=== PATIENT | female | born 1970 | race Caucasian/White ===

== ENCOUNTER 2018-11-22 13:00 | Emergency (ER) | payer OTHER, SELFPAY ==
[2018-11-22 14:29] LABS: Absolute Lymphocytes (CBC) 2.1 K/uL (0.7-4.9); Absolute Monocytes 0.5 K/uL (0.1-1.3); Basophils % 0.5 % (0-1.3); Eosinophils % 0.3 % (0-4.4); Hematocrit 42.6 % (36.0-45.0); Lymphocytes % 26.8 % (15.3-44.8); MPV 8.1 fL (7.6-11.3); Monocytes % 6.9 % (3.3-12.3)
[2018-11-22 14:36] LABS: Protime INR 1.02
[2018-11-22 15:01] LABS: ALT/SGPT 28 U/L (12-78); AST/SGOT 15 U/L (15-37); Albumin 3.9 g/dL (3.4-5.0); Alkaline Phosphatase 89 U/L (45-117); BUN Blood Urea Nitrogen 8 mg/dL (7-18); Bicarbonate 23 mmol/L (21-32); Bilirubin Direct 0.1 mg/dL (0-0.2); Bilirubin Total 0.4 mg/dL (0.2-1.0); Glucose Level 98 mg/dL (74-106); Potassium 3.4 mmol/L (3.5-5.1); Protein, Total 7.3 g/dL (6.4-8.2); Sodium Level 140 mmol/L (136-145)
[2018-11-22 15:08] LABS: Barbiturates NEGATIVE (NEGATIVE); Benzodiazepines NEGATIVE (NEGATIVE); Cocaine NEGATIVE (NEGATIVE); METHAMPHETAM NEGATIVE (NEGATIVE); Methadone NEGATIVE (NEGATIVE); Opiates NEGATIVE (NEGATIVE); Phencyclidine NEGATIVE (NEGATIVE); THC Cannibis NEGATIVE (NEGATIVE)
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
[2018-11-22 18:43] LABS: Urine Blood 2+ (NEG); Urine Glucose 2+ (NEG); Urine Protein NEGATIVE (NEG); Urine pH 5.5 (5.0-7.0)
--- NOTE | 2018-11-23 06:19 | EKG ---
Test Date: 2018-11-22 Test Time: 15:39:[address] Stenographer: MEASUREMENT RESULTS: Intervals: Rate: 65 TN: 134 QRSD: 86 QT: 446 QTc: 463 [place]: P: 13 TN: 134 QRS: 3 T: 64 INTERPRETIVE STATEMENTS: Normal sinus rhythm Normal ECG Compared to ECG 06/11/1998 08:48:00 Sinus tachycardia no longer present T-wave abnormality no longer present Electronically Signed On 11-23-18 06:15:06 CASH MANAGEMENT CLERK by Willie Blakely
== END 2018-11-22 17:15 ==
LOC: ER 13:00
DX: F33.9 Major depressive disorder, recurrent, unspecified (principal)
CPT/HCPCS: 36415; 80048; 80076; 80307; 80320; 80329; 81003; 81025; 85025; 85610; 85730; 93005; 96374; 99285

== ENCOUNTER 2019-02-16 18:41 | Emergency (ER) | payer OTHER ==
--- OUTSIDE RECORDS SUMMARY | 2019-02-16 18:50 | XMS REPORT | Summary of Care ---
:1970 Author Organization [facility] Address [address] [place] [address] Encounter HQ Wei_jacob(FIN) [id number] Date(s): 01/12/19 - 01/12/19 [facility] [address] [place] [address] [phone] Discharge Disposition: Home or Self Care Vital Signs Most recent to oldest [Reference Range]: 1 Height 175.26 cm (01/12/19 3:04 PM) Temperature Oral [96.4-99.1 DegF] 98.3 DegF (01/12/19 3:04 PM) Blood Pressure [90-140/60-90 mmHg] 146/80 mmHg *HI* (01/12/19 3:04 PM) Peripheral Pulse Rate [60-100 bpm] 77 bpm (01/12/19 3:04 PM) Weight 90.455 kg (01/12/19 3:04 PM) Body Mass Index 29.45 m2 (01/12/19 3:04 PM) Problem List Condition Effective Dates Status Health Status Informant Allergy to mold(Confirmed) Resolved Anxiety(Confirmed) Resolved Bipolar 1 disorder(Confirmed) Resolved Hematuria(Confirmed) Resolved Blood in urine(Confirmed) Resolved Meniscus, medial, Resolved derangement(Confirmed) Facial tic(Confirmed) Resolved Gastro-esophageal reflux(Confirmed) Resolved Blood in stool(Confirmed) Resolved Stress incontinence(Confirmed) Resolved Hypothyroid(Confirmed) Resolved Insomnia(Confirmed) Resolved Intentional overdose of drug in Resolved tablet form(Confirmed) Irregular menses(Confirmed) Resolved Low back pain(Confirmed) Resolved Melena(Confirmed) Resolved Insulin resistance(Confirmed) Resolved Mild intermittent acute asthmatic Resolved bronchitis(Confirmed) Over weight(Confirmed) Resolved Colon polyps(Confirmed) Resolved PTSD (post-traumatic stress Resolved disorder)(Confirmed) ACL injury tear(Confirmed) Resolved Allergies, Adverse Reactions, Alerts Substance Reaction Severity Status morphine PROzac Active Fungizone Lotion Active PROzac Active Medications clonazePAM 0.5 mg oral tablet 0.5 mg=1 tab, PO, TID, # 90 tab, 0 Refill(s) Start Date: 01/12/19 Stop Date: 01/13/19 Status: DiscontinuedclonazePAM 0.5 mg oral tablet 0.5 mg=1 tab, PO, Daily, # 30 tab, 0 Refill(s) Start Date: 01/13/19 Stop Date: 02/12/19 Status: OrderedcloNIDine 0.1 mg oral tablet 0.1 mg=1 tab, PO, BID, # 60 tab, 0 Refill(s), Pharmacy: [facility] Start Date: 01/13/19 Stop Date: 02/12/19 Status: OrderedcloNIDine 0.1 mg oral tablet 0.1 mg=1 tab, PO, BID, # 90 tab, 3 Refill(s) Start Date: 01/12/19 Stop Date: 01/13/19 Status: Discontinuedcyclobenzaprine 10 mg oral tablet 10 mg=1 tab, PO, TID, PRN for spasms, X 30 day, # 30 tab, 0 Refill(s), Pharmacy : [facility] Start Date: 01/13/19 Stop Date: 02/12/19 Status: Orderedcyclobenzaprine 10 mg oral tablet 10 mg=1 tab, PO, TID, PRN for spasms, # 30 tab, 0 Refill(s) Start Date: 01/12/19 Stop Date: 01/13/19 Status: Discontinuedoxybutynin 15 mg oral tablet, extended release 15 mg=1 tab, PO, Daily, # 30 tab, 0 Refill(s), Pharmacy: [facility] Start Date: 01/13/19 Stop Date: 02/12/19 Status: Orderedoxybutynin 15 mg oral tablet, extended release 15 mg=1 tab, PO, Daily, # 30 tab, 0 Refill(s) Start Date: 01/12/19 Stop Date: 01/13/19 Status: DiscontinuedPrilosec 20 mg oral delayed release capsule 20 mg=1 cap, PO, Daily, # 30 cap, 0 Refill(s), Pharmacy: [place] [id number] Start Date: 01/13/19 Stop Date: 02/12/19 Status: OrderedPrilosec 20 mg oral delayed release capsule 20 mg=1 cap, PO, Daily, # 30 cap, 0 Refill(s) Start Date: 01/12/19 Stop Date: 01/13/19 Status: Discontinuedtopiramate 100 mg oral tablet 100 mg=1 tab, PO, Daily, # 30 tab, 0 Refill(s), Pharmacy: [place] [id number] Start Date: 01/13/19 Stop Date: 02/12/19 Status: Orderedtopiramate 100 mg oral tablet 100 mg=1 tab, PO, Daily, # 30 tab, 3 Refill(s) Start Date: 01/12/19 Stop Date: 01/13/19 Status: Discontinuedtrazodone 50 mg oral tablet 50 mg=1 tab, PO, Bedtime, # 30 tab, 0 Refill(s), Pharmacy: [place] [id number] Start Date: 01/13/19 Stop Date: 02/12/19 Status: Orderedtrazodone 50 mg oral tablet 50 mg=1 tab, PO, Bedtime, # 30 tab, 1 Refill(s) Start Date: 01/12/19 Stop Date: 01/13/19 Status: DiscontinuedVentolin HFA INHALATION, QID, 0 Refill(s) Start Date: 01/12/19 Stop Date: 01/13/19 Status: DiscontinuedVentolin HFA 90 mcg/inh inhalation aerosol with adapter 2 puff, INHALATION, QID, # 1 ea, 1 Refill(s), Pharmacy: [place] [id number] Start Date: 01/13/19 Stop Date: 03/14/19 Status: Orderedvilazodone 40 mg oral tablet 40 mg=1 tab, PO, Daily, 0 Refill(s) Start Date: 01/12/19 Stop Date: 01/13/19 Status: Discontinuedvilazodone 40 mg oral tablet 40 mg=1 tab, PO, Daily, # 30 tab, 0 Refill(s), Pharmacy: [place] [id number] Start Date: 01/13/19 Stop Date: 02/12/19 Status: Ordered Results No data available for this section Immunizations No data available for this section Procedures Procedure Date Related Diagnosis Body Site Status Colonoscopy Completed Endoscopic biopsy Completed Removal of cystostomy tube Completed Tubal ligation Completed Social History Social History Type Response Smoking Status Current every day smoker; Type: Cigarettes; Exposure to Tobacco Smoke None; Cigarette Smoking Last 365 Days Yes; Reg Smoking Cessation Counseling Yes; Started at age: 14.0; entered on: 01/12/19 Assessment and Plan No data available for this section
--- OUTSIDE RECORDS SUMMARY | 2019-02-16 18:50 | XMS REPORT | Continuity of Care Document ---
:1970 Author Organization Interface Problems Problem Status Onset Classification Date Comments Source Date Reported Allergy to mold Resolved Problem 01/28/2019 Medical Group Anxiety Resolved Problem 01/28/2019 Medical Group Bipolar 1 Resolved Problem 01/28/2019 Medical disorder Group Hematuria Resolved Problem 01/28/2019 Medical Group Blood in urine Resolved Problem 01/28/2019 Medical Group Meniscus, Resolved Problem 01/28/2019 Medical medial, Group derangement Facial tic Resolved Problem 01/28/2019 Medical Group Gastro-esophagea Resolved Problem 01/28/2019 Medical l reflux Group Blood in stool Resolved Problem 01/28/2019 Medical Group Stress Resolved Problem 01/28/2019 Medical incontinence Group Hypothyroid Resolved Problem 01/28/2019 Medical Group Insomnia Resolved Problem 01/28/2019 Medical Group Intentional Resolved Problem 01/28/2019 Medical overdose of drug Group in tablet form Irregular menses Resolved Problem 01/28/2019 Medical Group Low back pain Resolved Problem 01/28/2019 Medical Group Melena Resolved Problem 01/28/2019 Medical Group Insulin Resolved Problem 01/28/2019 Medical resistance Group Mild Resolved Problem 01/28/2019 Medical intermittent Group acute asthmatic bronchitis Over weight Resolved Problem 01/28/2019 Medical Group Colon polyps Resolved Problem 01/28/2019 Medical Group PTSD (<span Resolved Problem 01/28/2019 Medical ID="[id number] Group ">Confirmed</spa n>) ACL injury tear Resolved Problem 01/28/2019 Medical Group Medications Medication Details Route Status Patient Ordering Order Source Instructions Provider Date vilazodone 40 mg 40 mg=1 Active oral tablet tab, PO, 019 Medical Daily, # 30 Group tab, 0 Refill(s), Pharmacy: [id number] Trazodone 50 mg=1 Active Hydrochloride 50 tab, PO, 019 Medical MG Oral Tablet Bedtime, # Group 30 tab, 0 Refill(s), Pharmacy: [facility] topiramate 100 mg 100 mg=1 Active MH oral tablet tab, PO, 019 Medical Daily, # 30 Group tab, 0 Refill(s), Pharmacy: [facility] oxybutynin 15 mg 15 mg=1 Active MH oral tablet, tab, PO, 019 Medical extended release Daily, # 30 Group tab, 0 Refill(s), Pharmacy: [facility] Omeprazole 20 MG 20 mg=1 Active MH Enteric Coated cap, PO, 019 Medical Capsule [Prilosec] Daily, # 30 Group cap, 0 Refill(s), Pharmacy: [facility] cyclobenzaprine 10 10 mg=1 Active MH mg oral tablet tab, PO, 019 Medical TID, PRN Group for spasms, X 30 day, # 30 tab, 0 Refill(s), Pharmacy: [facility] Clonidine 0.1 mg=1 Active Hydrochloride 0.1 tab, PO, 019 Medical MG Oral Tablet BID, # 60 Group tab, 0 Refill(s), Pharmacy: [facility] clonazePAM 0.5 mg 0.5 mg=1 Active MH oral tablet tab, PO, 019 Medical Daily, # 30 Group tab, 0 Refill(s) Ventolin HFA 90 2 puff, Active MH mcg/inh inhalation INHALATION, 019 Medical aerosol with QID, # 1 Group adapter ea, 1 Refill(s), Pharmacy: [facility] clonazePAM 0.5 mg 0.5 mg=1 No MH oral tablet tab, PO, Longer 019 Medical TID, # 90 Active Group tab, 0 Refill(s) vilazodone 40 mg 40 mg=1 No MH oral tablet tab, PO, Longer 019 Medical Daily, 0 Active Group Refill(s) Clonidine 0.1 mg=1 No MH Hydrochloride 0.1 tab, PO, Longer 019 Medical MG Oral Tablet BID, # 90 Active Group tab, 3 Refill(s) topiramate 100 mg 100 mg=1 No MH oral tablet tab, PO, Longer 019 Medical Daily, # 30 Active Group tab, 3 Refill(s) Ventolin HFA INHALATION, No 03/25/2 QID, 0 Longer 019 Medical Refill(s) Active Group oxybutynin 15 mg 15 mg=1 No oral tablet, tab, PO, Longer 019 Medical extended release Daily, # 30 Active Group tab, 0 Refill(s) Omeprazole 20 MG 20 mg=1 No Enteric Coated cap, PO, Longer 019 Medical Capsule [Prilosec] Daily, # 30 Active Group cap, 0 Refill(s) Trazodone 50 mg=1 No Hydrochloride 50 tab, PO, Longer 019 Medical MG Oral Tablet Bedtime, # Active Group 30 tab, 1 Refill(s) cyclobenzaprine 10 10 mg=1 No mg oral tablet tab, PO, Longer 019 Medical TID, PRN Active Group for spasms, # 30 tab, 0 Refill(s) Allergies, Adverse Reactions, Alerts Substance Category Reaction Severity Reaction Status Date Comments Source type Reported morphine Assertion PROzac Drug Active allergy Medical Group Fungizone Assertion Drug Active Lotion allergy Medical Group PROzac Assertion Drug Active allergy Medical Group Immunizations Immunization Date Given Site Status Last Updated Comments Source Results Order Results Value Reference Date Interpretation Comments Source Name Range Vital Signs Vital Sign Value Date Comments Source Temperature Oral (F) 98.3 F 01/12/2019 Medical [facility] Height 175.26 cm 01/12/2019 Medical [facility] BMI Calculated 29.45 01/12/2019 Medical [facility] Weight 90.455 01/12/2019 [facility] Heart Rate 77 01/12/2019 Medical [facility] Systolic (mm Hg) 146 01/12/2019 Medical [facility] Diastolic (mm Hg) 80 01/12/2019 Medical [facility] Encounters Location Location Encounter Encounter Reason Attending ADM DC Status Source Details Type Number For Provider Date Date Visit Outpatient [id number] 01/12 [facility] Outpatient [id number] 01/12 01/13 [facility] /2018 Medical [facility] Outpatient [id number] 01/26 [facility] Ambulatory [id number] 01/26 01/26 [facility]-Reg /2018 Medical Medicine [facility] Procedures Procedure Code Date Perfomer Comments Source Colonoscopy [id number] Medical Group Endoscopic biopsy [id number] Medical Group Removal of [id number] [facility] cystostomy tube Group Tubal ligation [id number] [facility]
--- OUTSIDE RECORDS SUMMARY | 2019-02-16 18:50 | XMS REPORT | Summary of Care ---
:1970 Author Organization [facility] Address [address] [place] [address]- Encounter HQ Stonentr_jacob(FIN) [id number] Date(s): 01/26/19 - 01/26/19 [facility] [address] [place] [id number]- [phone] Vital Signs No data available for this section Problem List Condition Effective Dates Status Health [...] Active Fungizone Lotion Active PROzac Active Medications No data available for this section Results No data available for this section [...]
--- OUTSIDE RECORDS SUMMARY | 2019-02-16 18:50 | XMS REPORT ---
:1970 Author Organization [facility] Address [address] [place] [address] Dr. Dela Cruz [address] [place] [id number] Care Team Providers Name Role Phone DR OLGA DANIEL Unavailable Unavailable Problems This patient has no known problems. Allergies, Adverse Reactions, Alerts This patient has no known allergies or adverse reactions. Medications This patient has no known medications. Encounters Start End Encounter Admission Attending Care Care Encounter Date/Time Date/Time Type Type Clinicians Facility Department ID 2019-01-27 2019-01-27 Outpatient E DEVONTE DANIEL [facility] [id number] 20:10:00 22:20:00 [facility] Results Test Description Test Time Test Comments Text Results Atomic Results Result Comments XR SPINE LUMBAR 2019-01-27 21:23:46 LOCATION: [id number]: 49-year-old female COMPLETE *OW* with acute low back pain.COMMENT:Frontal, lateral, and L5-S1 spot lateral radiographs of the lumbar spine wereexamined.The skeleton is intact and the alignment is anatomic.There is moderate disc space narrowing centered at the L5-S1 level. Posteriorfacet arthropathy is also seen at this level. The paraspinous soft tissues areunremarkable.IMPRESSION:Moderate disc space narrowing is seen in this patient's lumbar spine,compatible with degenerative disc disease.Otherwise, the appearance of this patient's lumbar spine is unremarkable.
[2019-02-16] MEDS ORDERED: LIDOCAINE VISCOUS 2% SOLN 15 ML UDC ONE (19:15)
[2019-02-16] MEDS ORDERED: LORazepam 2 MG/ML VIAL ONE (19:23)
[2019-02-16] MEDS ORDERED: FLEET ENEMA ADULT PR ONE (19:40)
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
--- NOTE | 2019-02-16 19:52 | EDPHYS ---
Physician Documentation [facility] Name: Kenzie Cartwright Age: 49 yrs Sex: Female : 1970 Arrival Date: 02/16/2019 Time: 18:44 Bed 6 Private MD: ED Physician Carlos Alberto Garay HPI: 02/16 20:14 This 49 yrs old Female presents to ER via EMS with complaints of Rectal Pain. gs 20:14 The patient presents to the emergency department with pain in the rectal area, that is gs severe. Onset: The symptoms/episode began/occurred today. Context: the patient impaction constipation. Modifying factors: The symptoms are aggravated by bowel movement. Associate signs and symptoms: Pertinent negatives: dysuria, fever, lower GI bleeding. The patient has experienced similar episodes in the past, several times. Historical: - Allergies: 18:48 Chantix; hb 18:48 Contrave; hb 18:48 mushrooms; hb 18:48 SHELLFISH; hb 18:48 Wellbutrin; hb 18:48 Demerol; hb - PMHx: 18:48 Bipolar disorder; Depression; overactive bladder; hb - Immunization history:: Adult Immunizations up to date. - Social history:: Smoking status: Patient/guardian denies using tobacco. - Ebola Screening: : No symptoms or risks identified at this time. ROS: 20:14 All other systems are negative. gs Exam: 20:14 Head/Face: Normocephalic, atraumatic. Eyes: Pupils equal round and reactive to light, gs extra-ocular motions intact. Lids and lashes normal. Conjunctiva and sclera are non-icteric and not injected. Cornea within normal limits. Periorbital areas with no swelling, redness, or edema. ENT: Nares patent. No nasal discharge, no septal abnormalities noted. Tympanic membranes are normal and external auditory canals are clear. Oropharynx with no redness, swelling, or masses, exudates, or evidence of obstruction, uvula midline. Mucous membranes moist. Neck: Trachea midline, no thyromegaly or masses palpated, and no cervical lymphadenopathy. Supple, full range of motion without nuchal rigidity, or vertebral point tenderness. No Meningismus. Chest/axilla: Normal chest wall appearance and motion. Nontender with no deformity. No lesions are appreciated. Respiratory: Lungs have equal breath sounds bilaterally, clear to auscultation and percussion. No rales, rhonchi or wheezes noted. No increased work of breathing, no retractions or nasal flaring. Abdomen/GI: Soft, non-tender, with normal bowel sounds. No distension or tympany. No guarding or rebound. No evidence of tenderness throughout. Back: No spinal tenderness. No costovertebral tenderness. Full range of motion. Skin: Warm, dry with normal turgor. Normal color with no rashes, no lesions, and no evidence of cellulitis. MS/ Extremity: Pulses equal, no cyanosis. Neurovascular intact. Full, normal range of motion. Neuro: Awake and alert, GCS 15, oriented to person, place, time, and situation. Cranial nerves II-XII grossly intact. Motor strength 5/5 in all extremities. Sensory grossly intact. Cerebellar exam normal. Normal gait. 20:14 Constitutional: The patient appears alert, awake, uncomfortable. 20:14 Cardiovascular: Rate: tachycardic, Rhythm: regular, Pulses: no pulse deficits are appreciated. 20:14 Abdomen/GI: Rectal exam: hemorrhoid(s), external, without bleeding, fecal impaction, that is moderate, the exam is chaperoned by an icu tech. Vital Signs: 18:45 BP 134 / 84; Pulse 107; Resp 18; Temp 98.2; Pulse Ox 100% on R/A; Pain 10/10; hb 20:03 BP 142 / 97; Pulse 105; Resp 20; Pulse Ox 97% on R/A; tl2 Procedures: 21:00 Fecal disimpaction: digital disimpaction was performed, with a moderate amount of stool gs expressed. The patient tolerated the intervention well. MDM: 19:26 Patient medically screened. gs 20:14 Data reviewed: vital signs, nurses notes. 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 Response to treatment: the patient's symptoms have markedly improved after treatment, the patient's condition has returned to base line, and as a result, I will discharge patient. Administered Medications: 19:15 Drug: Ativan 1 mg Route: IVP; Site: right antecubital; tl2 20:07 Follow up: Response: No adverse reaction; Anxiety decreased tl2 19:40 Drug: Fleet Enema 133 ml Route: ND; tl2 20:07 Follow up: Response: No adverse reaction; Marked relief of symptoms tl2 Disposition: 02/16/19 19:52 Discharged to Home. Impression: Fecal impaction, Constipation. - Condition is Stable. - Discharge Instructions: Constipation, Adult, [id number], Fecal Impaction. - Medication Reconciliation Form, Thank You Letter, Antibiotic Education, Prescription Opioid Use form. - Follow up: Private Physician; When: 1 - 2 days; Reason: Re-evaluation by your physician. Signatures: Che Varela RN RN Eleanor Dias RN RN 2 Carlos Alberto Garay MD MD Corrections: (The following items were deleted from the chart) 20:07 19:52 02/16/2019 19:52 Discharged to Home. Impression: Fecal impaction; Constipation. tl2 Condition is Stable. Forms are Medication Reconciliation Form, Thank You Letter, Antibiotic Education, Prescription Opioid Use. Follow up: Private Physician; When: 1 - 2 days; Reason: Re-evaluation by your physician. gs
== END 2019-02-16 20:07 | disposition home or self-care (01) ==
LOC: ER 18:41
DX: K56.41 Fecal impaction (principal); Z88.5 Allergy status to narcotic agent; Z88.8 Allergy status to other drugs, medicaments and biological substances; Z91.013 Allergy to seafood
CPT/HCPCS: 96374; 99283

== ENCOUNTER 2020-02-16 10:02 | Emergency (ER) | payer OTHER ==
--- OUTSIDE RECORDS SUMMARY | 2020-02-16 10:05 | XMS REPORT ---
:1970 Author Organization [facility] t Address [address] [place] [address] Care Team Providers Name Role Phone DR Jannie DANIEL Unavailable Unavailable Problems This patient has no known problems. Allergies, Adverse Reactions, Alerts This patient has no known allergies or adverse reactions. Medications This patient has no known medications. Encounters Start End Encounter Admission Attending Care Care Encounter Date/Time Date/Time Type Type Clinicians Facility Department ID 2019-01-27 2019-01-27 Outpatient E DEVONTE DANIEL [facility] [id number] 20:10:00 22:20:00 [facility] Results Test Description Test Time Test Comments Text Results Atomic Results Result Comments XR SPINE LUMBAR 2019-01-27 21:23:46 LOCATION: [id number] RY: 49-year-old female COMPLETE *OW* with acute low back pain.CO MMENT:Frontal, lateral, and L5-S1 spot late ral radiographs of the lumbar spine wereexam ined.The skeleton is intact and the a lignment is anatomic.There is moderate d isc space narrowing centered at the L5 -S1 level. Posteriorfacet arthropathy i s also seen at this level. The paraspinous soft tissues areunremarkable.IMPRESSION:M oderate disc space narrowing is seen in t his patient's lumbar spine,compatible with degenerative disc disease.Otherwise, the appearance of this patient's lumbar spine is unremarkable.
[2020-02-16 10:41] LABS: Absolute Lymphocytes (CBC) 2.4 K/uL (0.7-4.9); Hematocrit 46.6 % (36.0-45.0); Lymphocytes % 37.9 % (15.3-44.8); MPV 8.3 fL (7.6-11.3); RBC Red Blood Cell Count 5.13 M/uL (3.86-4.86)
[2020-02-16 10:49] LABS: Urine Blood 2+ (NEG); Urine Glucose 3+ (NEG); Urine Protein NEGATIVE (NEG); Urine Specific Gravity 1.025 (1.005-1.030); Urine pH 5.5 (5.0-7.0)
[2020-02-16 10:55] LABS: Potassium 3.3 mmol/L (3.5-5.1)
--- NOTE | 2020-02-16 10:56 | RAD REPORT ---
EXAM DESCRIPTION: CT - Stone Protocol - 02/16/2020 10:38 am CLINICAL HISTORY: flank pain, hematuria, hx of kidney stones COMPARISON: No comparisons TECHNIQUE: Axial 5 mm thick images were obtained without oral or IV contrast. The [id number] span s the entirety of the system including uppermost abdomen and lung bases. All CT scans are performed using dose optimization technique as appropriate and may include automated exposure control or mA/KV adjustment according to patient size. FINDINGS: No hydronephrosis is present and no obstructing ureteral calculi. No nonobstructing calcul i present. No suspicious renal masses. Isodense masses and pyelonephritis are not excluded on a stone protocol CT scan. No significant adrenal finding. Urinary bladder is fully contracted. No bladder ca lculi seen. Multiple phleboliths are seen along the pelvic floor. No uterine or right ovarian abnormality. Left ovary contains a 2.9 centimeter cyst. No cyst rupture o r hemorrhage findings. Imaged portions of the liver, spleen and pancreas show no suspicious findings on non-contrast imaging . No gallbladder or biliary tree abnormality identified. No suspicious bowel findings. Appendix is normal. No hernia, mass or bulky lymphadenopathy noted. No free air, free fluid or inflammatory stranding. No significant bony abnormality. L5-S1 disc space narrowing and degenerative gas present. IMPRESSION: No hydronephrosis, obstructing calculus or acute finding. Isodense masses and pyelonephritis are not excluded on stone protocol technique. A 2.9 centimeter left ovarian cyst is present without rupture or hemorrhage findings. No active process identifiable.
--- NOTE | 2020-02-16 11:16 | ER ---
Nurse's Notes [facility] Name: Kenzie Cartwright Age: 50 yrs Sex: Female : 1970 Arrival Date: 02/16/2020 Time: 10:05 Bed 5 Private MD: Diagnosis: Hematuria, unspecified;Dehydration Presentation: 02/15 10:18 Chief complaint: Patient states: bilateral flank pain x 1 week with blood in the urine, jl7 denies burning/pain with urination. Coronavirus screen: Proceed with normal triage. Patient denies a cough. Patient denies shortness of breath or difficulty breathing. Patient denies measured and/or subjective temperature greater than 100.4F prior to today's visit. Patient denies travel on a cruise ship or to a country the [facility] currently lists as an affected area. Patient denies contact with known and/or suspected case of COVID-19. Ebola Screen: No symptoms or risks identified at this time. Initial Sepsis Screen: Does the patient meet any 2 criteria? No. Patient's initial sepsis screen is negative. Does the patient have a suspected source of infection? No. Patient's initial sepsis screen is negative. Risk Assessment: Do you want to hurt yourself or someone else? Patient reports no desire to harm self or others. Onset of symptoms was February 09, 2020. Care prior to arrival: None. 10:18 Method Of Arrival: Ambulatory jl7 10:18 Acuity: ERICA 3 jl7 Triage Assessment: 10:21 General: Appears in no apparent distress. uncomfortable, Behavior is calm, cooperative, jl7 appropriate for age. Pain: Complains of pain in bilateral flank Pain currently is 5 out of 10 on a pain scale. Neuro: Level of Consciousness is awake, alert, obeys commands, Oriented to person, place, time, situation. Cardiovascular: Patient's skin is warm and dry. Respiratory: Airway is patent Respiratory effort is even, unlabored, Respiratory pattern is regular, symmetrical. GI: Abdomen is round non-distended, Reports nausea, Patient currently denies constipation, diarrhea, vomiting. : Reports pain in bilateral flank(s), blood in urine. Derm: Skin is pink, warm \T\ dry. 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 - Social history:: Smoking status: Patient reports the use of cigarette tobacco products, smokes one pack cigarettes per day. - Family history:: not pertinent. - Hospitalizations: : No recent hospitalization is reported. Screenin:22 Abuse screen: Denies threats or abuse. Denies injuries from another. Nutritional jl7 screening: No deficits noted. Tuberculosis screening: No symptoms or risk factors identified. Fall Risk IV access (20 points). Total Cedeno Fall Scale indicates No Risk (0-24 pts). Vital Signs: 10:18 BP 154 / 96; Pulse 83; Resp 17 S; Temp 97.6(O); Pulse Ox 98% on R/A; Pain 5/10; jl7 11:13 BP 141 / 86; Pulse 73; Resp 16; Pulse Ox 98% ; sv ED Course: 10:05 Patient arrived in ED. as 10:07 Olga Leonard, RN is Primary Nurse. jl7 10:08 Deejay Miranda MD is Attending Physician. rn 10:20 Triage completed. jl7 10:21 Arm band placed on right wrist. jl7 10:22 Patient has correct armband on for positive identification. Bed in low position. Call jl7 light in reach. Side rails up X 1. Pulse ox on. NIBP on. 10:28 Initial lab(s) drawn, by nc, sent to lab. Inserted saline lock: 20 gauge in right kj1 antecubital area, using aseptic technique. Blood collected. 10:28 Urine collected: clean catch specimen, cloudy, Amount Voided: 80mL. kj1 10:38 CT Stone Protocol In Process Unspecified. EDMS 11:19 Willis Noble MD is Referral Physician. rn 11:22 No provider procedures requiring assistance completed. IV discontinued, intact, sv bleeding controlled, No redness/swelling at site. Pressure dressing applied. Administered Medications: No medications were administered Outcome: :15 Discharge ordered by . rn 11:25 Discharged to home ambulatory. jlElsie 11: Condition: stable 11:25 Discharge instructions given to patient, Instructed on discharge instructions, follow up and referral plans. Demonstrated understanding of instructions, follow-up care. 11:25 Patient left the ED. jefferson Signatures: Dispatcher [employer] EDAna Griffin RN RN sv Martinez, Amelia as Nieto, Roman, MD MD rn Leal, Jahala, RN RN jl7 Jackson, Kandis kj1
--- NOTE | 2020-02-16 11:16 | EDPHYS ---
Physician Documentation [facility] Name: Kenzie Cartwright Age: 50 yrs Sex: Female : 1970 Arrival Date: 02/16/2020 Time: 10:05 Bed 5 Private MD: ED Physician Deejay Miranda HPI: 02/15 10:23 This 50 yrs old Female presents to ER via Ambulatory with complaints of rn Possible Kidney Stone. 10:23 The patient complains of pain in the left low back and right low back. The pain does rn not radiate. 10:23 Onset: The symptoms/episode began/occurred 1 week(s) ago. Modifying factors: The rn symptoms are alleviated by nothing. the symptoms are aggravated by nothing. Severity of pain: At its worst the pain was mild in the emergency department the pain is unchanged. The patient has experienced a previous episode. Reports hx of kidney stone in past, similar pain in bilateral flanks for 1 week assoc with darker urine, thinks may have blood in it. No trauma. No recent medication change. . 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 - Social history:: Smoking status: Patient reports the use of cigarette tobacco products, smokes one pack cigarettes per day. - Family history:: not pertinent. - Hospitalizations: : No recent hospitalization is reported. ROS: 10:23 Constitutional: Negative for fever, chills, and weight loss, Cardiovascular: Negative rn for chest pain, palpitations, and edema, Respiratory: Negative for shortness of breath, cough, wheezing, and pleuritic chest pain, Abdomen/GI: Negative for abdominal pain, nausea, vomiting, diarrhea, and constipation, Back: + bilateral flank pain : + dark urine, + possible hematuria MS/Extremity: Negative for injury and deformity, Skin: Negative for injury, rash, and discoloration, Neuro: Negative for headache, weakness, numbness, tingling, and seizure. Exam: 10:23 Constitutional: This is a well developed, well nourished patient who is awake, alert, rn and in no acute distress. Ambulatory to room without difficulty or assistance. ENT: MMM Cardiovascular: Regular rate and rhythm. No pulse deficits. Respiratory: Speaking full sentences. No increased work of breathing, no retractions or nasal flaring. Abdomen/GI: soft, non-tender Back: No spinal tenderness. No costovertebral tenderness. Full range of motion. Skin: Warm, dry MS/ Extremity: Pulses equal, no cyanosis. Vital Signs: 10:18 BP 154 / 96; Pulse 83; Resp 17 S; Temp 97.6(O); Pulse Ox 98% on R/A; Pain 5/10; jl7 11:13 BP 141 / 86; Pulse 73; Resp 16; Pulse Ox 98% ; sv MDM: 10:08 Patient medically screened. rn 11:13 Differential diagnosis: nephrolithiasis, pyelonephritis, UTI. Data reviewed: vital rn signs, nurses notes, lab test result(s), radiologic studies, and as a result, I will discharge patient. Counseling: I had a detailed discussion with the patient and/or guardian regarding: the historical points, exam findings, and any diagnostic results supporting the discharge/admit diagnosis, lab results, radiology results, the need for outpatient follow up, to return to the emergency department if symptoms worsen or persist or if there are any questions or concerns that arise at home. Response to treatment: There is no appreciated change of the patient's symptoms at this time, and as a result, I will discharge patient. Special discussion: I discussed with the patient/guardian in detail that at this point there is no indication for admission to the hospital. It is understood, however, that if the symptoms persist or worsen the patient needs to return immediately for re-evaluation. Based on the history and exam findings, there is no indication for further emergent testing or inpatient evaluation. I discussed with the patient/guardian the need to see the primary care provider for further evaluation of the symptoms. I discussed with the patient/guardian the need to see the urologist for further evaluation of the symptoms. nephrology. ED course: Pt without acute findings on blood or ct. Had small left ovarian cyst, patient states multiple w/u in past for ovarian cysts and problems, often rupture, today not ruptured. also has had urological w/u including scope to evaluate chronic hematuria without clear etiology. Will dc home with pcp and nephrology f/u. . 02/15 10:21 Order name: CBC with Diff; Complete Time: 11:04 rn 02/15 10:21 Order name: Basic Metabolic Panel; Complete Time: 11:04 rn 02/15 10:21 Order name: Urine Microscopic Only rn 02/15 10:21 Order name: CT Stone Protocol; Complete Time: 11:04 rn 02/15 10:45 Order name: Urine Dipstick--Ancillary (enter results); Complete Time: 11:04 em1 02/15 10:45 Order name: Urine --Ancillary (enter results); Complete Time: 11: [facility] 02/15 10:21 Order name: IV Start; Complete Time: 10:31 rn 02/15 10:21 Order name: Urine Dipstick-Ancillary (obtain specimen); Complete Time: 10:43 rn Administered Medications: No medications were administered Disposition: 02/16/20 11:15 Discharged to Home. Impression: Hematuria, unspecified, Dehydration. - Condition is Stable. - Discharge Instructions: Dehydration, Adult, Hematuria, Adult, Ovarian Cyst. - Medication Reconciliation Form, Thank You Letter, Antibiotic Education, Prescription Opioid Use form. - Follow up: Private Physician; When: As needed; Reason: Recheck today's complaints, Re-evaluation by your physician. Follow up: Willis Noble MD; When: As needed; Reason: Recheck today's complaints, Re-evaluation by your physician. - Problem is an ongoing problem. - Symptoms are unchanged. Signatures: Dispatcher [employer] EDDeejay Sinclair MD MD rn Leal, Jahala, RN RN jl7 Corrections: (The following items were deleted from the chart) 11:19 11:15 02/16/2020 11:15 Discharged to Home. Impression: Hematuria, unspecified; rn Dehydration. Condition is Stable. Forms are Medication Reconciliation Form, Thank You Letter, Antibiotic Education, Prescription Opioid Use. Follow up: Private Physician; When: As needed; Reason: Recheck today's complaints, Re-evaluation by your physician. Problem is an ongoing problem. Symptoms are unchanged. rn 11:25 11:19 02/16/2020 11:15 Discharged to Home. Impression: Hematuria, unspecified; jl7 Dehydration. Condition is Stable. Discharge Instructions: Dehydration, Adult, Hematuria, Adult, Ovarian Cyst. Forms are Medication Reconciliation Form, Thank You Letter, Antibiotic Education, Prescription Opioid Use. Follow up: Private Physician; When: As needed; Reason: Recheck today's complaints, Re-evaluation by your physician. Follow up: Willis Noble; When: As needed; Reason: Recheck today's complaints, Re-evaluation by your physician. Problem is an ongoing problem. Symptoms are unchanged. rn
[2020-02-16 11:41] VITALS: TEMP 97.6; O2SAT 98
[2020-02-16 11:42] VITALS: BP 141/86
[2020-02-16 12:40] LABS: Urine Bacteria <20 /HPF (<20); Urine Culture Reflex Order NOT NEEDED; Urine Mucus SLIGHT /HPF (NONE SEEN); Urine RBC <5 /HPF (NONE SEEN)
== END 2020-02-16 11:25 | disposition home or self-care (01) ==
LOC: ER 10:02
DX: R31.9 Hematuria, unspecified (principal); E86.0 Dehydration; F17.210 Nicotine dependence, cigarettes, uncomplicated; F31.9 Bipolar disorder, unspecified; Z88.5 Allergy status to narcotic agent; Z88.8 Allergy status to other drugs, medicaments and biological substances; Z91.013 Allergy to seafood; Z91.018 Allergy to other foods
CPT/HCPCS: 36415; 74176; 76377; 80048; 81003; 81015; 81025; 85025; 99284

== ENCOUNTER 2020-09-05 09:52 | Emergency (ER) | payer OTHER ==
[2020-09-05] MEDS ORDERED: dexAMETHasone 4 MG/ML VIAL ONE (10:45)
[2020-09-05] MEDS ORDERED: LEVALBUTEROL 1.25 MG/3 ML NEB ONE (10:46)
[2020-09-05 11:23] LABS: Absolute Lymphocytes (CBC) 2.2 K/uL (0.7-4.9); Basophils % 0.6 % (0-1.3); Lymphocytes % 34.8 % (15.3-44.8); MPV 8.9 fL (7.6-11.3); RBC Red Blood Cell Count 5.03 M/uL (3.86-4.86)
--- OUTSIDE RECORDS SUMMARY | 2020-09-05 11:27 | XMS REPORT | Continuity of Care Document ---
:1970 Author Organization [facility] Care Team Providers Name Role Phone [facility] Unavailable Un available Problems Problem Status Onset Classification Date Comments Sourc e Date Reported Allergy to mold Resolved Problem 01/28/2019 [facility]order[facility] Anxiety (finding) Resolved Problem 01/28/2019 [facility] Bipolar I disorder Resolved Problem 01/28/2019 [facility]disorder[facility] Blood in urine Resolved Problem 01/28/2019 (finding) [facility] Group Derangement of Resolved Problem 01/28/2019 medial meniscus [facility] (disorder) [facility] Facial tic disorder Resolved Problem 01/28/2019 [facility] (disorder[facility] Gastroesophageal Resolved Problem 01/28/2019 reflux disease Medic al (disorder) Group Gastrointestinal Resolved Problem 01/28/2019 hemorrhage Medical (disorder) Group Genuine stress Resolved Problem 01/28/2019 incontinence Medical (finding) Group Hypothyroidism Resolved Problem 01/28/2019 [facility] (disorder) [facility] Insomnia (disorder) Resolved Problem 01/28/2019 Medical Group Intentional drug Resolved Problem 01/28/2019 overdose by tablet M edical (disorder) Group Irregular periods Resolved Problem 01/28/2019 [facility] (finding) [facility] Low back pain Resolved Problem 01/28/2019 [facility] (disorder[facility] Melena (disorder) Resolved Problem 01/28/2019 [facility] Metabolic disease Resolved Problem 01/28/2019 [facility] (disorder) [facility] Mild intermittent Resolved Problem 01/28/2019 M H asthma (disorder) Me dical Group Overweight Resolved Problem 01/28/2019 (finding) Medical Group Polyp of colon Resolved Problem 01/28/2019 [facility] (disorder) [facility] Posttraumatic Resolved Problem 01/28/2019 stress disorder [facility] (disorder) Group Rupture of anterior Resolved Problem 01/28/2019 cruciate ligament Me dical (disorder) Group Medications Medication Details Route Status Patient Ordering Order Source Instructions Provider Date vilazodone 40 mg 40 mg = 1 Active oral tablet tab, PO, 019 Medical Daily, # 30 Group tab, 0 Refill(s), Pharmacy: [id number] Trazodone 50 mg = 1 Active Hydrochloride 50 tab, PO, 019 Medica l MG Oral Tablet Bedtime, # Group 30 tab, 0 Refill(s), Pharmacy: [facility] topiramate 100 mg 100 mg = 1 Active oral tablet tab, PO, 019 Medical Daily, # 30 Group tab, 0 Refill(s), Pharmacy: [facility] oxybutynin 15 mg 15 mg = 1 Active oral tablet, tab, PO, 019 Medical extended release Daily, # 30 Abhi up tab, 0 Refill(s), Pharmacy: [facility] Omeprazole 20 MG 20 mg = 1 Active Enteric Coated cap, PO, 019 Medical Capsule [Prilosec] Daily, # 30 G roup cap, 0 Refill(s), Pharmacy: [facility] cyclobenzaprine 10 10 mg = 1 Active MH mg oral tablet tab, PO, 019 Medical TID, PRN Group for spasms, X 30 day, # 30 tab, 0 Refill(s), Pharmacy: [facility] Clonidine 0.1 mg = 1 Active Hydrochloride 0.1 tab, PO, 019 Medic al MG Oral Tablet BID, # 60 Group tab, 0 Refill(s), Pharmacy: [facility] clonazePAM 0.5 mg 0.5 mg = 1 Active oral tablet tab, PO, 019 Medical Daily, # 30 Group tab, 0 Refill(s) Ventolin HFA 90 2 puff, Active MH mcg/inh inhalation INHALATION, 019 M edical aerosol with QID, # 1 Group adapter ea, 1 Refill(s), Pharmacy: [facility] clonazePAM 0.5 mg 0.5 mg = 1 No MH oral tablet tab, PO, Longer 019 Medical TID, # 90 Active Group tab, 0 Refill(s) vilazodone 40 mg 40 mg = 1 No oral tablet tab, PO, Longer 019 Medical Daily, 0 Active Group Refill(s) Clonidine 0.1 mg = 1 No Hydrochloride 0.1 tab, PO, Longer 019 Medic al MG Oral Tablet BID, # 90 Active Group tab, 3 Refill(s) topiramate 100 mg 100 mg = 1 No oral tablet tab, PO, Longer 019 Medical Daily, # 30 Active Group tab, 3 Refill(s) Ventolin HFA INHALATION, No MH QID, 0 Longer 019 Medical Refill(s) Active Group oxybutynin 15 mg 15 mg = 1 No oral tablet, tab, PO, Longer 019 Medical extended release Daily, # 30 Active Abhi up tab, 0 Refill(s) Omeprazole 20 MG 20 mg = 1 No Enteric Coated cap, PO, Longer 019 Medical Capsule [Prilosec] Daily, # 30 Active G roup cap, 0 Refill(s) Trazodone 50 mg = 1 No Hydrochloride 50 tab, PO, Longer 019 Medica l MG Oral Tablet Bedtime, # Active Group 30 tab, 1 Refill(s) cyclobenzaprine 10 10 mg = 1 No mg oral tablet tab, PO, Longer 019 Medical TID, PRN Active Group for spasms, # 30 tab, 0 Refill(s) Allergies, Adverse Reactions, Alerts Substance Category Reaction Severity Reaction Status Date Comments S ource type Reported morphine Assertion PROzac Drug Active allergy Medical Group Fungizone Assertion Drug Active Lotion allergy Medical Group PROzac Assertion Drug Active allergy Medical Group Immunizations No Data Provided for This Section Results No Data Provided for This Section Pathology Reports No Data Provided for This Section Diagnostic Reports No Data Provided for This Section Consultation Notes No Data Provided for This Section Discharge Summaries No Data Provided for This Section History and Physicals No Data Provided for This Section Vital Signs Vital Sign Value Date Comments Source Temperature Oral (F) 98.3 F 01/12/2019 [facility] Height 175.26 cm 01/12/2019 [facility] BMI Calculated 29.45 01/12/2019 [facility] Gr oup Weight 90.455 01/12/2019 [facility] p Heart Rate 77 01/12/2019 [facility] p Systolic (mm Hg) 146 01/12/2019 Medical Group Diastolic (mm Hg) 80 01/12/2019 Medical Group Encounters Location Location Encounter Encounter Reason Attending ADM DC Stat us Source Details Type Number For Provider Date Date Visit Outpatient [id number] 01/12 [facility] Outpatient [id number] 01/12 01/13 [facility] [place] Outpatient [id number] 01/26 [facility] Ambulatory [id number] 01/26 01/26 [facility] Pre-Reg /2018 [facility] [place] Procedures Procedure Code Date Perfomer Comments Source Colonoscopy [id number] Medical Group Endoscopic biopsy [id number] [facility] Removal of [id number] [facility] cystostomy tube Group Tubal ligation [id number] Medical Group Assessment and Plan No Data Provided for This Section Plan of Care No Data Provided for This Section Social History Social History Date Source Social History TypeResponse 01/12/2019 [facility] Smoking Status Current every day smoker; Type: Cigarett es; Exposure to Tobacco Smoke None; Cigarette Smoking Last 365 Days Yes; Reg Smoking Cessation Counseling Yes; Started at age: 14.0; entered on: 01/12/19 Family History No Data Provided for This Section Advance Directives No Data Provided for This Section Functional Status No Data Provided for This Section
--- OUTSIDE RECORDS SUMMARY | 2020-09-05 11:27 | XMS REPORT | Continuity of Care Document ---
:1970 Author Organization [facility] t Address [address] [place] [address] Care Team Providers Name Role Phone DR Jannie DANIEL Attending Clinician Unavailable DR Jannie DANIEL Admitting Clinician Unavailable Problems Condition Condition Condition Status Onset Resolution Last Treating Co mments Source Name Details Category Date Date Treatment Clinician Date Allergy to Problem Resolve 2019-01-28 Memoria mold d 22:19:46 l (disorder) Allergy Her steen to mold (disorder) Resolved Problem 01/28/2019 [facility] Anxiety Problem Resolve 2019-01-28 Mem oria (finding) d 22:19:46 l Anxiety [place] (finding) Resolved Problem 01/28/2019 [facility] Bipolar I Problem Resolve 2019-01-28 M emoria disorder d 22:19:46 l (disorder) Bipolar Her steen I disorder (disorder) Resolved Problem 01/28/2019 [facility] Blood in Problem Resolve 2019-01-28 Me moria urine d 22:19:46 l (finding) Blood in Her steen urine (finding) Resolved Problem 01/28/2019 [facility] Derangemen Problem Resolve 2019-01-28 Memoria t of d 22:19:46 l medial Jesse meniscus Derangemen (disorder) t of medial meniscus (disorder) Resolved Problem 01/28/2019 [facility] Facial tic Problem Resolve 2019-01-28 Memoria disorder d 22:19:46 l (disorder) Facial Herm gabriel tic disorder (disorder) Resolved Problem 01/28/2019 [facility] Gastroesop Problem Resolve 2019-01-28 Memoria hageal d 22:19:46 l reflux Jesse disease Gastroesop (disorder) hageal reflux disease (disorder) Resolved Problem 01/28/2019 [facility] Gastrointe Problem Resolve 2019-01-28 Memoria stinal d 22:19:46 l hemorrhage Christopher n (disorder) Gastrointe stinal hemorrhage (disorder) Resolved Problem 01/28/2019 [facility] Genuine Problem Resolve 2019-01-28 Mem oria stress d 22:19:46 l incontinen Genuine Her steen ce stress (finding) incontinen ce (finding) Resolved Problem 01/28/2019 [facility] Hypothyroi Problem Resolve 2019-01-28 Memoria dism d 22:19:46 l (disorder) Christopher n Hypothyroi dism (disorder) Resolved Problem 01/28/2019 [facility] Insomnia Problem Resolve 2019-01-28 Me moria (disorder) d 22:19:46 l Insomnia Christopher n (disorder) Resolved Problem 01/28/2019 [facility] Intentiona Problem Resolve 2019-01-28 Memoria l drug d 22:19:46 l overdose Jesse by tablet Intentiona (disorder) l drug overdose by tablet (disorder) Resolved Problem 01/28/2019 [facility] Irregular Problem Resolve 2019-01-28 M emoria periods d 22:19:46 l (finding) [place] Irregular periods (finding) Resolved Problem 01/28/2019 [facility] Low back Problem Resolve 2019-01-28 Me moria pain d 22:19:46 l (disorder) Low back He rmann pain (disorder) Resolved Problem 01/28/2019 [facility] Melena Problem Resolve 2019-01-28 Bryce jimena (disorder) d 22:19:46 l Melena [place] (disorder) Resolved Problem 01/28/2019 [facility] Metabolic Problem Resolve 2019-01-28 M emoria disease d 22:19:46 l (disorder) Christopher n Metabolic disease (disorder) Resolved Problem 01/28/2019 [facility] Mild Problem Resolve 2019-01-28 Bryce jimena intermitte d 22:19:46 l nt asthma Mild [place] (disorder) intermitte nt asthma (disorder) Resolved Problem 01/28/2019 [facility] Overweight Problem Resolve 2019-01-28 Memoria (finding) d 22:19:46 l [place] Overweight (finding) Resolved Problem 01/28/2019 [facility] Polyp of Problem Resolve 2019-01-28 Me moria colon d 22:19:46 l (disorder) Polyp of He rmann colon (disorder) Resolved Problem 01/28/2019 [facility] Posttrauma Problem Resolve 2019-01-28 Memoria tic stress d 22:19:46 l disorder Jesse (disorder) Posttrauma tic stress disorder (disorder) Resolved Problem 01/28/2019 [facility] Rupture of Problem Resolve 2019-01-28 Memoria anterior d 22:19:46 l cruciate Rupture Felicia nn ligament of (disorder) anterior cruciate ligament (disorder) Resolved Problem 01/28/2019 [facility] Allergies, Adverse Reactions, Alerts Allergy Allergy Status Severity Reaction(s) Onset Inactive Treating Comm ents Source Name Type Date Date Clinician morphine morphine Active Memori a l Jesse Fungizon Fungizon Active Memori a e Lotion e Lotion l Jeses PROzac PROzac Active Memoria l Jesse Social History Smoking Status Start Date Stop Date Source Social History 2019-01-12 20:19:25 [facility] Medications Ordered Filled Start Stop Current Ordering Indication Dosage Frequency Signature Comments Components Source Medication Medication Date Date Medication? Clinician (SIG) Name Name vilazodone Yes 40 mg = 1 Me moria 40 mg oral 3-26 tab, PO, l tablet 13:57: Daily, # [place] 00 30 tab, 0 Refill(s), Pharmacy: [facility] Trazodone Yes 50 mg = 1 Mem oria Hydrochlori 3-26 tab, PO, l de 50 MG 13:57: Bedtime, # Her steen Oral Tablet 00 30 tab, 0 Refill(s), Pharmacy: [facility] topiramate Yes 100 mg = 1 M emoria 100 mg oral 3-26 tab, PO, l tablet 13:57: Daily, # [place] 00 30 tab, 0 Refill(s), Pharmacy: [facility] oxybutynin Yes 15 mg = 1 Me moria 15 mg oral 3-26 tab, PO, l tablet, 13:57: Daily, # Christopher n extended 00 30 tab, 0 release Refill(s), Pharmacy: [facility] Omeprazole 2018- Yes 20 mg = 1 Me moria 20 MG 3-26 cap, PO, l Enteric 13:57: Daily, # Christopher n Coated 00 30 cap, 0 Capsule Refill(s), [Prilosec] Pharmacy: [facility] cyclobenzap 2018- Yes 10 mg = 1 M emoria rine 10 mg 3-26 tab, PO, l oral tablet 13:57: TID, PRN He rmann 00 for spasms, X 30 day, # 30 tab, 0 Refill(s), Pharmacy: [facility] 52 Clonidine Yes 0.1 mg = 1 Me moria Hydrochlori 3-26 tab, PO, l de 0.1 MG 13:57: BID, # 60 Her steen Oral Tablet 00 tab, 0 Refill(s), Pharmacy: [facility] clonazePAM Yes 0.5 mg = 1 M emoria 0.5 mg oral 3-26 tab, PO, l tablet 13:57: Daily, # Jesse 00 30 tab, 0 Refill(s) Ventolin Yes 2 puff, Memori a HFA 90 3-26 INHALATION l mcg/inh 13:57: , QID, # 1 Herm gabriel inhalation 00 ea, 1 aerosol Refill(s), with Pharmacy: adapter [facility] clonazePAM No 0.5 mg = 1 M emoria 0.5 mg oral 3-25 tab, PO, l tablet 20:19: TID, # 90 Christopher n 00 tab, 0 Refill(s) vilazodone No 40 mg = 1 Me moria 40 mg oral 3-25 tab, PO, l tablet 20:19: Daily, 0 [place] 00 Refill(s) Clonidine No 0.1 mg = 1 Me moria Hydrochlori 3-25 tab, PO, l de 0.1 MG 20:19: BID, # 90 Her steen Oral Tablet 00 tab, 3 Refill(s) topiramate No 100 mg = 1 M emoria 100 mg oral 3-25 tab, PO, l tablet 20:19: Daily, # Jesse 00 30 tab, 3 Refill(s) Ventolin 0 No INHALATION Mem oria HFA 3-25 , QID, 0 l 20:19: Refill(s) Jesse 00 oxybutynin No 15 mg = 1 Me moria 15 mg oral 3-25 tab, PO, l tablet, 20:19: Daily, # Christopher n extended 00 30 tab, 0 release Refill(s) Omeprazole No 20 mg = 1 Me moria 20 MG 3-25 cap, PO, l Enteric 20:19: Daily, # Christopher n Coated 00 30 cap, 0 Capsule Refill(s) [Prilosec] Trazodone No 50 mg = 1 Mem oria Hydrochlori 3-25 tab, PO, l de 50 MG 20:19: Bedtime, # steen Oral Tablet 00 30 tab, 1 Refill(s) cyclobenzap No 10 mg = 1 M emoria rine 10 mg 3-25 tab, PO, l oral tablet 20:19: TID, PRN He rmann 00 for spasms, # 30 tab, 0 Refill(s) Vital Signs Vital Name Observation Time Observation Value Comments Source Temperature Oral (F) 2019-01-12 20:04:00 98.3 F [facility] Height 2019-01-12 20:04:00 175.26 cm [facility] BMI Calculated 2019-01-12 [facility]:04:[facility] [place] Weight 2019-01-12 20:04:00 [facility] Heart Rate 2019-01-12 20:04:00 [facility] Systolic (mm Hg) 2019-01-12 20:04:00 Bryce rial [place] Diastolic (mm Hg) 2019-01-12 20:04:00 [facility] orial [place] Procedures Procedure Date / Time Performed Performing Clinician Eveline e Colonoscopy [facility] Endoscopic biopsy [facility] nn Removal of cystostomy [facility] Tubal ligation [facility] Encounters Start End Encounter Admission Attending Care Care Encounter Source Date/Time Date/Time Type Type Clinicians Facility Department ID 2019-01-27 2019-01-27 Outpatient E MARÍA [facility] [id number] [facility] 20:10:00 22:20:00 [facility] 2019-01-26 2019-01-26 Outpatient [facility] [id number] 13:30:00 13:30:00 2019-01-12 2019-01-12 Outpatient [facility] [id number] 15:00:00 23:59:59 00 Results Test Description Test Time Test Comments Results Result Eveline ruth Comments XR SPINE LUMBAR 2019-01-27 LOCATION: [id number]: COMPLETE *OW* 21:23:46 49-year-old female with acute low back pain.COMMENT:Frontal, lateral, and L5-S1 spot lateral radiographs of the lumbar spine wereexamined.The skeleton is intact and the alignment is anatomic.There is moderate disc space narrowing centered at the L5-S1 level. Posteriorfacet arthropathy is also seen at this level. The paraspinous soft tissues areunremarkable.IMPRE SSION:Moderate disc space narrowing is seen in this patient's lumbar spine,compatible with degenerative disc disease.Otherwise, the appearance of this patient's lumbar spine is unremarkable.
[2020-09-05 11:29] LABS: Protime INR 0.98
--- NOTE | 2020-09-05 11:40 | RAD REPORT ---
EXAM DESCRIPTION: Anabel Single View09/05/2020 11:26 am CLINICAL HISTORY: Cough COMPARISON: none FINDINGS: The lungs appear clear of acute infiltrate. The heart is normal size IMPRESSION: No acute abnormalities displayed
[2020-09-05 11:43] LABS: ALT/SGPT 22 U/L (12-78); AST/SGOT 16 U/L (15-37); Albumin 3.9 g/dL (3.4-5.0); Alkaline Phosphatase 81 U/L (45-117); BUN Blood Urea Nitrogen 6 mg/dL (7-18); Bicarbonate 27 mmol/L (21-32); Bilirubin Direct 0.1 mg/dL (0-0.2); Bilirubin Total 0.6 mg/dL (0.2-1.0); Glucose Level 93 mg/dL (74-106); Magnesium 2.1 mg/dL (1.8-2.4); NT PRO-BNP 86 pg/mL (<125); Potassium 3.6 mmol/L (3.5-5.1); Protein, Total 7.4 g/dL (6.4-8.2); Sodium Level 142 mmol/L (136-145); Troponin (Emerg Dept Use Only) < 0.02 ng/mL (0.0-0.045)
[2020-09-05] MEDS ORDERED: NA CHLORIDE 0.9% 1,000 ML ONE (12:02)
[2020-09-05] MEDS ORDERED: ACETAMINOPHEN 500 MG TAB ONE (12:25)
--- NOTE | 2020-09-05 14:16 | EDPHYS ---
Physician Documentation [facility] Name: Kenzie Cartwright Age: 50 yrs Sex: Female : 1970 Arrival Date: 09/05/2020 Time: 09:56 Bed 8 Private MD: ED Physician Deejay Miranda HPI: 09/05 10:09 This 50 yrs old Female presents to ER via Ambulatory with complaints of jmm Cough, Breathing Difficulty. 10:09 The patient or guardian reports cough. Onset: The symptoms/episode began/occurred jmm gradually, 5 day(s) ago. Modifying factors: The symptoms are alleviated by nothing, the symptoms are aggravated by nothing. Associated signs and symptoms: Pertinent negatives: fever. This is a 50 year old female with a history of asthma, bipolar that presents to the ED with complaints of cough, weakness beginning approx 5 days ago. Patient states having contact with someone recently testing positive for COVID. . 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 - Social history:: Smoking status: Patient reports the use of cigarette tobacco products, smokes one pack cigarettes per day. ROS: 10:09 Constitutional: Negative for fever, chills, and weight loss, Cardiovascular: Negative jmm for chest pain, palpitations, and edema. 10:09 Respiratory: Positive for cough. 10:09 Neuro: Positive for weakness. 10:09 All other systems are negative. Exam: 10:09 Constitutional: This is a well developed, well nourished patient who is awake, alert, jmm and in no acute distress. Head/Face: atraumatic. Eyes: EOMI, no conjunctival erythema appreciated ENT: Moist Mucus Membranes Neck: Trachea midline, Supple Chest/axilla: Normal chest wall appearance and motion. Cardiovascular: Regular rate and rhythm. No edema appreciated Respiratory: Normal respirations, no respiratory distress appreciated Abdomen/GI: Non distended, soft Back: Normal ROM Skin: General appearance color normal MS/ Extremity: Moves all extremities, no obvious deformities appreciated, no edema noted to the lower extremities Neuro: Awake and alert, normal gait Psych: Behavior is normal, Mood is normal, Patient is cooperative and pleasant Vital Signs: 10:07 BP 130 / 100; Pulse 83; Resp 17; Temp 98.1; Pulse Ox 97% on R/A; Weight 83.01 kg; Pain ll1 2/10; 10:38 BP 121 / 93; Pulse 87; Resp 18; Pulse Ox 98% on R/A; vg1 11:00 BP 130 / 85; Pulse 71; Resp 16; Pulse Ox 100% on NC; vg1 11:30 BP 141 / 74; Pulse 76; Resp 18; Pulse Ox 100% on R/A; vg1 12:00 BP 139 / 83; Pulse 71; Resp 16; Pulse Ox 96% on R/A; vg1 13:06 BP 153 / 86; Pulse 84; Resp 14; Pulse Ox 98% on R/A; mh5 13:30 BP 141 / 80; Pulse 79; Resp 18; Pulse Ox 97% on R/A; vg1 14:00 BP 132 / 80; Pulse 77; Resp 14; Pulse Ox 98% on R/A; vg1 11:00 Breathing treatment vg1 MDM: 10:09 Patient medically screened. [facility] 12:28 Data reviewed: vital signs, nurses notes. [facility] 14:14 Data reviewed: lab test result(s), radiologic studies, plain films. Counseling: I had a [facility] detailed discussion with the patient and/or guardian regarding: the historical points, exam findings, and any diagnostic results supporting the discharge/admit diagnosis, radiology results, the need for outpatient follow up, to return to the emergency department if symptoms worsen or persist or if there are any questions or concerns that arise at home. ED course: Patient is alert and non toxic in appearance in the ED. No signs of resp distress. Patient advised to follow up with pcp. Advised to quarantine until receiving results. Patient understood and agrees with the plan of care. . 09/05 10:14 Order name: Basic Metabolic Panel; Complete Time: 11:47 [facility] 09/05 10:14 Order name: CBC with Diff; Complete Time: 11:33 [facility] 09/05 10:14 Order name: LFT's; Complete Time: 11:47 [facility] 09/05 10:14 Order name: Magnesium; Complete Time: 11:47 [facility] 09/05 10:14 Order name: NT PRO-BNP; Complete Time: 11:47 [facility] 09/05 10:14 Order name: PT-INR; Complete Time: 11:47 [facility] 09/05 10:14 Order name: Troponin (emerg Dept Use Only); Complete Time: 11:47 [facility] 09/05 10:14 Order name: XRAY Chest (1 view); Complete Time: 11:47 [facility] 09/05 10:14 Order name: Procalcitonin; Complete Time: 13:04 [facility] 09/05 10:14 Order name: Lactate; Complete Time: 11:47 [facility] 09/05 10:14 Order name: Blood Culture Adult (2) [facility] 09/05 10:59 Order name: COVID-19 [facility] 09/05 14:13 Order name: Lactate Sepsis 2 HR Follow-up; Complete Time: 14:14 [facility] 09/05 10:14 Order name: EKG; Complete Time: 10:15 [facility] 09/05 10:14 Order name: Cardiac monitoring; Complete Time: 11:14 [facility] 09/05 10:14 Order name: EKG - Nurse/Tech; Complete Time: 11:14 [facility] 09/05 10:14 Order name: IV Saline Lock; Complete Time: 11:14 [facility] 09/05 10:14 Order name: Labs collected and sent; Complete Time: 11:14 [facility] 09/05 10:14 Order name: O2 Per Protocol; Complete Time: 11:14 [facility] 09/05 10:14 Order name: O2 Sat Monitoring; Complete Time: 11:14 [facility] Administered Medications: 10:55 Drug: Xopenex (3) 1.25 mg Route: Inhalation; vg1 11:44 Follow up: Response: Other; Patient states "I feel like I can breath beter". vg1 10:55 Drug: Decadron - Dexamethasone 10 mg Route: IVP; Site: right antecubital; vg1 11:43 Follow up: Response: No adverse reaction; Other; Patient states "I feel like I can vg1 breath better". 11:55 Drug: NS 0.9% 1000 ml Route: IV; Rate: 1 bolus; Site: right antecubital; vg1 13:13 Follow up: IV Status: Completed infusion; IV Intake: 1000ml vg1 12:20 Drug: Tylenol 1000 mg Route: PO; vg1 13:13 Follow up: Response: Pain is decreased vg1 Disposition: 15:52 Co-signature as Attending Physician, Deejay Miranda MD. rn Disposition: 09/05/20 14:16 Discharged to Home. Impression: Other viral infections of unspecified site. - Condition is Stable. - Discharge Instructions: COVID-19. - Prescriptions for Medrol (Casey) 4 mg Oral Tablets, Dose Pack - take 1 tablet by ORAL route as directed - follow package instructions; 1 packet. Albuterol Sulfate 90 mcg/actuation - inhale 1-2 puff by INHALATION route every 4-6 hours; 1 Inhaler. - Medication Reconciliation Form, Thank You Letter, Antibiotic Education, Prescription Opioid Use form. - Follow up: Private Physician; When: 2 - 3 days; Reason: Recheck today's complaints, Continuance of care, Re-evaluation by your physician. Signatures: Dispatcher [employer] EDJose David Yao PA PA jmm Nieto, Roman, MD MD rn Garcia, Victoria RN RN vg1 Wai Foster RN RN 1 Corrections: (The following items were deleted from the chart) 14:33 14:16 09/05/2020 14:16 Discharged to Home. Impression: Other viral infections of vg1 unspecified site. Condition is Stable. Forms are Medication Reconciliation Form, Thank You Letter, Antibiotic Education, Prescription Opioid Use. Follow up: Private Physician; When: 2 - 3 days; Reason: Recheck today's complaints, Continuance of care, Re-evaluation by your physician. [facility]
--- NOTE | 2020-09-05 14:16 | ER ---
Nurse's Notes [facility] Name: Kenzie Cartwright Age: 50 yrs Sex: Female : 1970 Arrival Date: 09/05/2020 Time: 09:56 Bed 8 Private MD: Diagnosis: Other viral infections of unspecified site Presentation: 09/05 10:07 Chief complaint: Patient states: Cough, fatigue, no appetite for 5 days. Coronavirus ll1 screen: Client denies travel out of the [place] in the last 14 days. cough unrelated to allergies, diarrhea, difficulty breathing, fatigue, muscle pain, shortness of breath, Client presents with at least one sign or symptom that may indicate coronavirus-19. Standard/surgical mask placed on the client. Ebola Screen: Patient denies travel to an Ebola-affected area in the 21 days before illness onset. Initial Sepsis Screen: Does the patient meet any 2 criteria? No. Patient's initial sepsis screen is negative. Does the patient have a suspected source of infection? Yes: Productive cough/pneumonia. Risk Assessment: Do you want to hurt yourself or someone else? Patient reports no desire to harm self or others. Onset of symptoms was September 01, 2020. 10:07 Method Of Arrival: Ambulatory ll1 10:07 Acuity: ERICA 3 ll1 Triage Assessment: 10:40 Respiratory: the patient has moderate shortness of breath. vg1 10:40 Respiratory: Onset: The symptoms/episode began/occurred patient stated started about vg1 five days ago. 08/31/5050. 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 - Social history:: Smoking status: Patient reports the use of cigarette tobacco products, smokes one pack cigarettes per day. Screenin:40 Abuse screen: Denies threats or abuse. Nutritional screening: No deficits noted. vg1 Tuberculosis screening: No symptoms or risk factors identified. Fall Risk No fall in past 12 months (0 pts). No secondary diagnosis (0 pts). IV access (20 points). Ambulatory Aid- None/Bed Rest/Nurse Assist (0 pts). Gait- Normal/Bed Rest/Wheelchair (0 pts) Mental Status- Oriented to own ability (0 pts). Total Cedeno Fall Scale indicates No Risk (0-24 pts). Assessment: 10:35 General: Appears in no apparent distress. Behavior is calm, cooperative, Reports has vg1 been feeling SOB and fatigue for about five days. States significant other called her today and reported that they were Covid positive. Pain: Denies pain. Neuro: Level of Consciousness is awake, alert, obeys commands, Oriented to person, place, time, situation. Cardiovascular: Rhythm is sinus rhythm. Respiratory: Reports cough that is non-productive, Airway is patent Respiratory effort is even, unlabored, Respiratory pattern is regular, Breath sounds are clear bilaterally. GI: : EENT: No signs and/or symptoms were reported regarding the EENT system. Derm: Skin is pink, warm \\T\\ dry. Musculoskeletal: Range of motion: intact in all extremities. 12:01 Reassessment: Patient appears in no apparent distress at this time. No changes from vg1 previously documented assessment. Patient and/or family updated on plan of care and expected duration. Pain level reassessed. Patient is alert/active/playful, equal unlabored respirations, skin warm/dry/pink. Patient stated is seeing Dr. Noble for kidneys; stated " Im not too sure whats wrong, I think it has something to do with my BP". Also stated seeing a gastrologist due to "small internal bleed"; "they go in and take precancerous polyps". Notified provider of updated information. 12:10 Reassessment: Patient stated h/a. Notified Jose David SIEGEL. Received VO to give patient 1g of vg1 Tylenol PO x1. 13:14 Reassessment: Patient appears in no apparent distress at this time. No changes from vg1 previously documented assessment. Patient and/or family updated on plan of care and expected duration. Pain level reassessed. Patient is alert, oriented x 3, equal unlabored respirations, skin warm/dry/pink. Notified Jose David SIEGEL Patient states feeling better. Vital Signs: 10:07 BP 130 / 100; Pulse 83; Resp 17; Temp 98.1; Pulse Ox 97% on R/A; Weight 83.01 kg; Pain ll1 2/10; 10:38 BP 121 / 93; Pulse 87; Resp 18; Pulse Ox 98% on R/A; vg1 11:00 BP 130 / 85; Pulse 71; Resp 16; Pulse Ox 100% on NC; vg1 11:30 BP 141 / 74; Pulse 76; Resp 18; Pulse Ox 100% on R/A; vg1 12:00 BP 139 / 83; Pulse 71; Resp 16; Pulse Ox 96% on R/A; vg1 13:06 BP 153 / 86; Pulse 84; Resp 14; Pulse Ox 98% on R/A; mh5 13:30 BP 141 / 80; Pulse 79; Resp 18; Pulse Ox 97% on R/A; vg1 14:00 BP 132 / 80; Pulse 77; Resp 14; Pulse Ox 98% on R/A; vg1 11:00 Breathing treatment vg1 ED Course: 09:56 Patient arrived in ED. mr 10:04 Jose David Dave PA is PHCP. jmm 10:04 Deejay Miranda MD is Attending Physician. jmm 10:06 Eli Parisi, LOS is Primary Nurse. vg1 10:09 Triage completed. ll1 10:09 Arm band placed on Patient placed in an exam room, on a stretcher. ll1 10:40 Inserted saline lock: 20 gauge in right antecubital area, using aseptic technique. vg1 Blood collected. 10:45 Initial lab(s) drawn, by vt, sent to lab. First set of blood cultures drawn by me. vg1 11:04 Second set of blood cultures drawn by vt. vg1 11:11 Patient has correct armband on for positive identification. Bed in low position. Call 5 light in reach. Side rails up X 1. Warm blanket given. court recording monitor on. Pulse ox on. NIBP on. 11:27 XRAY Chest (1 view) In Process Unspecified. EDMS 11:28 COVID-19 Sent. vg1 14:32 No provider procedures requiring assistance completed. vg1 14:32 IV discontinued, intact, bleeding controlled, No redness/swelling at site. Pressure vg1 dressing applied. Administered Medications: 10:55 Drug: Xopenex (3) 1.25 mg Route: Inhalation; vg1 11:44 Follow up: Response: Other; Patient states "I feel like I can breath beter". vg1 10:55 Drug: Decadron - Dexamethasone 10 mg Route: IVP; Site: right antecubital; vg1 11:43 Follow up: Response: No adverse reaction; Other; Patient states "I feel like I can vg1 breath better". 11:55 Drug: NS 0.9% 1000 ml Route: IV; Rate: 1 bolus; Site: right antecubital; vg1 13:13 Follow up: IV Status: Completed infusion; IV Intake: 1000ml vg1 12:20 Drug: Tylenol 1000 mg Route: PO; vg1 13:13 Follow up: Response: Pain is decreased vg1 Intake: 13:13 IV: 1000ml; Total: 1000ml. vg1 Outcome: 14:16 Discharge ordered by . janey 14:32 Discharged to home ambulatory. vg1 14:32 Condition: stable 14:32 Discharge instructions given to patient, Instructed on discharge instructions, follow up and referral plans. medication usage, Demonstrated understanding of instructions, follow-up care, medications, Prescriptions given X 2. 14:33 Patient left the ED. vg1 Addendum: 09/07/2020 12:46 Addendum: COVID-19 Result: Negative result given to RN to notify pt. Notified pt of d m5 negative COVID 19 swab results. Pt advised that even with a negative test result they should remain in isolation until symptom free for 3 days without medication. Pt also advised to return to the ED for worsening symptoms. Signatures: Dispatcher [employer] EDMalika Benedict, RN RN dm5 Jose David Dave PA PA jmm Rivera, Mary Emelyn Mosquera Eli Gilmore RN RN vg1 Wai Foster RN RN ll1 Corrections: (The following items were deleted from the chart) 09/05 11:29 10:35 Respiratory: Airway is patent Respiratory effort is even, unlabored, Respiratory vg1 pattern is regular, Breath sounds are clear bilaterally. vg1
[2020-09-05 14:47] VITALS: TEMP 98.1
[2020-09-05 14:57] VITALS: BP 153/86; O2SAT 98
== END 2020-09-05 14:33 | disposition home or self-care (01) ==
LOC: ER 09:52
DX: B34.8 Other viral infections of unspecified site (principal); Z20.828 Contact with and (suspected) exposure to other viral communicable diseases; F17.210 Nicotine dependence, cigarettes, uncomplicated; Z88.5 Allergy status to narcotic agent; Z88.8 Allergy status to other drugs, medicaments and biological substances; Z91.013 Allergy to seafood; Z91.018 Allergy to other foods; Z91.048 Other nonmedicinal substance allergy status
CPT/HCPCS: 96361; 93005; 87040 ×2; 85025; 80048; 36415; 83735; 85610; 80076; 83605 ×2; 84484; 84145; 83880; 71045; 96374; 99285; U0002; J1100; J7030

== ENCOUNTER 2020-09-25 14:58 | Emergency (ER) | payer OTHER ==
--- OUTSIDE RECORDS SUMMARY | 2020-09-25 15:00 | XMS REPORT | Continuity of Care Document ---
:1970 Author Organization [employer] Care Team Providers Name Role Phone [employer] Unavailable Un available Problems Problem Status Onset [...] # 30 Group tab, 0 Refill(s), Pharmacy: [id number] Trazodone 50 mg = 1 Active Hydrochloride 50 tab, PO, 019 Medica l MG Oral Tablet Bedtime, # Group 30 tab, 0 Refill(s), Pharmacy: [facility] topiramate 100 mg 100 mg = 1 Active oral tablet tab, PO, 019 Medical Daily, # 30 Group tab, 0 Refill(s), Pharmacy: [facility] oxybutynin 15 mg 15 mg = 1 Active oral tablet, tab, PO, 019 Medical extended release Daily, # 30 Abhi up tab, 0 Refill(s), Pharmacy: [facility] Omeprazole 20 MG 20 mg = 1 Active Enteric Coated cap, PO, 019 Medical Capsule [Prilosec] Daily, # 30 G roup cap, 0 Refill(s), Pharmacy: [facility] cyclobenzaprine 10 10 mg = 1 Active MH mg oral tablet tab, PO, 019 Medical TID, PRN Group for spasms, X 30 day, # 30 tab, 0 Refill(s), Pharmacy: [facility] Clonidine 0.1 mg = 1 Active Hydrochloride 0.1 tab, PO, 019 Medic al MG Oral Tablet BID, # 60 Group tab, 0 Refill(s), Pharmacy: [facility] clonazePAM 0.5 mg 0.5 mg = 1 Active oral tablet tab, PO, 019 Medical Daily, # 30 Group tab, 0 Refill(s) Ventolin HFA 90 2 puff, Active MH mcg/inh inhalation INHALATION, 019 M edical aerosol with QID, # 1 Group adapter ea, 1 Refill(s), Pharmacy: [facility] clonazePAM 0.5 mg 0.5 mg [...] Number For Provider Date Date Visit Outpatient [id number] 01/12 [facility] Outpatient [id number] 01/12 01/13 [facility] /2018 [facility] Outpatient [id number] 01/26 [facility] Ambulatory [id number] 01/26 01/26 [facility] Pre-Reg /2018 [facility] [place] Procedures Procedure Code Date Perfomer Comments Source Colonoscopy [id number] [facility] Endoscopic biopsy [id number] [facility] Removal of [id number] [facility] cystostomy tube Group Tubal ligation [id number] [facility] Assessment and Plan No Data [...]
--- OUTSIDE RECORDS SUMMARY | 2020-09-25 15:01 | XMS REPORT | Continuity of Care Document ---
:1970 Author Organization [facility] t Address [address] [place] [address] Care Team Providers Name Role Phone Jannie Whitfield Attending Clinician DR Jannie DANIEL Attending Clinician Unavailable DR Jannie DANIEL Admitting Clinician Unavailable Problems Condition Condition Condition Status Onset Resolution Last Treating Co mments Source Name Details Category Date Date Treatment Clinician Date Allergy to Problem Resolve 2019-01-28 Memoria mold d 22:19:46 l (disorder) Allergy Her steen to mold (disorder) Resolved Problem 01/28/2019 [facility] Anxiety Problem Resolve 2019-01-28 Mem oria (finding) d 22:19:46 l Anxiety Jesse (finding) Resolved Problem 01/28/2019 [facility] Bipolar I Problem Resolve 2019-01-28 M emoria disorder d 22:19:46 l (disorder) Bipolar Her steen I disorder (disorder) Resolved Problem 01/28/2019 [facility] Blood in Problem Resolve 2019-01-28 Me moria urine d 22:19:46 l (finding) Blood in Her steen urine (finding) Resolved Problem 01/28/2019 [facility] Derangemen Problem Resolve 2019-01-28 Memoria t of d 22:19:46 l medial Jesse meniscus Derangemen (disorder) t of medial meniscus (disorder) Resolved Problem 01/28/2019 [facility] Facial tic Problem Resolve 2019-01-28 Memoria disorder d 22:19:46 l (disorder) Facial Herm gabriel tic disorder (disorder) Resolved Problem 01/28/2019 [facility] Gastroesop Problem Resolve 2019-01-28 Memoria hageal d 22:19:46 l reflux Jesse disease Gastroesop (disorder) hageal reflux disease (disorder) Resolved Problem 01/28/2019 [facility] Gastrointe Problem Resolve 2019-01-28 Memoria stinal d 22:19:46 l hemorrhage Christopher n (disorder) Gastrointe stinal hemorrhage (disorder) Resolved Problem 01/28/2019 [facility] Genuine Problem Resolve 2019-01-28 Mem oria stress d 22:19:46 l incontinen Genuine Her steen ce stress (finding) incontinen ce (finding) Resolved Problem 01/28/2019 [facility] Hypothyroi Problem Resolve 2019-01-28 Memoria dism d 22:19:46 l (disorder) Christopher n Hypothyroi dism (disorder) Resolved Problem 01/28/2019 [facility] Insomnia Problem Resolve 2019-01-28 Me moria (disorder) d 22:19:46 l Insomnia Christopher n (disorder) Resolved Problem 01/28/2019 [facility] Intentiona Problem Resolve 2019-01-28 Memoria l drug d 22:19:46 l overdose Jesse by tablet Intentiona (disorder) l drug overdose by tablet (disorder) Resolved Problem 01/28/2019 [facility] Irregular Problem Resolve 2019-01-28 M emoria periods d 22:19:46 l (finding) Jesse Irregular periods (finding) Resolved Problem 01/28/2019 [facility] Low back Problem Resolve 2019-01-28 Me moria pain d 22:19:46 l (disorder) Low back He rmann pain (disorder) Resolved Problem 01/28/2019 [facility] Melena Problem Resolve 2019-01-28 Bryce jimena (disorder) d 22:19:46 l Melena Jesse (disorder) Resolved Problem 01/28/2019 [facility] Metabolic Problem Resolve 2019-01-28 M emoria disease d 22:19:46 l (disorder) Christopher n Metabolic disease (disorder) Resolved Problem 01/28/2019 [facility] Mild Problem Resolve 2019-01-28 Bryce jimena intermitte d 22:19:46 l nt asthma Mild Jesse (disorder) intermitte nt asthma (disorder) Resolved Problem 01/28/2019 [facility] Overweight Problem Resolve 2019-01-28 Memoria (finding) d 22:19:46 l Jesse Overweight (finding) Resolved Problem 01/28/2019 [facility] Polyp of Problem Resolve 2019-01-28 Me moria colon d 22:19:46 l (disorder) Polyp of He rmann colon (disorder) Resolved Problem 01/28/2019 [facility] Posttrauma Problem Resolve 2019-01-28 Memoria tic stress d 22:19:46 l disorder [place] (disorder) Posttrauma tic stress disorder (disorder) Resolved [...] Memori a e Lotion e Lotion l Jesse PROzac PROzac Active Memoria l [place] Social History Smoking Status Start Date Stop Date Source Social History 2019-01-12 20:19:25 [facility] Her steen Medications Ordered Filled Start Stop Current Ordering Indication Dosage Frequency Signature Comments Components Source Medication Medication Date Date Medication? Clinician (SIG) Name Name vilazodone Yes 40 mg = 1 Me moria 40 mg oral 3-26 tab, PO, l tablet 13:57: Daily, # Jesse 00 30 tab, 0 Refill(s), Pharmacy: [facility] Trazodone Yes 50 mg = 1 Mem oria Hydrochlori 3-26 tab, PO, l de 50 MG 13:57: Bedtime, # steen Oral Tablet 00 30 tab, 0 Refill(s), Pharmacy: [facility] topiramate Yes 100 mg = 1 M emoria 100 mg oral 3-26 tab, PO, l tablet 13:57: Daily, # [place] 00 30 tab, 0 Refill(s), Pharmacy: [facility] oxybutynin 2018- Yes 15 mg = 1 Me moria 15 mg oral 3-26 tab, PO, l tablet, 13:57: Daily, # Christopher n extended 00 30 tab, 0 release Refill(s), Pharmacy: [facility] 52 Omeprazole Yes 20 mg = 1 Me moria 20 MG 3-26 cap, PO, l Enteric 13:57: Daily, # Christopher n Coated 00 30 cap, 0 Capsule Refill(s), [Prilosec] Pharmacy: [facility] cyclobenzap Yes 10 mg = 1 M emoria rine 10 mg 3-26 tab, PO, l oral tablet 13:57: TID, PRN He rmann 00 for spasms, X 30 day, # 30 tab, 0 Refill(s), Pharmacy: [facility] Clonidine Yes 0.1 mg = 1 Me moria Hydrochlori 3-26 tab, PO, l de 0.1 MG 13:57: BID, # 60 Her steen Oral Tablet 00 tab, 0 Refill(s), Pharmacy: [facility] clonazePAM Yes 0.5 mg = 1 M emoria 0.5 mg oral 3-26 tab, PO, l tablet 13:57: Daily, # [place] 00 30 tab, 0 Refill(s) Ventolin Yes 2 puff, Memori a HFA 90 3-26 INHALATION l mcg/inh 13:57: , QID, # 1 Herm gabriel inhalation 00 ea, 1 aerosol Refill(s), with Pharmacy: adapter [facility] clonazePAM No 0.5 mg = 1 M emoria 0.5 mg oral 3-25 tab, PO, l tablet 20:19: TID, # 90 Christopher n 00 tab, 0 Refill(s) vilazodone No 40 mg = 1 Me moria 40 mg oral 3-25 tab, PO, l tablet 20:19: Daily, 0 [place] 00 Refill(s) Clonidine No 0.1 mg = 1 Me moria Hydrochlori 3-25 tab, PO, l de 0.1 MG 20:19: BID, # 90 Her steen Oral Tablet 00 tab, 3 Refill(s) topiramate No 100 mg = 1 M emoria 100 mg oral 3-25 tab, PO, l tablet 20:19: Daily, # [place] 00 30 tab, 3 Refill(s) Ventolin 0 No INHALATION Mem oria HFA 3-25 , QID, 0 l 20:19: Refill(s) [place] 00 oxybutynin No 15 mg = 1 [...] Temperature Oral (F) 2019-01-12 20:04:00 98.3 F [facility] Height 2019-01-12 20:04:00 175.26 cm [facility] BMI Calculated 2019-01-12 20:04:00 Alexander al [place] Weight 2019-01-12 20:04:00 [facility] Heart Rate 2019-01-12 20:04:00 [facility] Systolic (mm Hg) 2019-01-12 20:04:00 Bryce riadaksha [place] Diastolic (mm Hg) 2019-01-12 20:04:00 [facility] orial [place] Procedures Procedure Date / Time Performed Performing Clinician Sourc e Colonoscopy [facility] Endoscopic biopsy [facility] nn Removal of cystostomy [facility] ermann tube Tubal ligation [facility] Encounters Start End Encounter Admission Attending Care Care Encounter Source Date/Time Date/Time Type Type Clinicians Facility Department ID 2020-09-20 2020-09-20 Office VIANEY Ball [id number] 09:11:30 09:59:14 Visit [facility] [id number] Surgical [id number] Specialti [id number] 198 [place] 2019-01-27 2019-01-27 Outpatient E POTEPALOV, [facility] [id number] [place] 20:10:00 22:20:00 [facility] 2019-01-26 2019-01-26 Outpatient [facility] [id number] 13:30:00 13:30:00 2019-01-12 2019-01-12 Outpatient [facility] [id number] 15:00:00 23:59:59 00 Results Test Description Test Time Test Comments Results Result Sourc e Comments XR SPINE LUMBAR 2019-01-27 LOCATION: [id number]: COMPLETE *OW* 21:23:46 49-year-old female with acute [...]
--- OUTSIDE RECORDS SUMMARY | 2020-09-25 15:01 | XMS REPORT | Summary of Care ---
:1970 Author Organization [facility] Address [address] [place] [address] Care Team Providers Name Role Phone Xuan Bey MD Primary Care Provider Reason for Referral Radiology Services (Routine) Status Reason Specialty Diagnoses / Referred By Referred To Procedures Contact Contact New Request Diagnostic Diagnoses Rupture of anterior cruciate ligament of left knee, initial encounter Robles Ball, Radiology Procedures XR KNEE <3 VW LEFT PAC [address] [place] [address] Reason for Visit Reason Comments Follow-up s/p Left ACL Reconstructi on 09/18/19 - 1 year ago. Encounter Details Date Type Department Care Team Description 09/20/2020 Office Visit [facility] Robles Ball, Rupture of a nterior cruciate ligament of left knee, initial encounter (Primary Dx); Orthopaedic Surgery- PAC S/P reconstruction of anterior cruciate ligament [place] [address] [facility] [address] [facility] [place] [phone] Allergies Active Allergy Reactions Severity Noted Date Comments Bupropion Unknown - See comments Cortisone Unknown - See comments Fluoxetine Unknown - See comments Latex Unknown - See comments 01/21/2019 Mold Unknown - See comments Morphine Unknown - See comments Naltrexone-Bupropion Unknown - See comments Fluoxetine Hcl Unknown - See comments 01/21/2019 Bupropion Hcl Unknown - See comments 01/21/2019 documented as of this encounter (statuses as of 09/20/2020) Medications Medication Sig Dispensed Refills Start Date End Date Status clonazePAM 0.5 mg Take 1 tablet 3 0 01/13/2019 Active tablet times a day by oral route as needed. fluticasone 50 [place] 1 spray 0 01/13/2019 Active mcg/actuation nasal every day by spray intranasal route. naproxen (NAPROSYN) Take 1 tablet 0 01/13/2019 Active 500 mg tablet twice a day by oral route as needed. vilazodone (VIIBRYD) Take 1 tablet 0 01/13/2019 Active 40 mg tablet every day by oral route. topiramate 100 mg Take 1 tablet 0 01/13/2019 Active tablet twice a day by oral route. pantoprazole 40 mg EC Take 40 mg by 0 Active tablet mouth daily. mesalamine (PENTASA) Take 500 mg by 0 Active 500 mg CR capsule mouth 4 (four) times daily. sulfaSALAzine 500 mg Take 500 mg by 0 Active tablet mouth 4 (four) times daily. documented as of this encounter (statuses as of 09/20/2020) Active Problems Problem Noted Date Rupture of anterior cruciate ligament of left knee, in itial encounter 01/23/2019 Overview: Added automatically from request for miguel angel ruiz [id number] documented as of this encounter (statuses as of 09/20/2020) Social History Tobacco Use Types Packs/Day Years Used Date Current Every Day Smoker Smokeless Tobacco: Former User Alcohol Use Drinks/Week oz/Week Comments No Sex Assigned at Date Recorded Not on file COVID-19 Exposure Response Date Recorded In the last month, have you been in contact with Yes 09/20/2020 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 documented as of this encounter Last Filed Vital Signs Vital Sign Reading Time Taken Comments Blood Pressure 122/85 09/20/2020 9:13 AM SCALE AND SKIP CAR OPERATOR Pulse 62 09/20/2020 9:13 AM SCALE AND SKIP CAR OPERATOR Temperature - - Respiratory Rate - - Oxygen Saturation - - Inhaled Oxygen Concentration - - Weight 81.6 kg (180 lb) 09/20/2020 9:13 AM SCALE AND SKIP CAR OPERATOR Height 175.3 cm (5' 9") 09/20/2020 9:13 AM SCALE AND SKIP CAR OPERATOR Body Mass Index 26.58 09/20/2020 9:13 AM SCALE AND SKIP CAR OPERATOR documented in this encounter Progress Notes Robles Ball S, PAC - 09/20/2020 9:15 AM CST Cc: Chief Complaint Patient presents with Follow-up s/p Left ACL Reconstruction 09/18/19 - 1 year ago. Kenzie Cartwright is a 50 year old female. follow up status post anterior cruciate ligament reconstruction 09/18/2019, she was pushing a treadmill on the ground and she felt a pop in her left knee and then her knee gave way. Allergies Kenzie is allergic to bupropion; cortisone; fluoxetine; latex; mold; morphine; naltrexone-bupropion; prozac [fluoxetine hcl]; and wellbutrin [bupropion hcl]. Medications Outpatient Medications Prior to Visit Medication Sig Dispense Refill pantoprazole 40 mg EC tablet Take 40 mg by mouth daily. sulfaSALAzine 500 mg tablet Take 500 mg by mouth 4 (four) times daily. vilazodone (VIIBRYD) 40 mg tablet Take 1 tablet every day by oral route. mesalamine (PENTASA) 500 mg CR capsule Take 500 mg by mouth 4 (four) times daily. clonazePAM 0.5 mg tablet Take 1 tablet 3 times a day by oral route as needed. fluticasone 50 mcg/actuation nasal spray [place] 1 spray every day by intranasal route. naproxen (NAPROSYN) 500 mg tablet Take 1 tablet twice a day by oral route as needed. topiramate 100 mg tablet Take 1 tablet twice a day by oral route. No facility-administered medications prior to visit. Histories Past Medical History: Diagnosis Date Back pain Bipolar 1 disorder Colon polyps Constipation History of blood in urine Impaction of the bowels Incontinence PTSD (post-traumatic stress disorder) Past Surgical History: Procedure Laterality Date ANKLE CLOSED REDUCTION WITH PERCUTANEOUS PINNING Right 2015 ANTERIOR CRUCIATE LIGAMENT RECONSTRUCTION Left 02/23/2019 Surgeon: Garry Donohue MD; Location: [facility] BUNIONECTOMY Left 1985 COLONOSCOPY 02/17/2019 EGD (ENDO) 2018 ENDOMETRIAL ABLATION 2006 EXCIS BARTHOLIN GLAND/CYST 1991 KNEE ARTHROSCOPY Left 2018 meniscus tear TUBAL LIGATION 1994 Social History Socioeconomic History Marital status: Spouse name: Not on file Number of children: Not on file Years of education: Not on file Highest education level: Not on file Occupational History Not on file Social Needs Financial resource strain: Not on file Food insecurity Worry: Not on file Inability: Not on file Transportation needs Medical: Not on file Non-medical: Not on file Tobacco Use Smoking status: Current Every Day Smoker Smokeless tobacco: Former User Substance and Sexual Activity Alcohol use: No Drug use: Not on file Sexual activity: Not on file Lifestyle Physical activity Days per week: Not on file Minutes per session: Not on file Stress: Not on file Relationships Social connections Talks on phone: Not on file Gets together: Not on file Attends bahai service: Not on file Active member of club or organization: Not on file Attends meetings of clubs or organizations: Not on file Relationship status: Not on file Intimate partner violence Fear of current or ex partner: Not on file Emotionally abused: Not on file Physically abused: Not on file Forced sexual activity: Not on file Other Topics Concern Not on file Social History Narrative Not on file History reviewed. No pertinent family history. Review of Systems Constitutional: Negative. HENT: Negative. Eyes: Negative. Respiratory: Negative. Breasts: Negative. Cardiovascular: Negative. Gastrointestinal: Negative. Genitourinary: Negative. Musculoskeletal: Positive for joint swelling. Skin: Negative. Neurological: Negative. Psychiatric/Behavioral: Negative. Endocrine: Endocrine negative Vital Signs Vitals: 09/20/20 0913 BP: 122/85 Pulse: 62 Physical Exam Musculoskeletal: Comments: Physical Exam Constitutional: oriented to person, place, and time. appears well-developed and well-nourished. HENT: Head: Normocephalic and atraumatic. Right Ear: External ear normal. Left Ear: External ear normal. Eyes: Conjunctivae are normal. Neck: Normal range of motion. No strabismus Neck supple. Cardiovascular: Normal rate and regular rhythm. Pulmonary/Chest: Normal respiratory rate equal chest rise and fall in no apparent distress Abdominal: Abdomen nondistended nontender Neurological: alert and oriented to person, place, and time. No asymmetry Skin: Skin is warm and dry. Psychiatric: normal mood and affect. behavior is normal. Judgment and thought content normal. Nursing note and vitals reviewed. Left knee she has a 4 mm of anterior translation with the anterior drawer exam I'm concerned that she ruptured her anterior cruciate ligament reconstruction graft Assessment/Plan 1. Rupture of anterior cruciate ligament of left knee, initial encounter 2. S/P reconstruction of anterior cruciate ligament I'm concerned that she ruptured her anterior cruciate ligament graft we will send her for an MRI of the left knee and follow up with the results. He has a hinged knee brace to wear until we follow up with results. documented in this encounter Plan of Treatment Date Type Specialty Care Team Description 09/20/2020 Hospital Encounter Radiology Robles Ball, PAC Arrived [address] [place] [phone] Name Type Priority Associated Diagnoses Date/Ti me XR KNEE <3 VW LEFT IMAGING Routine Rupture of anterior 9:52 AM SCALE AND SKIP CAR OPERATOR cruciate ligament of left knee, initial encounter Name Type Priority Associated Diagnoses Order S chedule XR KNEE <3 VW LEFT IMAGING Routine Rupture of anterior Ex pected: 09/20/2020, cruciate ligament of left Ex analisa: 09/20/2021 knee, initial encounter Health Maintenance Due Date Last Done Comments PNEUMOCOCCAL 0-64 YEARS COMBINED SERIES (1 of 1 - 01/11/1976 PPSV23) DTaP,Tdap,and Td Vaccines (1 - Tdap) 1989 PAP SMEAR 1991 Breast Cancer Screening (MAMMOGRAM) 2010 COLON CANCER SCREENING ANNUAL FIT/FOBT 01/11/2020 COLON CANCER SCREENING FIT DNA EVERY 3 YEARS 01/11/2020 COLON CANCER SCREENING SIGMOIDOSCOPY EVERY 5 YEARS 01/11/2020 COLONOSCOPY 01/11/2020 Colorectal Cancer Screening 01/11/2020 Zoster Recombinant Vaccine (SHINGRIX) (1 of 2) 01/11/2020 INFLUENZA VACCINE (#1) 2020 Depression Screening 09/22/2020 09/22/2019 documented as of this encounter Implants Implanted Type Area Operations Welder Device Shelf Model / Identifier Expiration Serial / Date Lot Screw Biocomposite Interference 7x23mm Arthrex #Ar-1370c - [id number] [id number] Left: Ar[employer] 11/20/2019 AR-1370C / Implanted: Qty: 1 on 02/23/2019 by Garry Aldridge MD at [facility] Knee 1 [id number] / [id number] Tightrope Arthrex Acl Rt #[id number] - [id number] TightRope Left: [employer] 08/20/2023 AR-[id number] / Implanted: Qty: 1 on 02/23/2019 by Garry Aldridge MD at [facility] Knee 1 [id number] / [id number] documented as of this encounter Results Not on filedocumented in this encounter Visit Diagnoses Diagnosis Rupture of anterior cruciate ligament of left knee, initial encounter - Primary S/P reconstruction of anterior cruciate ligament Other postprocedural status Rupture of anterior cruciate ligament of left knee, initial encounter documented in this encounter Insurance Payer Benefit Plan / Subscriber ID Effective Dates Phone Addre ss Type Group [employer]Tax [id number] 2018-Present [facility] [id number] 2019-Present Medicaid COMM PLAN - PLUS MANAGED MEDICAID documented as of this encounter
--- OUTSIDE RECORDS SUMMARY | 2020-09-25 15:01 | XMS REPORT | Summary of Care ---
:1970 Author Organization [facility] Address [address] [place] [address] Care Team Providers Name Role Phone Xuan Bey MD Primary Care Provider Reason for Referral Radiology Services (Routine) Status Reason Specialty Diagnoses / Referred By Referred To Procedures Contact Contact New Request Diagnostic Diagnoses Rupture of anterior cruciate ligament of left knee, initial encounter Robles Ball, Radiology Procedures XR KNEE <3 VW LEFT PAC [address] [place] [address] Reason for Visit Reason Comments Follow-up s/p Left ACL Reconstructi on 09/18/19 - 1 year ago. Encounter Details Date Type Department Care Team Description 09/20/2020 Office Visit [facility] Robles Ball, Rupture of a nterior cruciate ligament of left knee, initial encounter (Primary Dx); Orthopaedic Surgery- PAC S/P reconstruction of anterior cruciate ligament [place] [address] [facility] [address] [facility] [place] [phone] Allergies Active Allergy Reactions [...] by oral route as needed. 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 documented as of this encounter Last Filed Vital Signs Vital Sign Reading Time Taken Comments Blood Pressure 122/85 09/20/2020 9:13 AM SERVER MANAGER Pulse 62 09/20/2020 9:13 AM SERVER MANAGER Temperature - - Respiratory Rate - - Oxygen Saturation - - Inhaled Oxygen Concentration - - Weight 81.6 kg (180 lb) 09/20/2020 9:13 AM SERVER MANAGER Height 175.3 cm (5' 9") 09/20/2020 9:13 AM SERVER MANAGER Body Mass Index 26.58 09/20/2020 9:13 AM SERVER MANAGER documented in this encounter Progress Notes Robles [...] as needed. fluticasone 50 mcg/actuation nasal spray [place] 1 spray every day by intranasal route. [...] Left 02/23/2019 Surgeon: Garry Donohue MD; Location: [facility] BUNIONECTOMY Left 1985 COLONOSCOPY 02/17/2019 EGD (ENDO) [...] file Gets together: Not on file Attends advent service: Not on file Active member of [...] documented in this encounter Plan of Treatment Health Maintenance Due Date Last Done Comments [...] of this encounter Implants Implanted Type Area [employer] Center Partner Device Shelf Model / Identifier Expiration Serial / Date Lot Screw Biocomposite Interference 7x23mm Arthrex #Ar-1370c - [id number] [id number] Left: Ar[employer]rex Inc 11/20/2019 AR-1370C / Implanted: Qty: 1 on 02/23/2019 by Garry Aldridge MD at [facility] Knee 1 [id number] / [id number] Tightrope Arthrex Acl Rt #[id number] - [id number] TightRope Left: [employer] 08/20/2023 AR-1588RT / Implanted: Qty: 1 on 02/23/2019 by Garry Aldridge MD at [facility] Knee 1 [id number] / [id number] documented as of this encounter Results XR KNEE <3 VW LEFT (09/20/2020 9:52 AM SERVER MANAGER) Specimen Narrative Performed At This result has an attachment that is no t available. Status post anterior cruciate ligament reconstruction changes present with PACS tight rope of visible and bone tunnels visible no acut e fracture or dislocation Performing Organization Address City/State/Zipcode Phone Number PACS documented in this encounter Visit Diagnoses Diagnosis Rupture of anterior cruciate ligament of left knee, initial encounter - Primary S/P reconstruction of anterior cruciate ligament Other postprocedural status documented in this encounter Insurance Payer Benefit Plan / Subscriber ID Effective Dates Phone Addre ss Type Group [facility] [place] Used Gym Equipment citibuddies [id number] 2018-Present [facility] [id number] 2019-Present Medicaid COMM PLAN - PLUS MANAGED MEDICAID documented as of this encounter
--- OUTSIDE RECORDS SUMMARY | 2020-09-25 15:01 | XMS REPORT | Summary of Care ---
:1970 Author Organization [facility] Address [address] [place] [address] Care Team Providers Name Role Phone Xuan Bey MD Primary Care Provider Reason for Referral Radiology Services (Routine) Status Reason Specialty Diagnoses / Referred By Referred To Procedures Contact Contact New Request Diagnostic Diagnoses Rupture of anterior cruciate ligament of left knee, initial encounter Robles Ball, Radiology Procedures XR KNEE <3 VW LEFT PAC [address] [place] [address] Reason for Visit Reason Comments Follow-up s/p Left ACL Reconstructi on 09/18/19 - 1 year ago. Encounter Details Date Type Department Care Team Description 09/20/2020 Office Visit [facility] Robles Ball, Rupture of a nterior cruciate ligament of left knee, initial encounter (Primary Dx); Orthopaedic Surgery- PAC S/P reconstruction of anterior cruciate ligament [place] [address] [facility] [address] [place] [phone] Allergies Active Allergy Reactions [...] by oral route as needed. fluticasone 50 [place] 1 spray 0 01/13/2019 Active mcg/actuation nasal [...] automatically from request for miguel angel ruiz [id number] documented as of this encounter (statuses as of 09/20/2020) Social History Tobacco Use Types Packs/Day Years Used Date Current Every Day Smoker Smokeless Tobacco: Former User Alcohol Use Drinks/Week oz/Week Comments No Sex Assigned at Date Recorded Not on file COVID-19 Exposure Response Date Recorded In the last month, have you been in contact with Yes 09/20/2020 9:08 AM DOCUMENT CONTROL SPECIALIST someone who was confirmed or suspected to have Coronavirus / COVID-19? documented as of this encounter Last Filed Vital Signs Vital Sign Reading Time Taken Comments Blood Pressure 122/85 09/20/2020 9:13 AM DOCUMENT CONTROL SPECIALIST Pulse 62 09/20/2020 9:13 AM DOCUMENT CONTROL SPECIALIST Temperature - - Respiratory Rate - - Oxygen Saturation - - Inhaled Oxygen Concentration - - Weight 81.6 kg (180 lb) 09/20/2020 9:13 AM DOCUMENT CONTROL SPECIALIST Height 175.3 cm (5' 9") 09/20/2020 9:13 AM DOCUMENT CONTROL SPECIALIST Body Mass Index 26.58 09/20/2020 9:13 AM DOCUMENT CONTROL SPECIALIST documented in this encounter Progress Notes Robles [...] as needed. fluticasone 50 mcg/actuation nasal spray [place] 1 spray every day by intranasal route. [...] Left 02/23/2019 Surgeon: Garry Donohue MD; Location: [facility] OR [facility] BUNIONECTOMY Left 1985 COLONOSCOPY 02/17/2019 EGD [...] file Gets together: Not on file Attends temple service: Not on file Active member of [...] Radiology Robles Ball, PAC Arrived [address] [place] [phone] Name Type Priority Associated Diagnoses Date/Ti me XR KNEE <3 VW LEFT IMAGING Routine Rupture of anterior 9:52 AM DOCUMENT CONTROL SPECIALIST cruciate ligament of left knee, initial encounter [...] of this encounter Implants Implanted Type Area Display Screen Fabricator Device Shelf Model / Identifier Expiration Serial / Date Lot Screw Biocomposite Interference 7x23mm Arthrex #Ar-1370c - [id number] SCREW Left: Ar[employer]rex Inc 11/20/2019 AR-1370C / Implanted: Qty: 1 on 02/23/2019 by Garry Aldridge MD at [facility] Knee 1 [id number] / [id number] Tightrope Arthrex Acl Rt #[id number] - [id number] TightRope Left: [employer] 08/20/2023 AR-[id number] / Implanted: Qty: 1 on 02/23/2019 by Garry Aldridge MD at [facility] Knee 1 [id number] / [id number] documented as of this encounter Results Not [...] Effective Dates Phone Addre ss Type Group [employer] [id number] 2018-Present [facility] [id number] 2019-Present Medicaid COMM PLAN - PLUS MANAGED MEDICAID documented as of this encounter
--- OUTSIDE RECORDS SUMMARY | 2020-09-25 15:01 | XMS REPORT | Summary of Care ---
:1970 Author Organization [facility] Address [address] [place] [address] Care Team Providers Name Role Phone Xuan Bey MD Primary Care Provider Reason for Visit Radiology Services (Routine) Status Reason Specialty Diagnoses / Referred By Referred To Procedures Contact Contact New Request Diagnostic Diagnoses Rupture of anterior cruciate ligament of left knee, initial encounter Robles Ball, Radiology Procedures XR KNEE <3 VW LEFT PAC [address] [place] [address] Encounter Details Date Type Department Care Team Description 09/20/2020 Hospital Encounter [facility] Robles Ball , [facility] - PAC Radiology [address] [place] [phone] Allergies Active Allergy Reactions Severity Noted Date [...] as of this encounter (statuses as of 09/21/2020) Medications Medication Sig Dispensed Refills Start Date End Date Status clonazePAM 0.5 mg Take 1 tablet 3 0 01/13/2019 Active tablet times a day by oral route as needed. fluticasone 50 [place] 1 spray 0 01/13/2019 Active mcg/actuation nasal [...] as of this encounter (statuses as of 09/21/2020) Active Problems Problem Noted Date Rupture of anterior cruciate ligament of left knee, in itial encounter 01/23/2019 Overview: Added automatically from request for miguel angel ruiz [id number] documented as of this encounter (statuses as of 09/21/2020) Social History Tobacco Use Types Packs/Day Years Used Date Current Every Day Smoker Smokeless Tobacco: Former User Alcohol Use Drinks/Week oz/Week Comments No Sex Assigned at Date Recorded Not on file COVID-19 Exposure Response Date Recorded In the last month, have you been in contact with Yes 09/20/2020 9:08 AM STERILE PROCESSING TECH someone who was confirmed or suspected to have Coronavirus / COVID-19? documented as of this encounter Last Filed Vital Signs Not on filedocumented in this encounter Plan of Treatment Health Maintenance Due Date Last Done Comments PNEUMOCOCCAL 0-64 YEARS COMBINED SERIES (1 of - 01/11/1976 PPSV23) DTaP,Tdap,and Td Vaccines (1 [...] of this encounter Implants Implanted Type Area Scraper Burrer Device Shelf Model / Identifier Expiration Serial / Date Lot Screw Biocomposite Interference 7x23mm Arthrex #Ar-1370c - [id number] SCREW Left: Ar[employer]rex Inc 11/20/2019 AR-1370C / Implanted: Qty: 1 on 02/23/2019 by Garry Aldridge MD at [facility] Knee 1 [id number] / [id number] Tightrope Arthrex Acl Rt #[id number] - [id number] TightRope Left: Ar[employer]rex Inc 08/20/2023 AR-1588RT / Implanted: Qty: 1 on 02/23/2019 by Garry Aldridge MD at [facility] Knee 1 [id number] / [id number] documented as of this encounter Procedures Procedure Name Priority Date/Time Associated Diagnosis Comme nts XR KNEE <3 VW LEFT Routine 09/20/2020 9:52 AM Rupture of ante rior Results for this STERILE PROCESSING TECH cruciate ligament of procedu re are in left knee, initial the resul ts encounter section. documented in this encounter Results XR KNEE <3 VW LEFT (09/20/2020 9:52 AM STERILE PROCESSING TECH) Specimen Narrative Performed At This result has [...] Effective Dates Phone Addre ss Type Group [employer] [id number] 2018-Present [facility] [id number] 2019-Present Medicaid COMM PLAN - PLUS MANAGED MEDICAID documented as of this encounter
--- OUTSIDE RECORDS SUMMARY | 2020-09-25 15:02 | XMS REPORT | Summary of Care ---
:1970 Author Organization [facility] Address [address] [place] [id number] Care Team Providers Name Role Phone Xuan Bey MD Primary Care Provider Reason for Referral MRI/CAT Scan (Routine) Status Reason Specialty Diagnoses / Referred By Referred To Procedures Contact Contact New Request Diagnostic Diagnoses Rupture of anterior cruciate ligament of left knee, initial encounter S/P reconstruction of anterior cruciate ligament Jayde, Radiology Procedures MR KNEE LEFT WO CONTRAST Garry Garcia MD [address] [place] [address] Radiology Services (Routine) Status Reason Specialty Diagnoses / Referred By Referred To Procedures Contact Contact New Request Diagnostic Diagnoses Rupture of anterior cruciate ligament of left knee, initial encounter Robles Ball, Radiology Procedures XR KNEE <3 VW LEFT PAC [address] [place] [address] Reason for Visit Reason Comments Follow-up s/p Left ACL Reconstructi on 09/18/19 - 1 year ago. Encounter Details Date Type Department Care Team Description 09/20/2020 Office Visit [facility] Robles Ball, Rupture of a nterior cruciate ligament of left knee, initial encounter (Primary Dx); Orthopaedic Surgery- PAC S/P reconstruction of anterior cruciate ligament [place] [address] [facility] [place] [address] [phone] Allergies Active Allergy Reactions Severity Noted Date [...] as of this encounter (statuses as of 09/22/2020) Medications Medication Sig Dispensed Refills Start Date End Date Status clonazePAM 0.5 mg Take 1 tablet 3 0 01/13/2019 Active tablet times a day by oral route as needed. fluticasone 50 [place] 1 spray 0 01/13/2019 Active mcg/actuation nasal [...] as of this encounter (statuses as of 09/22/2020) Active Problems Problem Noted Date Rupture of anterior cruciate ligament of left knee, in itial encounter 01/23/2019 Overview: Added automatically from request for miguel angel joseph [id number] documented as of this encounter (statuses as of 09/22/2020) Social History Tobacco Use Types Packs/Day Years Used Date Current Every Day Smoker Smokeless Tobacco: Former User Alcohol Use Drinks/Week oz/Week Comments No Sex Assigned at Date Recorded Not on file COVID-19 Exposure Response Date Recorded In the last month, have you been in contact with Yes 09/20/2020 9:08 AM ELECTRONIC FIELD SERVICE ENGINEER someone who was confirmed or suspected to have Coronavirus / COVID-19? documented as of this encounter Last Filed Vital Signs Vital Sign Reading Time Taken Comments Blood Pressure 122/85 09/20/2020 9:13 AM ELECTRONIC FIELD SERVICE ENGINEER Pulse 62 09/20/2020 9:13 AM ELECTRONIC FIELD SERVICE ENGINEER Temperature - - Respiratory Rate - - Oxygen Saturation - - Inhaled Oxygen Concentration - - Weight 81.6 kg (180 lb) 09/20/2020 9:13 AM ELECTRONIC FIELD SERVICE ENGINEER Height 175.3 cm (5' 9") 09/20/2020 9:13 AM ELECTRONIC FIELD SERVICE ENGINEER Body Mass Index 26.58 09/20/2020 9:13 AM ELECTRONIC FIELD SERVICE ENGINEER documented in this encounter Progress Notes Robles Ball, PAC - 09/20/2020 9:15 AM CST Cc: [...] as needed. fluticasone 50 mcg/actuation nasal spray [place] 1 spray every day by intranasal route. [...] Left 02/23/2019 Surgeon: Garry Donohue MD; Location: [facility] OR [facility] BUNIONECTOMY Left 1985 COLONOSCOPY 02/17/2019 EGD (ENDO) 2018 ENDOMETRIAL ABLATION 2007 EXCIS BARTHOLIN GLAND/CYST 1992 KNEE ARTHROSCOPY Left 2018 meniscus tear TUBAL [...] file Gets together: Not on file Attends gnosticist service: Not on file Active member of [...] up with results. documented in this encounter Miscellaneous Notes Addendum Note - David Buenrostro - 09/20/2020 9:15 AM ELECTRONIC FIELD SERVICE ENGINEER Addended by: DAVID BUENROSTRO on: 09/22/2020 12:00 PM Modules accepted: Orders documented in this encounter Plan of Treatment Name Type Priority Associated Diagnoses Order S chedule MR KNEE LEFT WO IMAGING Routine Rupture of anterior Expec kezia: CONTRAST cruciate ligament of left , Expires: knee, initial en counter 09/22/2021 S/P reconstruction of anterior cruciate ligament Health Maintenance Due Date Last Done Comments [...] of this encounter Implants Implanted Type Area Assistant Hall Director Device Shelf Model / Identifier Expiration Serial / Date Lot Screw Biocomposite Interference 7x23mm Arthrex #[id number] - [id number] Left: [employer] 11/20/2019 AR-1370C / Implanted: Qty: 1 on 02/23/2019 by Garry Aldridge MD at [facility] Knee 1 [id number] / [id number] Tightrope Arthrex Acl Rt #[id number] - [id number] TightRope Left: [employer] 08/20/2023 AR-[id number] / Implanted: Qty: 1 on 02/23/2019 by Garry Aldridge MD at [facility] Knee 1 [id number] / [id number] documented as of this encounter Results XR KNEE <3 VW LEFT (09/20/2020 9:52 AM ELECTRONIC FIELD SERVICE ENGINEER) Specimen Narrative Performed At This result has [...] Effective Dates Phone Addre ss Type Group [employer] [email or web address] [id number] 2018-Present O OF [facility] [id number] 2019-Present Medicaid COMM PLAN - PLUS MANAGED MEDICAID documented as of this encounter
[2020-09-25] MEDS ORDERED: IBUPROFEN 400 MG TAB ONE (17:49)
[2020-09-25] MEDS ORDERED: HYDROCODONE/APAP 5/325 MG TAB ONE (17:49)
--- NOTE | 2020-09-25 18:34 | ER ---
Nurse's Notes [facility] Name: Kenzie Cartwright Age: 50 yrs Sex: Female : 1970 Arrival Date: 09/25/2020 Time: 15:01 Bed 25 Private MD: Diagnosis: Pain in left knee Presentation: 09/25 16:22 Chief complaint: Patient states: I had an ACL graft on L knee. Dr. Donohue thinks I ca1 ripped it and today, I felt the L knee twisted. C/O pf L knee pain, I cannot straighten my leg and put any weight on it. Coronavirus screen: Client denies travel out of the [place] in the last 14 days. At this time, the client does not indicate any symptoms associated with coronavirus-19. Ebola Screen: Patient negative for fever greater than or equal to 101.5 degrees Fahrenheit, and additional compatible Ebola Virus Disease symptoms Patient denies exposure to infectious person. Patient denies travel to an Ebola-affected area in the 21 days before illness onset. No symptoms or risks identified at this time. Initial Sepsis Screen: Does the patient meet any 2 criteria? No. Patient's initial sepsis screen is negative. Does the patient have a suspected source of infection? No. Patient's initial sepsis screen is negative. Risk Assessment: Do you want to hurt yourself or someone else? Patient reports no desire to harm self or others. Onset of symptoms was September 25, 2020. 16:22 Method Of Arrival: Wheelchair ca1 16:22 Acuity: ERICA 4 ca1 GREASE MAN: 16:26 LMP N/A - uterine ablation ca1 Historical: - Allergies: 16:26 Chantix; ca1 16:26 Contrave; ca1 16:26 Demerol; ca1 16:26 mushrooms; ca1 16:26 Prozac; ca1 16:26 SHELLFISH; ca1 16:26 Wellbutrin; ca1 - PMHx: 16:26 Bipolar disorder; Depression; overactive bladder; ca1 - PSHx: 16:26 Uterine Ablation; ca1 - Immunization history:: Adult Immunizations up to date, Flu vaccine is not up to date. - Social history:: Smoking status: Patient reports the use of cigarette tobacco products, smokes two packs cigarettes per day. Screenin:43 Abuse screen: Denies threats or abuse. Nutritional screening: No deficits noted. Tuberculosis screening: No symptoms or risk factors identified. Fall Risk None identified. Assessment: 17:42 General: Appears uncomfortable, Behavior is calm, cooperative, appropriate for age. Pain: Complains of pain in left knee Pain currently is 5 out of 10 on a pain scale. Quality of pain is described as sharp, Pain began suddenly, Is intermittent, Alleviated by Aggravated by increased activity, repositioning. Neuro: Level of Consciousness is awake, alert, obeys commands, Oriented to person, place, time, situation, Appropriate for age. Cardiovascular: Heart tones S1 S2 present. Respiratory: Airway is patent Respiratory effort is even, unlabored, Respiratory pattern is regular, symmetrical. GI: No signs and/or symptoms were reported involving the gastrointestinal system. Derm: No signs and/or symptoms reported regarding the dermatologic system. Skin is intact, is healthy with good turgor. Musculoskeletal: Circulation, motion, and sensation intact. Capillary refill < 3 seconds, Range of motion: intact in left knee. Vital Signs: 16:22 BP 122 / 77; Pulse 79; Resp 18 S; Temp 97.3(TE); Pulse Ox 96% on R/A; Weight 78.93 kg ca1 (R); Height 5 ft. 9 in. (175.26 cm) (R); Pain 7/10; 16:22 Body Mass Index 25.70 (78.93 kg, 175.26 cm) ca1 ED Course: 15:01 Patient arrived in ED. ds1 16:24 Triage completed. ca1 16:26 Arm band placed on right wrist. ca1 17:17 Chiki Wright PA is PHCP. cp 17:17 Deejay Miranda MD is Attending Physician. cp 17:32 Mattie Blakely, RN is Primary Nurse. ah 17:43 Patient has correct armband on for positive identification. Bed in low position. Call light in reach. Side rails up X 1. 18:06 Knee Left 3 View In Process Unspecified. EDMS 18:32 Garry Donohue MD is Referral Physician. cp 19:05 No provider procedures requiring assistance completed. Patient did not have IV access during this emergency room visit. Administered Medications: 17:39 Drug: HYDROcodone-acetaminophen 5 mg-325 mg 1 tabs Route: PO; 19:05 Follow up: Response: No adverse reaction; Pain is decreased 17:41 Drug: Ibuprofen 800 mg Route: PO; 19:05 Follow up: Response: No adverse reaction; Pain is decreased Outcome: 18:32 Discharge ordered by . mehul 19:04 Discharged to home with crutches. 19:04 Condition: good 19:04 Discharge instructions given to patient, Instructed on discharge instructions, follow up and referral plans. Demonstrated understanding of instructions, follow-up care, crutch walking, Prescriptions given X 2. 19:05 Patient left the ED. Signatures: Dispatcher [employer] EDNC Brigid Xiao ds1 Chiki Wright PA PA cp Acob, Cheryl, RN RN [facility] Mattie Blakely RN RN
--- NOTE | 2020-09-25 18:34 | EDPHYS ---
Physician Documentation [facility] Name: Kenzie Cartwright Age: 50 yrs Sex: Female : 1970 Arrival Date: 09/25/2020 Time: 15:01 Bed 25 Private MD: ED Physician Deejay Miranda HPI: 09/25 17:35 This 50 yrs old Female presents to ER via Wheelchair with complaints of Knee cp Pain. 17:45 The patient presents with pain, that is acute. The complaints affect the posterior cp aspect of left knee. 17:45 Context: resulted from standing and turning. cp 17:45 Onset: The symptoms/episode began/occurred several days ago, became worse today after cp standing up. Treatment prior to arrival includes: knee brace and crutches. Patient reports history of left ACL repair last year. 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 - Social history:: Smoking status: Patient reports the use of cigarette tobacco products, smokes two packs cigarettes per day. ROS: 17:38 MS/extremity: Positive for pain, swelling, tenderness, of the left knee. cp 17:38 Constitutional: Negative for fever. cp 17:38 Neck: Negative for pain with movement, pain at rest, stiffness. 17:38 Back: Negative for pain at rest, pain with movement. 17:38 Neuro: Negative for numbness, tingling. 17:38 All other systems are negative. Exam: 17:45 Constitutional: The patient appears in no acute distress, alert, awake, non-toxic, well cp developed, well nourished. 17:45 Head/Face: Normocephalic, atraumatic. cp 17:45 Cardiovascular: Rate: normal. 17:45 Respiratory: the patient does not display signs of respiratory distress, Respirations: normal, no use of accessory muscles, no retractions. 17:45 Musculoskeletal/extremity: ROM: limited passive range of motion due to pain, in the left knee, Perfusion: the extremity is normally perfused throughout, Sensation intact. Joints: All joints are normal except the left knee displays swelling, tenderness, DVT Exam: No signs of deep vein thrombosis. 17:45 Skin: cellulitis, is not appreciated. Vital Signs: 16:22 BP 122 / 77; Pulse 79; Resp 18 S; Temp 97.3(TE); Pulse Ox 96% on R/A; Weight 78.93 kg ca1 (R); Height 5 ft. 9 in. (175.26 cm) (R); Pain 7/10; 16:22 Body Mass Index 25.70 (78.93 kg, 175.26 cm) ca1 MDM: 17:32 Patient medically screened. cp 18:00 Differential diagnosis: dislocation, closed fracture, sprain, ligament injury. cp 18:24 Test interpretation: by ED physician or midlevel provider: xrays of left knee negative cp for fracture. 18:31 ED course: No recent RXs for narcotic pain medications according to [place] prescription cp website. 18:31 Data reviewed: vital signs, nurses notes, radiologic studies, plain films, and as a cp result, I will discharge patient. 18:31 Counseling: I had a detailed discussion with the patient and/or guardian regarding: the cp historical points, exam findings, and any diagnostic results supporting the discharge/admit diagnosis, radiology results, the need for outpatient follow up, for definitive care, a orthopedic surgeon, to return to the emergency department if symptoms worsen or persist or if there are any questions or concerns that arise at home. Response to treatment: the patient's symptoms have markedly improved after treatment, and as a result, I will discharge patient. 09/25 17:56 Order name: Knee Left 3 View; Complete Time: 18:47 EDMS 09/25 18:48 Interpretation: Report reviewed. cp Administered Medications: 17:39 Drug: HYDROcodone-acetaminophen 5 mg-325 mg 1 tabs Route: PO; 19:05 Follow up: Response: No adverse reaction; Pain is decreased 17:41 Drug: Ibuprofen 800 mg Route: PO; 19:05 Follow up: Response: No adverse reaction; Pain is decreased Disposition: 18:35 Chart complete. cp 09/26 09:32 Co-signature as Attending Physician, Deejay Miranda MD. rn Disposition: 09/25/20 18:32 Discharged to Home. Impression: Pain in left knee. - Condition is Stable. - Discharge Instructions: Knee Immobilizer, Knee Pain. - Prescriptions for Naprosyn 500 mg Oral Tablet - take 1 tablet by ORAL route 2 times per day take with food; 20 tablet. Tramadol 50 mg Oral Tablet - take 1 tablet by ORAL route every 8 hours as needed; 12 tablet. - Medication Reconciliation Form, Thank You Letter, Antibiotic Education, Prescription Opioid Use form. - Follow up: Garry Martino MD; When: 1 - 2 days; Reason: Recheck today's complaints. - Problem is new. - Symptoms have improved. Signatures: Dispatcher [employer] EDNV Deejay Miradna MD MD rn Chiki Wright PA PA cp Theresa Sevilla, RN RN [facility] Mattie Blakely RN RN Corrections: (The following items were deleted from the chart) 09/25 17:55 17:30 Ankle Left 3 View+RAD.RAD.BRZ ordered. [facility] 19:05 18:32 09/25/2020 18:32 Discharged to Home. Impression: Pain in left knee. Condition is ah Stable. Forms are Medication Reconciliation Form, Thank You Letter, Antibiotic Education, Prescription Opioid Use. Follow up: Garry Martino; When: 1 - 2 days; Reason: Recheck today's complaints. Problem is new. Symptoms have improved. cp
--- NOTE | 2020-09-25 18:45 | RAD REPORT ---
EXAM DESCRIPTION: RAD - Knee Left 3 View - 09/25/2020 6:00 pm CLINICAL HISTORY: PAIN COMPARISON: No comparisons FINDINGS: Evidence of prior ACL reconstruction noted. Small suprapatellar joint effusion is present. No acute fracture or dislocation evident.
[2020-09-29 12:56] VITALS: BP 122/77; TEMP 97.3; O2SAT 96
== END 2020-09-25 19:05 | disposition home or self-care (01) ==
LOC: ER 14:58
DX: M25.562 Pain in left knee (principal); F17.210 Nicotine dependence, cigarettes, uncomplicated; Z88.5 Allergy status to narcotic agent; Z88.8 Allergy status to other drugs, medicaments and biological substances; Z91.013 Allergy to seafood; Z91.018 Allergy to other foods
CPT/HCPCS: 99284

== ENCOUNTER 2020-11-25 01:44 | Emergency (ER) | payer OTHER ==
--- OUTSIDE RECORDS SUMMARY | 2020-11-25 01:46 | XMS REPORT | Continuity of Care Document ---
:1970 Author Organization [employer] Care Team Providers Name Role Phone [employer] Unavailable Un available Problems Problem Status Onset [...] Group Polyp of colon Resolved Problem 01/28/2019 (disorder) Medical Group Posttraumatic Resolved Problem 01/28/2019 stress disorder Medi kortney (disorder) Group Rupture of anterior Resolved Problem 01/28/2019 cruciate ligament Me dical (disorder) Group Medications Medication Details Route Status Patient Ordering Order Source Instructions Provider Date vilazodone 40 mg 40 mg = 1 Active MH oral tablet tab, PO, 019 Medical Daily, # 30 Group tab, 0 Refill(s), Pharmacy: [facility] Trazodone 50 mg = 1 Active MH Hydrochloride 50 tab, PO, 019 Medica l MG Oral Tablet Bedtime, # Group 30 tab, 0 Refill(s), Pharmacy: [facility] topiramate 100 mg 100 mg = 1 Active oral tablet tab, PO, 019 Medical Daily, # 30 Group tab, 0 Refill(s), Pharmacy: [facility] oxybutynin 15 mg 15 mg = 1 Active oral tablet, tab, PO, 019 Medical extended release Daily, # 30 Abhi up tab, 0 Refill(s), Pharmacy: [facility] Omeprazole 20 MG 20 mg = 1 Active Enteric Coated cap, PO, 019 Medical Capsule [Prilosec] Daily, # 30 G roup cap, 0 Refill(s), Pharmacy: [facility] cyclobenzaprine 10 10 mg = 1 Active MH mg oral tablet tab, PO, 019 Medical TID, PRN Group for spasms, X 30 day, # 30 tab, 0 Refill(s), Pharmacy: [facility] Clonidine 0.1 mg = 1 Active Hydrochloride 0.1 tab, PO, 019 Medic al MG Oral Tablet BID, # 60 Group tab, 0 Refill(s), Pharmacy: [facility] clonazePAM 0.5 mg 0.5 mg = 1 Active oral tablet tab, PO, 019 Medical Daily, # 30 Group tab, 0 Refill(s) Ventolin HFA 90 2 puff, Active MH mcg/inh inhalation INHALATION, 019 M edical aerosol with QID, # 1 Group adapter ea, 1 Refill(s), Pharmacy: [facility] clonazePAM 0.5 mg 0.5 mg = 1 No MH oral tablet tab, PO, Longer 019 Medical TID, # 90 Active Group tab, 0 Refill(s) vilazodone 40 mg 40 mg = 1 No oral tablet tab, PO, Longer 019 Medical Daily, 0 Active Group Refill(s) Clonidine 0.1 mg = 1 No MH Hydrochloride 0.1 tab, PO, Longer 019 Medic [...] Number For Provider Date Date Visit Outpatient [id number] 01/12 [facility] Outpatient [id number] 01/12 01/13 [facility] /2018 [facility] [place] Outpatient [id number] 01/26 [facility] Ambulatory [id number] 01/26 01/26 [facility] Pre-Reg /2018 [facility] [place] Procedures Procedure Code Date Perfomer Comments Source Colonoscopy [id number] Medical Group Endoscopic biopsy [id number] Med[facility] kortney Group Removal of [id number] [facility] cystostomy tube Group Tubal ligation [id number] Medical Group Assessment and Plan No Data [...]
--- OUTSIDE RECORDS SUMMARY | 2020-11-25 01:47 | XMS REPORT | Summary of Care ---
:1970 Author Organization [facility] Address [address] [place] [id number] Care Team Providers Name Role Phone Xuan Bey MD Primary Care Provider Reason for Visit Reason Comments Notification Encounter Details Date Type Department Care Team Description 09/26/[address] [facility] Orthopaedic Keon Ball, PAC Notification Surgery- [place] [address], [place] [address] [place], [place] [phone] Allergies Active Allergy Reactions Severity Noted Date [...] as of this encounter (statuses as of 09/28/2020) Medications Medication Sig Dispensed Refills Start Date End Date Status clonazePAM 0.5 mg Take 1 tablet 3 0 01/13/2019 Active tablet times a day by oral route as needed. fluticasone 50 [place] 1 spray 0 01/13/2019 Active mcg/actuation nasal [...] as of this encounter (statuses as of 09/28/2020) Active Problems Problem Noted Date Rupture of anterior cruciate ligament of left knee, in itial encounter 01/23/2019 Overview: Added automatically from request for miguel angel ruiz [id number] documented as of this encounter (statuses as of 09/28/2020) Social History Tobacco Use Types Packs/Day Years Used Date Current Every Day Smoker Smokeless Tobacco: Former User Alcohol Use Drinks/Week oz/Week Comments No Sex Assigned at Date Recorded Not on file COVID-19 Exposure Response Date Recorded In the last month, have you been in contact with Yes 09/20/2020 9:08 AM PREPPER someone who was confirmed or suspected to have Coronavirus / COVID-19? documented as of this encounter Last Filed Vital Signs Not on filedocumented in this encounter Miscellaneous Notes Telephone Encounter - Talisha Caballero - 09/28/2020 1:38 PM CSTPatient understood and states her knee pain has improved since she called. Talisha Caballero 09/28/2020 1:39 PM elephone Encounter - Robles Ball PAC - 09/26/2020 4:05 PM CSTorthopedic RICE Rest, ice, compression, elevation Anti-inflammatories can alternate with Tylenol elephone Encounter - Nallely Gallardo - 09/26/2020 1:54 PM CSTPT has an MRI scheduled for 10/12/20 on her LFT knee. She was seen in the E.R. last night 09/25/20with a popping sensation. PT is in extreme pain. She wants to know what she should do? documented in this encounter Plan of Treatment Date Type Specialty Care Team Description 10/12/2020 Appointment Radiology Garry Donohue MD [address] [phone] Health Maintenance Due Date Last Done Comments PNEUMOCOCCAL 0-64 YEARS COMBINED SERIES (1 of 1 - 01/11/1976 PPSV23) Depression Screening 1982 DTaP,Tdap,and Td Vaccines (1 - Tdap) 1989 PAP SMEAR 1991 Breast Cancer Screening (MAMMOGRAM) 2010 COLON CANCER SCREENING ANNUAL FIT/FOBT 01/11/2020 COLON CANCER SCREENING FIT DNA EVERY 3 YEARS 01/11/2020 COLON CANCER SCREENING SIGMOIDOSCOPY EVERY 5 YEARS 01/11/2020 COLONOSCOPY 01/11/2020 Colorectal Cancer Screening 01/11/2020 Zoster Recombinant Vaccine (SHINGRIX) (1 of 2) 01/11/2020 INFLUENZA VACCINE (#1) 2020 documented as of this encounter Implants Implanted Type Area Sheriff Detective Device Shelf Model / Identifier Expiration Serial / Date Lot Screw Biocomposite Interference 7x23mm Arthrex #[id number] - [id number] Left: [employer] 11/20/2019 AR-1370C / Implanted: Qty: 1 on 02/23/2019 by Garry Aldridge MD at [facility] Knee 1 [id number] / [id number] Tightrope Arthrex Acl Rt #[id number] - [id number] [id number] Left: [employer] 08/20/2023 [id number] / Implanted: Qty: 1 on 02/23/2019 by Garry Aldridge MD at [facility] Knee 1 [id number] / [id number] documented as of this encounter Results Not on filedocumented in this encounter Insurance Payer Benefit Plan / Subscriber ID Effective Dates Phone Addre ss Type Group [facility] [employer] [id number] 2018-Present O OF [facility] [id number] 2019-Present Medicaid COMM PLAN - PLUS MANAGED MEDICAID documented as of this encounter
--- OUTSIDE RECORDS SUMMARY | 2020-11-25 01:47 | XMS REPORT | Continuity of Care Document ---
:1970 Author Organization [facility] t Address [address] [place] [address] Care Team Providers Name Role Phone Jannie [...] hageal reflux disease (disorder) Resolved Problem 01/28/2019 [facility] Gastrointe Problem Resolve 2019-01-28 Memoria stinal d 22:19:46 l hemorrhage Christopher n (disorder) Gastrointe stinal hemorrhage (disorder) Resolved Problem 01/28/2019 [facility] Genuine Problem Resolve 2019-01-28 Mem oria stress d 22:19:46 l incontinen Genuine Her steen ce stress (finding) incontinen ce (finding) Resolved Problem 01/28/2019 [facility] Hypothyroi Problem Resolve 2019-01-28 Memoria dism d 22:19:46 l (disorder) Christopher n Hypothyroi dism (disorder) Resolved Problem 01/28/2019 [facility] Insomnia Problem Resolve 2019-01-28 Me moria (disorder) d 22:19:46 l Insomnia Christopher n (disorder) Resolved Problem 01/28/2019 [facility] Intentiona Problem Resolve 2019-01-28 Memoria l drug d 22:19:46 l overdose Jesse by tablet Intentiona (disorder) l drug overdose by tablet (disorder) Resolved Problem 01/28/2019 [facility] Irregular Problem Resolve 2019-01-28 M emoria periods d 22:19:46 l (finding) Jesse Irregular periods (finding) Resolved Problem 01/28/2019 [facility] Low back Problem Resolve 2019-01-28 Me moria pain d 22:19:46 l (disorder) Low back He rmann pain (disorder) Resolved Problem 01/28/2019 [facility] Melena Problem Resolve 2019-01-28 Bryce jimena (disorder) d 22:19:46 l Melena Jesse (disorder) Resolved Problem 01/28/2019 [facility] Metabolic Problem Resolve 2019-01-28 M emoria disease d 22:19:46 l (disorder) Christopher n Metabolic disease (disorder) Resolved Problem 01/28/2019 [facility] Mild Problem Resolve 2019-01-28 Bryce jimena intermitte d 22:19:46 l nt asthma Mild Jesse (disorder) intermitte nt asthma (disorder) Resolved Problem 01/28/2019 [facility] Overweight Problem Resolve 2019-01-28 Memoria (finding) d 22:19:46 l Jesse Overweight (finding) Resolved Problem 01/28/2019 [facility] Polyp of Problem Resolve 2019-01-28 Me moria colon d 22:19:46 l (disorder) Polyp of He rmann colon (disorder) Resolved Problem 01/28/2019 [facility] Posttrauma Problem Resolve 2019-01-28 Memoria tic stress d 22:19:46 l disorder Dana (disorder) Posttrauma tic stress disorder (disorder) Resolved [...] l Jesse PROzac PROzac Active Memoria l Dana Social History Smoking Status Start Date Stop [...] Jesse 00 30 tab, 0 Refill(s), Pharmacy: [facility] Trazodone Yes 50 mg = 1 Mem oria Hydrochlori 3-26 tab, PO, l de 50 MG 13:57: Bedtime, # Her steen Oral Tablet 00 30 tab, 0 Refill(s), Pharmacy: [facility] topiramate Yes 100 mg = 1 M emoria 100 mg oral 3-26 tab, PO, l tablet 13:57: Daily, # Dana 00 30 tab, 0 Refill(s), Pharmacy: [facility] oxybutynin 2018- Yes 15 mg = 1 Me moria 15 mg oral 3-26 tab, PO, l tablet, 13:57: Daily, # Christopher n extended 00 30 tab, 0 release Refill(s), Pharmacy: [facility] 52 Omeprazole Yes 20 mg = 1 Me moria 20 MG 3-26 cap, PO, l Enteric 13:57: Daily, # Christopher n Coated 00 30 cap, 0 Capsule Refill(s), [Prilosec] Pharmacy: [facility] 52 cyclobenzap Yes 10 mg = 1 M emoria rine 10 mg 3-26 tab, PO, l oral tablet 13:57: TID, PRN He rmann 00 for spasms, X 30 day, # 30 tab, 0 Refill(s), Pharmacy: [facility] Clonidine Yes 0.1 mg = 1 Me moria Hydrochlori 3-26 tab, PO, l de 0.1 MG 13:57: BID, # 60 Her steen Oral Tablet 00 tab, 0 Refill(s), Pharmacy: [facility] clonazePAM Yes 0.5 mg = 1 M emoria 0.5 mg oral 3-26 tab, PO, l tablet 13:57: Daily, # Dana 00 30 tab, 0 Refill(s) Ventolin Yes 2 puff, Memori a HFA 90 3-26 INHALATION l mcg/inh 13:57: , QID, # 1 Herm gabriel inhalation 00 ea, 1 aerosol Refill(s), with Pharmacy: [facility] [id number] clonazePAM No 0.5 mg = 1 M emoria 0.5 mg oral 3-25 tab, PO, l tablet 20:19: TID, # 90 Christopher n 00 tab, 0 Refill(s) vilazodone No 40 mg = 1 Me moria 40 mg oral 3-25 tab, PO, l tablet 20:19: Daily, 0 Dana 00 Refill(s) Clonidine No 0.1 mg = 1 Me moria Hydrochlori 3-25 tab, PO, l de 0.1 MG 20:19: BID, # 90 Her steen Oral Tablet 00 tab, 3 Refill(s) topiramate No 100 mg = 1 M emoria 100 mg oral 3-25 tab, PO, l tablet 20:19: Daily, # Dana 00 30 tab, 3 Refill(s) Ventolin 0 No INHALATION Mem oria HFA 3-25 , QID, 0 l 20:19: Refill(s) Dana 00 oxybutynin No 15 mg = 1 [...] Temperature Oral (F) 2019-01-12 20:04:00 98.3 F [facility] Height 2019-01-12 20:04:00 175.26 cm [facility] BMI Calculated 2019-01-12 20:04:00 Alexander al Dana Weight 2019-01-12 20:04:00 [facility] Heart Rate 2019-01-12 20:04:00 [facility] Systolic (mm Hg) 2019-01-12 20:04:00 Bryce riadaksha Dana Diastolic (mm Hg) 2019-01-12 20:04:00 [facility] orial Dana Procedures Procedure Date / Time Performed Performing Clinician Sourc e Colonoscopy [facility] Endoscopic biopsy [facility] nn Removal of cystostomy [facility] ermann tube Tubal ligation [facility] Encounters Start End Encounter Admission Attending Care Care Encounter Source Date/Time Date/Time Type Type Clinicians Facility Department ID 2020-11-16 2020-11-16 Office VIANEY Ball [id number] 12:56:28 13:11:28 Visit [facility] [id number] Surgical [id number] Specialti [id number] [address] [place] 2019-01-27 2019-01-27 Outpatient [facility] [id number] [place] 20:10:00 22:20:[address] [facility] 2019-01-26 2019-01-26 Outpatient [facility] [id number] 13:30:00 13:30:00 2019-01-12 2019-01-12 Outpatient [facility] [id number] 15:00:00 23:59:59 00 Results Test Description Test Time Test Comments Results Result Sourc e Comments XR SPINE LUMBAR 2019-01-27 LOCATION: [id number]: COMPLETE *OW* 21:23:46 49-year-old female with acute [...]
--- OUTSIDE RECORDS SUMMARY | 2020-11-25 01:48 | XMS REPORT | Summary of Care ---
:1970 Author Organization [facility] Address [address] [place] [address] Care Team Providers Name Role Phone Xuan Bey MD Primary Care Provider Reason for Visit Reason Comments Follow-up Results MRI Lt knee ACL Encounter Details Date Type Department Care Team Description 10/18/2020 Office Visit [facility] Robles Ball, S/P [facility] uction of Orthopaedic Surgery- PAC anterior cruciate [place] [address] ligament (Primary Dx) [address] [place] [address] [place] [phone] Allergies Active Allergy Reactions Severity Noted Date [...] as of this encounter (statuses as of 10/18/2020) Medications Medication Sig Dispensed Refills Start Date End Date Status clonazePAM 0.5 mg Take 1 tablet 3 0 01/13/2019 Active tablet times a day by oral route as needed. fluticasone 50 [place] 1 spray 0 01/13/2019 Active mcg/actuation nasal [...] as of this encounter (statuses as of 10/18/2020) Active Problems Problem Noted Date Rupture of anterior cruciate ligament of left knee, in itial encounter 01/23/2019 Overview: Added automatically from request for miguel angel ruiz [id number] documented as of this encounter (statuses as of 10/18/2020) Social History Tobacco Use Types Packs/Day Years Used Date Current Every Day Smoker Smokeless Tobacco: Former User Alcohol Use Drinks/Week oz/Week Comments No Sex Assigned at Date Recorded Not on file COVID-19 Exposure Response Date Recorded In the last month, have you been in contact with No / Unsure 10/18/2020 8:53 AM PRN PHYSICAL THERAPIST someone who was confirmed or suspected to have Coronavirus / COVID-19? documented as of this encounter Last Filed Vital Signs Vital Sign Reading Time Taken Comments Blood Pressure 141/94 10/18/2020 9:05 AM has not take n BP Rx PRN PHYSICAL THERAPIST Pulse 66 10/18/2020 9:05 AM PRN PHYSICAL THERAPIST Temperature - - Respiratory Rate - - Oxygen Saturation - - Inhaled Oxygen Concentration - - Weight 81.6 kg (180 lb) 10/18/2020 9:05 AM PRN PHYSICAL THERAPIST Height 175.3 cm (5' 9") 10/18/2020 9:05 AM PRN PHYSICAL THERAPIST Body Mass Index 26.58 10/18/2020 9:05 AM PRN PHYSICAL THERAPIST documented in this encounter Progress Notes Robles Ball S, PAC - 10/18/2020 9:00 AM CST Cc: Chief Complaint Patient presents with Follow-up Results MRI Lt knee ACL Kenzie Cartwright is a 50 year old female. Here for follow-up status post anterior cruciate ligament reconstruction she has had several injuries since her surgery and is now experiencing a shifting and instability of her left leg we sent her for an MRI on her exam her anterior cruciate ligament was quite lax at the last visit 4 mm of translation I'm concerned about reinjury versus incompetence of the anterior cruciate ligament. Her pain is 1/10 at this time but sometimes goes up to 5/10 in intensity she has a hinged neoprene knee brace thatshe's been using as needed she has been experiencing episodes where her knee will shift and twist and then the pain goes to 10 over 10. She's experienced 4-5 episodes of a shifting sliding feeling in her knee. Allergies Kenzie is allergic to bupropion; cortisone; fluoxetine; latex; mold; morphine; naltrexone-bupropion; prozac [fluoxetine hcl]; and wellbutrin [bupropion hcl]. Medications Outpatient Medications Prior to Visit Medication Sig Dispense Refill mesalamine (PENTASA) 500 mg CR capsule Take 500 mg by mouth 4 (four) times daily. pantoprazole 40 mg EC tablet Take 40 mg by mouth daily. sulfaSALAzine 500 mg tablet Take 500 mg by mouth 4 (four) times daily. clonazePAM 0.5 mg tablet Take 1 tablet 3 times a day by oral route as needed. fluticasone 50 mcg/actuation nasal spray [place] 1 spray every day by intranasal route. naproxen (NAPROSYN) 500 mg tablet Take 1 tablet twice a day by oral route as needed. topiramate 100 mg tablet Take 1 tablet twice a day by oral route. vilazodone (VIIBRYD) 40 mg tablet Take 1 tablet every day by oral route. No facility-administered medications prior to visit. Histories Past Medical History: Diagnosis Date Back pain Bipolar 1 disorder Colon polyps Constipation History of blood in urine Impaction of the bowels Incontinence PTSD (post-traumatic stress disorder) Past Surgical History: Procedure Laterality Date ANKLE CLOSED REDUCTION WITH PERCUTANEOUS PINNING Right 2015 ANTERIOR CRUCIATE LIGAMENT RECONSTRUCTION Left 02/23/2019 Surgeon: Garry Donohue [place]; [place] [facility] Left 1985 COLONOSCOPY 02/17/2019 EGD (ENDO) [...] file Gets together: Not on file Attends christian service: Not on file Active member of [...] Negative. Endocrine: Endocrine negative Vital Signs Vitals: 10/18/20 0905 BP: (!) 141/94 Pulse: 66 Weight: 81.6 kg (180 lb) Height: 69" (175.3 cm) Physical Exam HISTORY: Pain in the left knee. TECHNIQUE: MR imaging of the left knee was done in multiple projections using 1.5T MR unit and standard protocol. FINDINGS: BONE AND JOINT: Small knee joint effusion noted. Minimal fluid is seen in the Ball's cyst. Minimal, up to grade III chondromalacia detected in the medial knee joint and lateral knee joint with focal subchondral 3 mm degenerative cystic lesion in the weightbearing lateral femoral condyle, consistent with grade IV chondromalacia. Micrometallic debris noted on the surface of the medial patellar facet close to the apex. MENISCI: [place] of posterior horn of the lateral meniscus is blunted which could be secondary to remote trauma. I do not see any tear in the lateral meniscus. Posterior horn of the medial meniscus is slightly deformed without a tear. [place] of the posterior horn of the medial meniscus is also blunted which could be secondary to remote trauma. LIGAMENTS AND TENDONS: S/P ACL reconstruction using probably gracilis/semitendinosus tendons. ACL graft is intact with no sign of impingement or scar tissue surrounding intra-articular segment of the graft. PCL is slightly buckled but otherwise is intact. Proximal MCL ligament is slightly thickened but otherwise is intact. Proximal fibular collateral ligament is slightly swollen but otherwise is intact. CONCLUSIONS: 1. 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 2. S/P ACL reconstruction changes. ACL graft is intact. 3. Blunted apex of the posterior horn of medial/lateral menisci and slightly deformed posterior horn of the medial meniscus noted, likely secondary to remote trauma. No recurrent meniscal tear detected. Assessment/Plan Follow-up on left knee anterior cruciate ligament reconstruction She's had a reinjury to her anterior cruciate ligament on MRI the anterior cruciate ligament's intact but on physical exam it appears to be incompetent as well as historically she is having difficulty with her function. I discussed the case with Dr. Donohue we will schedule her for an appointment when he can examine her and make a determination. Patient was instructed in straight leg raise exercises. Instructed to lift heel off the ground 4 inches with leg straight. After setting the leg down completely relax her quadriceps, once her quadriceps is relaxed perform another repetition. Advised to do repetitions in sets of 10. Until they can do 8sets of 10 pain-free perform exercises 3 times a day. That's 240 straight leg raises per day. Once th e patient is able to do 240 straight leg raises pain-free start over with a 2 pound ankle weights. After 240 leg raises pain-free with a 2 pound ankle weight, progress to terminal knee extensions. Allow need to bend 30 degrees and then extending to straight with light weight on the ankle PHYSICAL THERAPIST documented in this encounter Plan of Treatment Health Maintenance Due Date Last Done Comments PNEUMOCOCCAL 0-64 YEARS COMBINED SERIES (1 of - 01/11/1976 PPSV23) Depression Screening 1982 DTaP,Tdap,and [...] of this encounter Implants Implanted Type Area Ld Teacher Device Shelf Model / Identifier Expiration Serial / Date Lot Screw Biocomposite Interference 7x23mm Arthrex #[id number] - [id number] Left: [employer] 11/20/2019 AR-1370C / Implanted: Qty: 1 on 02/23/2019 by Garry Aldridge MD at [facility] Knee 1 [id number] / [id number] Tightrope Arthrex Acl Rt #[id number] - [id number] TightRope Left: [employer] 08/20/2023 [id number] / Implanted: Qty: 1 on 02/23/2019 by Garry Aldridge MD at [facility] Knee 1 [id number] / [id number] documented as of this encounter Results Not on filedocumented in this encounter Visit Diagnoses Diagnosis S/P reconstruction of anterior cruciate ligament - Primary Other postprocedural status documented in this encounter Insurance Payer Benefit Plan / Subscriber ID Effective Dates Phone Addre ss Type Group [facility] [id number] 2018-Present [facility] STAR [id number] 2019-Present Medicaid COMM PLAN - PLUS MANAGED MEDICAID documented as of this encounter
--- OUTSIDE RECORDS SUMMARY | 2020-11-25 01:48 | XMS REPORT | Summary of Care ---
:1970 Author Organization [facility] Address [address] [place] [address] Care Team Providers Name Role Phone Xuan Bey MD Primary Care Provider Encounter Details Date Type Department Care Team Description 10/20/2020 Prep For Surgery [facility] Garry Donohue Rupture of anterior Orthopaedic Surgery- MD Radha cruciate ligament of [place] [address] left knee, initial [address] encounter (Primary [address] [place], [place] Dx) [place] [phone] Allergies Active Allergy Reactions [...] as of this encounter (statuses as of 10/20/2020) Medications Medication Sig Dispensed Refills Start Date End Date Status clonazePAM 0.5 mg Take 1 tablet 3 0 01/13/2019 Active tablet times a day by oral route as needed. fluticasone 50 [place] 1 spray 0 01/13/2019 Active mcg/actuation nasal [...] Active tablet mouth 4 (four) times daily. sulfamethoxazole-trim Take 1 tablet by 20 tablet 0 10/19/2020 10/29/2020 Active ethoprim (BACTRIM DS) mouth 2 (two) 800-160 mg per tablet times daily for 10 days. documented as of this encounter (statuses as of 10/20/2020) Active Problems Problem Noted Date Rupture of anterior cruciate ligament of left knee, in itial encounter 01/23/2019 Overview: Added automatically from request for miguel angel ruiz [id number] documented as of this encounter (statuses as of 10/20/2020) Social History Tobacco Use Types Packs/Day Years Used Date Current Every Day Smoker Smokeless Tobacco: Former User Alcohol Use Drinks/Week oz/Week Comments No Sex Assigned at Date Recorded Not on file COVID-19 Exposure Response Date Recorded In the last month, have you been in contact with No / Unsure 10/18/2020 8:53 AM SIDEWALK REPAIRER someone who was confirmed or suspected to have Coronavirus / COVID-19? documented as of this encounter Last Filed Vital Signs Not on filedocumented in this encounter Plan of Treatment Name Type Priority Associated Diagnoses Order S chedule CBC WITH DIFF LAB Routine Rupture of anterior 1 Occur rences cruciate ligament of startin g 10/20/2020 left knee, initial until encounter BASIC METABOLIC PANEL LAB Routine Rupture of anterior 1 Occurrences (NA, K, CL, CO2, cruciate ligament of sta rting 10/20/2020 GLUCOSE, BUN, left knee, initial until CREATININE, CA) encounter URINALYSIS LAB Routine Rupture of anterior 1 Occurr ences cruciate ligament of startin g 10/20/2020 left knee, initial until encounter XR CHEST 2 VW IMAGING Routine Rupture of anterior 1 Occur rences cruciate ligament of startin g 10/20/2020 left knee, initial until encounter EKG-12 LEAD ROUTINE HEART STATION Routine Rupture of anterior 1 Occurrences cruciate ligament of startin g 10/20/2020 left knee, initial until encounter Health Maintenance Due Date Last Done [...] of this encounter Implants Implanted Type Area Washing And Screening Plant Supervisor Device Shelf Model / Identifier Expiration Serial / Date Lot Screw Biocomposite Interference 7x23mm Ar[employer]rex #[id number] - [id number] Left: [employer] 11/20/2019 AR-1370C / Implanted: Qty: 1 on 02/23/2019 by Garry Aldridge MD at [facility] Knee 1 [id number] / [id number] [employer]rope Ar[employer] Acl Rt #[id number] - [id number] TightRope Left: [employer] 08/20/2023 [id number] / Implanted: Qty: 1 on 02/23/2019 by Garry Aldridge MD at [facility] Knee 1 [id number] / [id number] documented as of this encounter Results Not on filedocumented in this encounter Visit Diagnoses Diagnosis Rupture of anterior cruciate ligament of left knee, initial encounter - Primary documented in this encounter Insurance Payer Benefit Plan / Subscriber ID Effective Dates Phone Addre ss Type Group [employer] [id number] 2018-Present PPO OF [facility] STAR [id number] 2019-Present Medicaid COMM PLAN - PLUS MANAGED MEDICAID documented as of this encounter
--- OUTSIDE RECORDS SUMMARY | 2020-11-25 01:48 | XMS REPORT | Summary of Care ---
:1970 Author Organization [facility] Address [address] [place] [address] Care Team Providers Name Role Phone Xuan Bey MD Primary Care Provider Reason for Visit Reason Comments Follow-up LT Knee MRI Results Encounter Details Date Type Department Care Team Description 10/19/2020 Office Visit [facility] Orthopaedic Garry Donohue of anterior Surgery- Riky Garcia MD cruciate ligament of [address] [facility], [address] left knee, initial [address] encounter (Primary Dx) [place] [address] [address] [place], [place] [phone] [address] [phone] Allergies Active Allergy Reactions Severity Noted Date [...] by oral route as needed. fluticasone 50 [place] 1 spray 0 01/13/2019 Active mcg/actuation nasal [...] automatically from request for miguel angel ruiz [id number] documented as of this encounter (statuses as of 10/20/2020) Social History Tobacco Use Types Packs/Day Years Used Date Current Every Day Smoker Smokeless Tobacco: Former User Alcohol Use Drinks/Week oz/Week Comments No Sex Assigned at Date Recorded Not on file COVID-19 Exposure Response Date Recorded In the last month, have you been in contact with No / Unsure 10/18/2020 8:53 AM TORCH STRAIGHTENER someone who was confirmed or suspected to have Coronavirus / COVID-19? documented as of this encounter Last Filed Vital Signs Vital Sign Reading Time Taken Comments Blood Pressure - - Pulse - - Temperature - - Respiratory Rate - - Oxygen Saturation - - Inhaled Oxygen Concentration - - Weight 81.6 kg (180 lb) 10/19/2020 12:59 PM TORCH STRAIGHTENER Height 175.3 cm (5' 9") 10/19/2020 12:59 PM TORCH STRAIGHTENER Body Mass Index 26.58 10/19/2020 12:59 PM TORCH STRAIGHTENER documented in this encounter Progress Notes Garry Donohue MD - 10/19/2020 4:15 PM CST Cc: Chief Complaint Patient presents with Follow-up LT Knee MRI Results Kenzie Cartwright is a 50 year old female. HPI Allergies Kenzie is allergic to bupropion; cortisone; [...] as needed. fluticasone 50 mcg/actuation nasal spray [place] 1 spray every day by intranasal route. [...] Left 02/23/2019 Surgeon: Garry Donohue MD; [place] [facility] [place] 1985 COLONOSCOPY 02/17/2019 EGD (ENDO) [...] file Gets together: Not on file Attends druze service: Not on file Active member of [...] Gastrointestinal: Negative. Genitourinary: Negative. Musculoskeletal: Positive for gait problem and joint swelling. Skin: Negative. Psychiatric/Behavioral: Negative. Endocrine: Endocrine negative Vital Signs Ht 69" (175.3 cm) | Wt 81.6 kg (180 lb) | BMI 26.58 kg/m Physical Exam Musculoskeletal: Comments: Physical Exam Constitutional: [...] ruptured her anterior cruciate ligament reconstruction graft HISTORY: Pain in the left knee. TECHNIQUE: [...] patellar facet close to the apex. MENISCI: [place] of posterior horn of the lateral meniscus is blunted which could be secondary to remote trauma. I do not see any tear in the lateral meniscus. Posterior horn of the medial meniscus is slightly deformed without a tear. [place] of the posterior horn of the medial [...] trauma. No recurrent meniscal tear detected. Assessment/Plan Left knee ACL tear Will proceed with an ACL reconstruction of the left knee with posterior tibial allograft. The previous ACL graft has become loose and she is having issues with instability. There is laxity on exam of her knee. I have discussed the patient's physical exam and reviewed their x-rays/imaging/results with them in detail. Discussed surgery at great lengths regarding risks and benefits. Explained as with any procedure there may be pain, damage to nerve and vascular structures, fat embolism, need for additional surgery, failure of procedure to relieve pain. We spoke of recovery time, expected outcome, possible restrictions and anticipation return to work date as well as possible rehabilitation if needed or required after the surgery. All questions have been answered. Condition and plans were discussed with patient, who expressed understanding and is agreeable to theplan. H STRAIGHTENER documented in this encounter Plan of Treatment [...] of this encounter Implants Implanted Type Area Lapel Padder Device Shelf Model / Identifier Expiration Serial / Date Lot Screw Biocomposite Interference 7x23mm Arthrex #Ar-1370c - [id number] [id number] Left: [employer] 11/20/2019 AR-1370C / Implanted: Qty: 1 on 02/23/2019 by Garry Aldridge MD at [facility] Knee 1 [id number] / [id number] Tightrope Arthrex Acl Rt #[id number] - [id number] TightRope Left: [employer] 08/20/2023 AR-[id number] / Implanted: Qty: 1 on 02/23/2019 by Garry Aldridge MD at [facility] Knee 1 [id number] / [id number] documented as of this encounter Results Not on filedocumented in this encounter Visit Diagnoses Diagnosis Rupture of anterior cruciate ligament of left knee, initial encounter - Primary documented in this encounter Insurance Payer Benefit Plan / Subscriber ID Effective Dates Phone Addre ss Type Group [facility] RingMD [id number] 2018-Present [facility] STAR [id number] 2019-Present Medicaid COMM PLAN - PLUS MANAGED MEDICAID documented as of this encounter
--- OUTSIDE RECORDS SUMMARY | 2020-11-25 01:48 | XMS REPORT | Summary of Care ---
:1970 Author Organization [facility] Address [address] [place] [address] Care Team Providers Name Role Phone Xuan Bey MD Primary Care Provider Reason for Visit Reason Comments Follow-up LT Knee MRI Results Encounter Details Date Type Department Care Team Description 10/19/2020 Office Visit [facility] Orthopaedic Garry Donohue of anterior Surgery- Riky Garcia MD cruciate ligament of [address] [facility], [address] left knee, initial [address] encounter (Primary Dx) [place] [address] [address] [place], [place] [phone] [phone] Allergies Active Allergy Reactions Severity Noted Date [...] by oral route as needed. fluticasone 50 [place] 1 spray 0 01/13/2019 Active mcg/actuation nasal [...] automatically from request for miguel angel ruiz [id number] documented as of this encounter (statuses as of 10/20/2020) Social History Tobacco Use Types Packs/Day Years Used Date Current Every Day Smoker Smokeless Tobacco: Former User Alcohol Use Drinks/Week oz/Week Comments No Sex Assigned at Date Recorded Not on file COVID-19 Exposure Response Date Recorded In the last month, have you been in contact with No / Unsure 10/18/2020 8:53 AM SHIRT CLEANER someone who was confirmed or suspected to have Coronavirus / COVID-19? documented as of this encounter Last Filed Vital Signs Vital Sign Reading Time Taken Comments Blood Pressure - - Pulse - - Temperature - - Respiratory Rate - - Oxygen Saturation - - Inhaled Oxygen Concentration - - Weight 81.6 kg (180 lb) 10/19/2020 12:59 PM SHIRT CLEANER Height 175.3 cm (5' 9") 10/19/2020 12:59 PM SHIRT CLEANER Body Mass Index 26.58 10/19/2020 12:59 PM SHIRT CLEANER documented in this encounter Progress Notes Garry [...] as needed. fluticasone 50 mcg/actuation nasal spray [place] 1 spray every day by intranasal route. [...] Left 02/23/2019 Surgeon: Garry Donohue MD; [place] [facility] [place]UNIONECTOMY Left 1985 COLONOSCOPY [...] file Gets together: Not on file Attends restoration service: Not on file Active member of [...] patellar facet close to the apex. MENISCI: [place] of posterior horn of the lateral meniscus is blunted which could be secondary to remote trauma. I do not see any tear in the lateral meniscus. Posterior horn of the medial meniscus is slightly deformed without a tear. [place] of the posterior horn of the medial [...] expressed understanding and is agreeable to theplan. T CLEANER documented in this encounter Plan of Treatment [...] of this encounter Implants Implanted Type Area Gluing Machine Offbearer Device Shelf Model / Identifier Expiration Serial / Date Lot Screw Biocomposite Interference 7x23mm Arthrex #Ar-1370c - S [id number] SCREW Left: [employer] 11/20/2019 AR-1370C / Implanted: Qty: 1 on 02/23/2019 by Garry Aldridge MD at [facility] Knee 1 [id number] / [id number] Tightrope Arthrex Acl Rt #[id number] - [id number] TightRope Left: [employer] 08/20/2023 AR-[id number] / Implanted: Qty: 1 on 02/23/2019 by Garry Aldridge MD at [facility] Knee 1 [id number] / [id number] documented as of this encounter Results Not on filedocumented in this encounter Visit Diagnoses Diagnosis Rupture of anterior cruciate ligament of left knee, initial encounter - Primary documented in this encounter Insurance Payer Benefit Plan / Subscriber ID Effective Dates Phone Addre ss Type Group [facility] Eventup [id number] 2018-Present [facility] STAR [id number] 2019-Present Medicaid COMM PLAN - PLUS MANAGED MEDICAID documented as of this encounter
--- OUTSIDE RECORDS SUMMARY | 2020-11-25 01:48 | XMS REPORT | Summary of Care ---
:1970 Author Organization [facility] Address [address] [place] [address] Care Team Providers Name Role Phone Xuan Bey MD Primary Care Provider Reason for Visit Reason Comments Follow-up Results MRI Lt knee ACL Encounter Details Date Type Department Care Team Description 10/18/2020 Office Visit [facility] [place] Ball, S/P [facility] uction of Orthopaedic Surgery- PAC anterior cruciate [place] [address] (Primary Dx) [address], [place] [address] [place] [phone] Allergies Active Allergy Reactions Severity Noted Date [...] by oral route as needed. fluticasone 50 [place] 1 spray 0 01/13/2019 Active mcg/actuation nasal [...] automatically from request for miguel angel ruiz [id number] documented as of this encounter (statuses as of 10/18/2020) Social History Tobacco Use Types Packs/Day Years Used Date Current Every Day Smoker Smokeless Tobacco: Former User Alcohol Use Drinks/Week oz/Week Comments No Sex Assigned at Date Recorded Not on file COVID-19 Exposure Response Date Recorded In the last month, have you been in contact with No / Unsure 10/18/2020 8:53 AM DOCUMENTATION LIAISON someone who was confirmed or suspected to have Coronavirus / COVID-19? documented as of this encounter Last Filed Vital Signs Vital Sign Reading Time Taken Comments Blood Pressure 141/94 10/18/2020 9:05 AM has not take n BP Rx DOCUMENTATION LIAISON Pulse 66 10/18/2020 9:05 AM DOCUMENTATION LIAISON Temperature - - Respiratory Rate - - Oxygen Saturation - - Inhaled Oxygen Concentration - - Weight 81.6 kg (180 lb) 10/18/2020 9:05 AM DOCUMENTATION LIAISON Height 175.3 cm (5' 9") 10/18/2020 9:05 AM DOCUMENTATION LIAISON Body Mass Index 26.58 10/18/2020 9:05 AM DOCUMENTATION LIAISON documented in this encounter Progress Notes [place] [...] as needed. fluticasone 50 mcg/actuation nasal spray [place] 1 spray every day by intranasal route. [...] Left 02/23/2019 Surgeon: Garry Donohue MD; Location: [facility] [place] BUNIONECTOMY Left 1985 COLONOSCOPY 02/17/2019 EGD (ENDO) [...] patellar facet close to the apex. MENISCI: [place] of posterior horn of the lateral meniscus is blunted which could be secondary to remote trauma. I do not see any tear in the lateral meniscus. Posterior horn of the medial meniscus is slightly deformed without a tear. [place] of the posterior horn of the medial [...] straight with light weight on the ankle MENTATION LIAISON documented in this encounter Plan of Treatment [...] of this encounter Implants Implanted Type Area Psychiatric Lpn Device Shelf Model / Identifier Expiration Serial / Date Lot Screw Biocomposite Interference 7x23mm Arthrex #Ar-1370c - S [id number] SCREW Left: [employer] 11/20/2019 AR-1370C / Implanted: Qty: 1 on 02/23/2019 by Garry Aldridge MD at [facility] Knee 1 [id number] / [id number] Tightrope Arthrex Acl Rt #[id number] - [id number] TightRope Left: [employer] 08/20/2023 AR-[id number] / Implanted: Qty: 1 on 02/23/2019 by Garry Aldridge MD at [facility] Knee 1 [id number] / [id number] documented as of this encounter Results Not on filedocumented in this encounter Visit Diagnoses Diagnosis S/P reconstruction of anterior cruciate ligament - Primary Other postprocedural status documented in this encounter Insurance Payer Benefit Plan / Subscriber ID Effective Dates Phone Addre ss Type Group [facility] [id number] 2018-Present [facility] STAR [id number] 2019-Present Medicaid COMM PLAN - PLUS MANAGED MEDICAID documented as of this encounter
--- OUTSIDE RECORDS SUMMARY | 2020-11-25 01:48 | XMS REPORT | Summary of Care ---
:1970 Author Organization [facility] Address [address] [place] [address] Care Team Providers Name Role Phone Xuan Bey MD Primary Care Provider Reason for Referral MRI/CAT Scan (Routine) Status Reason Specialty Diagnoses / Procedures Referred By Lokesh pauled To Contact Contact Closed Diagnostic Diagnoses Rupture of anterior cruciate ligament of left knee, initial encounter S/P reconstruction of anterior cruciate ligament Rupture of anterior cruciate ligament of left knee, initial encounter Garry Donohue Radiology Procedures MR KNEE LEFT WO CONTRAST CHG MRI LOWER EXTREM JT, W/O CONTRAST MR KNEE LEFT WO CONTRAST MD Radha [address] [place] [address] Reason for Visit MRI/CAT Scan (Routine) Status Reason Specialty Diagnoses / Procedures Referred By Lokesh barron To Contact Contact Closed Diagnostic Diagnoses Rupture of anterior cruciate ligament of left knee, initial encounter S/P reconstruction of anterior cruciate ligament Rupture of anterior cruciate ligament of left knee, initial encounter Garry Donohue Radiology Procedures MR KNEE LEFT WO CONTRAST CHG MRI LOWER EXTREM JT, W/O CONTRAST MR KNEE LEFT WO CONTRAST MD Radha [address] [place] [address] Encounter Details Date Type Department Care Team Description 10/12/2020 Hospital Encounter [facility] Remi Donohue Arrived [place] [facility] MD [address] [place] [address] [address] [place] [address] [address] [phone] [place] [address] [phone] Allergies Active Allergy Reactions Severity Noted Date [...] as of this encounter (statuses as of 10/13/2020) Medications Medication Sig Dispensed Refills Start Date End Date Status clonazePAM 0.5 mg Take 1 tablet 3 0 01/13/2019 Active tablet times a day by oral route as needed. fluticasone 50 [place] 1 spray 0 01/13/2019 Active mcg/actuation nasal [...] as of this encounter (statuses as of 10/13/2020) Active Problems Problem Noted Date Rupture of anterior cruciate ligament of left knee, in itial encounter 01/23/2019 Overview: Added automatically from request for miguel angel joseph [id number] documented as of this encounter (statuses as of 10/13/2020) Social History Tobacco Use Types Packs/Day Years Used Date Current Every Day Smoker Smokeless Tobacco: Former User Alcohol Use Drinks/Week oz/Week Comments No Sex Assigned at Date Recorded Not on file COVID-19 Exposure Response Date Recorded In the last month, have you been in contact with Yes 09/20/2020 9:08 AM EXTENSION COURSE COUNSELOR someone who was confirmed or suspected to [...] of this encounter Implants Implanted Type Area Salt Manager Device Shelf Model / Identifier Expiration Serial / Date Lot Screw Biocomposite Interference 7x23mm Arthrex #Ar-1370c - S [id number] SCREW Left: [employer] 11/20/2019 AR-1370C / Implanted: Qty: 1 on 02/23/2019 by Garry Aldridge MD at [facility] Knee 1 [id number] / [id number] Tightrope Arthrex Acl Rt #[id number] - [id number] TightRope Left: [employer] 08/20/2023 AR-1588RT / Implanted: Qty: 1 on 02/23/2019 by Garry Aldridge MD at [facility] Knee 1 [id number] / [id number] documented as of this encounter Procedures Procedure Name Priority Date/Time Associated Diagnosis Comme nts MR KNEE LEFT WO Routine 10/12/2020 8:50 Rupture of anterior R esults for this CONTRAST AM EXTENSION COURSE COUNSELOR cruciate ligament of procedu re are in left knee, initial the resul ts encounter section. S/P reconstruction of anterior cruciate ligament documented in this encounter Results MR KNEE LEFT WO CONTRAST (10/12/2020 8:50 AM EXTENSION COURSE COUNSELOR) Specimen Narrative Performed At This result has an attachment that is no t available. HISTORY: Pain in the left knee. PACS/VR/DOSE TECHNIQUE: MR imaging of the left knee was done in mul tiple projections using 1.5T MR unit and standard protocol. FINDINGS: BONE AND JOINT: Small knee joint effusion noted. Minim al fluid is seen in the Ball's cyst. Minimal, up to grade III chondromalacia detected in th e medial knee joint and lateral knee joint with focal subchondral 3 mm deg enerative cystic lesion in the weightbearing lateral femoral condyle, c onsistent with grade IV chondromalacia. Micrometallic debris noted on the surface of the media l patellar facet close to the apex. MENISCI: [place] of posterior horn of the lateral meniscu s is blunted which could be secondary to remote trauma. I do not see any tear in the lateral meniscus. Posterior horn of the medial meniscus is slightly defo rmed without a tear. [place] of the posterior horn of the medial meniscus is a lso blunted which could be secondary to remote trauma. LIGAMENTS AND TENDONS: S/P ACL reconstruction using pr obably gracilis/semitendinosus tendons. ACL graft is intact w ith no sign of impingement or scar tissue surrounding intra-articular segment of the graft. PCL is slightly buckled but otherwise is intact. Proxi mal MCL ligament is slightly thickened but otherwise is intact. Proximal f ibular collateral ligament is slightly swollen but otherwise is intact. CONCLUSIONS: 1. 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 2. S/P ACL reconstruction changes. ACL graft is intact . 3. Blunted apex of the posterior horn of medial/latera l menisci and slightly deformed posterior horn of the medial meniscu s noted, likely secondary to remote trauma. No recurrent meniscal tear detected. Procedure Note [facility], Radiant Results Inft User - 2019 9:03 AM EXTENSION COURSE COUNSELOR HISTORY: Pain in the left knee. TECHNIQUE: MR imaging of the left knee w as done in multiple projections using 1.5T MR unit and standard protocol . FINDINGS: BONE AND JOINT: Small knee joint effusio n noted. Minimal fluid is seen in the Ball's cyst. Minimal, up to grade III chondromalacia detected in the medial knee joint and lateral knee joint with focal subcho ndral 3 mm degenerative cystic lesion in the weightbearing lateral femo ral condyle, consistent with grade IV chondromalacia. Micrometallic debris noted on the surfac e of the medial patellar facet close to the apex. MENISCI: [place] of posterior horn of the l ateral meniscus is blunted which could be secondary to remote trauma. I d o not see any tear in the lateral meniscus. Posterior horn of the medial meniscus is slightly deformed without a tear. [place] of the posterior horn of the medial meniscus is also blunted which could be secondary to remote trauma. LIGAMENTS AND TENDONS: S/P ACL reconstru ction using probably gracilis/semitendinosus tendons. ACL gra ft is intact with no sign of impingement or scar tissue surrounding i ntra-articular segment of the graft. PCL is slightly buckled but otherwise is intact. Proximal MCL ligament is slightly thickened but otherwise is inta ct. Proximal fibular collateral ligament is slightly swollen but otherwi se is intact. CONCLUSIONS: 1. Small left knee joint effusion, very small irregular shaped Ball's cyst, grade III/IV chondromalacia in lat eral femoral condyle, grade III chondromalacia in the rest of the latera l knee and medial knee. 2. S/P ACL reconstruction changes. ACL g raft is intact. 3. Blunted apex of the posterior horn of medial/lateral menisci and slightly deformed posterior horn of the medial meniscus noted, likely secondary to remote trauma. No recurrent meniscal tear detected. Performing Organization Address City/State/Zipcode Phone Number PACS/VR/DOSE documented in this encounter Visit Diagnoses Diagnosis Rupture of anterior cruciate ligament of left knee, initial encounter S/P reconstruction of anterior cruciate ligament Other postprocedural status documented in this encounter Insurance Payer Benefit Plan / Subscriber ID Effective Dates Phone Addre ss Type Group [facility] [employer] [facility] [id number] 2018-Present [facility] STAR [id number] 2019-Present Medicaid COMM PLAN - PLUS MANAGED MEDICAID documented as of this encounter
--- OUTSIDE RECORDS SUMMARY | 2020-11-25 01:49 | XMS REPORT | Summary of Care ---
:1970 Author Organization [facility] Address [address] [place] [address] Care Team Providers Name Role Phone Xuan Bey MD Primary Care Provider Reason for Visit Auth/Cert Status Reason Specialty Diagnoses / Procedures Referred By C ontact Referred To Contact Phlebotomy Diagnoses Sprain of anterior cruciate ligament of left knee, initial encounter S83.512A (ICD-10-CM) - Sprain of anterior cruciate ligament of left knee, initial encounter Adc Pob Lab Draw Procedures CBC WITH DIFF URINALYSIS TEST, URINE BASIC METABOLIC PANEL (NA, K, CL, CO2, GLUCOSE, BUN, CREATININE, CA) CBC WITH DIFF UA TEST, URINE BMP [facility] [address] [place] [address] you [address], [address] [place] [address] Phone: Fax: Encounter Details Date Type Department Care Team Description 10/28/2020 Hospital Encounter [facility] Remi Donohue Sprain of anterior [facility] MD Radha cruciate ligament of [address] [place] [address] [address] knee, [place] [address] [place] [address] Allergies Active Allergy Reactions Severity Noted Date Comments Bupropion Hives, Unknown - See High Suicida l ideation comments Cortisone Unknown - See comments High Manic mood swings Fluoxetine Hives Suicide ideatio n Latex Hives High 01/21/2019 Mold Anaphylaxis High Morphine Hives High Mushroom Anaphylaxis High 10/28/2020 Naltrexone-Bupropion Hives High Fluoxetine Hcl Hives High 01/21/2019 Bupropion Hcl Hives High 01/21/2019 documented as of this encounter (statuses as of 10/29/2020) Medications Medication Sig Dispensed Refills Start Date End Date Status clonazePAM 0.5 mg Take 1 tablet 3 0 01/13/2019 Active tablet times a day by oral route as needed. fluticasone 50 [place] 1 spray 0 01/13/2019 Active mcg/actuation nasal [...] as of this encounter (statuses as of 10/29/2020) Active Problems Problem Noted Date Rupture of anterior cruciate ligament of left knee, in itial encounter 01/23/2019 Overview: Added automatically from request for miguel angel joseph [id number] documented as of this encounter (statuses as of 10/29/2020) Social History Tobacco Use Types Packs/Day Years Used Date Current Every Day Smoker Smokeless Tobacco: Former User Alcohol Use Drinks/Week oz/Week Comments No Sex Assigned at Date Recorded Not on file COVID-19 Exposure Response Date Recorded In the last month, have you been in contact with No / Unsure 10/18/2020 8:53 AM 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 documented as of this encounter Last Filed Vital Signs Not on filedocumented in this encounter Plan of Treatment Date Type Specialty Care Team Description 10/31/2020 Hospital Encounter Surgery Joceline Donohue MD Rupture of anterior [address] cruciate ligament of [address] left knee, [place] encounter [address] 10/31/2020 Anesthesia Event Surgery Reji Lopez C [address] [address] 10/31/2020 Surgery Surgery Garry Donohue MD ANTERIOR CRUCIATE [address] [address] [place] [address] Health Maintenance Due Date Last Done Comments [...] of this encounter Implants Implanted Type Area Yard Labor Supervisor Device Shelf Model / Identifier Expiration Serial / Date Lot Screw Biocomposite Interference 7x23mm Arthrex #[id number] - [id number] Left: [employer] 11/20/2019 AR-1370C / Implanted: Qty: 1 on 02/23/2019 by Garry Aldridge MD at [facility] Knee 1 [id number] / [id number] Tightrope Arthrex Acl Rt #[id number] - [id number] TightRope Left: [employer] 08/20/2023 [id number] / Implanted: Qty: 1 on 02/23/2019 by Garry Aldridge MD at [facility] Knee 1 [id number] / [id number] documented as of this encounter Procedures Procedure Name Priority Date/Time Associated Diagnosis Comme nts XR CHEST 2 VW Routine 10/28/2020 12:50 PM Rupture of anterior Results for this ACADEMIC DEPARTMENT CHAIR cruciate ligament of procedu re are in the left knee, initial results s ection. encounter documented in this encounter Results XR CHEST 2 VW (10/28/2020 12:50 PM ACADEMIC DEPARTMENT CHAIR) Specimen Impressions Performed At Impression: No acute cardiopulmonary abnormality. PACS /VR/DOSE Narrative Performed At This result has an attachment that is no t available. Exam: XR CHEST 2 VW 10/28/2020 12:43 PM PACS/VR/DOSE Clinical History: pre-op Comparison: None Technique: frontal view of the chest Findings: The lungs are clear. No pleural effusion. No pneumothorax. The cardiac size is normal No acute osseous abnormalities. Procedure Note [facility], Radiant Results Inft User - 2020 12:58 PM ACADEMIC DEPARTMENT CHAIR Exam: XR CHEST 2 VW 10/28/2020 12:43 PM Clinical History: pre-op Comparison: None Technique: frontal view of the chest Findings: The lungs are clear. No pleural effusion. No pneumothorax. The cardiac size is normal No acute osseous abnormalities. IMPRESSION Impression: No acute cardiopulmonary abn ormality. Performing Organization Address City/State/Zipcode Phone Number PACS/VR/DOSE documented in this encounter Visit Diagnoses Diagnosis Rupture of anterior cruciate ligament of left knee, initial encounter - Primary Rupture of anterior cruciate ligament of left knee, initial encounter Rupture of anterior cruciate ligament of left knee, initial encounter documented in this encounter Additional Health Concerns Infection Onset Date Last Indicated Resolved Time COVID-19 Rule Out 10/28/2020 10/28/2020 10/28/2020 12: 42 PM ACADEMIC DEPARTMENT CHAIR documented as of this encounter Insurance Payer Benefit Plan / Subscriber ID Effective Dates Phone Addre ss Type Group [email or web address] [place] [id number] 2018-Present O OF [facility] STAR [id number] 2019-Present Medicaid COMM PLAN - PLUS MANAGED MEDICAID documented as of this encounter
--- OUTSIDE RECORDS SUMMARY | 2020-11-25 01:49 | XMS REPORT | Summary of Care ---
:1970 Author Organization [facility] Address [address] [place] [address] Care Team Providers Name Role Phone Xuan Bey MD Primary Care Provider Reason for Visit Reason Comments LAB WORK Auth/Cert Status Reason Specialty Diagnoses / Procedures Referred By Tracy ontact Referred To Contact Phlebotomy Diagnoses Sprain of anterior cruciate ligament of left knee, initial encounter S83.512A (ICD-10-CM) - Sprain of anterior cruciate ligament of left knee, initial encounter Adc Pob Lab Draw Procedures CBC WITH DIFF URINALYSIS TEST, URINE BASIC METABOLIC PANEL (NA, K, CL, CO2, GLUCOSE, BUN, CREATININE, CA) CBC WITH DIFF UA TEST, URINE BMP [facility] [address] [facility] [address] , [address] [place] [address] Phone: Fax: Encounter Details Date Type Department Care Team Description 10/28/2020 Laboratory Only [facility] Garry Donohue MD [address] [place] [address] [place] [address] Preop testing Phlebotomy Only, Adc Test (Primary Dx) [facility] [address] [place] [address] Allergies Active Allergy Reactions Severity Noted Date [...] as of this encounter (statuses as of 10/28/2020) Medications Medication Sig Dispensed Refills Start Date End Date Status clonazePAM 0.5 mg Take 1 tablet 3 0 01/13/2019 Active tablet times a day by oral route as needed. fluticasone 50 [place] 1 spray 0 01/13/2019 Active mcg/actuation nasal [...] as of this encounter (statuses as of 10/28/2020) Active Problems Problem Noted Date Rupture of anterior cruciate ligament of left knee, in itial encounter 01/23/2019 Overview: Added automatically from request for miguel angel ruiz [id number] documented as of this encounter (statuses as of 10/28/2020) Social History Tobacco Use Types Packs/Day Years Used Date Current Every Day Smoker Smokeless Tobacco: Former User Alcohol Use Drinks/Week oz/Week Comments No Sex Assigned at Date Recorded Not on file COVID-19 Exposure Response Date Recorded In the last month, have you been in contact with No / Unsure 10/18/2020 8:53 AM 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 documented as of this encounter Last Filed Vital Signs Not on filedocumented in this encounter Nursing Notes Kristie Olivarez - 10/28/2020 12:15 PM CSTCovid swab collected. documented in this encounter Plan of Treatment Date Type Specialty Care Team Description 10/28/2020 Digital Marketing Consultant Visit Phlebotomy Garry Donohue MD [address] [place] [place] [address] Arrived [facility] Lab Main 10/28/2020 Hospital Encounter Heart Station Joceline Donohue MD [address] [place] [address] [place] [address] Arrived [facility] 10/28/2020 Hospital Encounter Radiology Garry Donohue, Spr ain of anterior MD cruciate ligament of [address] left knee, [place] [address] 10/31/2020 Hospital Encounter Surgery Garry Donohue, Rup ture of anterior MD cruciate ligament of [address] left knee, [place] [address] 10/31/2020 Anesthesia Event Surgery Reji Lopez C [address] [phone] 10/31/2020 Surgery Surgery Garry Donohue, ANTERIOR CRUCIATE MD LIGAMENT [address] [place] [address] [place] [address] Name Type Priority Associated Diagnoses Date/Ti me COVID-19 (ID NOW RAPID LAB Routine Preop testing 05/2021 12:15 PM COMPETITIVE INTELLIGENCE MANAGER TESTING) Name Type Priority Associated Diagnoses Order S chedule COVID-19 (ID NOW RAPID LAB Routine Preop testing Expe cted: 10/28/2020, TESTING) Expires: 2021 Health Maintenance Due Date Last Done Comments [...] of this encounter Implants Implanted Type Area Veterinary Surgeon Device Shelf Model / Identifier Expiration Serial / Date Lot Screw Biocomposite Interference 7x23mm Arthrex #Ar-[id number] - S [id number] SCREW Left: [employer]rex Inc 11/20/2019 AR-1370C / Implanted: Qty: 1 on 02/23/2019 by Garry Aldridge MD at [facility] Knee 1 [id number] / [id number] Tightrope Arthrex Acl Rt #[id number] - [id number] TightRope Left: [employer] 08/20/2023 [id number] / Implanted: Qty: 1 on 02/23/2019 by Garry Aldridge MD at [facility] Knee 1 [id number] / [id number] documented as of this encounter Results Not on filedocumented in this encounter Visit Diagnoses Diagnosis Rupture of anterior cruciate ligament of left knee, initial encounter - Primary Preop testing - Primary Preoperative examination, unspecified Rupture of anterior cruciate ligament of left knee, initial encounter Rupture of anterior cruciate ligament of left knee, initial encounter documented in this encounter Additional Health Concerns Infection Onset Date Last Indicated Resolved Time COVID-19 Rule Out 10/28/2020 10/28/2020 documented as of this encounter Insurance Payer Benefit Plan / Subscriber ID Effective Dates Phone Addre ss Type Group [employer] [id number] 2018-Present O OF [facility] STAR [id number] 2019-Present Medicaid COMM PLAN - PLUS MANAGED MEDICAID documented as of this encounter
--- OUTSIDE RECORDS SUMMARY | 2020-11-25 01:49 | XMS REPORT | Summary of Care ---
:1970 Author Organization [facility] Address [address] [place] [address] Care Team Providers Name Role Phone Xuan Bey MD Primary Care Provider Reason for Visit Reason Comments Pre-Op Exam Auth/Cert Status Reason Specialty Diagnoses / Procedures Referred By Tracy bach Referred To Contact Phlebotomy Diagnoses Sprain of anterior cruciate ligament of left knee, initial encounter S83.512A (ICD-10-CM) - Sprain of anterior cruciate ligament of left knee, initial encounter Adc Pob Lab Draw Procedures CBC WITH DIFF URINALYSIS TEST, URINE BASIC METABOLIC PANEL (NA, K, CL, CO2, GLUCOSE, BUN, CREATININE, CA) CBC WITH DIFF UA TEST, URINE BMP [facility] Building [address] [facility] , [address] [place] [address] Phone: Fax: Encounter Details Date Type Department Care Team Description 10/28/2020 Booster Plant Operator Visit [facility] Garry Donohue MD [address] [place] [address] [place] [address] Rupture of anterior [facility] Pob, Adc Lab Main cruciate ligament of Building Phlebotomy left casper e, initial Lab encounter [facility] [address] [facility] , [address] [place] [address] Allergies Active Allergy Reactions Severity [...] by oral route as needed. 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 documented as of this encounter Last Filed Vital Signs Not on filedocumented in this encounter Nursing Notes Moreno Gallardo - 10/28/2020 12:30 PM CST Venipuncture collection performed by clean technique on the left anticubitus. Total of 1 attempts were made. Slight pressure and a bandage/dressing were applied to the site(s). The patient experienced no complications. The following specimens were processed according to instructions and sent to [facility] laboratories per lab order on today: LT BLUE SST 1 RED LAV 1 PPT DK GREEN (LiHep) DK GREEN (SodH) [place] DK BLUE (K2) DK BLUE (S) ACD Blood Culture NIPT/NTD Patient has been identified by and name and was provided with cup, antiseptic towelette, and clean catch instructions. 1 urine specimen(s) sent. Unpreserved 1 Urine Culture Aptima tube Other urine documented in this encounter Plan of Treatment Date Type Specialty Care Team Description 10/28/2020 Hospital Encounter [facility] Joceline Donohue, [address] [place] [address] [place] [address] [facility] 10/28/2020 Hospital Encounter Radiology Garry Donohue, Spr ain of anterior MD cruciate ligament of [address] left knee, [place] [address] 10/31/2020 Hospital Encounter Surgery Garry Donohue, Rup ture of anterior MD cruciate ligament of [address] left knee, [place] [address] 10/31/2020 Anesthesia Event Surgery Reji Lopez C [address] [phone] 10/31/2020 Surgery Surgery Garry Donohue, ANTERIOR CRUCIATE MD LIGAMENT [address] [place] [address] [place] [address] Name Type Priority Associated Diagnoses Date/Ti me BASIC METABOLIC PANEL LAB Routine Rupture of anterior 10/28/2020 12:21 PM CHEESE SUPERVISOR (NA, K, CL, CO2, cruciate ligament of GLUCOSE, BUN, left knee, initial CREATININE, CA) encounter URINALYSIS LAB Routine Rupture of anterior 10/28/19 12:32 PM CHEESE SUPERVISOR cruciate ligament of left knee, initial encounter Health Maintenance Due Date [...] of this encounter Implants Implanted Type Area Supervisor Cabinetmaker Device Shelf Model / Identifier Expiration Serial / Date Lot Screw Biocomposite Interference 7x23mm Arthrex #Ar-[id number] - S [id number] SCREW Left: [employer] 11/20/2019 AR-1370C / Implanted: Qty: 1 on 02/23/2019 by Garry Aldridge MD at [facility] Knee 1 [id number] / [id number] Tightrope Arthrex Acl Rt #[id number] - [id number] TightRope Left: [employer] 08/20/2023 [id number] / Implanted: Qty: 1 on 02/23/2019 by Garry Aldridge MD at [facility] Knee 1 [id number] / [id number] documented as of this encounter Procedures Procedure Name Priority Date/Time Associated Diagnosis Comme nts CBC WITH DIFF Routine 10/28/2020 12:21 PM Rupture of anterior Results for this CHEESE SUPERVISOR cruciate ligament of procedu re are in the left knee, initial results s ection. encounter documented in this encounter Results CBC WITH DIFF (10/28/2020 12:21 PM CHEESE SUPERVISOR) Pathologist Sig nature WBC 7.84 4.30 - 11.10 [facility] 10*3/L [facility] RBC 5.17 3.93 - 5.25 [facility] 10*6/L [facility] HGB 16.3 (H) 11.6 - 15.0 [facility] g/dL [facility] HCT 47.7 (H) 35.7 - 45.2 % [facility] MCV 92.3 80.6 - 95.5 fL [facility] MCH 31.5 25.9 - 32.8 pg [facility] MCHC 34.2 31.6 - 35.1 [facility] g/dL [facility] RDW-SD 42.5 39.0 - 49.9 fL [facility] RDW-CV 12.4 12.0 - 15.5 % [facility] PLT 281 166 - 358 [facility] 10*3/L [facility] MPV 9.7 9.5 - 12.9 fL [facility] NRBC/100 WBC 0.0 0.0 - 10.0 /100 [facility] WBCs [facility] NRBC x10^3 <0.01 10*3/L [facility] GRAN MAT (NEUT) % 65.2 % [facility] IMM GRAN % 0.30 % [facility] LYMPH % 26.7 % [facility] MONO % 7.1 % [facility] EOS % 0.3 % [facility] BASO % 0.4 % [facility] GRAN MAT x10^3(ANC) 5.12 1.88 - 7.09 [facility] 10*3/uL [facility]ITAL [facility] IMM GRAN x10^3 <0.03 0.00 - 0.06 [facility] 10*3/uL [facility] LYMPH x10^3 2.09 1.32 - 3.29 [facility] 10*3/uL [facility] MONO x10^3 0.56 0.33 - 0.92 [facility] 10*3/uL [facility] EOS x10^3 <0.03 (L) 0.03 - 0.39 [facility] 10*3/uL [facility] BASO x10^3 0.03 0.01 - 0.07 [facility] 10*3/uL [facility] Specimen Blood Performing Organization Address City/State/Zipcode Phone Number [facility] CLIA: [id number] [place] [address] documented in this encounter Visit Diagnoses Diagnosis [...] Effective Dates Phone Addre ss Type Group [employer] [id number] 2018-Present O OF [facility] STAR [id number] 2019-Present Medicaid COMM PLAN - PLUS MANAGED MEDICAID documented as of this encounter
--- OUTSIDE RECORDS SUMMARY | 2020-11-25 01:49 | XMS REPORT | Summary of Care ---
:1970 Author Organization [facility] Address [address] [place] [address] Care Team Providers Name Role Phone Xuan Bey MD Primary Care Provider Reason for Visit Reason Comments LAB WORK Auth/Cert Status Reason Specialty Diagnoses / Referred By Referred To Procedures Contact Contact Clinical Medical Procedures Adc Lab Laboratory COVID PREOP [address] [place] [address] Encounter Details Date Type Department Care Team Description 11/11/2020 Laboratory Only [facility] Garry Donohue MD [address] [facility] [place] [address] Pre-operative Phlebotomy Only, Adc Test clearance (Primary Lab-[place] Dx) [address] [place] [address] Allergies Active Allergy Reactions Severity [...] as of this encounter (statuses as of 11/11/2020) Medications Medication Sig Dispensed Refills Start Date End Date Status clonazePAM 0.5 mg Take 1 tablet 3 0 01/13/2019 Active tablet times a day by oral route as needed. fluticasone [address] [place] 1 spray 0 01/13/2019 Active mcg/actuation nasal [...] as of this encounter (statuses as of 11/11/2020) Active Problems Problem Noted Date Rupture of anterior cruciate ligament of left knee, in itial encounter 01/23/2019 Overview: Added automatically from request for miguel angel joseph [id number] documented as of this encounter (statuses as of 11/11/2020) Social History Tobacco Use Types Packs/Day Years Used Date Current Every Day Smoker Smokeless Tobacco: Former User Alcohol Use Drinks/Week oz/Week Comments No Sex Assigned at Date Recorded Not on file COVID-19 Exposure Response Date Recorded In the last month, have you been in contact with Yes 11/10/2020 11:55 AM 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 documented as of this encounter Last Filed Vital Signs Not on filedocumented in this encounter Nursing Notes Roberta aJin - 11/11/2020 8:30 AM CSTcovid documented in this encounter Plan of Treatment Date Type Specialty Care Team Description 11/14/2020 Hospital Encounter Surgery Joceline Donohue MD [address] [facility] [place] [phone] 11/14/2020 Anesthesia Event Surgery Reji Lopez C [address] [place] [address] 11/14/2020 Surgery Surgery Garry Donohue MD ANTERIOR CRUCIATE [address] [place] [phone] Name Type Priority Associated Diagnoses Date/Ti me COVID-19 (ID NOW RAPID LAB Routine Pre-operative brian unique 11/11/2020 8:12 AM WIRE SAW OPERATOR TESTING) Name Type Priority Associated Diagnoses Order S chedule COVID-19 (ID NOW RAPID LAB Routine Pre-operative brian unique Expected: 11/11/2020, TESTING) Expires: 2021 Health Maintenance Due Date [...] of this encounter Implants Implanted Type Area Vice President Of Engineering Device Shelf Model / Identifier Expiration Serial / Date Lot Screw Biocomposite Interference 7x23mm Arthrex #Ar-[id number] - S [id number] SCREW Left: [employer] 11/20/2019 AR-1370C / Implanted: Qty: 1 on 02/23/2019 by Garry Aldridge MD at [facility] Knee 1 [id number] / [id number] Tightrope Arthrex Acl Rt #[id number] - [id number] TightRope Left: [employer] 08/20/2023 [id number] / Implanted: Qty: 1 on 02/23/2019 by Garry Aldridge MD at [facility] Knee 1 [id number] / [id number] documented as of this encounter Results Not on filedocumented in this encounter Visit Diagnoses Diagnosis Pre-operative clearance - Primary Preoperative examination, unspecified Rupture of anterior cruciate ligament of left knee, initial encounter documented in this encounter Additional Health Concerns Infection Onset Date Last Indicated Resolved Time COVID-19 Rule Out 11/11/2020 11/11/2020 documented as of this encounter Insurance Payer Benefit Plan / Subscriber ID Effective Dates Phone Addre ss Type Group [facility] STAR [id number] 2019-Present Medicaid COMM PLAN - PLUS MANAGED MEDICAID documented as of this encounter
--- OUTSIDE RECORDS SUMMARY | 2020-11-25 01:50 | XMS REPORT | Summary of Care ---
:[address] [facility] - [facility] Address [address] [place] [address] Care Team Providers Name Role Phone Xuan Bey MD Primary Care Provider Reason for Visit Reason Onset Date Comments POST-OP 11/15/2020 Encounter Details Date Type Department Care Team Description 11/15/2020 Nurse Triage [facility] Dov Beckman, POST-OP [address] [facility], [place] [address] [address] [facility] [phone] [place] [address] Allergies Active Allergy Reactions Severity Noted Date [...] as of this encounter (statuses as of 11/15/2020) Medications Medication Sig Dispensed Refills Start Date End Date Status clonazePAM 0.5 mg Take 1 tablet 3 0 01/13/2019 Active tablet times a day by oral route as needed. fluticasone 50 [place] 1 spray 0 01/13/2019 Active mcg/actuation nasal [...] Active tablet mouth 4 (four) times daily. aspirin 325 mg Take 1 tablet by 56 tablet 0 11/14/2020 021 Active tabletIndications: mouth 2 (two) Rupture of anterior times daily with cruciate ligament of meals for 28 left knee, initial days. encounter acetaminophen-codeine Take 1 tablet by 28 tablet 0 11/14/2020 11/21/2020 Active 300-30 mg mouth every 6 tabletIndications: (six) hours as acute pain needed for Pain (scale 4-6) or Pain (scale 7-10) for up to 7 days. Indications: acute pain documented as of this encounter (statuses as of 11/15/2020) Active Problems Problem Noted Date Rupture of anterior cruciate ligament of left knee, in itial encounter 01/23/2019 Overview: Added automatically from request for miguel angel ruiz [id number] documented as of this encounter (statuses as of 11/15/2020) Social History Tobacco Use Types Packs/Day Years Used Date Current Every Day Smoker Smokeless Tobacco: Former User Alcohol Use Drinks/Week oz/Week Comments No Sex Assigned at Date Recorded Not on file COVID-19 Exposure Response Date Recorded In the last month, have you been in contact with No / Unsure 11/14/2020 8:07 AM INSPECTOR AND TESTER someone who was confirmed or suspected to have Coronavirus / COVID-19? documented as of this encounter Last Filed Vital Signs Not on filedocumented in this encounter Miscellaneous Notes Telephone Encounter - Olivia Greenfield RN - 11/15/2020 4:58 AM INSPECTOR AND TESTER Reason for Disposition [1] SEVERE post-op pain (e.g., excruciating, pain scale 8-10) AND [2] not controlled with pain medications Kenzie Cartwright is a 50 year old female is post op left knee surgery, patient calling excruciating pain 10/10 for the past 4 hours, patient is crying uncontrollably, unable to complete phone assessment, Patient states she has been taking her prescribed pain medication too early, she just took her Tylenol with codiene 45 minutes too early and states she can not take the pain any more. Patient states she has had 2 previous knee surgeries and this pain does not feel the same, she feels like something is wrong. Patient states she will go to [place] ED for immediate pain relief. Assessment and triage completed per protocol. Patient verbalizes understanding and agrees to follow POC. Protocols used: POST-OP SYMPTOMS AND [id number] ECTOR AND TESTER Telephone Encounter - Olivia Greenfield RN - 11/15/2020 4:58 AM INSPECTOR AND TESTER Regarding: knee pain ----- Message from Alon Mullins sent at 11/15/2020 4:58 AM INSPECTOR AND TESTER ----- Kenzie Cartwright is a 50 year old female ECTOR AND TESTER documented in this encounter Plan of Treatment [...] 01/11/2020 INFLUENZA VACCINE (#1) 2020 Depression Screening 11/14/2021 11/14/2020 documented as of this encounter Implants Implanted Type Area Chain Saw Mechanic Device Shelf Model / Identifier Expiration Serial / Date Lot Anterior Tibialis Graft GRAFT Left: Allosource 08/21 [id number] / Implanted: Qty: 1 on 11/14/2020 by Garry Aldridge MD at [facility] Knee 2 [id number] / N/A Screw Biocomposite Interference 7x23mm Arthrex #Ar-1370c - S [id number] SCREW Left: [employer] 11/20/2019 AR-1370C / Implanted: Qty: 1 on 02/23/2019 by Garry Aldridge MD at [facility] Knee 1 [id number] / [id number] Fastthread Biocomposite Interference Screw SCREW Left: [employer] 03/20/2024 AR-4030C-09 / Implanted: Qty: 1 on 11/14/2020 by Garry Aldridge MD at [facility] Knee N /A / [id number] Tightrope Arthrex Acl Rt #[id number] - [id number] TightRope Left: [employer] 08/20/2023 AR-1588RT / Implanted: Qty: 1 on 02/23/2019 by Garry Aldridge MD at [facility] Knee 1 [id number] / [id number] documented as of this encounter Results Not on filedocumented in this encounter Insurance Payer Benefit Plan / Subscriber ID Effective Dates Phone Addre Type Group [facility] [id number] 2019-Present Medicaid COMM PLAN - PLUS MANAGED MEDICAID documented as of this encounter
--- OUTSIDE RECORDS SUMMARY | 2020-11-25 01:50 | XMS REPORT | Summary of Care ---
:1970 Author Organization [facility] Address [address] [place] [address] Care Team Providers Name Role Phone Xuan Bey MD Primary Care Provider Reason for Visit Reason Comments Follow-up S/P LT ACL Reconstruction Encounter Details Date Type Department Care Team Description 11/16/2020 Office Visit [facility] Robles Ball S, S/P reconstr uction of Orthopaedic Surgery- PAC anterior cruciate [place] [address] (Primary Dx) [address] [facility] [place] [address] [phone] Allergies Active Allergy Reactions Severity Noted Date [...] as of this encounter (statuses as of 11/16/2020) Medications Medication Sig Dispensed Refills Start Date End Date Status clonazePAM 0.5 mg Take 1 tablet 3 0 01/13/2019 Active tablet times a day by oral route as needed. fluticasone 50 [place] 1 spray 0 01/13/2019 Active mcg/actuation nasal [...] up to 7 days. Indications: acute pain pentazocine-naloxone Take 1 tablet by 40 tablet 1 11/15/2020 Active 50-0.5 mg mouth every 4 tabletIndications: (four) hours as acute pain needed for Pain. Indications: acute pain documented as of this encounter (statuses as of 11/16/2020) Active Problems Problem Noted Date Rupture of anterior cruciate ligament of left knee, in itial encounter 01/23/2019 Overview: Added automatically from request for miguel angel joseph [id number] documented as of this encounter (statuses as of 11/16/2020) Social History Tobacco Use Types Packs/Day Years Used Date Current Every Day Smoker Smokeless Tobacco: Former User Alcohol Use Drinks/Week oz/Week Comments No Sex Assigned at Date Recorded Not on file COVID-19 Exposure Response Date Recorded In the last month, have you been in contact with No / Unsure 11/16/2020 12:56 PM CLOTH BURLER someone who was confirmed or suspected to have Coronavirus / COVID-19? documented as of this encounter Last Filed Vital Signs Vital Sign Reading Time Taken Comments Blood Pressure 150/89 11/16/2020 1:02 PM CLOTH BURLER Pulse 102 11/16/2020 1:02 PM CLOTH BURLER Temperature - - Respiratory Rate - - Oxygen Saturation - - Inhaled Oxygen Concentration - - Weight 81.6 kg (180 lb) 11/16/2020 1:02 PM CLOTH BURLER Height 175.3 cm (5' 9") 11/16/2020 1:02 PM CLOTH BURLER Body Mass Index 26.58 11/16/2020 1:02 PM CLOTH BURLER documented in this encounter Progress Notes Robles Ball S, PAC - 11/16/2020 1:30 PM CST Cc: Chief Complaint Patient presents with Follow-up S/P LT ACL Reconstruction 11/14/20 Kenzie Cartwright is a 50 year old female. Her for follow-up status post revision anterior cruciate ligament reconstruction on 11/14/2020 she arrived today with her postoperative knee brace locked and set to 0. Allergies Kenzie is allergic to bupropion; cortisone; latex; mold; morphine; mushroom; naltrexone-bupropion; prozac [fluoxetine hcl]; wellbutrin [bupropion hcl]; and fluoxetine. Medications Outpatient Medications Prior to Visit Medication Sig Dispense Refill pentazocine-naloxone 50-0.5 mg tablet Take 1 tablet by mouth every 4 (four) hours as needed for Pain. Indications: acute pain 40 tablet 1 acetaminophen-codeine 300-30 mg tablet Take 1 tablet by mouth every 6 (six) hours as needed for Pain (scale 4-6) or Pain (scale 7-10) for up to 7 days. Indications: acute pain 28 tablet 0 aspirin 325 mg tablet Take 1 tablet by mouth 2 (two) times daily with meals for 28 days. 56 tablet 0 mesalamine (PENTASA) 500 mg CR capsule Take 500 mg by mouth 4 (four) times daily. pantoprazole 40 mg EC tablet Take 40 mg by mouth daily. sulfaSALAzine 500 mg tablet Take 500 mg by mouth 4 (four) times daily. clonazePAM 0.5 mg tablet Take 1 tablet 3 times a day by oral route as needed. fluticasone 50 mcg/actuation nasal spray [place] 1 spray every day by intranasal route. [...] 02/23/2019 Surgeon: Garry Donohue MD; Location: [facility] BUNIONECTOMY Left 1985 COLONOSCOPY 02/17/2019 EGD (ENDO) 2018 ENDOMETRIAL ABLATION 2007 EXCIS BARTHOLIN GLAND/CYST 1991 KNEE ARTHROSCOPY Left 2017 meniscus tear TUBAL LIGATION 1994 Social History [...] file Gets together: Not on file Attends anabaptist service: Not on file Active member of [...] file Social History Narrative Not on file No family history on file. Review of Systems Constitutional: Negative. HENT: Negative. Eyes: Negative. Respiratory: Negative. Breasts: Negative. Cardiovascular: Negative. Gastrointestinal: Negative. Genitourinary: Negative. Musculoskeletal: Positive for gait problem and joint swelling. Skin: Negative. Psychiatric/Behavioral: Negative. Endocrine: Endocrine negative Vital Signs BP (!) 150/89 | Pulse 102 | Ht 69" (175.3 cm) | Wt 81.6 kg (180 lb) | BMI 26.58 kg/m Physical Exam Continue knee brace locked out dressings intact Assessment/Plan 1. S/P reconstruction of anterior cruciate ligament Continue knee brace for 2 weeks in the locked Mode touchdown weightbearing only. She was not getting pain relief with Tylenol 3 so we called in some Talwin and ask her insurance carrier did not approve her medications so they brought a few tablets and she tried it is working very well for her so they should pay for her medicine. H BURLER documented in this encounter Plan of Treatment Health Maintenance Due Date Last Done Comments PNEUMOCOCCAL 0-64 YEARS COMBINED SERIES (1 of 1 - 01/11/1976 PPSV23) SARS-CoV-2 (COVID-19) Vaccine (1 of 2) 1986 DTaP,Tdap,and Td Vaccines (1 - Tdap) 1989 [...] of this encounter Implants Implanted Type Area Customer Development Manager Device Shelf Model / Identifier Expiration Serial / Date Lot Anterior Tibialis Graft GRAFT Left: Allosource 08/21 [id number] / Implanted: Qty: 1 on 11/14/2020 by Garry Aldridge MD at [facility] Knee 2 [id number] / N/A Screw Biocomposite Interference 7x23mm Arthrex #Ar-1370c - S [id number] SCREW Left: [employer] 11/20/2019 AR-1370C / Implanted: Qty: 1 on 02/23/2019 by Garry Aldridge MD at [facility] Knee 1 [id number] / [id number] Fastthread Biocomposite Interference Screw SCREW Left: [employer] 03/20/2024 AR-4030C-09 / Implanted: Qty: 1 on 11/14/2020 by Garry Aldridge MD at [facility] Knee N /A / [id number] Tightrope Arthrex Acl Rt #[id number] - [id number] TightRope Left: [employer] 08/20/2023 AR-1588RT / Implanted: Qty: 1 on 02/23/2019 by Garry Aldridge MD at [facility] Knee 1 [id number] / [id number] documented as of this encounter Results Not on filedocumented in this encounter Visit Diagnoses Diagnosis S/P reconstruction of anterior cruciate ligament - Primary Other postprocedural status documented in this encounter Insurance Payer Benefit Plan / Subscriber ID Effective Dates Phone Addre ss Type Group [facility] STAR [id number] 2019-Present Medicaid COMM PLAN - PLUS MANAGED MEDICAID documented as of this encounter
--- OUTSIDE RECORDS SUMMARY | 2020-11-25 01:50 | XMS REPORT | Summary of Care ---
:1970 Author Organization [facility] - [facility] Address [address] [place] [address] Care Team Providers Name Role Phone Xuan Bey MD Primary Care Provider Reason for Visit Auth/Cert Status Reason Specialty Diagnoses / Procedures Referred By C ontact Referred To Contact Surgery Diagnoses Sprain of anterior cruciate ligament of left knee, initial encounter Rupture of anterior cruciate ligament of left knee, initial encounter [S83.512A] Adc Pre/Pacu/Post Procedures IA KNEE SCOPE,AID ANT CRUCIATE REPAIR ANTERIOR CRUCIATE LIGAMENT RECONSTRUCTION 10030 - IA KNEE SCOPE,AID ANT CRUCIATE REPAIR [address] [place], [place] [address] Phone: Fax: Encounter Details Date Type Department Care Team Description 11/14/2020 Hospital Encounter [facility] Joceline Donohue, [place] [address] [facility] [facility] [address] [place] [address] [address] [phone] [place] [phone] Allergies Active Allergy Reactions Severity Noted Date [...] as of this encounter (statuses as of 11/14/2020) Medications Medication Sig Dispensed Refills Start Date End Date Status clonazePAM 0.5 mg Take 1 tablet 3 0 01/13/2019 Active tablet times a day by oral route as needed. fluticasone 50 [place] 1 spray 0 01/13/2019 Active mcg/actuation nasal [...] as of this encounter (statuses as of 11/14/2020) Active Problems Problem Noted Date Rupture of anterior cruciate ligament of left knee, in itial encounter 01/23/2019 Overview: Added automatically from request for miguel angel ruiz [id number] documented as of this encounter (statuses as of 11/14/2020) Social History Tobacco Use Types Packs/Day Years Used Date Current Every Day Smoker Smokeless Tobacco: Former User Tobacco Cessation: Ready to Quit: Yes; C ounseling Given: No Alcohol Use Drinks/Week oz/Week Comments No Sex Assigned at Date Recorded Not on file COVID-19 Exposure Response Date Recorded In the last month, have you been in contact with No / Unsure 11/14/2020 8:07 AM EXPEDITER CLERK someone who was confirmed or suspected to have Coronavirus / COVID-19? documented as of this encounter Last Filed Vital Signs Vital Sign Reading Time Taken Comments Blood Pressure 124/79 11/14/2020 11:55 AM EXPEDITER CLERK Pulse 67 11/14/2020 11:55 AM EXPEDITER CLERK Temperature 36.8 C (98.3 F) 11/14/2020 11:29 AM EXPEDITER CLERK Respiratory Rate 21 11/14/2020 11:55 AM EXPEDITER CLERK Oxygen Saturation 99% 11/14/2020 11:55 AM EXPEDITER CLERK Inhaled Oxygen Concentration - - Weight 81.6 kg (179 lb 14.3 oz) 11/02/2020 12:52 PM EXPEDITER CLERK Height 175.3 cm (5' 9.02") 11/02/2020 12:52 PM EXPEDITER CLERK Body Mass Index 26.55 11/02/2020 12:52 PM EXPEDITER CLERK documented in this encounter Discharge Instructions InstructionsNguyen Gardner RN - 11/14/2020 AttachmentsThe following attachments cannot be sent through Care Everywhere. Anterior Cruciate Ligament, Surgery for (ACL) Injury (Gabonese)After Your Surgery: Discharge Instructions (Gabonese)documented in this encounter Miscellaneous Notes Nursing Note - Joseph Urbina RN - 11/10/2020 12:10 PM CSTSpoke with patient about the medications that she is currently on but patient stated, "I am not compliant with my medications" I strongly advised patient to call her doctors office to discuss which medications are ok to take and which not to take the day of procedure. Pt, verbalized understanding and agreed to call MD office. Garry Giron office notified as well. documented in this encounter Plan of Treatment [...] of this encounter Implants Implanted Type Area Ambulance Officer Device Shelf Model / Identifier Expiration Serial / Date Lot Anterior Tibialis Graft GRAFT Left: Allosource 08/21 [id number] / Implanted: Qty: 1 on 11/14/2020 by Garry Aldridge MD at [facility] Knee 2 [id number] / N/A Screw Biocomposite Interference 7x23mm Arthrex #Ar-1370c - S [id number] SCREW Left: [employer] 11/20/2019 AR-1370C / Implanted: Qty: 1 on 02/23/2019 by Garry Aldridge MD at [facility] Knee 1 [id number] / [id number] Fastthread Biocomposite Interference Screw SCREW Left: [employer] 03/20/2024 AR-4030C-09 / Implanted: Qty: 1 on 11/14/2020 by Garry Aldridge MD at [facility] Knee N /A / [id number] Tightrope Arthrex Acl Rt #[id number] - [id number] TightRope Left: [employer] 08/20/2023 AR-1588RT / Implanted: Qty: 1 on 02/23/2019 by Garry Aldridge MD at [facility] Knee 1 [id number] / [id number] documented as of this encounter Results Not on filedocumented in this encounter Visit Diagnoses Diagnosis Rupture of anterior cruciate ligament of left knee, initial encounter - Primary documented in this encounter Administered Medications Medication Order MAR Action Action Date Dose Rate Site ceFAZolin in dextrose (iso-os) (ANCEF) 2 gram/100 mL Piggyback 2 g 2 g (2,000 mg), IV Piggyback, O.R. HOLDI NG ONCE, 1 dose, Starting 11/14/20 at 0831, Until Discontinued, 100 mL, DSU Pr e-op, Reason for Anti-Infective: Surgical Prophylaxis, Surgical Prophylaxis: Orthopaedic, Durati on of therapy: within 24 hours of surgery FENTanyl PF (SUBLIMAZE (PF)) injection 25 Given 11/14/2020 11:42 AM EXPEDITER CLERK 25 mcg mcg 25 mcg, Slow IV Push, Q5MIN PRN, 4 doses, Starting 11/14/20 at 1131, Until Discontinued, Routine, Pain (scale 4-6), PACU ondansetron (ZOFRAN (PF)) injection 4 mg 4 mg, Slow IV Push, PRN, 1 dose, Startin g 11/14/20 at 1131, Until Discontinued, Routine, Nausea and Vomiting (N/V), PACU documented in this encounter Insurance Payer Benefit Plan / Subscriber ID Effective Dates Phone Addre ss Type Group [facility] STAR [id number] 2019-Present Medicaid COMM PLAN - PLUS MANAGED MEDICAID documented as of this encounter
--- OUTSIDE RECORDS SUMMARY | 2020-11-25 01:50 | XMS REPORT | Summary of Care ---
:1970 Author Organization [facility] Address [address] [place] [address] Care Team Providers Name Role Phone Xuan Bey MD Primary Care Provider Reason for Visit Reason Comments Rx Concern/Question Pain Encounter Details Date Type Department Care Team Description 11/15/2020 Telephone [facility] Orthopaedic Garry Donohue Concern/Question; Surgery- Riky Garcia MD Pain [address], [address] [place] [address] [place], [place] [phone] [address] Allergies Active Allergy Reactions Severity Noted [...] by oral route as needed. fluticasone 50 [place] 1 spray 0 01/13/2019 Active mcg/actuation nasal [...] automatically from request for miguel angel ruiz [id number] documented as of this encounter (statuses as of 11/15/2020) Social History Tobacco Use Types Packs/Day Years Used Date Current Every Day Smoker Smokeless Tobacco: Former User Alcohol Use Drinks/Week oz/Week Comments No Sex Assigned at Date Recorded Not on file COVID-19 Exposure Response Date Recorded In the last month, have you been in contact with No / Unsure 11/14/2020 8:07 AM RECYCLING MANAGER someone who was confirmed or suspected to have Coronavirus / COVID-19? documented as of this encounter Last Filed Vital Signs Not on filedocumented in this encounter Miscellaneous Notes Telephone Encounter - Robles Ball, PAC - 11/15/2020 4:20 PM RECYCLING MANAGER Electronically prescribed Talwin NX elephone Encounter - Rosalina Young - 11/15/2020 11:23 AM CSTKenzie Cartwright is a 50 year old female patient is calling and the pain medication is wearing off too soon. Please call patient at [phone] [id number] - [place] [address] [address] [facility] General [facility]; [employer] [facility] elephone Encounter - Staci Cespedes - 11/15/2020 8:18 AM CSTPatient had surgery on 11/14/2020 for Left Knee ACL Reconstruction. Patient states the Tylenol #3 isnot helping with the pain. She says the pain is over 10 and it never takes the pain away. The pain level stays at about a 6. Is there something else we can call in for her? Thank you. documented in this encounter Plan of Treatment Date Type Specialty Care Team Description 11/16/2020 Office Visit Orthopedic Surgery Robles Ball, PAC [address] [place], [place] [address] Health Maintenance Due Date Last Done [...] of this encounter Implants Implanted Type Area Plate And Weld Inspector Device Shelf Model / Identifier Expiration Serial / Date Lot Anterior Tibialis Graft GRAFT Left: Allosource 08/21 [id number] / Implanted: Qty: 1 on 11/14/2020 by Garry Aldridge MD at [facility] Knee 2 [id number] / N/A Screw Biocomposite Interference 7x23mm Arthrex #Ar-1370c - S [id number] SCREW Left: [employer] 11/20/2019 AR-1370C / Implanted: Qty: 1 on 02/23/2019 by Garry Aldridge MD at [facility] Knee 1 [id number] / [id number] Fastthread Biocomposite Interference Screw SCREW Left: [employer] 03/20/2024 AR-4030C-09 / Implanted: Qty: 1 on 11/14/2020 by Garry Aldridge MD at [facility] Knee N /A / [id number] Tightrope Arthrex Acl Rt #Ar-[id number] - [id number] TightRope Left: [employer] 08/20/2023 AR-1588RT / Implanted: Qty: 1 on 02/23/2019 by Garry Aldridge MD at [facility] Knee 1 [id number] / [id number] documented as of this encounter Results Not on filedocumented in this encounter Visit Diagnoses Diagnosis S/P reconstruction of anterior cruciate ligament - Primary Other postprocedural status documented in this encounter Insurance Payer Benefit Plan / Subscriber ID Effective Dates Phone Addre ss [facility] [id number] 2019-Present Medicaid COMM PLAN - PLUS MANAGED MEDICAID documented as of this encounter
--- OUTSIDE RECORDS SUMMARY | 2020-11-25 01:50 | XMS REPORT | Summary of Care ---
:1970 Author Organization [facility] - Health Address [address] [place] [address] Care Team Providers Name Role Phone Xuan Bey MD Primary Care Provider Encounter Details Date Type Department Care Team Description 11/14/2020 Orders Only [facility] Doctor Unassigned, No [address] [facility] Name [place] [id number] [address] [place] [address] Allergies Active Allergy Reactions Severity Noted Date [...] by oral route as needed. fluticasone 50 W[place] 1 spray 0 01/13/2019 Active mcg/actuation nasal [...] automatically from request for miguel angel ruiz [id number] documented as of this encounter (statuses as of 11/15/2020) Social History Tobacco Use Types Packs/Day Years Used Date Current Every Day Smoker Smokeless Tobacco: Former User Alcohol Use Drinks/Week oz/Week Comments No Sex Assigned at Date Recorded Not on file COVID-19 Exposure Response Date Recorded In the last month, have you been in contact with No / Unsure 11/14/2020 8:07 AM RAILROAD POLICE OFFICER someone who was confirmed or suspected to have Coronavirus / COVID-19? documented as of this encounter Last Filed Vital Signs Not on filedocumented in this encounter Plan of Treatment Date Type Specialty Care Team Description 11/16/2020 Office Visit Orthopedic Surgery Robles Ball, KERRY [address] [place] [phone] Health Maintenance Due Date Last Done [...] of this encounter Implants Implanted Type Area Fur Nailer Device Shelf Model / Identifier Expiration Serial / Date Lot Anterior Tibialis Graft GRAFT Left: Allosource 08/21 [id number] / Implanted: Qty: 1 on 11/14/2020 by Garry Aldridge MD at [facility] Knee 2 [id number] / N/A Screw Biocomposite Interference 7x23mm Arthrex #[id number] - [id number] SCREW Left: [employer] 11/20/2019 AR-1370C / Implanted: Qty: 1 on 02/23/2019 by Garry Aldridge MD at [facility] Knee 1 [id number] / [id number] Fastthread Biocomposite Interference Screw SCREW Left: [employer] 03/20/2024 AR-4030C-09 / Implanted: Qty: 1 on 11/14/2020 by Garry Aldridge MD at [facility] Knee N /A / [id number] Tightrope Arthrex Acl Rt #[id number] - [id number] TightRope Left: [employer] 08/20/2023 AR-[id number] / Implanted: Qty: 1 on 02/23/2019 by Garry Aldridge MD at [facility] Knee 1 [id number] / [id number] documented as of this encounter Procedures Procedure Name Priority Date/Time Associated Diagnosis Comme nts DAY SURGERY - ADC Routine 11/14/2020 12:01 AM RAILROAD POLICE OFFICER documented in this encounter Results Not on filedocumented in this encounter Insurance Payer Benefit Plan / Subscriber ID Effective Dates Phone Addre ss Type Group [facility] [id number] 2019-Present Medicaid COMM PLAN - PLUS MANAGED MEDICAID documented as of this encounter
--- OUTSIDE RECORDS SUMMARY | 2020-11-25 01:51 | XMS REPORT | Summary of Care ---
:1970 Author Organization [facility] Address [address] [place] [id number] Care Team Providers Name Role Phone Xuan Bey MD Primary Care Provider Reason for Visit Reason Comments Follow-up S/P LT ACL Reconstruction Encounter Details Date Type Department Care Team Description 11/16/2020 Office Visit [facility] Robles Ball S, S/P reconstr uction of Orthopaedic Surgery- PAC anterior cruciate [place] [address] ligament (Primary Dx) [address] [facility] [place] [phone] Allergies Active Allergy Reactions Severity Noted Date [...] by oral route as needed. 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 fluticasone 50 mcg/actuation nasal spray Juda 1 spray every day by intranasal route. [...] Left 02/23/2019 Surgeon: Garry Donohue MD; [place] [facility] [place] 1985 COLONOSCOPY 02/17/2019 [...] file Gets together: Not on file Attends restorationism service: Not on file Active member of [...] so they should pay for her medicine. CORE OPERATOR documented in this encounter Plan of Treatment [...] of this encounter Implants Implanted Type Area Catalytic Converter Operator Device Shelf Model / Identifier Expiration Serial / Date Lot Anterior Tibialis Graft GRAFT Left: Allosource 08/21 [id number] / Implanted: Qty: 1 on 11/14/2020 by Garry Aldridge MD at [facility] Knee 2 [id number] / N/A Screw Biocomposite Interference 7x23mm Arthrex #Ar-[id number] - [id number] SCREW Left: [employer] 11/20/2019 AR-1370C / Implanted: Qty: 1 on 02/23/2019 by Garry Aldridge MD at [facility] Knee 1 [id number] / [id number] Fastthread Biocomposite Interference Screw SCREW Left: [employer] 03/20/2024 AR-4030C-09 / Implanted: Qty: 1 on 11/14/2020 by Garry Aldridge MD at [facility] Knee N /A / [id number] Tightrope Arthrex Acl Rt #[id number] - [id number] TightRope Left: [employer] 08/20/2023 AR-1588RT / Implanted: Qty: 1 on 02/23/2019 by Garry Aldridge MD at [facility] Knee 1 [id number] / [id number] documented as of this encounter Results Not on filedocumented in this encounter Visit Diagnoses Diagnosis S/P reconstruction of anterior cruciate ligament - Primary Other postprocedural status documented in this encounter Insurance Payer Benefit Plan / Subscriber ID Effective Dates Phone Addre ss Type Group [facility] [id number] 2019-Present Medicaid COMM PLAN - PLUS MANAGED MEDICAID documented as of this encounter
[2020-11-25] MEDS ORDERED: DIPHENHYDRAMINE 50 MG/ML VIAL ONE (02:29)
[2020-11-25] MEDS ORDERED: METHYLPREDNISOLONE 125 MG INJ ONE (02:29)
[2020-11-25] MEDS ORDERED: FAMOTIDINE 20 MG/2 ML VIAL IV ONE (02:30)
[2020-11-25] MEDS ORDERED: NA CHLORIDE 0.9% 1,000 ML ONE (02:30)
[2020-11-25] MEDS ORDERED: predniSONE 20 MG TAB ONE (02:30)
--- NOTE | 2020-11-25 02:30 | EDPHYS ---
Physician Documentation [facility] Name: Kenzie Cartwright Age: 50 yrs Sex: Female : 1970 Arrival Date: 11/25/2020 Time: 01:44 Bed 4 Private MD: ISSA Physician Chiki Avalos HPI: 11/25 01:59 This 50 yrs old Female presents to ER via Ambulatory with complaints of adrianne Allergic Reaction. 01:59 The patient presents with itching, rash, redness of skin. Onset: The symptoms/episode adrianne began/occurred just prior to arrival, this morning. Associated signs and symptoms: The patient has no apparent associated signs or symptoms. Possible causes: narcotic, or abx, asa. At home the patient or guardian has treated the symptoms with nothing. Severity of symptoms: At their worst the symptoms were mild moderate in the emergency department the symptoms are unchanged. The patient has experienced similar episodes in the past, several times. 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 - Social history:: Smoking status: Patient denies any tobacco usage or history of. ROS: 02:01 Constitutional: Negative for fever, chills, and weight loss, Eyes: Negative for injury, adrianne pain, redness, and discharge, ENT: Negative for injury, pain, and discharge, Neck: Negative for injury, pain, and swelling, Cardiovascular: Negative for chest pain, palpitations, and edema, Respiratory: Negative for shortness of breath, cough, wheezing, and pleuritic chest pain, Abdomen/GI: Negative for abdominal pain, nausea, vomiting, diarrhea, and constipation, Back: Negative for injury and pain, : Negative for injury, bleeding, discharge, and swelling, MS/Extremity: Negative for injury and deformity, Neuro: Negative for headache, weakness, numbness, tingling, and seizure, Psych: Negative for depression, anxiety, suicide ideation, homicidal ideation, and hallucinations, Allergy/Immunology: Negative for hives, rash, and allergies, Endocrine: Negative for neck swelling, polydipsia, polyuria, polyphagia, and marked weight changes, Hematologic/Lymphatic: Negative for swollen nodes, abnormal bleeding, and unusual bruising. 02:01 Skin: Positive for rash, diffusely. Exam: 02:01 Constitutional: This is a well developed, well nourished patient who is awake, alert, adrianne and in no acute distress. Head/Face: Normocephalic, atraumatic. Eyes: Pupils equal round and reactive to light, extra-ocular motions intact. Lids and lashes normal. Conjunctiva and sclera are non-icteric and not injected. Cornea within normal limits. Periorbital areas with no swelling, redness, or edema. ENT: Nares patent. No nasal discharge, no septal abnormalities noted. Tympanic membranes are normal and external auditory canals are clear. Oropharynx with no redness, swelling, or masses, exudates, or evidence of obstruction, uvula midline. Mucous membranes moist. Neck: Trachea midline, no thyromegaly or masses palpated, and no cervical lymphadenopathy. Supple, full range of motion without nuchal rigidity, or vertebral point tenderness. No Meningismus. Chest/axilla: Normal chest wall appearance and motion. Nontender with no deformity. No lesions are appreciated. Cardiovascular: Regular rate and rhythm with a normal S1 and S2. No gallops, murmurs, or rubs. Normal PMI, no JVD. No pulse deficits. Respiratory: Lungs have equal breath sounds bilaterally, clear to auscultation and percussion. No rales, rhonchi or wheezes noted. No increased work of breathing, no retractions or nasal flaring. Abdomen/GI: Soft, non-tender, with normal bowel sounds. No distension or tympany. No guarding or rebound. No evidence of tenderness throughout. Back: No spinal tenderness. No costovertebral tenderness. Full range of motion. MS/ Extremity: Pulses equal, no cyanosis. Neurovascular intact. Full, normal range of motion. Neuro: Awake and alert, GCS 15, oriented to person, place, time, and situation. Cranial nerves II-XII grossly intact. Motor strength 5/5 in all extremities. Sensory grossly intact. Cerebellar exam normal. Normal gait. Psych: Awake, alert, with orientation to person, place and time. Behavior, mood, and affect are within normal limits. 02:01 Skin: Appearance: Color: erythematous, Temperature: normal temperature, Moisture: normal moisture, petechiae, not noted, ecchymosis, not noted, swelling, is not appreciated, abscess, not appreciated, cellulitis, is not appreciated, induration, is not appreciated, injury, is not appreciated. Vital Signs: 02:01 BP 158 / 90; Pulse 84; Resp 18; Temp 98.2; Pulse Ox 99% ; Weight 77.11 kg; Height 5 ft. 9 in. (175.26 cm); 03:00 BP 126 / 58; Pulse 77; Resp 18; Pulse Ox 99% on R/A; 02:01 Body Mass Index 25.10 (77.11 kg, 175.26 cm) MDM: 01:52 Patient medically screened. [facility] 02:05 Differential diagnosis: anaphylaxis, angioedema, urticaria. Data reviewed: vital signs, [facility] nurses notes. Data interpreted: nurse monitoring: rate is 84 beats/min, Pulse oximetry: on room air is 99 %. Administered Medications: 02:14 Drug: predniSONE 60 mg Route: PO; 03:29 Follow up: Response: No adverse reaction 02:16 Drug: NS 0.9% 1000 ml Route: IV; Rate: 1 bolus; Site: right antecubital; 03:30 Follow up: Response: No adverse reaction; IV Status: Completed infusion 02:18 Drug: SOLU-Medrol 125 mg Route: IVP; Site: right antecubital; 03:29 Follow up: Response: No adverse reaction 02:20 Drug: Pepcid 40 mg Route: IVP; Site: right antecubital; 03:29 Follow up: Response: No adverse reaction 02:22 Drug: Benadryl 50 mg Route: IVP; Site: right antecubital; 03:30 Follow up: Response: No adverse reaction Disposition: 11/25/20 02:29 Discharged to Home. Impression: Urticaria. - Condition is Stable. - Discharge Instructions: Allergies, Adult, Hives, Hives, [id number]. - Prescriptions for Benadryl 25 mg Oral Capsule - take 1 capsule by ORAL route every 6 hours As needed; 30 tablet. Pepcid 20 mg Oral Tablet - take 1 tablet by ORAL route every 12 hours for 10 days; 20 tablet. Prednisone 20 mg Oral Tablet - take 2 tablet by ORAL route once daily for 5 days; 10 tablet. EpiPen 0.3 mg Injection auto- injector - inject 1 pen by INTRAMUSCULAR route as directed Inject into the outer portion of the thigh, through clothing if necessary. Indicated in the emergency treatment of allergic reactions; 2 Cartridge. - Medication Reconciliation Form, Thank You Letter, Antibiotic Education, Prescription Opioid Use form. - Follow up: Private Physician; When: 2 - 3 days; Reason: Recheck today's complaints, Continuance of care, Re-evaluation by your physician. - Problem is new. - Symptoms have improved. Signatures: Freeman Rebolledo RN RN Chiki Staton MD MD cha Habalo, Winsy, RN RN Corrections: (The following items were deleted from the chart) 03:31 02:29 11/25/2020 02:29 Discharged to Home. Impression: Urticaria. Condition is Stable. Discharge Instructions: Allergies, Adult, Hives, Hives, [id number]. Prescriptions for Benadryl 25 mg Oral Capsule - take 1 capsule by ORAL route every 6 hours As needed; 30 tablet, Pepcid 20 mg Oral Tablet - take 1 tablet by ORAL route every 12 hours for 10 days; 20 tablet, Prednisone 20 mg Oral Tablet - take 2 tablet by ORAL route once daily for 5 days; 10 tablet, EpiPen 0.3 mg Injection auto-injector - inject 1 pen by INTRAMUSCULAR route as directed Inject into the outer portion of the thigh, through clothing if necessary. Indicated in the emergency treatment of allergic reactions; 2 Cartridge. and Forms are Medication Reconciliation Form, Thank You Letter, Antibiotic Education, Prescription Opioid Use. Follow up: Private Physician; When: 2 - 3 days; Reason: Recheck today's complaints, Continuance of care, Re-evaluation by your physician. Problem is new. Symptoms have improved. adrianne
--- NOTE | 2020-11-25 02:30 | ER ---
Nurse's Notes [facility] Name: Kenzie Cartwright Age: 50 yrs Sex: Female : 1970 Arrival Date: 11/25/2020 Time: 01:44 Bed 4 Private MD: Diagnosis: Urticaria Presentation: 11/25 01:51 Chief complaint: Patient states: I have this random rash that popped up on my legs, its sg red and itchy, rash and itching to the right thigh. Coronavirus screen: Client denies travel out of the [place] in the last 14 days. At this time, the client does not indicate any symptoms associated with coronavirus-19. Ebola Screen: Patient negative for fever greater than or equal to 101.5 degrees Fahrenheit, and additional compatible Ebola Virus Disease symptoms Patient denies exposure to infectious person. Patient denies travel to an Ebola-affected area in the 21 days before illness onset. No symptoms or risks identified at this time. Onset: The symptoms/episode began/occurred acutely. Anaphylaxis evaluation, no signs or symptoms of anaphylaxis were noted. Initial Sepsis Screen: Does the patient meet any 2 criteria? No. Patient's initial sepsis screen is negative. Does the patient have a suspected source of infection? No. Patient's initial sepsis screen is negative. Risk Assessment: Do you want to hurt yourself or someone else? Patient reports no desire to harm self or others. Onset of symptoms was November 25, 2020. Care prior to arrival: None. Transition of care: patient was not received from another setting of care. 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 - Social history:: Smoking status: Patient denies any tobacco usage or history of. Screenin:01 Abuse screen: Denies threats or abuse. Denies injuries from another. Nutritional screening: No deficits noted. Tuberculosis screening: No symptoms or risk factors identified. Fall Risk None identified. Assessment: 01:59 General: Appears in no apparent distress. Behavior is calm, cooperative, appropriate wh for age. Pain: Denies pain. Neuro: Level of Consciousness is awake, alert, obeys commands, Oriented to person, place, time, situation, Appropriate for age. Cardiovascular: Heart tones S1 S2. Respiratory: Airway is patent Respiratory effort is even, unlabored, Respiratory pattern is regular, symmetrical, Breath sounds are clear bilaterally. GI: Abdomen is flat, non-distended. : No signs and/or symptoms were reported regarding the genitourinary system. EENT: No signs and/or symptoms were reported regarding the EENT system. Derm: Skin is intact, is healthy with good turgor, Skin is pink, warm \T\ dry. normal, Reports itching, redness and rash on inner thigh and abdomen. Musculoskeletal: Circulation, motion, and sensation intact. 03:20 Reassessment: Patient appears in no apparent distress at this time. No changes from previously documented assessment. Patient and/or family updated on plan of care and expected duration. Pain level reassessed. Patient is alert, oriented x 3, equal unlabored respirations, skin warm/dry/pink. Patient states feeling better. Patient states symptoms have improved. Vital Signs: 02:01 BP 158 / 90; Pulse 84; Resp 18; Temp 98.2; Pulse Ox 99% ; Weight 77.11 kg; Height 5 ft. 9 in. (175.26 cm); 03:00 BP 126 / 58; Pulse 77; Resp 18; Pulse Ox 99% on R/A; wh 02:01 Body Mass Index 25.10 (77.11 kg, 175.26 cm) ED Course: 01:44 Patient arrived in ED. cl3 01:45 Chiki Avalos MD is Attending Physician. adrianne 01:53 Triage completed. sg 01:53 Arm band placed on. sg 01:59 Candace Victor, LOS is Primary Nurse. 02:03 Patient has correct armband on for positive identification. Bed in low position. Call light in reach. Side rails up X 1. Pulse ox on. NIBP on. 02:10 No provider procedures requiring assistance completed. Inserted saline lock: 20 gauge wh in right antecubital area, using aseptic technique. 03:30 IV discontinued, intact, bleeding controlled, No redness/swelling at site. Administered Medications: 02:14 Drug: predniSONE 60 mg Route: PO; 03:29 Follow up: Response: No adverse reaction 02:16 Drug: NS 0.9% 1000 ml Route: IV; Rate: 1 bolus; Site: right antecubital; 03:30 Follow up: Response: No adverse reaction; IV Status: Completed infusion 02:18 Drug: SOLU-Medrol 125 mg Route: IVP; Site: right antecubital; 03:29 Follow up: Response: No adverse reaction 02:20 Drug: Pepcid 40 mg Route: IVP; Site: right antecubital; 03:29 Follow up: Response: No adverse reaction 02:22 Drug: Benadryl 50 mg Route: IVP; Site: right antecubital; 03:30 Follow up: Response: No adverse reaction Outcome: 02:29 Discharge ordered by MD. silver 03:30 Discharged to home ambulatory. 03:30 Condition: stable 03:30 Discharge instructions given to patient, Instructed on discharge instructions, follow up and referral plans. medication usage, POC Demonstrated understanding of instructions, follow-up care, medications, POC Prescriptions given X 4. 03:31 Patient left the ED. Signatures: Freeman Rebolledo, RN Chiki Redd MD MD cha Habalo, Winsy, RN RN wh Lewis, Charde cl3 Corrections: (The following items were deleted from the chart) 02:01 01:59 Derm: Skin is intact, is healthy with good turgor, Skin is pink, warm \T\ dry. normal, 03:30 03:30 Discharge instructions given to patient, Instructed on discharge instructions, follow up and referral plans. medication usage, POC Demonstrated understanding of instructions, follow-up care, medications, POC Prescriptions given X 2, wh
[2020-11-25 03:35] VITALS: TEMP 98.2; O2SAT 99
[2020-11-25 03:36] VITALS: BP 126/58
== END 2020-11-25 03:31 | disposition home or self-care (01) ==
LOC: ER 01:44
DX: L50.9 Urticaria, unspecified (principal); Z88.5 Allergy status to narcotic agent; Z88.8 Allergy status to other drugs, medicaments and biological substances; Z91.013 Allergy to seafood; Z91.018 Allergy to other foods
CPT/HCPCS: 96361; 96375; 96374; 99284; J1200; J7030; J2930; J7512

== ENCOUNTER 2022-02-10 19:21 | Emergency (ER) | payer OTHER ==
--- OUTSIDE RECORDS SUMMARY | 2022-02-10 19:24 | XMS REPORT | Continuity of Care Document ---
:1970 Author Organization [facility] t Address [address] [place] [address] Care Team Providers Name Role Phone PHILLIP Primary Care Physician Unavailable Radha DONOHUE Attending Clinician Unavailable Varun PT, T Attending Clinician Unavailable Anais SPARKS L Attending Clinician Aram EXTERIOR DOOR INSTALLER, F Attending Clinician Unavailable Aram EXTERIOR DOOR INSTALLER, K Attending Clinician Unavailable Polina PT, G Attending Clinician Unavailable Gurpreet PAC, S Attending Clinician Jannie BALL Attending Clinician Unavailable DR Jannie DANIEL Attending Clinician Unavailable DR Jannie DANIEL Admitting Clinician Unavailable Payers Payer Name Policy Type Policy Number Effective Date Expiration Date S [facility] [employer] MEDICARE [id number] 2019 00:00:00 MEDICAID OF [place] [id number] 2020 00:00:00 Problems Condition Condition Condition Status Onset Resolution Last Treating Co mments Source Name Details Category Date Date Treatment Clinician Date Rupture of Rupture of Disease Active Overview : Univers anterior anterior 4-05 Formattin ity of cruciate cruciate 00:00: g of this Missael as ligament ligament 00 note Medica l of left of left might be Branch knee, knee, different initial initial from the encounter encounter original. Added automatic ally from request for surgery [id number] Allergies, Adverse Reactions, Alerts Allergy Allergy Status Severity Reaction(s) Onset Inactive Treating Comm ents Source Name Type Date Date Clinician Meme Hennessyi Active Hives Univer s ine-Nalo ty to 2-10 ity of xone adverse 00:00: [place] reaction 00 Medical s Branch PENTAZOC DRUG Active Hives 2020-0 Univers INE-NALO 2-10 ity of XONE 00:00: [place] 00 Medical Branch Mushroom Propensi Active Anaphylaxis 2020-0 U nivers ty to 1-08 ity of adverse 00:00: [place] reaction 00 Medical s Branch MUSHROOM DRUG Active High Anaphylaxis 2020-0 Uni vers INGREDI 1-08 ity of 00:00: [place] 00 Medical Branch Latex Propensi Active Hives 2019-0 Univers ty to 4-03 ity of adverse 00:00: [place] reaction 00 Medical s Branch Fluoxeti Propensi Active Hives 2018-0 Univer s ne Hcl ty to 4-03 ity of adverse 00:00: [place] reaction 00 Medical s Branch Bupropio Propensi Active Hives 2018-0 Univer s n Hcl ty to 4- ity of adverse 00:00: [place] reaction 00 Medical s Branch LATEX DRUG Active High Hives 2019-0 Univers INGREDI 4-03 ity of 00:00: [place] 00 Medical Branch FLUOXETI DRUG Active High Hives 2019-0 Univers NE HCL INGREDI 4-03 ity of 00:00: [place] 00 Medical Branch BUPROPIO DRUG Active High Hives 2019-0 Univers N HCL INGREDI 4-03 ity of 00:00: [place] 00 Medical Branch Bupropio Propensi Active Unknown - Suicidal U nivers n ty to See comments ideation it y of adverse [place] reaction Medical s Branch Cortison Propensi Active Unknown - Manic Uni vers e ty to See comments mood ity of adverse swings [place] reaction Medical s Branch Fluoxeti Propensi Active Hives Suicide Unive rs ne ty to ideation ity of adverse [place] reaction Medical s Branch Mold Propensi Active Anaphylaxis Uni vers ty to ity of adverse [place] reaction Medical s Branch Morphine Propensi Active Hives Univer s ty to ity of adverse [place] reaction Medical s Branch Naltrexo Propensi Active Hives Univer s ne-Bupro ty to ity of pion adverse [place] reaction Medical s Branch BUPROPIO DRUG Active High Hives Univers N INGREDI ity of [place] [facility] [place] CORTISON DRUG Active High Unknown-Cmnt Un kelsie E INGREDI ity of [place] [facility] MOLD DRUG Active High Anaphylaxis Unive rs INGREDI ity of [facility] MORPHINE DRUG Active High Hives Univers INGREDI ity of [facility] NALTREXO DRUG Active High Hives Univers NE-BUPRO ity of PION [facility] FLUOXETI DRUG Active Hives Univers NE INGREDI ity of [facility] Social History Social Habit Start Date Stop Date Quantity Comments Source Exposure to Not sure [facility] SARS-CoV-2 [facility] (event) Branch Alcohol intake 2021-12-07 2021-12-07 Current University 00:00:00 00:00:00 non-drinker of [facility] alcohol [place] (finding) Tobacco use and 2019-02-19 2019-02-19 Former user Universi ty of exposure 00:00:00 00:00:00 [facility] Sex [birth year] At [birth year] Universit y of 00:00:00 00:00:00 [facility] Smoking Status Start Date Stop Date Source Current every day smoker 2019-02-19 00:00:00 Uni versity [facility] Medications Ordered Filled Start Stop Current Ordering Indication Dosage Frequency Signature Comments Components Source Medication Medication Date Date Medication? Clinician (SIG) Name Name methylPREDN 2020-0 Yes [id number] 84mg Take 21 Univers ISolone 3-12 tablets by ity of (MEDROL, 00:00: mouth [place] SAMIRA,) 4 mg 00 SEE-INSTRU Med ical tablets CTIONS. Branch follow package directions methylPREDN 2020-0 Yes [id number] 84mg Take 21 Univers ISolone 3-12 tablets by ity of (MEDROL, 00:00: mouth [place] SAMIRA,) 4 mg 00 SEE-INSTRU Med ical tablets CTIONS. Branch follow package directions methylPREDN 2020-0 Yes [id number] 84mg Take 21 Univers ISolone 3-12 tablets by ity of (MEDROL, 00:00: mouth [place] SAMIRA,) 4 mg 00 SEE-INSTRU Med ical tablets CTIONS. Branch follow package directions methylPREDN 2020-0 Yes [id number] 84mg Take 21 Univers ISolone 3-12 tablets by ity of (MEDROL, 00:00: mouth [place] SAMIRA,) 4 mg 00 SEE-INSTRU Med ical tablets CTIONS. Branch follow package directions methylPREDN 2020-0 Yes [id number] 84mg Take 21 Univers ISolone 3-12 tablets by ity of (MEDROL, 00:00: mouth [place] SAMIRA,) 4 mg 00 SEE-INSTRU Med ical tablets CTIONS. Branch follow package directions methylPREDN 2021-0 Yes [id number] 84mg Take 21 Univers ISolone 3-12 tablets by ity of (MEDROL, 00:00: mouth [place] SAMIRA,) 4 mg 00 SEE-INSTRU Med ical tablets CTIONS. Branch follow package directions methylPREDN 2021-0 Yes [id number] 84mg Take 21 Univers ISolone 3-12 tablets by ity of (MEDROL, 00:00: mouth [place] SAMIRA,) 4 mg 00 SEE-INSTRU Med ical tablets CTIONS. Branch follow package directions methylPREDN 2021-0 Yes [id number] 84mg Take 21 Univers ISolone 3-12 tablets by ity of (MEDROL, 00:00: mouth [place] SAMIRA,) 4 mg 00 SEE-INSTRU Med ical tablets CTIONS. Branch follow package directions methylPREDN 1-0 Yes [id number] 84mg Take 21 Univers ISolone 3-12 tablets by ity of (MEDROL, 00:00: mouth [place] SAMIRA,) 4 mg 00 SEE-INSTRU Med ical tablets CTIONS. Branch follow package directions methylPREDN 1-0 Yes [id number] 84mg Take 21 Univers ISolone 3-12 tablets by ity of (MEDROL, 00:00: mouth [place] SAMIRA,) 4 mg 00 SEE-INSTRU Med ical tablets CTIONS. Branch follow package directions pentazocine 2020-0 Yes [id number] 1{tbl} Take 1 Un kelsie -naloxone 1-26 tablet by ity o f 50-0.5 mg 00:00: mouth [place] tablet 00 every 4 Medical (four) Branch hours as needed for Pain. Indication s: acute pain pentazocine 2020-0 Yes 4647 1{tbl} Take 1 Un kelsie -naloxone 1-26 tablet by ity o f 50-0.5 mg 00:00: mouth [place] tablet 00 every 4 Medical (four) Branch hours as needed for Pain. Indication s: acute pain pentazocine 2020-0 Yes 4647 1{tbl} Take 1 Un kelsie -naloxone 1-26 tablet by ity o f 50-0.5 mg 00:00: mouth [place] tablet 00 every 4 Medical (four) Branch hours as needed for Pain. Indication s: acute pain pentazocine Yes 4647 1{tbl} Take 1 Un kelsie -naloxone 1-26 tablet by ity o f 50-0.5 mg 00:00: mouth [place] tablet 00 every 4 Medical (four) Branch hours as needed for Pain. Indication s: acute pain pentazocine Yes 4647 1{tbl} Take 1 Un kelsie -naloxone 1-26 tablet by ity o f 50-0.5 mg 00:00: mouth [place] tablet 00 every 4 Medical (four) Branch hours as needed for Pain. Indication s: acute pain pentazocine Yes 4647 1{tbl} Take 1 Un kelsie -naloxone 1-26 tablet by ity o f 50-0.5 mg 00:00: mouth [place] tablet 00 every 4 Medical (four) Branch hours as needed for Pain. Indication s: acute pain pentazocine Yes 4647 1{tbl} Take 1 Un kelsie -naloxone 1-26 tablet by ity o f 50-0.5 mg 00:00: mouth [place] tablet 00 every 4 Medical (four) Branch hours as needed for Pain. Indication s: acute pain pentazocine Yes 4647 1{tbl} Take 1 Un kelsie -naloxone 1-26 tablet by ity o f 50-0.5 mg 00:00: mouth [place] tablet 00 every 4 Medical (four) Branch hours as needed for Pain. Indication s: acute pain pentazocine Yes 4647 1{tbl} Take 1 Un kelsie -naloxone 1-26 tablet by ity o f 50-0.5 mg 00:00: mouth [place] tablet 00 every 4 Medical (four) Branch hours as needed for Pain. Indication s: acute pain pentazocine Yes 4647 1{tbl} Take 1 Un kelsie -naloxone 1-26 tablet by ity o f 50-0.5 mg 00:00: mouth [place] tablet 00 every 4 Medical (four) Branch hours as needed for Pain. Indication s: acute pain pantoprazol Yes 40mg Take 40 mg Univers e 40 mg EC 1-25 by mouth ity o f tablet 13:04: daily. [place] 09 Medical Branch mesalamine 2021-0 Yes 500mg Take 500 Un kelsie (PENTASA) 1-25 mg by ity of 500 mg CR 13:04: mouth 4 [place] capsule (four) Medical times Branch daily. sulfaSALAzi 2021-0 Yes 500mg Take 500 U nivers ne 500 mg 1-25 mg by ity of tablet 13:04: mouth 4 [place] (four) Medical times Branch daily. pantoprazol 1-0 Yes 40mg Take 40 mg Univers e 40 mg EC 1-25 by mouth ity o f tablet 13:04: daily. [address] Branch mesalamine 2020-0 Yes 500mg Take 500 Un kelsie (PENTASA) 1-25 mg by ity of 500 mg CR 13:04: mouth 4 [place] capsule (four) Medical times Branch daily. sulfaSALAzi 1-0 Yes 500mg Take 500 U nivers ne 500 mg 1-25 mg by ity of tablet 13:04: mouth 4 [place] [address] [facility] Medical times [place] daily. pantoprazol 1-0 Yes 40mg Take 40 mg Univers e 40 mg EC 1-25 by mouth ity o f tablet 13:04: daily. [address] Branch mesalamine 2020-0 Yes 500mg Take 500 Un kelsie (PENTASA) 1-25 mg by ity of 500 mg CR 13:04: mouth 4 [facility] (four) Medical times [place] daily. sulfaSALAzi 1-0 Yes 500mg Take 500 U nivers ne 500 mg 1-25 mg by ity of tablet 13:04: mouth 4 [place] [address] [facility] Medical times [place] daily. pantoprazol 1-0 Yes 40mg Take 40 mg Univers e 40 mg EC 1-25 by mouth ity o f tablet 13:04: daily. [address] Branch mesalamine 1-0 Yes 500mg Take 500 Un kelsie (PENTASA) 1-25 mg by ity of 500 mg CR 13:04: mouth 4 [place] capsule (four) Medical times Branch daily. sulfaSALAzi 2021-0 Yes 500mg Take 500 U nivers ne 500 mg 1-25 mg by ity of tablet 13:04: mouth 4 [place] [address] (four) Medical times Branch daily. pantoprazol 1-0 Yes 40mg Take 40 mg Univers e 40 mg EC 1-25 by mouth ity o f tablet 13:04: daily. [place] [address] Medical Branch mesalamine 2021-0 Yes 500mg Take 500 Un kelsie (PENTASA) 1-25 mg by ity of 500 mg CR 13:04: mouth 4 [place] capsule (four) Medical times Branch daily. sulfaSALAzi 2021-0 Yes 500mg Take 500 U nivers ne 500 mg 1-25 mg by ity of tablet 13:04: mouth 4 [place] [facility] Medical times [place] daily. pantoprazol 1-0 Yes 40mg Take 40 mg Univers e 40 mg EC 1-25 by mouth ity o f tablet 13:04: daily. [address] Branch mesalamine 1-0 Yes 500mg Take 500 Un kelsie (PENTASA) 1-25 mg by ity of 500 mg CR 13:04: mouth 4 [place] capsule (four) Medical times Branch daily. sulfaSALAzi 2021-0 Yes 500mg Take 500 U nivers ne 500 mg 1-25 mg by ity of tablet 13:04: mouth 4 [place] [address] [facility] Medical times [place] daily. pantoprazol 1-0 Yes 40mg Take 40 mg Univers e 40 mg EC 1-25 by mouth ity o f tablet 13:04: daily. [address] Branch mesalamine 1-0 Yes 500mg Take 500 Un kelsie (PENTASA) 1-25 mg by ity of 500 mg CR 13:04: mouth 4 [place] capsule (four) Medical times [place] daily. sulfaSALAzi 1-0 Yes 500mg Take 500 U nivers ne 500 mg 1-25 mg by ity of tablet 13:04: mouth 4 [place] [address] [facility] Medical times [place] daily. pantoprazol 1-0 Yes 40mg Take 40 mg Univers e 40 mg EC 1-25 by mouth ity o f tablet 13:04: daily. [address] Branch mesalamine 1-0 Yes 500mg Take 500 Un kelsie (PENTASA) 1-25 mg by ity of 500 mg CR 13:04: mouth 4 [place] capsule (four) Medical times Branch daily. sulfaSALAzi 2021-0 Yes 500mg Take 500 U nivers ne 500 mg 1-25 mg by ity of tablet 13:04: mouth 4 [place] [address] [facility] Medical times Branch daily. pantoprazol 2021-0 Yes 40mg Take 40 mg Univers e 40 mg EC 1-25 by mouth ity o f tablet 13:04: daily. [place] [facility] Branch mesalamine 2020-0 Yes 500mg Take 500 Un kelsie (PENTASA) 1-25 mg by ity of 500 mg CR 13:04: mouth 4 [place] capsule (four) Medical times [place] daily. sulfaSALAzi 2020-0 Yes 500mg Take 500 U nivers ne 500 mg 1-25 mg by ity of tablet 13:04: mouth 4 [place] [facility] Medical times [place] daily. pantoprazol 0 Yes 40mg Take 40 mg Univers e 40 mg EC 1-25 by mouth ity o f tablet 13:04: daily. [place] [facility] mesalamine 2020-0 Yes 500mg Take 500 Un kelsie (PENTASA) 1-25 mg by ity of 500 mg CR 13:04: mouth 4 [place] capsule (four) Medical times [place] daily. sulfaSALAzi 2020-0 Yes 500mg Take 500 U nivers ne 500 mg 1-25 mg by ity of tablet 13:04: mouth 4 [place] [facility] Medical times [place] daily. clonazePAM 2018- Yes Take 1 Unive rs 0.5 mg 3-26 tablet 3 ity of tablet 00:00: times a [place] 00 day by Medical oral route Branch as needed. fluticasone 2018- Yes [place] 1 Uni vers 50 3-26 spray ity of mcg/actuati 00:00: every day [place] nasal 00 by Medical spray intranasal Branch route. naproxen 2018- Yes Take 1 Univers (NAPROSYN) 3-26 tablet ity of 500 mg 00:00: twice a [place] tablet 00 day by Medical oral route Branch as needed. vilazodone 2018- Yes Take 1 Unive rs (VIIBRYD) 3-26 tablet ity of 40 mg 00:00: every day [place] tablet 00 by oral Medical route. Branch topiramate 2018-0 Yes Take 1 Unive rs 100 mg 3-26 tablet ity of tablet 00:00: twice a [place] 00 day by Medical oral Branch route. clonazePAM 2019-0 Yes Take 1 Unive rs 0.5 mg 3-26 tablet 3 ity of tablet 00:00: times a [place] 00 day by Medical oral route Branch as needed. fluticasone 2019-0 Yes [place] 1 Uni vers 50 3-26 spray ity of mcg/actuati 00:00: every day [place] on nasal 00 by Medical spray intranasal Branch route. naproxen Yes Take 1 Univers (NAPROSYN) 3-26 tablet ity of 500 mg 00:00: twice a [place] tablet 00 day by Medical oral route Branch as needed. vilazodone Yes Take 1 Unive rs (VIIBRYD) 3-26 tablet ity of 40 mg 00:00: every day [place] tablet 00 by oral Medical route. Branch topiramate Yes Take 1 Unive rs 100 mg 3-26 tablet ity of tablet 00:00: twice a [place] 00 day by Medical oral Branch route. clonazePAM Yes Take 1 Unive rs 0.5 mg 3-26 tablet 3 ity of tablet 00:00: times a [place] 00 day by Medical oral route Branch as needed. fluticasone Yes [place] 1 Uni vers 50 3-26 spray ity of mcg/actuati 00:00: every day [place] on nasal 00 by Medical spray intranasal Branch route. naproxen Yes Take 1 Univers (NAPROSYN) 3-26 tablet ity of 500 mg 00:00: twice a [place] tablet 00 day by Medical oral route Branch as needed. vilazodone Yes Take 1 Unive rs (VIIBRYD) 3-26 tablet ity of 40 mg 00:00: every day [place] tablet 00 by oral Medical route. Branch topiramate Yes Take 1 Unive rs 100 mg 3-26 tablet ity of tablet 00:00: twice a [place] 00 day by Medical oral Branch route. clonazePAM Yes Take 1 Unive rs 0.5 mg 3-26 tablet 3 ity of tablet 00:00: times a [place] 00 day by Medical oral route Branch as needed. fluticasone Yes [place] 1 Uni vers 50 3-26 spray ity of mcg/actuati 00:00: every day [place] on nasal 00 by Medical spray intranasal Branch route. naproxen Yes Take 1 Univers (NAPROSYN) 3-26 tablet ity of 500 mg 00:00: twice a [place] tablet 00 day by Medical oral route Branch as needed. vilazodone 2019-0 Yes Take 1 Unive rs (VIIBRYD) 3-26 tablet ity of 40 mg 00:00: every day [place] tablet 00 by oral Medical route. Branch topiramate Yes Take 1 Unive rs 100 mg 3-26 tablet ity of tablet 00:00: twice a [place] 00 day by Medical oral Branch route. clonazePAM Yes Take 1 Unive rs 0.5 mg 3-26 tablet 3 ity of tablet 00:00: times a [place] 00 day by Medical oral route Branch as needed. fluticasone Yes [place] 1 Uni vers 50 3-26 spray ity of mcg/actuati 00:00: every day [place] on nasal 00 by Medical spray intranasal Branch route. naproxen Yes Take 1 Univers (NAPROSYN) 3-26 tablet ity of 500 mg 00:00: twice a [place] tablet 00 day by Medical oral route Branch as needed. vilazodone Yes Take 1 Unive rs (VIIBRYD) 3-26 tablet ity of 40 mg 00:00: every day [place] tablet 00 by oral Medical route. Branch topiramate Yes Take 1 Unive rs 100 mg 3-26 tablet ity of tablet 00:00: twice a [place] 00 day by Medical oral Branch route. clonazePAM Yes Take 1 Unive rs 0.5 mg 3-26 tablet 3 ity of tablet 00:00: times a [place] 00 day by Medical oral route Branch as needed. fluticasone Yes [place] 1 Uni vers 50 3-26 spray ity of mcg/actuati 00:00: every day [place] on nasal 00 by Medical spray intranasal Branch route. naproxen Yes Take 1 Univers (NAPROSYN) 3-26 tablet ity of 500 mg 00:00: twice a [place] tablet 00 day by Medical oral route Branch as needed. vilazodone Yes Take 1 Unive rs (VIIBRYD) 3-26 tablet ity of 40 mg 00:00: every day [place] tablet 00 by oral Medical route. Branch topiramate Yes Take 1 Unive rs 100 mg 3-26 tablet ity of tablet 00:00: twice a [place] 00 day by Medical oral Branch route. clonazePAM 2018- Yes Take 1 Unive rs 0.5 mg 3-26 tablet 3 ity of tablet 00:00: times a [place] 00 day by Medical oral route Branch as needed. fluticasone 2018- Yes [place] 1 Uni vers 50 3-26 spray ity of mcg/actuati 00:00: every day [place] on nasal 00 by Medical spray intranasal Branch route. naproxen Yes Take 1 Univers (NAPROSYN) 3-26 tablet ity of 500 mg 00:00: twice a [place] tablet 00 day by Medical oral route Branch as needed. vilazodone Yes Take 1 Unive rs (VIIBRYD) 3-26 tablet ity of 40 mg 00:00: every day [place] tablet 00 by oral Medical route. Branch topiramate Yes Take 1 Unive rs 100 mg 3-26 tablet ity of tablet 00:00: twice a [place] 00 day by Medical oral Branch route. clonazePAM Yes Take 1 Unive rs 0.5 mg 3-26 tablet 3 ity of tablet 00:00: times a [place] 00 day by Medical oral route Branch as needed. fluticasone Yes [place] 1 Uni vers 50 3-26 spray ity of mcg/actuati 00:00: every day [place] on nasal 00 by Medical spray intranasal Branch route. naproxen Yes Take 1 Univers (NAPROSYN) 3-26 tablet ity of 500 mg 00:00: twice a [place] tablet 00 day by Medical oral route Branch as needed. vilazodone Yes Take 1 Unive rs (VIIBRYD) 3-26 tablet ity of 40 mg 00:00: every day [place] tablet 00 by oral Medical route. Branch topiramate Yes Take 1 Unive rs 100 mg 3-26 tablet ity of tablet 00:00: twice a [place] 00 day by Medical oral Branch route. clonazePAM 2018- Yes Take 1 Unive rs 0.5 mg 3-26 tablet 3 ity of tablet 00:00: times a [place] 00 day by Medical oral route Branch as needed. fluticasone 0 Yes [place] 1 Uni vers 50 3-26 spray ity of mcg/actuati 00:00: every day [place] on nasal 00 by Medical spray intranasal Branch route. naproxen 2018- Yes Take 1 Univers (NAPROSYN) 3-26 tablet ity of 500 mg 00:00: twice a [place] tablet 00 day by Medical oral route Branch as needed. vilazodone Yes Take 1 Unive rs (VIIBRYD) 3-26 tablet ity of 40 mg 00:00: every day [place] tablet 00 by oral Medical route. Branch topiramate Yes Take 1 Unive rs 100 mg 3-26 tablet ity of tablet 00:00: twice a [place] 00 day by Medical oral Branch route. clonazePAM Yes Take 1 Unive rs 0.5 mg 3-26 tablet 3 ity of tablet 00:00: times a [place] 00 day by Medical oral route Branch as needed. fluticasone Yes [place] 1 Uni vers 50 3-26 spray ity of mcg/actuati 00:00: every day [place] on nasal 00 by Medical spray intranasal Branch route. naproxen Yes Take 1 Univers (NAPROSYN) 3-26 tablet ity of 500 mg 00:00: twice a [place] tablet 00 day by Medical oral route Branch as needed. vilazodone Yes Take 1 Unive rs (VIIBRYD) 3-26 tablet ity of 40 mg 00:00: every day [place] tablet 00 by oral Medical route. Branch topiramate Yes Take 1 Unive rs 100 mg 3-26 tablet ity of tablet 00:00: twice a [place] 00 day by Medical oral Branch route. Vital Signs Vital Name Observation Time Observation Value Comments Source Systolic blood 2021-12-07 14:36:00 119 mm[Hg] Univer sity [facility] pressure [facility] Diastolic blood 2021-12-07 14:36:00 74 mm[Hg] Unive rsity [facility] [place] [facility] Heart rate 2021-12-07 14:35:00 82 /min [facility] Body height 2021-12-07 14:35:00 175.3 cm [facility] Body weight 2021-12-07 14:35:00 95.21 kg [facility] BMI 2021-12-07 14:35:00 31.00 kg/m2 [facility] Oxygen saturation 2021-12-07 14:35:00 97 /min Uni versity [facility] in Arterial blood Medical Br anch by Pulse oximetry Procedures Procedure Date / Time Performed Performing Clinician Sourc e XR KNEE <3 VW LEFT 2021-12-07 15:15:00 Dimitri Ball [facility] Encounters Start End Encounter Admission Attending Care Care Encounter Source Date/Time Date/Time Type Type Clinicians Facility Department ID 2022-02-15 2022-02-15 Outpatient [facility] [id number] Univers 08:00:00 08:00:00 [id number] ity [facility] 2022-02-15 2022-02-15 Outpatient R [facility] [id number] Univers 08:00:00 08:00:00 FELIPE ity [facility] 2022-02-13 2022-02-13 Outpatient [facility] [id number] Univers 08:00:00 08:00:00 [id number] ity [facility] 2022-02-08 2022-02-08 Outpatient [facility] [id number] Univers 08:00:00 08:00:00 [id number] ity [facility] 2022-02-06 2022-02-06 Ancillary Chery Bond [facility] 1.2.84 0.114 [id number] Univers 08:45:00 09:30:00 Visit Felipe Donohue [id number] ity [id number] [id number] In dical NAL [address] [facility] 2022-02-06 2022-02-06 Outpatient R [facility] [id number] Univers 08:45:00 08:45:00 [id number] ity of [facility] 2022-02-01 2022-02-01 Ancillary Chery Bond [facility] .2.84 0.114 [id number] Univers 08:00:00 08:45:00 Visit Felipe Donohue [id number] ity [id number] [id number] In dical [address] 2022-02-01 2022-02-01 Outpatient [facility] [id number] Univers 08:00:00 08:00:00 [id number] ity of [facility] 2022-01-30 2022-01-30 Ancillary VarunChery [facility] 1.2.84 0.114 [id number] Univers 08:45:00 09:30:00 Visit Felipe Donohue [id number] [facility] [id number] [id number] In dical NAL 179 [facility] 2022-01-30 2022-01-30 Outpatient [facility] [id number] Univers 08:45:00 08:45:00 [id number] ity of [facility] 2022-01-18 2022-01-18 Outpatient [facility] [id number] Univers 09:30:00 09:30:00 [id number] ity of [facility] 2022-01-18 2022-01-18 Ancillary Christiano Chiu [facility] 1.2.840. 114 [id number] Univers 08:00:00 08:45:00 Visit Felipe Donohue [id number] ity [id number] [id number] In dical NAL [address] [place] [address] 2022-01-18 2022-01-18 Outpatient R ANIAS [facility] [id number] Univers 08:00:00 08:00:00 FELIPE ity of [facility] 2022-01-16 2022-01-16 Outpatient [facility] [id number] Univers 09:30:00 09:30:00 [id number] ity of [facility] 2022-01-11 2022-01-11 Outpatient [facility] [id number] Univers 09:30:00 09:30:00 [id number] ity of [facility] 2022-01-11 2022-01-11 Ancillary Doreen Chiu [facility] 1.2.840 .114 [id number] Univers 08:00:00 09:16:21 Visit Felipe Donohue [id number] ity [id number] [id number] In dical NAL 179 [facility] 2022-01-09 2022-01-09 Ancillary Doreen Chiu [place] [facility] 1.2.840 .114 [id number] Univers 09:30:00 10:15:00 Visit Felipe Donohue 350.1.13.10 it[place] [phone] In dical NAL [address] [facility] 2022-01-09 2022-01-09 Outpatient [facility] [id number] -[id number] Univers 09:30:00 09:30:00 [id number] ity of [facility] 2022-01-03 2022-01-03 Ancillary Christiano Chiu [facility] 1.2.840. 114 [id number] Univers 08:00:00 08:45:00 Visit Felipe Donohue 350.1.13.10 [place] [phone] In dical NAL [address] [place] [address] 2022-01-03 2022-01-03 Outpatient R [facility] [id number] -[id number] Univers 08:00:00 08:00:00 [id number] ity of [facility] 2022-01-02 2022-01-02 Ancillary Ghazal Fish [facility] 1.2.840. 114 [id number] Univers 07:15:00 09:38:50 Visit Felipe Donohue 350.1.13.10 [place] [id number] In dicmi NAL [address] [place] [address] 2022-01-02 2022-01-02 Outpatient R [facility] [id number] -[id number] Univers 07:15:00 07:15:00 [id number] ity [facility] 2022-01-01 2022-01-01 Outpatient R [facility] [id number] -[id number] Univers 11:00:00 11:00:00 [id number] ity [facility] 2021-12-18 2021-12-18 Outpatient R [facility] [id number] -[id number] Univers 07:15:00 07:15:00 [id number] ity [facility] 2021-12-18 2021-12-18 Outpatient R ANAIS [facility] [id number] Univers 07:15:00 07:15:00 FELIPE itseamus [facility] 2021-12-07 2021-12-07 [facility] 1.2.840.114 [id number] Univers 09:05:00 23:59:00 Encounter Dimitri [facility] 350.1.13.10 ity layne [place] 4.2.7.2.686 Missael as GIULIANA?BLEA [id number] In dical JASSONEY 809 [facility] OFFICE [facility] 2021-12-07 2021-12-07 [facility] [id number] Univers 08:15:00 09:43:38 DIMITRI seamus [facility] 2021-12-07 2021-12-07 Office [facility] 1.2.840.114 [id number] Univers 08:15:00 08:30:00 Visit [facility] [id number] it y of [place] 4.2.7.2.686 Missael as GIULIANA?BLEA [phone] In michelleestefany JACINTO 198 [facility] OFFICE [facility] 2020-12-30 2020-12-30 [facility] [id number] [facility] 09:12:10 23:59:00 DIMITRI seamus [facility] 2020-11-16 2020-11-16 Office [facility] 1.2.840.114 [id number] 12:56:28 13:11:28 Visit [facility] [id number] Surgical 4.2.7.2.686 Specialti [id number] es [address] [place] 2019-01-27 2019-01-27 Outpatient E MARÍA [facility] [id number] [facility] 20:10:00 22:20:00 [facility] Results Test Description Test Time Test Comments Results Result [facility] e Comments XR SPINE LUMBAR 2019-01-27 LOCATION: [id number]: COMPLETE *OW* 21:23:46 49-year-old female with acute [...]
== END 2022-02-10 19:55 | disposition left against medical advice (07) ==
LOC: ER 19:21
DX: Z02.9 Encounter for administrative examinations, unspecified (principal)

== ENCOUNTER 2022-09-01 11:21 | Emergency (ER) | payer OTHER ==
--- OUTSIDE RECORDS SUMMARY | 2022-09-01 11:27 | XMS REPORT | Continuity of Care Document ---
:1970 Author Organization [facility] t Address [address] [place] [address] Care Team Providers Name Role Phone LORRAINE FISHER Primary Care Physician Unavailable Lizabeth Mendez Attending Clinician Unavailable FELIPE MANZO Attending Clinician Unavailable Chery Bond PT Attending Clinician Unavailable Felipe Manzo MD Attending Clinician Christiano Chiu PTA Attending Clinician Unavailable Doreen Chiu PTA Attending Clinician Unavailable Ghazal Fish PT Attending Clinician Unavailable Dimitri Whitfield S Attending Clinician DIMITRI VÁZQUEZ Attending Clinician Unavailable Doctor Unassigned, [place] Attending Clinician Unavailable DR OLGA DANIEL Attending Clinician Unavailable FELIPE MANZO Admitting Clinician Unavailable DR OLGA DANIEL Admitting Clinician Unavailable Payers Payer Name Policy Type Policy Number Effective Date Expiration Date Jannie malin [employer] [id number] 2018 [place] 00:00:00 [facility] [id number] 2019 [place] 00:00:00 [place] [id number] [facility] Problems Condition Condition Condition Status Onset Resolution Last Treating Co mments Source Name Details Category Date Date Treatment Clinician Date Rupture of Rupture of Disease Active Overview : Univers anterior anterior 01-23 Formattin ity of cruciate cruciate 00:00: g of this Missael as ligament ligament 00 note Medica l of left of left might be Branch knee, knee, different initial initial from the encounter encounter original. Added automatic ally from request for surgery [id number] Fatigue, Problem Active Commo n unspecifie Spirit d type [facility] [id number] COVID-19 Problem Active Comm on [facility] [id number] Abscess of Problem Active Com mon breast [facility] Allergy to Allergy Problem Resolve 2019-01-28 Memoria mold to mold d 22:19:46 l (disorder) (disorder) He rmann Resolved Problem 01/28/2019 [facility] Anxiety Anxiety Problem Resolve 2019-01-28 M emoria (finding) (finding) d 22:19:46 l Resolved Jesse Problem 01/28/2019 Medical Group Bipolar I Bipolar I Problem Resolve 2019-01-28 Memoria disorder disorder d 22:19:46 l (disorder) (disorder) He rmann Resolved Problem 01/28/2019 Medical Group Blood in Blood in Problem Resolve 2019-01-28 Memoria urine urine d 22:19:46 l (finding) (finding) Herm gabriel Resolved Problem 01/28/2019 Medical Group Derangemen Problem Resolve 2019-01-28 Memoria t of Derangemen d 22:19:46 l medial t of [place] meniscus medial (disorder) meniscus (disorder) Resolved Problem 01/28/2019 Medical Group Facial tic Facial Problem Resolve 2019-01-28 Memoria disorder tic d 22:19:46 l (disorder) disorder Herm gabriel (disorder) Resolved Problem 01/28/2019 Medical Group Gastroesop Gastroeso Problem Resolve 2019-01-28 Memoria hageal phageal d 22:19:46 l reflux reflux [place] disease disease (disorder) (disorder) Resolved Problem 01/28/2019 Medical Group Gastrointe Gastroint Problem Resolve 2019-01-28 Memoria stinal estinal d 22:19:46 l hemorrhage hemorrhage He rmann (disorder) (disorder) Resolved Problem 01/28/2019 [facility] Group Genuine Genuine Problem Resolve 2019-01-28 M emoria stress stress d 22:19:46 l incontinen incontinen He rmann ce ce (finding) (finding) Resolved Problem 01/28/2019 Medical Group Hypothyroi Hypothyro Problem Resolve 2019-01-28 Memoria dism idism d 22:19:46 l (disorder) (disorder) He rmann Resolved Problem 01/28/2019 [facility] Insomnia Insomnia Problem Resolve 2019-01-28 Memoria (disorder) (disorder) d 22:19:46 l Resolved Jesse Problem 01/28/2019 [facility] Intentiona Intention Problem Resolve 2019-01-28 Memoria l drug al drug d 22:19:46 l overdose overdose Christopher n by tablet by tablet (disorder) (disorder) Resolved Problem 01/28/2019 Medical Group Irregular Irregular Problem Resolve 2019-01-28 Memoria periods periods d 22:19:46 l (finding) (finding) Herm gabriel Resolved Problem 01/28/2019 [facility] Low back Low back Problem Resolve 2019-01-28 Memoria pain pain d 22:19:46 l (disorder) (disorder) He rmann Resolved Problem 01/28/2019 Medical Group Melena Melena Problem Resolve 2019-01-28 Mem oria (disorder) (disorder) d 22:19:46 l Resolved Jesse Problem 01/28/2019 [facility] Metabolic Metabolic Problem Resolve 2019-01-28 Memoria disease disease d 22:19:46 l (disorder) (disorder) He rmann Resolved Problem 01/28/2019 [facility] Overweight Overweigh Problem Resolve 2019-01-28 Memoria (finding) t d 22:19:46 l (finding) Jesse Resolved Problem 01/28/2019 [facility] Polyp of Polyp of Problem Resolve 2019-01-28 Memoria colon colon d 22:19:46 l (disorder) (disorder) He rmann Resolved Problem 01/28/2019 [facility] Rupture of Rupture Problem Resolve 2019-01-28 Memoria anterior of d 22:19:46 l cruciate anterior Christopher n ligament cruciate (disorder) ligament (disorder) Resolved Problem 01/28/2019 [facility] [id number] History of Problem Active Co mmon migraine Spirit - [facility] [id number] History of Problem Active Co mmon diverticul Spirit osis - [facility] History of History of Problem Active C ommon calculus kidney Spirit of kidney stones - [facility] [id number] Chronic Problem Active Commo n pain Spirit syndrome [facility] 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 - [facility] depressive disorder [facility] [id number] PTSD Problem Active Common (post-trau Spirit matic - [facility] stress St disorder) [facility] [id number] +5th digit Problem Active Co mmon eff Spirit 07/21/20*CK - [facility]I D (chronic kidney [facility] disease) Medical stage 3, Center GFR 30-59 ml/min [id number] Arthritis Problem Active Commo n Spirit - [facility] [id number] Vitamin D Problem Active Comm on deficiency [facility] [id number] Essential Problem Active Comm on hypertensi Spirit on [facility] [id number] Abdominal Problem Active Comm on swelling [facility] [id number] Colitis Problem Active Common [facility] [id number] Smoker Problem Active Common [facility] Irritable Irritable Problem Active Com [facility] bowel bowel Spirit syndrome syndrome [facility] [id number] Mild Problem Active Common intermitte Spirit nt asthma - [facility] without St complicati [facility] History of History of Problem Active C ommon asthma asthma [facility] [id number] Carbuncle Problem Active Com mon [facility] Allergies, Adverse Reactions, Alerts Allergy Allergy Status Severity Reaction(s) Onset Inactive Treating Comm ents Source Name Type Date Date Clinician Pentazoc Propensi Active Hives Univer s ine-Nalo ty to 2-10 ity of xone adverse 00:00: [place] reaction 00 Medical [facility] PENTAZOC DRUG Active Hives Univers INE-NALO 2-10 ity of XONE 00:00: [place] [facility] Mushroom Propensi Active Anaphylaxis U nivers ty to 1-08 ity of adverse 00:00: [place] reaction [facility] MUSHROOM DRUG Active High Anaphylaxis Uni vers INGREDI 1-08 ity of 00:00: [place] [facility] Latex Propensi Active Hives Univers ty to 4-03 ity of adverse 00:00: [place] reaction [facility] Fluoxeti Propensi Active Hives Univer s ne Hcl ty to 01-21 ity of adverse 00:00: [place] reaction 00 Medical s Branch Bupropio Propensi Active Hives Univer s n Hcl ty to 01-21 ity of adverse 00:00: [place] reaction 00 Medical s Branch LATEX DRUG Active High Hives Univers INGREDI 01-21 ity of 00:00: [place] 00 Medical Branch FLUOXETI DRUG Active High Hives Univers NE HCL INGREDI 01-21 ity of 00:00: [place] 00 Medical Branch BUPROPIO DRUG Active High Hives Univers N HCL INGREDI 01-21 ity of 00:00: [place] 00 [facility] Branch fluoxeti fluoxeti Active hives Common ne ne [facility] morphine morphine Active itching Commo n [facility] [id number] Drug Active anxiety Common allergy [facility] topirama topirama Active worsening [place] Common te te [facility] bupropio bupropio Active suicidal Comm on n / n / ideation Spirit naltrexo naltrexo - [facility] ne [facility] amoxicil amoxicil Active hives Common french french [facility] Bupropio Propensi Active Unknown - Suicidal U nivers n ty to See comments ideation it y of adverse [place] reaction Medical s [place] Propensi Active Unknown - Manic Uni vers e ty to See comments mood ity of adverse swings [place] reaction [facility] Fluoxeti Propensi Active Hives Suicide Unive rs ne ty to ideation ity of adverse [place] reaction Medical s Branch Mold Propensi Active Anaphylaxis Uni vers ty to ity of adverse [place] reaction Medical s Branch Morphine Propensi Active Hives Univer s ty to ity of adverse [place] reaction Medical s Branch sulfamet sulfamet Active hives Common hoxazole hoxazole Spirit / / - [facility] trimetho trimetho [facility] Naltrexo Propensi Active Hives Univer s ne-Bupro ty to ity of pion adverse [place] reaction Medical s [place] BUPROPIO DRUG Active High Hives Univers N INGREDI ity of [facility] CORTISON DRUG Active High Unknown-Cmnt Un kelsie E INGREDI ity of [facility] MOLD DRUG Active High Anaphylaxis Unive rs INGREDI ity of [facility] MORPHINE DRUG Active High Hives Univers INGREDI ity of [facility] NALTREXO DRUG Active High Hives Univers NE-BUPRO ity of PION [facility] FLUOXETI DRUG Active Hives Univers NE INGREDI ity of [facility] [id number] Drug Active suicidal Common allergy ideation Spirit - [facility] morphine morphine Active Memori a l Jesse Fungizon Fungizon Active Memori a e Lotion e Lotion l [place] PROzac PROzac Active Memoria l [place] Social History Social Habit Start Date Stop Date Quantity Comments Source History of Current Smoker Common Spi rit - Tobacco Use [facility] Sex Assigned At Common Sp sebastian - [facility] Exposure to 2022-02-03 2022-02-13 Not sure University SARS-CoV-2 00:00:00 07:52:00 [facility] (event) Branch Alcohol intake 2021-12-07 2021-12-07 Current University 00:00:00 00:00:00 non-drinker of [facility] alcohol Branch (finding) Tobacco use and 2019-02-19 2019-02-19 Former user Universi ty of exposure 00:00:00 00:00:00 [facility] Smoking Status Start Date Stop Date Source Social History 2019-01-12 20:19:25 [facility] [place] [facility] Medications Ordered Filled Start Stop Current Ordering Indication Dosage Frequency Signature Comments Components Source Medication Medication Date Date Medication? Clinician (SIG) Name Name hydrOXYzine hydrOXYzine No 1{table QID hydrOXYzin HCl 50 MG HCl 50 MG 6-28 t_at_be e HCl 50 00:00: dtime_a MG 00 s_neede d} Famotidine Famotidine No 1{table QD Famotidine 40 MG 40 MG 6-28 t_at_be 40 MG 00:00: dtime} 00 predniSONE predniSONE 2021- No 1{table predniSONE 20 MG 20 MG 6-28 -08 t} 20 MG 00:00: 00:00 00 :00 predniSONE predniSONE 2021-2021- No 1{table QD predniSONE 5 MG 5 MG 5-10 -12 t} 5 MG 00:00: 00:00 00 :00 methylPREDN Yes [id number] 84mg Take 21 Univers ISolone 3-12 tablets by ity of (MEDROL, 00:00: mouth [place] SAMIRA,) 4 mg 00 SEE-INSTRU Med ical tablets CTIONS. Branch follow package directions methylPREDN 2021-0 Yes [id number] 84mg Take 21 Univers ISolone 3-12 tablets by ity of (MEDROL, 00:00: mouth [place] SAMIRA,) 4 mg 00 SEE-INSTRU Med ical tablets CTIONS. Branch follow package directions methylPREDN 2021-0 Yes [id number] 84mg Take 21 Univers ISolone 3-12 tablets by ity of (MEDROL, 00:00: mouth [place] SAMIRA,) 4 mg 00 SEE-INSTRU Med ical tablets CTIONS. Branch follow package directions methylPREDN 2021-0 Yes [id number] 84mg Take 21 Univers ISolone 3-12 tablets by ity of (MEDROL, 00:00: mouth [place] SAMIRA,) 4 mg 00 SEE-INSTRU Med ical tablets CTIONS. Branch follow package directions methylPREDN 2021-0 Yes [id number] 84mg Take 21 Univers ISolone 3-12 tablets by ity of (MEDROL, 00:00: mouth [place] SAMIRA,) 4 mg 00 SEE-INSTRU Med ical tablets CTIONS. Branch follow package directions methylPREDN 2021-0 Yes [id number] 84mg Take 21 Univers ISolone 3-12 tablets by ity of (MEDROL, 00:00: mouth [place] SAMIRA,) 4 mg 00 SEE-INSTRU Med ical tablets CTIONS. Branch follow package directions methylPREDN 2021-0 Yes [id number] 84mg Take 21 Univers ISolone 3-12 tablets by ity of (MEDROL, 00:00: mouth [place] SAMIRA,) 4 mg 00 SEE-INSTRU Med ical tablets CTIONS. Branch follow package directions methylPREDN 2021-0 Yes [id number] 84mg Take 21 Univers ISolone 3-12 tablets by ity of (MEDROL, 00:00: mouth [place] SAMIRA,) 4 mg 00 SEE-INSTRU Med ical tablets CTIONS. Branch follow package directions methylPREDN 2021-0 Yes [id number] 84mg Take 21 Univers ISolone 3-12 tablets by ity of (MEDROL, 00:00: mouth [place] SAMIRA,) 4 mg 00 SEE-INSTRU Med ical tablets CTIONS. Branch follow package directions methylPREDN 2020-0 Yes [id number] 84mg Take 21 Univers ISolone 3-12 tablets by ity of (MEDROL, 00:00: mouth [place] SAMIRA,) 4 mg 00 SEE-INSTRU Med ical tablets CTIONS. Branch follow package directions methylPREDN 0 Yes [id number] 84mg Take 21 Univers ISolone 3-12 tablets by ity of (MEDROL, 00:00: mouth [place] SAMIRA,) 4 mg 00 SEE-INSTRU Med ical tablets CTIONS. Branch follow package directions methylPREDN 0 Yes [id number] 84mg Take 21 Univers ISolone 3-12 tablets by ity of (MEDROL, 00:00: mouth [place] SAMIRA,) 4 mg 00 SEE-INSTRU Med ical tablets CTIONS. Branch follow package directions methylPREDN 0 Yes [id number] 84mg Take 21 Univers ISolone 3-12 tablets by ity of (MEDROL, 00:00: mouth [place] SAMIRA,) 4 mg 00 SEE-INSTRU Med ical tablets CTIONS. Branch follow package directions pentazocine Yes [id number] 1{tbl} Take 1 Un [...] for Pain. Indication s: acute pain pentazocine 0 Yes 4647 1{tbl} Take 1 Un kelsie -naloxone 1-26 tablet by ity o f 50-0.5 mg 00:00: mouth [place] tablet 00 every 4 Medical (four) Branch hours as needed for Pain. Indication s: acute pain pentazocine 0 Yes 4647 1{tbl} Take 1 Un kelsie -naloxone 1-26 tablet by ity o f 50-0.5 mg 00:00: mouth [place] tablet 00 every 4 Medical (four) Branch hours as needed for Pain. Indication s: acute pain pentazocine 0 Yes 4647 1{tbl} Take 1 Un kelsie [...] for Pain. Indication s: acute pain pentazocine 2021-0 Yes 4647 1{tbl} Take 1 Un kelsie -naloxone 1-26 tablet by ity o f 50-0.5 mg 00:00: mouth [place] tablet 00 every 4 Medical ([facility]) Branch hours as needed for Pain. Indication s: acute pain pantoprazol 2020-0 Yes 40mg Take 40 mg Univers e 40 mg EC 1-25 by mouth ity o f tablet 13:04: daily. [address] mesalamine 2020-0 Yes 500mg Take 500 Un kelsie (PENTASA) 1-25 mg by ity of 500 mg CR 13:04: mouth 4 [place] [address] ([facility]) Medical times [place] daily. sulfaSALAzi 2020-0 Yes 500mg Take 500 U nivers ne 500 mg 1-25 mg by ity of tablet 13:04: mouth 4 [place] [address] ([facility]) Medical times [place] daily. pantoprazol 2020-0 Yes 40mg Take 40 mg Univers e 40 mg EC 1-25 by mouth ity o f tablet 13:04: daily. [address] mesalamine 2020-0 Yes 500mg Take 500 Un kelsie (PENTASA) 1-25 mg by ity of 500 mg CR 13:04: mouth 4 [place] [address] ([facility]) Medical times [place] daily. sulfaSALAzi 2020-0 Yes 500mg Take 500 U nivers ne 500 mg 1-25 mg by ity of tablet 13:04: mouth 4 [place] [address] ([facility]) [facility] times [place] daily. pantoprazol 2020-0 Yes 40mg Take 40 mg Univers e 40 mg EC 1-25 by mouth ity o f tablet 13:04: daily. [address] mesalamine 2020-0 Yes 500mg Take 500 Un kelsie (PENTASA) 1-25 mg by ity of 500 mg CR 13:04: mouth 4 [place] [address] ([facility]) Medical times [place] daily. sulfaSALAzi 2020-0 Yes 500mg Take 500 U nivers ne 500 mg 1-25 mg by ity of tablet 13:04: mouth 4 [place] [address] ([facility]) Medical times [place] daily. pantoprazol 2020-0 Yes 40mg Take 40 mg Univers e 40 mg EC 1-25 by mouth ity o f tablet 13:04: daily. [address] mesalamine 2020-0 Yes 500mg Take 500 Un kelsie (PENTASA) 1-25 mg by ity of 500 mg CR 13:04: mouth 4 [place] capsule (four) Medical times Branch daily. sulfaSALAzi 1-0 Yes 500mg Take 500 U nivers ne 500 mg 1-25 mg by ity of tablet 13:04: mouth 4 [place] (four) Medical times Branch daily. pantoprazol 1-0 Yes 40mg Take 40 mg Univers e 40 mg EC 1-25 by mouth ity o f tablet 13:04: daily. [place] [facility] mesalamine 2020-0 Yes 500mg Take 500 Un kelsie (PENTASA) 1-25 mg by ity of 500 mg CR 13:04: mouth 4 [place] capsule (four) Medical times Branch daily. sulfaSALAzi 1-0 Yes 500mg Take 500 U nivers ne 500 mg 1-25 mg by ity of tablet 13:04: mouth 4 [place] (four) Medical times Branch daily. pantoprazol 2020-0 Yes 40mg Take 40 mg Univers e 40 mg EC 1-25 by mouth ity o f tablet 13:04: daily. [place] [address] Medical Branch mesalamine 2020-0 Yes 500mg Take 500 Un kelsie (PENTASA) 1-25 mg by ity of 500 mg CR 13:04: mouth 4 [place] capsule (four) Medical times Branch daily. sulfaSALAzi 1-0 Yes 500mg Take 500 U nivers ne 500 mg 1-25 mg by ity of tablet 13:04: mouth 4 [place] (four) Medical times Branch daily. pantoprazol 2020-0 Yes 40mg Take 40 mg Univers e 40 mg EC 1-25 by mouth ity o f tablet 13:04: daily. [place] Medical Branch mesalamine 2020-0 Yes 500mg Take 500 Un kelsie (PENTASA) 1-25 mg by ity of 500 mg CR 13:04: mouth 4 [place] capsule (four) Medical times Branch daily. sulfaSALAzi 2021-0 Yes 500mg Take 500 U nivers ne 500 mg 1-25 mg by ity of tablet 13:04: mouth 4 [place] (four) Medical times Branch daily. pantoprazol 1-0 Yes 40mg Take 40 mg Univers e 40 mg EC 1-25 by mouth ity o f tablet 13:04: daily. [place] [address] Medical Branch mesalamine 2021-0 Yes 500mg Take 500 Un kelsie (PENTASA) 1-25 mg by ity of 500 mg CR 13:04: mouth 4 [place] capsule (four) Medical times Branch daily. sulfaSALAzi 1-0 Yes 500mg Take 500 U nivers ne 500 mg 1-25 mg by ity of tablet 13:04: mouth 4 [place] [address] (four) Medical times Branch daily. pantoprazol 1-0 Yes 40mg Take 40 mg Univers e 40 mg EC 1-25 by mouth ity o f tablet 13:04: daily. [address] Branch mesalamine 2020-0 Yes 500mg Take 500 Un kelsie (PENTASA) 1-25 mg by ity of 500 mg CR 13:04: mouth 4 [place] capsule (four) Medical times Branch daily. sulfaSALAzi 1-0 Yes 500mg Take 500 U nivers ne 500 mg 1-25 mg by ity of tablet 13:04: mouth 4 [place] [address] ([facility]) Medical times Branch daily. pantoprazol 1-0 Yes 40mg Take 40 mg Univers e 40 mg EC 1-25 by mouth ity o f tablet 13:04: daily. [address] mesalamine 2020-0 Yes 500mg Take 500 Un kelsie (PENTASA) 1-25 mg by ity of 500 mg CR 13:04: mouth 4 [place] capsule (four) Medical times Branch daily. sulfaSALAzi 1-0 Yes 500mg Take 500 U nivers ne 500 mg 1-25 mg by ity of tablet 13:04: mouth 4 [place] [address] ([facility]) Medical times Branch daily. pantoprazol 1-0 Yes 40mg Take 40 mg Univers e 40 mg EC 1-25 by mouth ity o f tablet 13:04: daily. [address] Branch mesalamine 1-0 Yes 500mg Take 500 Un kelsie (PENTASA) 1-25 mg by ity of 500 mg CR 13:04: mouth 4 [place] capsule (four) Medical times Branch daily. sulfaSALAzi 2021-0 Yes 500mg Take 500 U nivers ne 500 mg 1-25 mg by ity of tablet 13:04: mouth 4 [place] [address] (four) Medical times Branch daily. pantoprazol 1-0 Yes 40mg Take 40 mg Univers e 40 mg EC 1-25 by mouth ity o f tablet 13:04: daily. [address] mesalamine 2020-0 Yes 500mg Take 500 Un kelsie (PENTASA) 1-25 mg by ity of 500 mg CR 13:04: mouth 4 [facility] ([facility]) Medical times [place] daily. sulfaSALAzi 2020-0 Yes 500mg Take 500 U nivers ne 500 mg 1-25 mg by ity of tablet 13:04: mouth 4 [place] [address] ([facility]) Medical times [place] daily. pantoprazol 2020-0 Yes 40mg Take 40 mg Univers e 40 mg EC 1-25 by mouth ity o f tablet 13:04: daily. [address] mesalamine 2020-0 Yes 500mg Take 500 Un kelsie (PENTASA) 1-25 mg by ity of 500 mg CR 13:04: mouth 4 [facility] ([facility]) Medical times [place] daily. sulfaSALAzi 2020-0 Yes 500mg Take 500 U nivers ne 500 mg 1-25 mg by ity of tablet 13:04: mouth 4 [place] [address] ([facility]) Medical times [place] daily. Ondansetron Ondansetron 2019-0 No 1{table QD Ondansetro HCl 4 MG HCl 4 MG 6-02 t} n HCl 4 MG 00:00: 00 Ondansetron Ondansetron 2019-0 No 1{table QD Ondansetro HCl 4 MG HCl 4 MG 6-02 t} n HCl 4 MG 00:00: 00 Ondansetron Ondansetron 2020-0 No 1{table QD Ondansetro HCl 4 MG HCl 4 MG 6-02 t} n HCl 4 MG 00:00: 00 vilazodone 2018- Yes 40 mg = 1 Me moria 40 mg oral 3-26 tab, PO, l tablet 13:57: Daily, # Jesse 00 30 tab, 0 Refill(s), Pharmacy: [id number] Trazodone Yes 50 mg = 1 Mem oria Hydrochlori 3-26 tab, PO, l de 50 MG 13:57: Bedtime, # Her steen Oral Tablet 00 30 tab, 0 Refill(s), Pharmacy: [id number] topiramate Yes 100 mg = 1 M emoria 100 mg oral 3-26 tab, PO, l tablet 13:57: Daily, # Jesse 00 30 tab, 0 Refill(s), Pharmacy: [facility] 52 oxybutynin Yes 15 mg = 1 Me moria 15 mg oral 3-26 tab, PO, l tablet, 13:57: Daily, # Christopher n extended 00 30 tab, 0 release Refill(s), Pharmacy: [facility] 52 Omeprazole Yes 20 mg = 1 Me moria 20 MG 3-26 cap, PO, l Enteric 13:57: Daily, # Christopher n Coated 00 30 cap, 0 Capsule Refill(s), [Prilosec] Pharmacy: [facility] cyclobenzap Yes 10 mg = 1 M emoria rine 10 mg 3-26 tab, PO, l oral tablet 13:57: TID, PRN He rmann 00 for spasms, X 30 day, # 30 tab, 0 Refill(s), Pharmacy: [facility] 52 Clonidine Yes 0.1 mg = 1 Me moria Hydrochlori 3-26 tab, PO, l de 0.1 MG 13:57: BID, # 60 Her steen Oral Tablet 00 tab, 0 Refill(s), Pharmacy: [facility] 52 clonazePAM Yes 0.5 mg = 1 M emoria 0.5 mg oral 3-26 tab, PO, l tablet 13:57: Daily, # [place] 00 30 tab, 0 Refill(s) Ventolin Yes 2 puff, Memori a HFA 90 3-26 INHALATION l mcg/inh 13:57: , QID, # 1 Herm gabriel inhalation 00 ea, 1 aerosol Refill(s), with Pharmacy: adapter [id number] clonazePAM Yes Take 1 Unive rs 0.5 mg 3-26 tablet 3 ity of tablet 00:00: times a [place] 00 day by Medical oral route Branch as needed. fluticasone Yes [place]on 1 Uni vers 50 3-26 spray ity of mcg/actuati 00:00: every day [place] nasal 00 by Medical spray intranasal Branch route. naproxen Yes Take 1 Univers (NAPROSYN) 3-26 tablet ity of 500 mg 00:00: twice a [place] tablet 00 day by Medical oral route Branch as needed. vilazodone 2018-0 Yes Take 1 Unive rs (VIIBRYD) 3-26 [...] route Branch as needed. fluticasone 2018- Yes [place]on 1 Uni vers 50 3-26 spray ity of mcg/actuati 00:00: every day [place] on nasal 00 by Medical spray intranasal Branch route. naproxen 2018-0 Yes Take 1 Univers (NAPROSYN) 3-26 tablet [...] day by Medical oral Branch route. clonazePAM 2018-0 Yes Take 1 Unive rs 0.5 mg 3-26 tablet 3 ity of tablet 00:00: times a [place] 00 day by Medical oral route Branch as needed. fluticasone 2018-0 Yes [place] 1 Uni vers 50 3-26 spray ity of mcg/actuati 00:00: every day [place] on nasal 00 by Medical spray intranasal Branch route. naproxen 2018-0 Yes Take 1 Univers (NAPROSYN) 3-26 tablet ity of 500 mg 00:00: twice a [place] tablet 00 day by Medical oral route Branch as needed. vilazodone 2018-0 Yes Take 1 Unive rs (VIIBRYD) 3-26 tablet ity of 40 mg 00:00: every day [place] tablet 00 by oral Medical route. Branch topiramate 2018-0 Yes Take 1 Unive rs 100 mg 3-26 tablet ity of tablet 00:00: twice a [place] 00 day by Medical oral Branch route. clonazePAM 2018-0 Yes Take 1 Unive rs 0.5 mg 3-26 tablet 3 ity of tablet 00:00: times a [place] 00 day by Medical oral route Branch as needed. fluticasone Yes Pierron 1 Uni vers 50 3-26 spray ity [...] oral route Branch as needed. fluticasone Yes Pierron 1 Uni vers 50 3-26 spray ity [...] oral route Branch as needed. fluticasone Yes Pierron 1 Uni vers 50 3-26 spray ity of mcg/actuati 00:00: [place] nasal 00 by Medical spray intranasal Branch route. naproxen 2018 Yes Take 1 Univers (NAPROSYN) 3-26 tablet [...] oral route Branch as needed. fluticasone Yes Pi[place]on 1 Uni vers 50 3-26 spray ity [...] oral route Branch as needed. fluticasone Yes Pi[place]on 1 Uni vers 50 3-26 spray ity [...] oral route Branch as needed. fluticasone Yes [place] 1 Uni vers 50 3-26 spray ity [...] oral route Branch as needed. fluticasone Yes [place] 1 Uni vers 50 3-26 spray ity [...] day by Medical oral Branch route. clonazePAM 2018-0 Yes Take 1 Unive rs 0.5 mg 3-26 tablet 3 ity of tablet 00:00: times a [place] 00 day by Medical oral route Branch as needed. fluticasone 2018- Yes [place] 1 Uni vers 50 3-26 spray ity [...] oral route Branch as needed. fluticasone Yes [place] 1 Uni vers 50 3-26 spray ity [...] oral route Branch as needed. fluticasone Yes [place] 1 Uni vers 50 3-26 spray ity of mcg/actuati 00:00: [place] nasal 00 by Medical spray intranasal Branch route. naproxen 0 Yes Take 1 Univers (NAPROSYN) 3-26 tablet [...] tablet ity of tablet 00:00: twice a 00 day by Medical oral Branch route. clonazePAM No 0.5 mg = 1 M emoria 0.5 mg oral 3-25 tab, PO, l tablet 20:19: TID, # 90 [place] n 00 tab, 0 Refill(s) vilazodone No 40 mg = 1 Me moria 40 mg oral 3-25 tab, PO, l tablet 20:19: Daily, 0 [place] 00 Refill(s) Clonidine No 0.1 mg = 1 Me moria Hydrochlori 3-25 tab, PO, l de 0.1 MG 20:19: BID, # 90 Her steen Oral Tablet 00 tab, 3 Refill(s) topiramate No 100 mg = 1 M emoria 100 mg oral 3-25 tab, PO, l tablet 20:19: Daily, # [place] 00 30 tab, 3 Refill(s) Ventolin No INHALATION Mem oria HFA 3-25 , [...] l de 50 MG 20:19: Bedtime, # Her steen Oral Tablet 00 30 tab, 1 Refill(s) cyclobenzap No 10 mg = 1 M emoria rine 10 mg 3-25 tab, PO, l oral tablet 20:19: TID, PRN [place] 00 for spasms, # 30 tab, 0 Refill(s) PreNata PreNata No 1{table QD PreNata 29-1 MG 29-1 MG t_with_ 29-1 MG a_meal} Estroven Estroven No Estroven Vitamin D Vitamin D No Vitamin D (Ergocalcif (Ergocalcif (Ergocalci mary kate) 1.25 mary kate) 1.25 ferol) MG (50687 MG (34794 1.25 MG UT) UT) (91853 UT) Viibryd 40 Viibryd 40 No 1{table QD Viibryd 40 MG MG t_with_ MG food} sulfaSALAzi sulfaSALAzi No 1{table BID sulfaSALAz ne 500 MG ne 500 MG t} ine 500 MG valACYclovi valACYclovi No 1{table QD valACYclov r HCl 1 GM r HCl 1 GM t} ir HCl 1 GM Lisinopril Lisinopril No 1{table QD Lisinopril 10 MG 10 MG t} 10 MG clonazePAM clonazePAM No 1{table QD clonazePAM 0.5 MG 0.5 MG t_at_be 0.5 MG dtime} Albuterol Albuterol No 1{puff_ 6xD Albuterol Sulfate HFA Sulfate HFA as_need Sulfate 108 (90 108 (90 ed} HFA 108 Base) Base) (90 Base) MCG/ACT MCG/ACT MCG/ACT Spironolact Spironolact No 1{table QD Spironolac one 25 MG one 25 MG t} tone 25 MG Pantoprazol Pantoprazol No 1{table QD Pantoprazo e Sodium 40 e Sodium 40 t} le Sodium MG MG 40 MG valACYclovi valACYclovi No 1{table QD valACYclov r HCl 1 GM r HCl 1 GM t} ir HCl 1 GM Pantoprazol Pantoprazol No 1{table QD Pantoprazo e Sodium 40 e Sodium 40 t} le Sodium MG MG 40 MG sulfaSALAzi sulfaSALAzi No 1{table BID sulfaSALAz ne 500 MG ne 500 MG t} ine 500 MG Vitamin D Vitamin D No Vitamin D (Ergocalcif (Ergocalcif (Ergocalci mary kate) 1.25 mary kate) 1.25 ferol) MG (62001 MG (36234 1.25 MG UT) UT) (29591 UT) Estroven Estroven No [place] Albuterol Albuterol No 1{puff_ 6xD Albuterol Sulfate HFA Sulfate HFA as_need Sulfate 108 (90 108 (90 ed} HFA 108 Base) Base) (90 Base) MCG/ACT MCG/ACT MCG/ACT Viibryd 40 Viibryd 40 No 1{table QD Viibryd 40 MG MG t_with_ MG food} Spironolact Spironolact No 1{table QD Spironolac one 25 MG one 25 MG t} tone 25 MG Lisinopril Lisinopril No 1{table QD Lisinopril 10 MG 10 MG t} 10 MG clonazePAM clonazePAM No 1{table QD clonazePAM 0.5 MG 0.5 MG t_at_be 0.5 MG dtime} PreNata PreNata No 1{table QD PreNata 29-1 MG 29-1 MG t_with_ 29-1 MG a_meal} Albuterol Albuterol No 1{puff_ 6xD Albuterol Sulfate HFA Sulfate HFA as_need Sulfate 108 (90 108 (90 ed} HFA 108 Base) Base) (90 Base) MCG/ACT MCG/ACT MCG/ACT clonazePAM clonazePAM No 1{table QD clonazePAM 0.5 MG 0.5 MG t_at_be 0.5 MG dtime} Spironolact Spironolact No 1{table QD Spironolac one 25 MG one 25 MG t} tone 25 MG Estroven Estroven No Estroven Lisinopril Lisinopril No 1{table QD Lisinopril 10 MG 10 MG t} 10 MG valACYclovi valACYclovi No 1{table QD valACYclov r HCl 1 GM r HCl 1 GM t} ir HCl 1 GM Pantoprazol Pantoprazol No 1{table QD Pantoprazo e Sodium 40 e Sodium 40 t} le Sodium MG MG 40 MG Vitamin D Vitamin D No Vitamin D (Ergocalcif (Ergocalcif (Ergocalci mary kate) 1.25 mary kate) 1.25 ferol) MG (31936 MG (78447 1.25 MG UT) UT) (73205 UT) PreNata PreNata No 1{table QD PreNata 29-1 MG 29-1 MG t_with_ 29-1 MG a_meal} Viibryd 40 Viibryd 40 No 1{table QD Viibryd 40 MG MG t_with_ MG food} sulfaSALAzi sulfaSALAzi No 1{table BID sulfaSALAz ne 500 MG ne 500 MG t} ine 500 MG Vital Signs Vital Name Observation Time Observation Value Comments Source weight 2022-04-17 08:20:00 209 [lb_av] [facility] bmi 2022-04-17 08:20:00 30.86 kg/m2 [facility] height 2022-04-17 08:20:00 69.00 [in_i] [facility] height 2022-04-11 13:20:00 69.00 [in_i] [facility] weight 2022-04-11 13:20:00 209 [lb_av] [facility] bmi 2022-04-11 13:20:00 30.86 kg/m2 [facility] height 2022-03-02 10:00:00 69.00 [in_i] [facility] weight 2022-03-02 10:00:00 207.2 [lb_av] [facility] temperature 2022-03-02 10:00:00 97.3 [degF] [facility] bmi 2022-03-02 10:00:00 30.59 kg/m2 [facility] oximetry 2022-03-02 10:00:00 95 % [facility] respiratory rate 2022-03-02 10:00:00 18 /min Comm on [facility] blood pressure 2022-03-02 10:00:00 147 mm[Hg] Common [facility] - systolic [facility] blood pressure 2022-03-02 10:00:00 84 mm[Hg] [facility] - diastolic [facility] Systolic blood 2021-12-07 14:36:00 119 mm[Hg] [facility]iver [facility] of [facility] Diastolic blood 2021-12-07 14:36:00 74 mm[Hg] Unive rsity of [facility] Heart rate 2021-12-07 14:35:00 82 /min [facility] Body height 2021-12-07 14:35:00 175.3 cm Universi [facility] Body weight 2021-12-07 14:35:00 95.21 kg [facility] BMI 2021-12-07 14:35:00 31.00 kg/m2 [facility] Oxygen saturation in 2021-12-07 14:35:00 97 /min University Arterial blood by [facility] Pulse oximetry Branch Temperature Oral (F) 2019-01-12 20:04:00 98.3 F [facility] Jesse Height 2019-01-12 20:04:00 175.26 cm [facility] [place] BMI Calculated 2019-01-12 20:04:00 Memori al Jesse Weight 2019-01-12 20:04:00 [facility] Heart Rate 2019-01-12 20:04:00 [facility] Systolic (mm Hg) 2019-01-12 20:04:00 Bryce rial Jesse Diastolic (mm Hg) 2019-01-12 20:04:00 Mem orial [place] Procedures Procedure Date / Time Performing Clinician Source Performed XR KNEE <3 VW LEFT 2021-12-07 15:15:00 Dimitri Vázquez [facility] Colonoscopy [facility] Endoscopic biopsy [facility] nn Removal of cystostomy [facility] ermann tube Tubal ligation [facility] Encounters Start End Encounter Admission Attending Care Care Encounter Source Date/Time Date/Time Type Type Clinicians Facility Department ID 2022-03-[address] [facility] [id number] Common 10:03:01 Lizabeth [facility] 2021-08-19 Outpatient Lokesh MANZO [facility] [id number] Univers 17:39:38 FELIPE colon [facility] 2021-08-19 Outpatient Lokesh MANZO [facility] [id number] Univers 15:28:53 FELIPE colon [facility] 2022-04-17 2022-04-17 [facility] [id number] Co mmon 00:00:00 00:00:00 VISIT EST Spir it PT LEVEL 3 - [facility] 2022-04-11 2022-04-11 [facility] [id number] Co mmon 00:00:00 00:00:00 VISIT EST Spir it PT LEVEL 3 - [facility] 2022-03-27 2022-03-27 Outpatient R ANAIS [facility] [id number] Univers 08:00:00 08:00:00 FEILPE itseamus [facility] 2022-03-06 2022-03-06 Ancillary Chery Bond [facility] 1.2.84 0.114 [id number] Univers 08:00:00 08:45:00 Visit Felipe Manzo [id number] [id number] [phone] Nc dical NAL 179 [facility] 2022-03-06 2022-03-06 Outpatient R ANAIS [facility] [id number] Univers 08:00:00 08:00:00 FELIPE itseamus [facility] 2022-03-02 2022-03-02 OFFICE [facility] [id number] Co mmon 00:00:00 00:00:00 VISIT EST Spir it PT LEVEL 3 - [facility] 2022-02-20 2022-02-20 Ancillary Chery Bond [facility] 1.2.84 0.114 [id number] Univers 08:00:00 08:45:00 Visit Felipe Manzo [id number] [id number] [phone] Nc dical NAL 179 [facility] 2022-02-13 2022-02-13 Ancillary Chery Bond [facility] 1.2.84 0.114 [id number] Univers 08:00:00 08:45:00 Visit Felipe Manzo [id number] [id number] [phone] Nc dical NAL 179 [facility] 2022-02-13 2022-02-13 Outpatient R ANAIS [facility] [id number] Univers 08:00:00 08:00:00 FELIPE itseamus [facility] 2022-02-06 2022-02-06 Ancillary Chery Bond [facility] 1.2.84 0.114 [id number] Univers 08:45:00 09:30:00 Visit Felipe Manzo [id number] [id number] [id number] Nc dical NAL 179 Branch BUILDING 2022-02-01 2022-02-01 Ancillary Chery Bond [facility] 1.2.84 0.114 [id number] Univers 08:00:00 08:45:00 Visit ManzoFelipe Daksha BARGER [id number] [id number] [id number] Me dical NAL 179 Branch BUILDING 2022-01-30 2022-01-30 Ancillary Chery Bond [facility] 1.2.84 0.114 [id number] Univers 08:45:00 09:30:00 Visit Felipe Manzo [id number] [id number] [id number] Me dical NAL [address] [facility] 2022-01-18 2022-01-18 Ancillary Christiano Chiu [facility] 1.2.840. 114 [id number] Univers 08:00:00 08:45:00 Visit Anais Feilpe BARGER [id number] [id number] [phone] Nc dical NAL [address] [facility] 2022-01-18 2022-01-18 Outpatient R ANAIS [facility] [id number] Univers 08:00:00 08:00:00 FELIPE ity of [facility] 2022-01-11 2022-01-11 Ancillary Doreen Chiu [facility] 1.2.840 .114 [id number] Univers 08:00:00 09:16:21 Visit Felipe Manzo [id number] [id number] [id number] Nc dical NAL 179 Branch BUILDING 2022-01-09 2022-01-09 Ancillary BrownDoreen [facility] 1.2.840 .114 [id number] Univers 09:30:00 10:15:00 Visit Felipe Manzo [id number] [facility] [id number] [phone] Nc dical NAL 179 [facility] 2022-01-03 2022-01-03 Ancillary AramChristiano [facility] 1.2.840. 114 [id number] Univers 08:00:00 08:45:00 Visit Felipe Manzo [id number] [facility] [id number] [id number] Nc dical NAL 179 [facility] 2022-01-02 2022-01-02 Ancillary Ghazal Fish [facility] 1.2.840. 114 [id number] Univers 07:15:00 09:38:50 Visit Felipe Manzo [id number] [facility] [id number] [id number] Nc dical NAL 179 [facility] 2021-12-18 2021-12-18 Outpatient R ANAIS [facility] [id number] Univers 07:15:00 07:15:00 FELIPE ity [facility] 2021-12-07 2021-12-07 [facility] 1.2.840.114 [id number] Univers 09:05:00 23:59:00 Encounter Dimitri S HEALTH [id number] ity of [place] [id number] Missael as GIULIANA?BLEA [phone] Nc dical EY [address] MEDICAL OFFICE BUILDING 2021-12-07 2021-12-07 Outpatient R GURPREET [facility] [id number] Univers 08:15:00 09:43:38 DIMITRI ity [facility] 2021-12-07 2021-12-07 [facility] 1.2.840.114 [id number] Univers 08:15:00 08:30:00 Visit Dimitri S HEALTH 350.1.13.10 it y of [place] [id number] Missael as GIULIANA?BLEA [id number] [address] MEDICAL OFFICE BUILDING 2021-12-07 2021-12-07 Outpatient Lokesh VÁZQUEZ [facility] [id number] Univers 08:15:00 08:15:00 DIMITRI ity [facility] 2021-12-07 2021-12-07 Orders Doctor SHASHI 1.2.840.114 [id number] Univers 00:00:00 00:00:00 Only Unassigned, JUDITH [id number] ity of [place] [facility] [id number] Missael as [id number] [address] 2021-03-07 2021-03-07 Outpatient Lokesh VÁZQUEZ [facility] [id number] Univers 08:00:00 08:00:00 DIMITRI ity [facility] 2021-03-02 2021-03-02 Outpatient Lokesh VÁZQUEZ [facility] [id number] Univers 15:30:00 15:30:00 DIMITRI ity [facility] 2021-02-28 2021-02-28 Outpatient Lokesh VÁZQUEZ [facility] [id number] Univers 08:15:00 08:15:00 DIMITRI ity [facility] 2020-12-30 2020-12-30 Outpatient Lokseh VÁZQUEZ [facility] [id number] Univers 09:12:10 23:59:00 DIMITRI ity [facility] 2020-12-30 2020-12-30 Outpatient Lokesh VÁZQUEZ [facility] [id number] Univers 10:30:00 10:30:00 DIMITRI ity [facility] 2020-12-28 2020-12-28 Outpatient Lokesh VÁZQUEZ [facility] [id number] Univers 13:15:00 13:15:00 DIMITRI ity [facility] 2020-11-30 2020-11-30 Outpatient Lokesh VÁZQUEZ [facility] [id number] Univers 13:15:00 13:15:00 DIMITRI ity [facility] 2020-11-21 2020-11-21 Outpatient Lokesh VÁZQUEZ [facility] [id number] Univers 16:15:00 16:15:00 DIMITRI ity [facility] 2020-11-16 2020-11-16 Outpatient Lokesh GURPREET [facility] [id number] Univers 13:30:00 13:30:00 [facility] 2020-11-16 2020-11-16 [facility] 1.2.840.114 [id number] 12:56:28 13:11:28 [place] [id number] Surgical [id number] Specialti [id number] [address] [place] 2020-11-11 2020-11-11 Outpatient Lokesh ANAIS [facility] [id number] Univers 08:30:00 [facility] 2020-10-28 2020-10-28 Outpatient Lokesh ANAIS [facility] [id number] Univers 12:30:00 12:30:00 [facility] 2020-10-19 2020-10-19 [facility] [id number] Univers 16:15:00 16:15:00 [facility] 2020-10-18 2020-10-18 [facility] [id number] Univers 09:00:00 09:00:00 [facility] 2020-10-12 2020-10-12 [facility] [id number] Univers 07:50:27 23:59:00 [facility] 2020-09-20 2020-09-20 [facility] [id number] Univers 09:52:23 23:59:00 [facility] 2019-09-22 2019-09-22 [facility] [id number] Univers 14:22:16 23:59:00 [facility] 2019-01-27 2019-01-27 Outpatient [facility] [id number] [place] 20:10:00 22:20:00 [facility] 2019-01-26 2019-01-26 Ambulatory nullFlavo [facility] 5 [id number] Memoria 18:30:00 18:30:00 Pre-Reg r Medicine 01 l Guera Molina 2019-01-26 2019-01-26 Outpatient JYOTI [facility] [id number] Memoria 13:30:00 13:30:00 01 daksha Molina 2019-01-26 2019-01-26 Outpatient [facility] [id number] 13:30:00 13:30:00 2019-01-12 2019-01-13 Outpatient nullFlavo [facility] Family 5 [id number] Memoria 20:00:00 04:59:59 r Medicine 00 l Guera Molina 2019-01-12 2019-01-12 Outpatient [facility] [id number] 15:00:00 23:59:59 00 2019-01-12 2019-01-12 Outpatient JYOTI [facility] [id number] Memoria 15:00:00 15:00:00 00 daksha Molina Results Test Description Test Time Test Comments Results Result Sourc e Comments XR SPINE LUMBAR 2019-01-27 LOCATION: V21BTEIONO: COMPLETE *OW* 21:23:46 49-year-old female with acute [...]
[2022-09-01] MEDS ORDERED: ALBUTEROL 2.5 MG/3 ML NEB SOL ONE (12:11)
[2022-09-01] MEDS ORDERED: IPRATROPIUM BROM 0.5MG/2.5ML ONE (12:11)
[2022-09-01] MEDS ORDERED: METHYLPREDNISOLONE 125 MG INJ ONE (12:11)
--- NOTE | 2022-09-01 12:41 | RAD REPORT ---
EXAM DESCRIPTION: RAD - Chest Single View - 09/01/2022 12:21 pm CLINICAL HISTORY: SOB COMPARISON: Chest Single View dated 09/05/2020 FINDINGS: Lines: None. Lungs: No evidence of edema or pneumonia. Pleural: No significant pleural effusions or pneumothorax. Cardiac: The heart size is within normal limits. Mediastinum: Within normal limits. Bones: No acute fractures. Other: None IMPRESSION: No acute cardiopulmonary disease.
--- NOTE | 2022-09-01 13:17 | EDPHYS ---
Physician Documentation [facility] Name: Kenzie Cartwright Age: 52 yrs Sex: Female : 1970 Arrival Date: 09/01/2022 Time: 11:24 Bed 11 Private MD: ED Physician Ana Russo HPI: 09/01 12:54 This 52 yrs old Female presents to ER via Ambulatory with complaints of Cough, Wheezing sd2 > 1 Year, Urinary Incontinence. 12:54 52-year-old female with an extensive smoking history presents with chief complaint of sd2 cough, wheezing for the past week. She reports she tested negative for COVID and flu at [facility] earlier this week. She reports she normally gets bronchitis about once a year and has not yet had it this year. 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 She reports pain in chest with coughing. Symptoms are worse at night. Not currently on any home inhalers.. 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 - Social history:: Smoking status: Patient reports the use of cigarette tobacco products, smokes two packs cigarettes per day. ROS: 12:54 Constitutional: Negative for fever, chills, and weight loss, Eyes: Negative for injury, sd2 pain, redness, and discharge, Cardiovascular: Negative for chest pain, palpitations, and edema, Positive for chest wall pain 12:54 Abdomen/GI: Negative for abdominal pain, nausea, vomiting, diarrhea. MS/Extremity: Negative for injury and deformity, Skin: Negative for injury, rash, and discoloration, Neuro: Negative for headache, numbness and tingling. 12:54 Respiratory: Positive for cough, shortness of breath, wheezing. Exam: 12:54 Constitutional: This is a well developed, well nourished patient who is awake, alert, sd2 and in no acute distress. Head/Face: Normocephalic, atraumatic. Eyes: EOMI, normal conjunctiva bilaterally Chest/axilla: Normal chest wall appearance and motion. Nontender with no deformity. Cardiovascular: Regular rate and rhythm with a normal S1 and S2. No gallops, murmurs, or rubs. 2+ distal pulses. Respiratory: Lungs have equal breath sounds bilaterally, clear to auscultation and percussion. No rales, rhonchi or wheezes noted. No increased work of breathing, no retractions or nasal flaring. Bronchospastic cough noted. Abdomen/GI: Soft, non-tender, with normal bowel sounds. No guarding or rebound. No evidence of tenderness throughout. Skin: Warm, dry with normal turgor. Normal color with no rashes, no lesions, and no evidence of cellulitis. MS/ Extremity: Pulses equal, no cyanosis. Neurovascular intact. Full, normal range of motion. Ambulatory without difficulty. Psych: Awake, alert, with orientation to person, place and time. Behavior, mood, and affect are within normal limits. Vital Signs: 11:43 BP 127 / 85; Pulse 78; Resp 17; Temp 98.6(O); Pulse Ox 98% on R/A; Weight 95.25 kg; vg1 Height 5 ft. 9 in. (175.26 cm); Pain 2/10; 13:04 BP 153 / 98; Pulse 74; Resp 18; Pulse Ox 97% on R/A; mb9 11:43 Body Mass Index 31.01 (95.25 kg, 175.26 cm) vg1 MDM: 11:55 Patient medically screened. sd2 12:56 Differential Diagnosis: Bronchitis Influenza Upper Respiratory Infection Sinusitis sd2 Pharyngitis Otitis Media Allergic Rhinitis Asthma Exacerbation Viral Syndrome Pneumonia Other among others. Data reviewed: vital signs, nurses notes. Counseling: I had a detailed discussion with the patient and/or guardian regarding: the historical points, exam findings, and any diagnostic results supporting the discharge/admit diagnosis, radiology results, the need for outpatient follow up, to return to the emergency department if symptoms worsen or persist or if there are any questions or concerns that arise at home. Counseling: I had a detailed discussion with the patient and/or guardian regarding: smoking cessation. Medical screen evaluation completed[facility] ED course: Imaging reviewed. CXR clear. Pt feeling improved after breathing treatment. Steroid injection given. Will continue oral steroid burst and have patient follow up outpatient. Pt states she has nicotine patches and is planning on quitting smoking as of today. Will dc with azithromycin and albuterol inhaler as well. . 09/01 12:06 Order name: XRAY Chest (1 view); Complete Time: 12:44 sd2 Administered Medications: 12:25 Drug: DuoNeb (albuterol 2.5 mg, ipratropium 0.5 mg) (3:1) (2.5 mg - 0.5 mg) 3 ml Route: mb9 Nebulizer; 13:01 Follow up: Response: No adverse reaction mb9 12:25 Drug: SOLU-Medrol (methylPREDNISolone sodium succinate) 125 mg Route: IM; Site: right mb9 gluteus; 13:01 Follow up: Response: No adverse reaction mb9 Disposition Summary: 09/01/22 13:16 Discharge Ordered Location: Home sd2 Problem: new sd2 Symptoms: have improved sd2 Condition: Stable sd2 Diagnosis - Acute bronchitis, unspecified sd2 Followup: sd2 - With: Private Physician - When: 2 - 3 days - Reason: Recheck today's complaints, Continuance of care, Re-evaluation by your physician Discharge Instructions: - Discharge Summary Sheet sd2 - Acute Bronchitis, Adult sd2 - Viral Respiratory Infection sd2 Forms: - Medication Reconciliation Form sd2 - Thank You Letter sd2 - Antibiotic Education sd2 - Prescription Opioid Use sd2 - Work release form aa5 Prescriptions: - albuterol sulfate 90 mcg/actuation Inhalation HFA aerosol inhaler - inhale 2 puff by INHALATION route every 4-6 hours As needed; 1 Inhaler; sd2 Refills: 0, Product Selection Permitted - azithromycin 250 mg Oral tablet - take 2 tablet by ORAL route once daily for 1 day then 1 tablet (250 mg) by oral sd2 route once daily for 4 days; 6 tablet; Refills: 0, Product Selection Permitted - Prednisone 20 mg Oral Tablet - take 2 tablets by ORAL route once daily for 5 days; 10 tablet; Refills: 0, sd2 Product Selection Permitted Signatures: Dispatcher [employer] Eli Jay RN RN vg1 Ana Russo MD MD sd2 Anabela Syed RN RN mb9
--- NOTE | 2022-09-01 13:17 | ER ---
Nurse's Notes [facility] Name: Kenzie Cartwright Age: 52 yrs Sex: Female : 1970 Arrival Date: 09/01/2022 Time: 11:24 Bed 11 Private MD: Diagnosis: Acute bronchitis, unspecified Presentation: 09/01 11:43 Chief complaint: Patient states: cough and wheezing x 1 week. Denies NV and states CP vg1 11/30. States SOB as well, especially at night, stated is unable to lay flat at night. Coronavirus screen: Vaccine status: Patient reports receiving the 2nd dose of the covid vaccine. Client denies travel out of the [place] in the last 14 days. Ebola Screen: Patient negative for fever greater than or equal to 101.5 degrees Fahrenheit, and additional compatible Ebola Virus Disease symptoms Patient denies exposure to infectious person. Initial Sepsis Screen: Does the patient meet any 2 criteria? No. Patient's initial sepsis screen is negative. Does the patient have a suspected source of infection? No. Patient's initial sepsis screen is negative. Risk Assessment: Do you want to hurt yourself or someone else? Patient reports no desire to harm self or others. Onset of symptoms was August 25, 2022. 11:43 Method Of Arrival: Ambulatory vg1 11:43 Acuity: ERICA 4 vg1 Triage Assessment: 11:45 General: Appears in no apparent distress. comfortable, Behavior is calm, cooperative. vg1 Pain: Complains of pain in chest Pain currently is 2 out of 10 on a pain scale. Pain began x 1 week. Respiratory: Reports shortness of breath at rest cough that is productive, Onset: The symptoms/episode began/occurred x 1 week, the patient has mild shortness of breath. 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 - Social history:: Smoking status: Patient reports the use of cigarette tobacco products, smokes two packs cigarettes per day. Screenin:05 Abuse screen: Denies threats or abuse. Nutritional screening: No deficits noted. mb9 Tuberculosis screening: No symptoms or risk factors identified. Fall Risk None identified. Assessment: 12:00 General: Appears in no apparent distress. comfortable, Behavior is calm, cooperative, mb9 appropriate for age. Pain: Denies pain. Neuro: Level of Consciousness is awake, alert, obeys commands, Oriented to person, place, time, situation, Appropriate for age. Cardiovascular: Heart tones S1 S2 present Capillary refill < 3 seconds Rhythm is regular. Respiratory: Reports shortness of breath cough that is Airway is patent Respiratory effort is even, unlabored, Respiratory pattern is regular, symmetrical, pt intermittently coughing lungs clear bilaterally at rest. When pt begins coughing, wheezing is noted in the left and right upper lobes bilaterally. 12:00 GI: Abdomen is flat, Bowel sounds present X 4 quads. Abd is soft and non tender X 4 mb9 quads. : Reports bedwetting. EENT: No signs and/or symptoms were reported regarding the EENT system. Derm: Skin is pink, warm \T\ dry. Musculoskeletal: Range of motion: intact in all extremities. 13:02 General: Appears in no apparent distress. comfortable, Behavior is calm, cooperative, mb9 appropriate for age. Pain: Denies pain. Neuro: Level of Consciousness is awake, alert, obeys commands, Oriented to person, place, time, situation, Appropriate for age. Cardiovascular: Heart tones S1 S2 present. Respiratory: Airway is patent Respiratory effort is even, unlabored, Respiratory pattern is regular, symmetrical, Breath sounds are clear bilaterally. Derm: Skin is pink, warm \T\ dry. 13:31 Reassessment: Patient is alert, oriented x 3, equal unlabored respirations, skin aa5 warm/dry/pink. Vital Signs: 11:43 BP 127 / 85; Pulse 78; Resp 17; Temp 98.6(O); Pulse Ox 98% on R/A; Weight 95.25 kg; vg1 Height 5 ft. 9 in. (175.26 cm); Pain 2/10; 13:04 BP 153 / 98; Pulse 74; Resp 18; Pulse Ox 97% on R/A; mb9 11:43 Body Mass Index 31.01 (95.25 kg, 175.26 cm) 1 ED Course: 11:24 Patient arrived in ED. as 11:45 Triage completed. vg1 11:45 Arm band placed on. vg1 11:45 Bed in low position. Call light in reach. Side rails up X 1. mb9 11:50 Anabela Syed, LOS is Primary Nurse. mb9 11:55 Ana Russo MD is Attending Physician. sd2 12:23 XRAY Chest (1 view) In Process Unspecified. EDMS 13:31 No provider procedures requiring assistance completed. Patient did not have IV access aa5 during this emergency room visit. Administered Medications: 12:25 Drug: DuoNeb (albuterol 2.5 mg, ipratropium 0.5 mg) (3:1) (2.5 mg - 0.5 mg) 3 ml Route: mb9 Nebulizer; 13:01 Follow up: Response: No adverse reaction mb9 12:25 Drug: SOLU-Medrol (methylPREDNISolone sodium succinate) 125 mg Route: IM; Site: right mb9 gluteus; 13:01 Follow up: Response: No adverse reaction mb9 Medication: 12:06 VIS not applicable for this client. mb9 Outcome: 13:16 Discharge ordered by . sd2 13:31 Discharged to home ambulatory. aa5 13:31 Condition: stable 13:31 Discharge instructions given to patient, Instructed on discharge instructions, follow up and referral plans. medication usage, Demonstrated understanding of instructions, follow-up care, medications, Prescriptions given X 3. 13:31 Patient left the ED. aa5 Signatures: Dispatcher [employer] EDMS Whit Mosquera Audri, RN RN aa5 Eli Parisi RN RN vg1 Ana Russo MD MD sd2 Anabela Syed RN RN mb9
[2022-09-01 13:41] VITALS: TEMP 98.6
[2022-09-01 13:42] VITALS: BP 153/98; O2SAT 97
== END 2022-09-01 13:31 | disposition home or self-care (01) ==
LOC: ER 11:21
DX: J20.9 Acute bronchitis, unspecified (principal); F17.210 Nicotine dependence, cigarettes, uncomplicated; Z88.5 Allergy status to narcotic agent; Z88.8 Allergy status to other drugs, medicaments and biological substances; Z91.013 Allergy to seafood; Z91.018 Allergy to other foods
CPT/HCPCS: 71045; 94640; 96372; 99284; J2930; J7644

== ENCOUNTER 2023-03-22 15:47 | Emergency (ER) | payer OTHER ==
--- OUTSIDE RECORDS SUMMARY | 2023-03-22 15:53 | XMS REPORT | Continuity of Care Document ---
:1970 Author Organization [facility] t Address [address] [facility]. [address] [place] [address] Care Team Providers Name Role Phone LORRAINE FISHER Primary Care Physician Unavailable Lizabeth Mendez Attending Clinician Unavailable FELIPE MANZO Attending Clinician Unavailable Chery Bond PT Attending Clinician Unavailable Felipe Manzo MD Attending Clinician Christiano Chiu PTA Attending Clinician Unavailable Doreen Chiu PTA Attending Clinician Unavailable Ghazal Fish PT Attending Clinician Unavailable Dimitri Whitfield S Attending Clinician DIMITRI VÁZQUEZ Attending Clinician Unavailable Doctor Unassigned, [place] Attending Clinician Unavailable DR OLGA DANIEL Attending Clinician Unavailable FELIPE MANZO Admitting Clinician Unavailable DR OLGA DANIEL Admitting Clinician Unavailable Payers Payer Name Policy Type Policy Number Effective Date Expiration Date S kimo [employer] [id number] 2018 [place] 00:00:00 [facility] [id number] 2019 [place]:00 [place] [id number] [facility] Problems Condition Condition Condition Status Onset Resolution [...] Added automatic ally from request for surgery [id number] History of Problem Active Co mmon migraine Spirit [facility] [id number] History of Problem Active Co mmon diverticul Spirit osis [facility] History of History of Problem Active C ommon calculus kidney Spirit of kidney stones [facility] [id number] Chronic Problem Active Commo n pain Spirit syndrome [facility] 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 [id number] Vitamin D Problem Active Comm on deficiency [facility] [id number] Essential Problem Active Comm on hypertensi Spirit on [facility] [id number] Abdominal Problem Active Comm on swelling [facility] [id number] Colitis Problem Active Common [facility] [id number] Smoker Problem Active Common [facility] Irritable Irritable Problem Active Com mon bowel bowel Spirit syndrome syndrome [facility] [id number] Mild Problem Active Common intermitte Spirit nt asthma - CHI without St complicati [facility] History of History of Problem Active C ommon asthma asthma [facility] [id number] Carbuncle Problem Active Com mon [facility] [id number] Fatigue, Problem Active Commo n unspecifie Spirit d type - [facility] [id number] COVID-19 Problem Active Comm on [facility] [id number] Abscess of Problem Active Com mon breast [facility] Blood in Blood in Problem Resolve 2019-01-28 Memoria urine urine d 22:19:46 l (finding) (finding) Herm gabriel Resolved Problem 01/28/2019 [facility] Derangemen Problem Resolve 2019-01-28 Memoria t of Derangemen d 22:19:46 l medial t of Jesse meniscus medial (disorder) meniscus (disorder) Resolved Problem 01/28/2019 [facility] Group Facial tic Facial Problem Resolve 2019-01-28 Memoria disorder tic d 22:19:46 l (disorder) disorder Herm gabriel (disorder) Resolved Problem 01/28/2019 [facility] Group Gastroesop Gastroeso Problem Resolve 2019-01-28 Memoria hageal phageal d 22:19:46 l reflux reflux [place] disease disease (disorder) (disorder) Resolved Problem 01/28/2019 [...] He rmann Resolved Problem 01/28/2019 [facility] Insomnia Insomnia Problem Resolve 2019-01-28 Memoria (disorder) (disorder) d 22:19:46 l Resolved Jesse Problem 01/28/2019 [facility] Intentiona Intention Problem Resolve 2019-01-28 Memoria l drug al drug d 22:19:46 l overdose overdose Christopher n by tablet by tablet (disorder) (disorder) Resolved Problem 01/28/2019 [facility] Irregular Irregular Problem Resolve 2019-01-28 Memoria periods periods d 22:19:46 l (finding) (finding) Herm gabriel Resolved Problem 01/28/2019 [facility] Low back Low back Problem Resolve 2019-01-28 Memoria pain pain d 22:19:46 l (disorder) (disorder) He rmann Resolved Problem 01/28/2019 [facility] Group Melena Melena Problem Resolve 2019-01-28 Mem oria (disorder) (disorder) d 22:19:46 l Resolved [place] Problem 01/28/2019 [facility] Metabolic Metabolic Problem Resolve 2019-01-28 Memoria disease disease d 22:19:46 l (disorder) (disorder) He rmann Resolved Problem 01/28/2019 [facility] Group Overweight Overweigh Problem Resolve 2019-01-28 Memoria (finding) t d 22:19:46 l (finding) [place] Resolved Problem 01/28/2019 [facility] Polyp of Polyp of Problem Resolve 2019-01-28 Memoria colon colon d 22:19:46 l (disorder) (disorder) He rmann Resolved Problem 01/28/2019 [facility] Rupture of Rupture Problem Resolve 2019-01-28 Memoria anterior of d 22:19:46 l cruciate anterior Christopher n ligament cruciate (disorder) ligament (disorder) Resolved Problem 01/28/2019 [facility] Allergy to Allergy Problem Resolve 2019-01-28 Memoria mold to mold d 22:19:46 l (disorder) (disorder) He rmann Resolved Problem 01/28/2019 [facility] Group Anxiety Anxiety Problem Resolve 2019-01-28 M emoria (finding) (finding) d 22:19:46 l Resolved Jesse Problem 01/28/2019 Medical Group Bipolar I Bipolar I Problem Resolve 2019-01-28 Memoria disorder disorder d 22:19:46 l (disorder) (disorder) He rmann Resolved Problem 01/28/2019 [facility] Allergies, Adverse Reactions, Alerts Allergy Allergy Status Severity Reaction(s) Onset Inactive Treating Comm ents Source Name Type Date Date Clinician Pentazoc Propensi Active Hives Univer s ine-Nalo ty to 2-10 ity of xone adverse 00:00: [place] reaction 00 Medical Branch PENTAZOC DRUG Active Hives Univers INE-NALO 2-10 ity of XONE 00:00: [place] [facility] Mushroom Propensi Active Anaphylaxis U nivers ty to 1-08 ity of adverse 00:00: [place] reaction Medical Branch MUSHROOM DRUG Active High Anaphylaxis Uni vers INGREDI 1-08 ity of 00:00: [place] [facility] Latex Propensi Active Hives Univers ty to 4-03 ity of adverse 00:00: [place] reaction [facility] Branch Fluoxeti Propensi Active Hives 2019-0 Univer s ne Hcl ty to 01-21 ity of adverse 00:00: [place] reaction 00 Medical s Branch Bupropio Propensi Active Hives Univer s n Hcl ty to 01-21 ity of adverse 00:00: [place] reaction 00 Medical s Branch LATEX DRUG Active High Hives 2018- Univers INGREDI 01-21 ity of 00:00: [place] 00 Medical Branch FLUOXETI DRUG Active High Hives Univers NE HCL INGREDI 01-21 ity of 00:00: [place] 00 Medical Branch BUPROPIO DRUG Active High Hives 2018- Univers N HCL INGREDI 01-21 ity of [...] High Hives Univers N INGREDI [facility] [place] [facility] [place] CORTISON DRUG Active High Unknown-Cmnt Un kelsie E INGREDI [facility] [place] [facility] [place] MOLD DRUG Active High Anaphylaxis Unive rs INGREDI ity of [facility] Branch MORPHINE DRUG Active High Hives Univers INGREDI ity of [facility] NALTREXO DRUG Active High Hives Univers NE-BUPRO ity of PION [facility] FLUOXETI DRUG Active Hives Univers NE INGREDI ity of [facility] morphine morphine Active Memori a l Jesse Fungizon Fungizon Active Memori a e Lotion e Lotion l Jesse PROzac PROzac Active Memoria l [place] fluoxeti fluoxeti Active hives Common ne ne Spirit - [facility] morphine morphine Active itching Commo n Spirit - [facility] [id number] Drug Active anxiety Common allergy Spirit - [facility] topirama topirama Active worsening [place] Common te te [facility] bupropio bupropio Active suicidal Comm on n / n / ideation Spirit naltrexo naltrexo - [facility] ne ne [facility] amoxicil amoxicil Active hives Common french french [facility] sulfamet sulfamet Active hives Common hoxazole hoxazole Spirit / / - CHI trimetho trimetho [facility] [address] Drug Active suicidal Common allergy ideation [facility] Social History Social Habit Start Date Stop Date Quantity Comments Source History of Current Smoker Common Spi rit - Tobacco Use [facility] Sex Assigned At Common Sp sebastian - [facility] Exposure to 2022-02-03 2022-02-13 Not sure University SARS-CoV-2 00:00:00 07:52:00 [facility] (event) Branch Alcohol intake 2021-12-07 2021-12-07 Current [facility] 00:00:00 00:00:00 non-drinker of [facility] alcohol Branch (finding) Tobacco use and 2019-02-19 2019-02-19 Former user [facility] of exposure 00:00:00 00:00:00 [facility] Smoking Status Start Date Stop Date Source Social History 2019-01-12 20:19:25 [facility] Medications Ordered Filled Start Stop Current Ordering Indication Dosage Frequency Signature Comments Components Source Medication Medication Date Date Medication? Clinician (SIG) Name Name hydrOXYzine hydrOXYzine No 1{table QID hydrOXYzin HCl 50 MG HCl 50 MG - t_at_be e HCl 50 00:00: dtime_a MG 00 s_neede d} Famotidine Famotidine No 1{table QD Famotidine 40 MG 40 MG - t_at_be 40 MG 00:00: dtime} 00 predniSONE predniSONE 2021- No 1{table predniSONE 20 MG 20 MG 6-28 08 t} 20 MG 00:00: 00:00 00 :00 predniSONE predniSONE 2021- No 1{table QD predniSONE 5 MG 5 MG 5-10 12 t} 5 MG 00:00: 00:00 00 :00 methylPREDN Yes [id number] 84mg Take 21 Univers ISolone 3-12 tablets by ity of (MEDROL, 00:00: mouth [place] SAMIRA,) 4 mg 00 SEE-INSTRU Med ical tablets CTIONS. Branch follow package directions methylPREDN 2021-0 Yes [id number] 84mg Take 21 Univers ISolone 3-12 tablets by ity of (MEDROL, 00:00: mouth [place] SAMIRA,) 4 mg 00 SEE-INSTRU Med ical tablets CTIONS. Branch follow package directions methylPREDN 2021-0 Yes [id number] 84mg Take 21 Univers ISolone 3-12 tablets by ity of (MEDROL, 00:00: mouth [place] SAMIRA,) 4 mg 00 SEE-INSTRU Med ical tablets CTIONS. Branch follow package directions methylPREDN 2021-0 Yes [id number] 84mg Take 21 Univers ISolone 3-12 tablets by ity of (MEDROL, 00:00: mouth [place] SAMIRA,) 4 mg 00 SEE-INSTRU Med ical tablets CTIONS. Branch follow package directions methylPREDN 2021-0 Yes [id number] 84mg Take 21 Univers ISolone 3-12 tablets by ity of (MEDROL, 00:00: mouth [place] SAMIRA,) 4 mg 00 SEE-INSTRU Med ical tablets CTIONS. Branch follow package directions methylPREDN 2021-0 Yes [id number] 84mg Take 21 Univers ISolone 3-12 tablets by ity of (MEDROL, 00:00: mouth [place] SAMIRA,) 4 mg 00 SEE-INSTRU Med ical tablets CTIONS. Branch follow package directions methylPREDN 2021-0 Yes [id number] 84mg Take 21 Univers ISolone 3-12 tablets by ity of (MEDROL, 00:00: mouth [place] SAMIRA,) 4 mg 00 SEE-INSTRU Med ical tablets CTIONS. Branch follow package directions methylPREDN 2021-0 Yes [id number] 84mg Take 21 Univers ISolone 3-12 tablets by ity of (MEDROL, 00:00: mouth [place] SAMIRA,) 4 mg 00 SEE-INSTRU Med ical tablets CTIONS. Branch follow package directions methylPREDN 2021-0 Yes [id number] 84mg Take 21 Univers ISolone 3-12 tablets by ity of (MEDROL, 00:00: mouth [place] SAMIRA,) 4 mg 00 SEE-INSTRU Med ical tablets CTIONS. Branch follow package directions methylPREDN 2020-0 Yes [id number] 84mg Take 21 Univers ISolone 3-12 tablets by ity of (MEDROL, 00:00: mouth [place] SAMIRA,) 4 mg 00 SEE-INSTRU Med ical tablets CTIONS. Branch follow package directions methylPREDN 0 Yes [id number] 84mg Take 21 Univers ISolone 3-12 tablets by ity of (MEDROL, 00:00: mouth [place] SAMIRA,) 4 mg 00 SEE-INSTRU Med ical tablets CTIONS. Branch follow package directions methylPREDN 0 Yes [id number] 84mg Take 21 Univers ISolone 3-12 tablets by ity of (MEDROL, 00:00: mouth [place] SAMIRA,) 4 mg 00 SEE-INSTRU Med ical tablets CTIONS. Branch follow package directions methylPREDN 0 Yes [id number] 84mg Take 21 Univers ISolone 3-12 tablets [...] mouth [place] tablet 00 every 4 Medical ([facility]) Branch hours as needed for Pain. Indication s: acute pain pantoprazol 2020-0 Yes 40mg Take 40 mg Univers e 40 mg EC 1-25 by mouth ity o f tablet 13:04: daily. [address] mesalamine 2020-0 Yes 500mg Take 500 Un kelsie (PENTASA) 1-25 mg by ity of 500 mg CR 13:04: mouth 4 [place] [address] ([facility]) Medical times [place] daily. sulfaSALAzi 2020-0 Yes 500mg Take 500 U nivers ne 500 mg 1-25 mg by ity of tablet 13:04: mouth 4 [place] [address] ([facility]) Medical times [place] daily. pantoprazol 2020-0 Yes 40mg Take 40 mg Univers e 40 mg EC 1-25 by mouth ity o f tablet 13:04: daily. [address] mesalamine 2020-0 Yes 500mg Take 500 Un kelsie (PENTASA) 1-25 mg by ity of 500 mg CR 13:04: mouth 4 [place] [address] ([facility]) Medical times [place] daily. sulfaSALAzi 2020-0 Yes 500mg Take 500 U nivers ne 500 mg 1-25 mg by ity of tablet 13:04: mouth 4 [place] [address] ([facility]) [facility] times [place] daily. pantoprazol 2020-0 Yes 40mg Take 40 mg Univers e 40 mg EC 1-25 by mouth ity o f tablet 13:04: daily. [address] mesalamine 2020-0 Yes 500mg Take 500 Un kelsie (PENTASA) 1-25 mg by ity of 500 mg CR 13:04: mouth 4 [place] [address] ([facility]) Medical times [place] daily. sulfaSALAzi 2020-0 Yes 500mg Take 500 U nivers ne 500 mg 1-25 mg by ity of tablet 13:04: mouth 4 [place] [address] ([facility]) Medical times [place] daily. pantoprazol 2020-0 Yes 40mg Take 40 mg Univers e 40 mg EC 1-25 by mouth ity o f tablet 13:04: daily. [address] mesalamine 2020-0 Yes 500mg Take 500 Un kelsie (PENTASA) 1-25 mg by ity of 500 mg CR 13:04: mouth 4 [place] capsule (four) Medical times Branch daily. sulfaSALAzi 1-0 Yes 500mg Take 500 U nivers ne 500 mg 1-25 mg by ity of tablet 13:04: mouth 4 [place] (four) Medical times Branch daily. pantoprazol 1-0 Yes 40mg Take 40 mg Univers e 40 mg EC 1-25 by mouth ity o f tablet 13:04: daily. [place] [facility] mesalamine 2020-0 Yes 500mg Take 500 Un kelsie (PENTASA) 1-25 mg by ity of 500 mg CR 13:04: mouth 4 [place] capsule (four) Medical times Branch daily. sulfaSALAzi 1-0 Yes 500mg Take 500 U nivers ne 500 mg 1-25 mg by ity of tablet 13:04: mouth 4 [place] (four) Medical times Branch daily. pantoprazol 2020-0 Yes 40mg Take 40 mg Univers e 40 mg EC 1-25 by mouth ity o f tablet 13:04: daily. [place] [address] Medical Branch mesalamine 2020-0 Yes 500mg Take 500 Un kelsie (PENTASA) 1-25 mg by ity of 500 mg CR 13:04: mouth 4 [place] capsule (four) Medical times Branch daily. sulfaSALAzi 1-0 Yes 500mg Take 500 U nivers ne 500 mg 1-25 mg by ity of tablet 13:04: mouth 4 [place] (four) Medical times Branch daily. pantoprazol 2020-0 Yes 40mg Take 40 mg Univers e 40 mg EC 1-25 by mouth ity o f tablet 13:04: daily. [place] [facility] mesalamine 2020-0 Yes 500mg Take 500 Un kelsie (PENTASA) 1-25 mg by ity of 500 mg CR 13:04: mouth 4 [place] capsule (four) Medical times Branch daily. sulfaSALAzi 2021-0 Yes 500mg Take 500 U nivers ne 500 mg 1-25 mg by ity of tablet 13:04: mouth 4 [place] (four) Medical times Branch daily. pantoprazol 1-0 Yes 40mg Take 40 mg Univers e 40 mg EC 1-25 by mouth ity o f tablet 13:04: daily. [place] [address] Medical Branch mesalamine 2021-0 Yes 500mg Take 500 Un kelsie (PENTASA) 1-25 mg by ity of 500 mg CR 13:04: mouth 4 [place] capsule (four) Medical times Branch daily. sulfaSALAzi 1-0 Yes 500mg Take 500 U nivers ne 500 mg 1-25 mg by ity of tablet 13:04: mouth 4 [place] [address] (four) Medical times Branch daily. pantoprazol 1-0 Yes 40mg Take 40 mg Univers e 40 mg EC 1-25 by mouth ity o f tablet 13:04: daily. [address] Branch mesalamine 2020-0 Yes 500mg Take 500 Un kelsie (PENTASA) 1-25 mg by ity of 500 mg CR 13:04: mouth 4 [place] capsule (four) Medical times Branch daily. sulfaSALAzi 1-0 Yes 500mg Take 500 U nivers ne 500 mg 1-25 mg by ity of tablet 13:04: mouth 4 [place] [address] ([facility]) Medical times Branch daily. pantoprazol 1-0 Yes 40mg Take 40 mg Univers e 40 mg EC 1-25 by mouth ity o f tablet 13:04: daily. [address] mesalamine 2020-0 Yes 500mg Take 500 Un kelsie (PENTASA) 1-25 mg by ity of 500 mg CR 13:04: mouth 4 [place] capsule (four) Medical times Branch daily. sulfaSALAzi 1-0 Yes 500mg Take 500 U nivers ne 500 mg 1-25 mg by ity of tablet 13:04: mouth 4 [place] [address] ([facility]) Medical times Branch daily. pantoprazol 1-0 Yes 40mg Take 40 mg Univers e 40 mg EC 1-25 by mouth ity o f tablet 13:04: daily. [address] Branch mesalamine 1-0 Yes 500mg Take 500 Un kelsie (PENTASA) 1-25 mg by ity of 500 mg CR 13:04: mouth 4 [place] capsule (four) Medical times Branch daily. sulfaSALAzi 2021-0 Yes 500mg Take 500 U nivers ne 500 mg 1-25 mg by ity of tablet 13:04: mouth 4 [place] [address] (four) Medical times Branch daily. pantoprazol 1-0 Yes 40mg Take 40 mg Univers e 40 mg EC 1-25 by mouth ity o f tablet 13:04: daily. [address] mesalamine 2020-0 Yes 500mg Take 500 Un kelsie (PENTASA) 1-25 mg by ity of 500 mg CR 13:04: mouth 4 [facility] Medical times [place] daily. sulfaSALAzi 2020-0 Yes 500mg Take 500 U nivers ne 500 mg 1-25 mg by ity of tablet 13:04: mouth 4 [place] [address] ([facility]) Medical times [place] daily. pantoprazol 0 Yes 40mg Take 40 mg Univers e 40 mg EC 1-25 by mouth ity o f tablet 13:04: daily. [address] mesalamine 2020-0 Yes 500mg Take 500 Un kelsie (PENTASA) 1-25 mg by ity of 500 mg CR 13:04: mouth 4 [facility] Medical times [place] daily. sulfaSALAzi 2020-0 Yes 500mg Take 500 U nivers ne 500 mg 1-25 mg by ity of tablet 13:04: mouth 4 [place] [address] ([facility]) Medical times [place] daily. Ondansetron Ondansetron 2019-0 No 1{table QD [...] t} n HCl 4 MG 00:00: 00 Trazodone Yes 50 mg = 1 Mem oria Hydrochlori 3-26 tab, PO, l de 50 MG 13:57: Bedtime, # Her steen Oral Tablet 00 30 tab, 0 Refill(s), Pharmacy: [id number] topiramate Yes 100 mg = 1 M emoria 100 mg oral 3-26 tab, PO, l tablet 13:57: Daily, # Jesse 00 30 tab, 0 Refill(s), Pharmacy: [id number] oxybutynin Yes 15 mg = 1 Me moria 15 mg oral 3-26 tab, PO, l tablet, 13:57: Daily, # Christopher n extended 00 30 tab, 0 release Refill(s), Pharmacy: [facility] Omeprazole Yes 20 mg = 1 Me moria 20 MG 3-26 cap, PO, l Enteric 13:57: Daily, # Christopher n Coated 00 30 cap, 0 Capsule Refill(s), [Prilosec] Pharmacy: [facility] cyclobenzap Yes 10 mg = 1 M emoria rine 10 mg 3-26 tab, PO, l oral tablet 13:57: TID, PRN He rmann 00 for spasms, X 30 day, # 30 tab, 0 Refill(s), Pharmacy: [facility] Clonidine Yes 0.1 mg = 1 Me moria Hydrochlori 3-26 tab, PO, l de 0.1 MG 13:57: BID, # 60 Her steen Oral Tablet 00 tab, 0 Refill(s), Pharmacy: [facility] clonazePAM Yes 0.5 mg = 1 M emoria 0.5 mg oral 3-26 tab, PO, l tablet 13:57: Daily, # Jesse 00 30 tab, 0 Refill(s) Ventolin Yes 2 puff, Memori a HFA 90 3-26 INHALATION l mcg/inh 13:57: , QID, # 1 Herm gabriel inhalation 00 ea, 1 aerosol Refill(s), with Pharmacy: [facility] vilazodone Yes 40 mg = 1 Me moria 40 mg oral 3-26 tab, PO, l tablet 13:57: Daily, # [place] 00 30 tab, 0 Refill(s), Pharmacy: [facility] Trazodone Yes 50 mg = 1 Mem oria Hydrochlori 3-26 tab, PO, l de 50 MG 13:57: Bedtime, # Her steen Oral Tablet 00 30 tab, 0 Refill(s), Pharmacy: [facility] topiramate Yes 100 mg = 1 M emoria 100 mg oral 3-26 tab, PO, l tablet 13:57: Daily, # [place] 00 30 tab, 0 Refill(s), Pharmacy: [facility]246 oxybutynin Yes 15 mg = 1 Me moria 15 mg oral 3-26 tab, PO, l tablet, 13:57: Daily, # Christopher n extended 00 30 tab, 0 release Refill(s), Pharmacy: [facility] Omeprazole Yes 20 mg = 1 Me moria 20 MG 3-26 cap, PO, l Enteric 13:57: Daily, # Christopher n Coated 00 30 cap, 0 Capsule Refill(s), [Prilosec] Pharmacy: [facility] cyclobenzap Yes 10 mg = 1 M emoria rine 10 mg 3-26 tab, PO, l oral tablet 13:57: TID, PRN He rmann 00 for spasms, X 30 day, # 30 tab, 0 Refill(s), Pharmacy: [facility] Clonidine Yes 0.1 mg = 1 Me moria Hydrochlori 3-26 tab, PO, l de 0.1 MG 13:57: BID, # 60 Her steen Oral Tablet 00 tab, 0 Refill(s), Pharmacy: [facility] clonazePAM Yes 0.5 mg = 1 M emoria 0.5 mg oral 3-26 tab, PO, l tablet 13:57: Daily, # Jesse 00 30 tab, 0 Refill(s) Ventolin Yes 2 puff, Memori a HFA 90 3-26 INHALATION l mcg/inh 13:57: , QID, # 1 Herm gabriel inhalation 00 ea, 1 aerosol Refill(s), with Pharmacy: [facility] vilazodone Yes 40 mg = 1 Me moria 40 mg oral 3-26 tab, PO, l tablet 13:57: Daily, # [place] 00 30 tab, 0 Refill(s), Pharmacy: [facility] Trazodone Yes 50 mg = 1 Mem oria Hydrochlori 3-26 tab, PO, l de 50 MG 13:57: Bedtime, # Her steen Oral Tablet 00 30 tab, 0 Refill(s), Pharmacy: [facility] topiramate Yes 100 mg = 1 M emoria 100 mg oral 3-26 tab, PO, l tablet 13:57: Daily, # [place] 00 30 tab, 0 Refill(s), Pharmacy: [facility] 52 oxybutynin Yes 15 mg = 1 Me moria 15 mg oral 3-26 tab, PO, l tablet, 13:57: Daily, # Christopher n extended 00 30 tab, 0 release Refill(s), Pharmacy: [facility] Omeprazole Yes 20 mg = 1 Me moria 20 MG 3-26 cap, PO, l Enteric 13:57: Daily, # Christopher n Coated 00 30 cap, 0 Capsule Refill(s), [Prilosec] Pharmacy: [facility] cyclobenzap Yes 10 mg = 1 M emoria rine 10 mg 3-26 tab, PO, l oral tablet 13:57: TID, PRN He rmann 00 for spasms, X 30 day, # 30 tab, 0 Refill(s), Pharmacy: [facility] Clonidine Yes 0.1 mg = 1 Me moria Hydrochlori 3-26 tab, PO, l de 0.1 MG 13:57: BID, # 60 Her steen Oral Tablet 00 tab, 0 Refill(s), Pharmacy: [facility] clonazePAM Yes 0.5 mg = 1 M emoria 0.5 mg oral 3-26 tab, PO, l tablet 13:57: Daily, # [place] 00 30 tab, 0 Refill(s) Ventolin Yes 2 puff, Memori a HFA 90 3-26 INHALATION l mcg/inh 13:57: , QID, # 1 Herm gabriel inhalation 00 ea, 1 aerosol Refill(s), with Pharmacy: [facility] vilazodone Yes 40 mg = 1 Me moria 40 mg oral 3-26 tab, PO, l tablet 13:57: Daily, # [place] 00 30 tab, 0 Refill(s), Pharmacy: [facility] clonazePAM Yes Take 1 Unive rs 0.5 mg 3-26 tablet 3 ity of tablet 00:00: times a [place] 00 day by Medical oral route Branch as needed. fluticasone Yes [place] 1 Uni vers 50 3-26 spray ity [...] oral route Branch as needed. fluticasone Yes [place] 1 Uni vers 50 3-26 spray ity [...] oral route Branch as needed. fluticasone Yes [place] 1 Uni vers 50 3-26 spray ity [...] 00 by oral Medical route. Branch topiramate 0 Yes Take 1 Unive rs 100 mg 3-26 tablet ity of tablet 00:00: twice a [place] 00 day by Medical oral Branch route. clonazePAM 2018-0 Yes Take 1 Unive rs 0.5 mg 3-26 tablet 3 ity of tablet 00:00: times a [place] 00 day by Medical oral route Branch as needed. fluticasone Yes [place] 1 Uni vers 50 3-26 spray ity [...] route Branch as needed. fluticasone 0 Yes [place] 1 Uni vers 50 3-26 spray ity [...] route Branch as needed. fluticasone 2019-0 Yes [place] 1 Uni vers 50 3-26 spray ity [...] oral route Branch as needed. fluticasone Yes [place] 1 Uni vers 50 3-26 spray ity [...] oral route Branch as needed. fluticasone Yes [place] 1 Uni vers 50 3-26 spray ity [...] oral route Branch as needed. fluticasone Yes [place] 1 Uni vers 50 3-26 spray ity [...] oral route Branch as needed. fluticasone Yes [place] 1 Uni vers 50 3-26 spray ity [...] oral route Branch as needed. fluticasone Yes [place] 1 Uni vers 50 3-26 spray ity [...] oral route Branch as needed. fluticasone Yes [place] 1 Uni vers 50 3-26 spray ity [...] route Branch as needed. fluticasone 2018- Yes [place] 1 Uni vers 50 3-26 spray ity [...] tab, PO, l tablet 20:19: Daily, 0 [place] 00 Refill(s) Clonidine No 0.1 mg = 1 Me moria Hydrochlori 3-25 tab, PO, l de 0.1 MG 20:19: BID, # 90 Her steen Oral Tablet 00 tab, 3 Refill(s) topiramate No 100 mg = 1 M emoria 100 mg oral 3-25 tab, PO, l tablet 20:19: Daily, # [place] 00 30 tab, 3 Refill(s) Ventolin No INHALATION Mem oria HFA 3-25 , QID, 0 l 20:19: Refill(s) [place] 00 oxybutynin No 15 mg = 1 [...] for spasms, # 30 tab, 0 Refill(s) clonazePAM No 0.5 mg = 1 M emoria 0.5 mg oral 3-25 tab, PO, l tablet 20:19: TID, # 90 Christopher n 00 tab, 0 Refill(s) vilazodone No 40 mg = 1 Me moria 40 mg oral 3-25 tab, PO, l tablet 20:19: Daily, 0 [place] 00 Refill(s) Clonidine No 0.1 mg = 1 Me moria Hydrochlori 3-25 tab, PO, l de 0.1 MG 20:19: BID, # 90 Her steen Oral Tablet 00 tab, 3 Refill(s) topiramate No 100 mg = 1 M emoria 100 mg oral 3-25 tab, PO, l tablet 20:19: Daily, # Jesse 00 30 tab, 3 Refill(s) Ventolin No INHALATION Mem oria HFA 3-25 , QID, 0 l 20:19: Refill(s) [place] 00 oxybutynin No 15 mg = 1 [...] for spasms, # 30 tab, 0 Refill(s) clonazePAM No 0.5 mg = 1 M emoria 0.5 mg oral 3-25 tab, PO, l tablet 20:19: TID, # 90 Christopher n 00 tab, 0 Refill(s) vilazodone No 40 mg = 1 Me moria 40 mg oral 3-25 tab, PO, l tablet 20:19: Daily, 0 Jesse 00 Refill(s) Clonidine No 0.1 mg = 1 Me moria Hydrochlori 3-25 tab, PO, l de 0.1 MG 20:19: BID, # 90 Her steen Oral Tablet 00 tab, 3 Refill(s) topiramate No 100 mg = 1 M emoria 100 mg oral 3-25 tab, PO, l tablet 20:19: Daily, # [place] 00 30 tab, 3 Refill(s) Ventolin No [...] kate) 1.25 mary kate) 1.25 ferol) MG (27146 MG (39686 1.25 MG UT) UT) (31795 UT) Viibryd 40 Viibryd 40 No 1{table [...] kate) 1.25 mary kate) 1.25 ferol) MG (73257 MG (71620 1.25 MG UT) UT) (95162 UT) Estroven Estroven No [place] Albuterol Albuterol [...] kate) 1.25 mary kate) 1.25 ferol) MG (08548 MG (70536 1.25 MG UT) UT) (77893 UT) PreNata PreNata No 1{table QD PreNata 29-1 MG 29-1 MG t_with_ 29-1 MG a_meal} Viibryd 40 Viibryd 40 No 1{table QD Viibryd 40 MG MG t_with_ MG food} sulfaSALAzi sulfaSALAzi No 1{table BID sulfaSALAz ne 500 MG ne 500 MG t} ine 500 MG Vital Signs Vital Name Observation Time Observation Value Comments Source weight 2022-04-17 08:20:00 209 [lb_av] [facility] bmi 2022-04-17 08:20:00 30.86 kg/m2 [facility] height 2022-04-17 08:20:00 69.00 [in_i] [facility] height 2022-04-11 13:20:00 69.00 [in_i] [facility] weight 2022-04-11 13:20:00 209 [lb_av] [facility] bmi 2022-04-11 13:20:00 30.86 kg/m2 [facility] height 2022-03-02 10:00:00 69.00 [in_i] [facility] weight 2022-03-02 10:00:00 207.2 [lb_av] [facility] temperature 2022-03-02 10:00:00 97.3 [degF] [facility] bmi 2022-03-02 10:00:00 30.59 kg/m2 [facility] oximetry 2022-03-02 10:00:00 95 % [facility] respiratory rate 2022-03-02 10:00:00 18 /min Comm on [facility] blood pressure 2022-03-02 10:00:00 147 mm[Hg] [facility] blood pressure 2022-03-02 10:00:00 84 mm[Hg] [facility] [place] [facility] Systolic blood 2021-12-07 14:36:00 119 mm[Hg] Univer sity of pressure [facility] Diastolic blood 2021-12-07 14:36:00 74 mm[Hg] Unive rsity of pressure [facility] Heart rate 2021-12-07 14:35:00 82 /min [facility] Body height 2021-12-07 14:35:00 175.3 cm [facility] Body weight 2021-12-07 14:35:00 95.21 kg [facility] BMI 2021-12-07 14:35:00 31.00 kg/m2 [facility] Oxygen saturation in 2021-12-07 14:35:00 97 /min [facility] blood by [facility] Pulse oximetry Branch Temperature Oral (F) 2019-01-12 20:04:00 98.3 F Padmaja Molina Height 2019-01-12 20:04:00 175.26 cm [facility] [place] BMI Calculated 2019-01-12 20:04:00 Alexander al [place] Weight 2019-01-12 20:04:00 Padmaja Molina Heart Rate 2019-01-12 20:04:00 [facility] Systolic (mm Hg) 2019-01-12 20:04:00 Bryce rial Jesse Diastolic (mm Hg) 2019-01-12 20:04:00 Mem orial Jesse Procedures Procedure Date / Time Performing Clinician Source Performed XR KNEE <3 VW LEFT 2021-12-07 15:15:00 Dimitri Vázquez [facility] Colon[facility] Endoscopic biopsy [facility] nn Removal of cystostomy [facility] ermann tube Tubal ligation [facility] Encounters Start End Encounter Admission Attending Care Care Encounter Source Date/Time Date/Time Type Type Clinicians Facility Department ID 2022-03-02 Outpatient ELANA Mendez [facility] [id number] Common 10:03:01 Lizabeth Spirit [facility] 2021-08-19 [facility] [id number] Univers 17:39:38 [facility] 2021-08-19 Outpatient Lokesh MANZO [facility] [id number] Univers 15:28:53 [facility] 2022-04-17 2022-04-17 OFFICE STLC STLC [id number] Co mmon 00:00:00 00:00:00 VISIT EST Spir it PT LEVEL 3 - [facility] 2022-04-11 2022-04-11 OFFICE STLMLC STLMLC [id number] Co mmon 00:00:00 00:00:00 VISIT EST Spir it PT LEVEL 3 - [facility] 2022-03-27 2022-03-27 Outpatient Lokesh MANZO [facility] [id number] Univers 08:00:00 08:00:00 [facility] 2022-03-06 2022-03-06 Ancillary Chery Bond [facility] 1.2.84 0.114 [id number] Univers 08:00:00 08:45:00 Visit Manzo, Felipe BARGER 350.1.13.10 it[place] [id number] Ca dical NAL 179 [facility] 2022-03-06 2022-03-06 Outpatient R ANAIS [facility] [id number] Univers 08:00:00 08:00:00 FELIPE ity [facility] 2022-03-02 2022-03-02 OFFICE STLMLC STLMLC [id number] Co mmon 00:00:00 00:00:00 VISIT EST Spir it PT LEVEL 3 - [facility] 2022-02-20 2022-02-20 Ancillary Chery Bond [facility] 1.2.84 0.114 [id number] Univers 08:00:00 08:45:00 Visit Felipe Manzo 350.1.13.10 [place] [id number] Ca dical NAL 179 [facility] 2022-02-13 2022-02-13 Ancillary Chery Bond [facility] 1.2.84 0.114 [id number] Univers 08:00:00 08:45:00 Visit Felipe Manzo 350.1.13.10 [place] [id number] Ca dical NAL 179 [facility] 2022-02-13 2022-02-13 Outpatient R ANAIS [facility] [id number] Univers 08:00:00 08:00:00 FELIPE itseamus [facility] 2022-02-06 2022-02-06 Ancillary Chery Bond [facility] 1.2.84 0.114 [id number] Univers 08:45:00 09:30:00 Visit Felipe Manzo 350.1.13.10 [place] [phone] Ca dical NAL 179 [facility] 2022-02-01 2022-02-01 Ancillary Chery Bond [facility] 1.2.84 0.114 [id number] Univers 08:00:00 08:45:00 Visit Felipe Manzo 350.1.13.10 [place] [id number] Ca dical NAL 179 Branch [facility]ILD[facility] 2022-01-30 2022-01-30 Ancillary Varun Chery Janis [facility] 1.2.84 0.114 [id number] Univers 08:45:00 09:30:00 Visit Felipe Manzo 350.1.13.10 [place] [phone] Ca dical NAL 179 Branch [facility] 2022-01-18 2022-01-18 Ancillary Christiano Chiu [facility] 1.2.840. 114 [id number] Univers 08:00:00 08:45:00 Visit Felipe Manzo 350.1.13.10 [place] [id number] Ca dical NAL 179 Branch [facility] 2022-01-18 2022-01-18 Outpatient R ANAIS [facility] [id number] Univers 08:00:00 08:00:00 FELIPE ity of [facility] 2022-01-11 2022-01-11 Ancillary Doreen Chiu [facility] 1.2.840 .114 [id number] Univers 08:00:00 09:16:21 Visit Felipe Manzo 350.1.13.10 [place] [id number] Ca dical NAL 179 Branch [facility] 2022-01-09 2022-01-09 Ancillary Doreen Chiu [facility] 1.2.840 .114 [id number] Univers 09:30:00 10:15:00 Visit Felipe Manzo 350.1.13.10 [place] [id number] Ca dical NAL 179 Branch [facility] 2022-01-03 2022-01-03 Ancillary Christiano Chiu [facility] 1.2.840. 114 [id number] Univers 08:00:00 08:45:00 Visit Felipe Manzo 350.1.13.10 [facility] [place] [phone] Ca dical NAL 179 [facility] 2022-01-02 2022-01-02 Ancillary Ghazal Fish [facility] 1.2.840. 114 [id number] Univers 07:15:00 09:38:50 Visit Felipe Manzo 350.1.13.10 [facility] 4[place] [id number] Ca dical NAL 179 [facility] 2021-12-18 2021-12-18 Outpatient R ANAIS [facility] [id number] Univers 07:15:00 07:15:00 FELIPE colon [facility] 2021-12-07 2021-12-07 [facility] 1.2.840.114 [id number] Univers 09:05:00 23:59:00 Encounter Dimitri S [facility] 350.1.13.10 ity of [place] 4.2.7.2.686 Missael as GIULIANA?BLEA [id number] Ca juan josé CASEY 809 [facility] 2021-12-07 2021-12-07 Outpatient R GURPREET [facility] [id number] Univers 08:15:00 09:43:38 DIMITRI ity [facility] 2021-12-07 2021-12-07 [facility] 1.2.840.114 [id number] Univers 08:15:00 08:30:00 Visit Dimitri S HEALTH 350.1.13.10 it [facility] 4.2.7.2.686 Missael as GIULIANA?BLEA [id number] Ca juan josé CASEY 198 [facility] OFFICE [facility] 2021-12-07 2021-12-07 [facility] [id number] Univers 08:15:00 08:15:00 [facility]-12-07 2021-12-07 Orders Doctor SHASHI 1.2.840.114 [id number] Univers 00:00:00 00:00:00 Only Unassigned, JUDITH 350.1.13.10 ity of [place] [facility] 4.2.7.2.686 Missael as [phone] [address] 2021-03-07 2021-03-07 Outpatient Lokesh VÁZQUEZ [facility] [id number] Univers 08:00:00 08:00:00 [facility] 2021-03-02 2021-03-02 Outpatient Lokesh VÁZQUEZ [facility] [id number] Univers 15:30:00 15:30:00 [facility] 2021-02-28 2021-02-28 Outpatient Lokesh VÁZQUEZ [facility] [id number] Univers 08:15:00 08:15:[facility] 2020-12-30 2020-12-30 Outpatient Lokesh VÁZQUEZ [facility] [id number] Univers 09:12:10 23:59:00 [facility] 2020-12-30 2020-12-30 Outpatient Lokesh VÁZQUEZ [facility] [id number] Univers 10:30:00 10:30:00 [facility] 2020-12-28 2020-12-28 Outpatient Lokesh VÁZQUEZ [facility] [id number] Univers 13:15:00 13:15:00 [facility] 2020-11-30 2020-11-30 Outpatient Lokesh VÁZQUEZ [facility] [id number] Univers 13:15:00 13:15:00 [facility] 2020-11-21 2020-11-21 Outpatient Lokesh VÁZQUEZ [facility] [id number] Univers 16:15:00 16:15:00 [facility] 2020-11-16 2020-11-16 Outpatient Lokesh VÁZQUEZ [facility] [id number] Univers 13:30:00 13:30:00 [facility] 2020-11-16 2020-11-16 [facility] 1.2.840.114 [id number] 12:56:28 13:11:28 Visit [facility] 350.1.13.10 Surgical 4.2.7.2.686 Special [id number] es [address] [place] 2020-11-11 2020-11-11 Outpatient Lokesh ANAIS [facility] [id number] Univers 08:30:00 08:30:00 FELIPE colon [facility] 2020-10-28 2020-10-28 Outpatient Lokesh ANAIS [facility] [id number] Univers 12:30:00 12:30:00 FELIPETHERESA colon [facility] 2020-10-19 2020-10-19 Outpatient Lokesh ANAIS [facility] [id number] Univers 16:15:00 16:15:00 [facility] 2020-10-18 2020-10-18 Outpatient Lokesh GURPREET [facility] [id number] Univers 09:00:00 09:00:00 [facility] 2020-10-12 2020-10-12 [facility] [id number] Univers 07:50:27 23:59:00 FELIPE seamus [facility] 2020-09-20 2020-09-20 [facility] [id number] Univers 09:52:23 23:59:00 [facility] 2019-09-22 2019-09-22 [facility] [id number] Univers 14:22:16 23:59:00 [facility] 2019-01-27 2019-01-27 Outpatient Cory DANIEL [facility] [id number] [facility] 22:20[facility]00 [facility] 2019-01-26 2019-01-26 Ambulatory nullFlavo [facility] 5 [id number] Memoria 18:30:00 18:30:00 Pre-Reg r Medicine 01 daksha Guera Jesse 2019-01-26 2019-01-26 Ambulatory nullFlavo [facility] 5 [id number] Memoria 18:30:00 18:30:00 Pre-Reg r Medicine 01 daksha Blancoon [place] 2019-01-26 2019-01-26 Outpatient MHIE MHIE [id number] Memoria 13:30:00 13:30:00 Silvia Molina 2019-01-26 2019-01-26 Outpatient [facility] [id number] 13:30:00 13:30:00 2019-01-12 2019-01-13 Outpatient [facility]Flavo [facility] 5 [id number] Memoria 20:00:00 04:59:59 r Medicine 00 l Guera Molina 2019-01-12 2019-01-13 Outpatient [facility]Flavo [facility] 5 [id number] Memoria 20:00:00 04:59:59 r Medicine 00 l Guera Molina 2019-01-12 2019-01-12 Outpatient [facility] [id number] 15:00:00 23:59:59 00 2019-01-12 2019-01-12 Outpatient [facility] [id number] Memoria 15:00:00 15:00:00 00 daksha Molina Results Test Description Test Time Test Comments Results Result Sourc e Comments XR SPINE LUMBAR 2019-01-27 LOCATION: [id number]: COMPLETE *OW* 21:23:46 49-year-old female with acute [...]
[2023-03-22] MEDS ORDERED: SMZ./TMP. 800/160 MG TABLET ONE (16:45)
[2023-03-22] MEDS ORDERED: LIDOCAINE 1% MPF 5 ML VIAL ONE (16:45)
--- NOTE | 2023-03-22 16:51 | ER ---
Nurse's Notes [facility] Name: Kenzie Cartwright Age: 53 yrs Sex: Female : 1970 Arrival Date: 03/22/2023 Time: 15:47 Bed 11 Private MD: Diagnosis: Cutaneous abscess of chest wall-right breast Presentation: 03/22 15:55 Chief complaint: Patient states: abscess under R breast x 2 weeks. Denies fever. ss Chronic low back pain that has flared up. Coronavirus screen: Client denies travel out of the [place] in the last 14 days. Ebola Screen: Patient denies exposure to infectious person. Patient denies travel to an Ebola-affected area in the 21 days before illness onset. Initial Sepsis Screen: Does the patient meet any 2 criteria? No. Patient's initial sepsis screen is negative. Does the patient have a suspected source of infection? No. Patient's initial sepsis screen is negative. Risk Assessment: Do you want to hurt yourself or someone else? Patient reports no desire to harm self or others. Onset of symptoms was March 08, 2023. 15:55 Method Of Arrival: Ambulatory ss 15:55 Acuity: ERICA 4 ss Historical: - Allergies: 15:57 Chantix; ss 15:57 Contrave; ss 15:57 Demerol; ss 15:57 mushrooms; ss 15:57 Prozac; ss 15:57 SHELLFISH; ss 15:57 Wellbutrin; ss - PMHx: 15:57 Bipolar disorder; Depression; overactive bladder; PTSD; ss - PSHx: 15:57 left knee; tubal ligation; ss - Immunization history:: Adult Immunizations up to date. - Social history:: Smoking status: Patient reports the use of cigarette tobacco products, smokes two packs cigarettes per day. Screenin:56 [facility] ED Fall Risk Assessment (Adult) Score/Fall Risk Level 0 - 2 = Low Risk hb Oriented to surroundings, Maintained a safe environment. Abuse screen: Denies threats or abuse. Denies injuries from another. Nutritional screening: No deficits noted. Tuberculosis screening: No symptoms or risk factors identified. Assessment: 16:56 General: Appears in no apparent distress. Behavior is calm, cooperative. Pain: Pain hb currently is 4 out of 10 on a pain scale. Neuro: Level of Consciousness is awake, alert, obeys commands, Oriented to person, place, time, situation. Cardiovascular: Patient's skin is warm and dry. Respiratory: Respiratory effort is even, unlabored, Respiratory pattern is regular, symmetrical. Vital Signs: 15:55 BP 152 / 87; Pulse 75; Resp 14; Temp 97.9(TE); Pulse Ox 99% on R/A; Weight 104.33 kg; ss Height 5 ft. 9 in. ; Pain 4/10; 15:55 Body Mass Index 33.96 (104.33 kg, 175.26 cm) ss 15:55 Pain Scale: Adult ss ED Course: 15:49 Patient arrived in ED. rg4 15:50 Radha Boothe FNP-C [facility] kb 15:50 Max Grey MD is Attending Physician. kb 15:57 Triage completed. ss 15:57 Arm band placed on left wrist. ss 16:56 Patient has correct armband on for positive identification. hb 16:56 No provider procedures requiring assistance completed. Patient did not have IV access hb during this emergency room visit. Administered Medications: 16:46 Drug: Lidocaine Infiltration (1 %) 1 vials Volume: 5 ml; Route: Infiltration; hb 16:55 Follow up: Response: No adverse reaction hb 16:55 Drug: Trimethoprim-Sulfamethoxazole PO (160 mg-800 mg (DS) 1 tablet Route: PO; hb 16:55 Follow up: Response: Medication administered at discharge. hb Medication: 16:56 VIS not applicable for this client. hb Outcome: 16:51 Discharge ordered by MD. kb 16:56 Discharged to home ambulatory. hb 16:56 Condition: stable 16:56 Discharge instructions given to patient, Instructed on discharge instructions, follow up and referral plans. medication usage, wound care, Demonstrated understanding of instructions, follow-up care, medications, wound care, Prescriptions given X 2. 16:57 Patient left the ED. hb Signatures: Radha Boothe FNP-C FNP-Ckb Smirch, Shelby, RN RN ss Baxter, Heather, RN RN hb Garcia, Rubi rg4
--- NOTE | 2023-03-22 16:51 | EDPHYS ---
Physician Documentation [facility] Name: Kenzie Cartwright Age: 53 yrs Sex: Female : 1970 Arrival Date: 03/22/2023 Time: 15:47 Bed 11 Private MD: ED Physician Max Grey HPI: 03/22 16:50 This 53 yrs old Female presents to ER via Ambulatory with complaints of Abscess, Back kb Pain. 16:50 The patient presents with an abscess of the right breast. Description: erythematous, kb hot, swollen, warm. Onset: The symptoms/episode began/occurred 2 week(s) ago. Possible cause(s): unknown. Associated signs and symptoms: Pertinent positives: drainage, erythema, swelling, Pertinent negatives: fever. Modifying factors: the symptoms are alleviated by nothing, the symptoms are aggravated by nothing. Severity of symptoms: At their worst the symptoms were moderate, in the emergency department the symptoms are unchanged. The patient has not experienced similar symptoms in the past. The patient has not recently seen a physician. Historical: - Allergies: 15:57 Chantix; ss 15:57 Contrave; ss 15:57 Demerol; ss 15:57 mushrooms; ss 15:57 Prozac; ss 15:57 SHELLFISH; ss 15:57 Wellbutrin; ss - PMHx: 15:57 Bipolar disorder; Depression; overactive bladder; PTSD; ss - PSHx: 15:57 left knee; tubal ligation; ss - Immunization history:: Adult Immunizations up to date. - Social history:: Smoking status: Patient reports the use of cigarette tobacco products, smokes two packs cigarettes per day. ROS: 16:00 Constitutional: Negative for fever, chills, and weight loss. kb 16:00 Back: Positive for pain at rest, pain with movement, of the low back area and mid back area. 16:00 Skin: Positive for abscess, of the right breast. 16:00 All other systems are negative. Exam: 16:49 Constitutional: This is a well developed, well nourished patient who is awake, alert, kb and in no acute distress. 16:49 Skin: abscess, that is moderate sized, of the right breast, with drainage, with fluctuance, with surrounding cellulitis, that is mild. Vital Signs: 15:55 BP 152 / 87; Pulse 75; Resp 14; Temp 97.9(TE); Pulse Ox 99% on R/A; Weight 104.33 kg; ss Height 5 ft. 9 in. ; Pain 4/10; 15:55 Body Mass Index 33.96 (104.33 kg, 175.26 cm) 15:55 Pain Scale: Adult Procedures: 16:49 I \T\ D: Incision and drainage was performed for an abscess of the right right breast kb Prepped with Betadine, Anesthetized with 1 ml's 1% Lidocaine. Incised with #11 blade. Drained moderate amount purulent fluid. Dressing: sterile 4x4 gauze, the patient tolerated the procedure well. MDM: 15:50 Patient medically screened. kb 16:49 Differential diagnosis: abscess, allergic reaction, cellulitis, insect bite. Data kb reviewed: vital signs, nurses notes. Counseling: I had a detailed discussion with the patient and/or guardian regarding: the historical points, exam findings, and any diagnostic results supporting the discharge/admit diagnosis, the need for outpatient follow up, a general surgeon, to return to the emergency department if symptoms worsen or persist or if there are any questions or concerns that arise at home. 03/22 16:09 Order name: I\T\D Setup; Complete Time: 16:46 kb Administered Medications: 16:46 Drug: Lidocaine Infiltration (1 %) 1 vials Volume: 5 ml; Route: Infiltration; hb 16:55 Follow up: Response: No adverse reaction hb 16:55 Drug: Trimethoprim-Sulfamethoxazole PO (160 mg-800 mg (DS) 1 tablet Route: PO; hb 16:55 Follow up: Response: Medication administered at discharge. hb Disposition: 17:42 Co-signature as Attending Physician, Max Grey MD I reviewed the patient's care rt provided by the Advanced Practice Provider and agree with the diagnosis and treatment plan. Disposition Summary: 03/22/23 16:51 Discharge Ordered Location: Home kb Condition: Stable kb Diagnosis - Cutaneous abscess of chest wall - right breast kb Followup: kb - With: Emergency Department - When: As needed - Reason: Worsening of condition Followup: kb - With: Private Physician - When: 2 - 3 days - Reason: Recheck today's complaints, Continuance of care, Re-evaluation by your physician Discharge Instructions: - Discharge Summary Sheet kb - Skin Abscess, [id number] kb - Incision and Drainage, Care After kb Forms: - Medication Reconciliation Form kb - Thank You Letter kb - Antibiotic Education kb - Prescription Opioid Use kb Prescriptions: - Cyclobenzaprine 10 mg Oral Tablet - take 1 tablet by ORAL route every 8 hours As needed; 21 tablet; Refills: 0, kb Product Selection Permitted - Bactrim DS 800-160 mg Oral Tablet - take 1 tablet by ORAL route every 12 hours for 10 days; 20 tablet; Refills: 0, kb Product Selection Permitted Signatures: Radha Boothe FNP-C FNP-Ckb Smirch, Shelby RN RN ss [place], LOS RN Max Grey MD MD rt
[2023-03-22 17:03] VITALS: BP 152/87; TEMP 97.9; O2SAT 99
== END 2023-03-22 16:57 | disposition home or self-care (01) ==
LOC: ER 15:47
PROC: 0H95XZZ Drainage of Chest Skin, External Approach (ICD-10-PCS; principal; 2023-03-22)
DX: L02.213 Cutaneous abscess of chest wall (principal); F17.210 Nicotine dependence, cigarettes, uncomplicated; Z88.5 Allergy status to narcotic agent; Z88.8 Allergy status to other drugs, medicaments and biological substances; Z91.013 Allergy to seafood; Z91.018 Allergy to other foods
CPT/HCPCS: 99283; 10060; J2001

== ENCOUNTER 2023-04-01 17:47 | Emergency (ER) | payer OTHER ==
--- OUTSIDE RECORDS SUMMARY | 2023-04-01 17:52 | XMS REPORT | Continuity of Care Document ---
:1970 Author Organization [facility] t Address [address] [facility] [place] [address] Care Team Providers Name Role Phone LORRAINE FISHER Primary Care Physician Unavailable Lizabeth Mendez Attending Clinician Unavailable FELIPE MANZO Attending Clinician Unavailable Chery Bond PT Attending Clinician Unavailable Felipe Manzo MD Attending Clinician Christiano Chiu PTA Attending Clinician Unavailable Doreen Chiu PTA Attending Clinician Unavailable Ghazal Fish PT Attending Clinician Unavailable Dimitri Whitfield S Attending Clinician DIMITRI VÁZQUEZ Attending Clinician Unavailable Doctor Unassigned, [place] Attending Clinician Unavailable DR OLGA DANIEL Attending Clinician Unavailable FELIPE MANZO Admitting Clinician Unavailable DR OLGA DANIEL Admitting Clinician Unavailable Payers Payer Name Policy Type Policy Number Effective Date Expiration Date S k[facility] [id number] 2018 [place] 00:00:00 [facility] [id number] 2019 [place] [employer] [place]:00 [place] [id number] [facility] Problems Condition Condition Condition Status Onset [...] Added automatic ally from request for surgery [id number] Gastroesop Problem Resolve 2019-01-28 Memoria hageal Gastroesop d 22:19:46 l reflux hageal Jesse disease reflux (disorder) disease (disorder) Resolved Problem 01/28/2019 [facility] Gastrointe Gastroint Problem Resolve 2019-01-28 Memoria stinal estinal d 22:19:46 l hemorrhage hemorrhage He rmann (disorder) (disorder) Resolved Problem 01/28/2019 [facility] Genuine Genuine Problem Resolve 2019-01-28 M emoria stress stress d 22:19:46 l incontinen incontinen He rmann ce ce (finding) (finding) Resolved Problem 01/28/2019 [facility] Hypothyroi Hypothyro Problem Resolve 2019-01-28 Memoria dism idism d 22:19:46 l (disorder) (disorder) He rmann Resolved Problem 01/28/2019 [facility] Insomnia Insomnia Problem Resolve 2019-01-28 Memoria (disorder) (disorder) d 22:19:46 l Resolved [place] Problem 01/28/2019 [facility] Intentiona Intention Problem Resolve 2019-01-28 Memoria l drug al drug d 22:19:46 l overdose overdose Christopher n by tablet by tablet (disorder) (disorder) Resolved Problem 01/28/2019 [facility] Irregular Irregular Problem Resolve 2019-01-28 Memoria periods periods d 22:19:46 l (finding) (finding) Herm gabriel Resolved Problem 01/28/2019 [facility] Low back Low back Problem Resolve 2019-01-28 Memoria pain pain d 22:19:46 l (disorder) (disorder) He rmann Resolved Problem 01/28/2019 [facility] Melena Melena Problem Resolve 2019-01-28 Me moria (disorder) (disorder) d 22:19:46 l Resolved [place] Problem 01/28/2019 [facility] Metabolic Metabolic Problem Resolve 2019-01-28 Memoria disease disease d 22:19:46 l (disorder) (disorder) He rmann Resolved Problem 01/28/2019 [facility] Group Overweight Overweigh Problem Resolve 2019-01-28 Memoria (finding) t d 22:19:46 l (finding) Jesse Resolved Problem 01/28/2019 [facility] Polyp of Polyp of Problem Resolve 2019-01-28 Memoria colon colon d 22:19:46 l (disorder) (disorder) He rmann Resolved Problem 01/28/2019 [facility] Rupture of Rupture Problem Resolve 2019-01-28 Memoria anterior of d 22:19:46 l cruciate anterior Christopher n ligament cruciate (disorder) ligament (disorder) Resolved Problem 01/28/2019 [facility] Allergy to Allergy Problem Resolve 2019-01-28 Memoria mold to mold d 22:19:46 l (disorder) (disorder) He rmann Resolved Problem 01/28/2019 [facility] Anxiety Anxiety Problem Resolve 2019-01-28 M emoria (finding) (finding) d 22:19:46 l Resolved [place] Problem 01/28/2019 [facility] Bipolar I Bipolar I Problem Resolve 2019-01-28 Memoria disorder disorder d 22:19:46 l (disorder) (disorder) He rmann Resolved Problem 01/28/2019 Medical [facility] [id number] History of Problem Active Co mmon migraine [facility] [id number] History of Problem Active Co mmon diverticul Spirit osis [facility] History of History of Problem Active C ommon calculus kidney [facility] of kidney stones [facility] [id number] Chronic Problem Active Commo n pain Spirit syndrome [facility] 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 disease) Medical stage 3, Center GFR 30-59 ml/min [id number] Arthritis Problem Active Commo n [facility] [id number] Vitamin D Problem Active Comm on deficiency [facility] [id number] Essential Problem Active Comm on hypertensi Spirit on [facility] [id number] Abdominal Problem Active Comm on swelling [facility] [id number] Colitis Problem Active [facility] [id number] Smoker Problem Active [facility] Irritable Irritable Problem Active Com mon bowel bowel Spirit syndrome syndrome - [facility] [id number] Mild Problem Active Common intermitte Spirit nt asthma - [facility] without [facility] complicati [facility] on [facility] History of History of Problem Active C ommon asthma asthma [facility] [id number] Carbuncle Problem Active Com mon [facility] [id number] Fatigue, Problem Active Commo n unspecifie Spirit d type - [facility] [id number] COVID-19 Problem Active Comm on [facility] [id number] Abscess of Problem Active Com [facility] breast [facility] Blood in Blood in Problem Resolve 2019-01-28 Memoria urine urine d 22:19:46 l (finding) (finding) Herm gabriel Resolved Problem 01/28/2019 [facility] Derangemen Derangeme Problem Resolve 2019-01-28 Memoria t of nt of d 22:19:46 l medial medial [place] meniscus meniscus (disorder) (disorder) Resolved Problem 01/28/2019 [facility] Group Facial tic Facial Problem Resolve 2019-01-28 Memoria disorder tic d 22:19:46 l (disorder) disorder Herm gabriel (disorder) Resolved Problem 01/28/2019 [facility] Group Allergies, Adverse Reactions, Alerts Allergy Allergy Status Severity Reaction(s) Onset Inactive Treating Comm ents Source Name Type Date Date Clinician Pentazoc Propensi Active Hives Univer s ine-Nalo ty to 2-10 ity of xone adverse 00:00: [place] reaction 00 Medical [facility] PENTAZOC DRUG Active Hives Univers INE-NALO 2-10 ity of XONE 00:00: [place] [facility] Mushroom Propensi Active Anaphylaxis U nivers ty to 1-08 ity of adverse 00:00: [place] reaction [facility] MUSHROOM DRUG Active High Anaphylaxis Uni vers INGREDI 1-08 ity of 00:00: [place] [facility] Latex Propensi Active Hives Univers ty to 4-03 ity of adverse 00:00: [place] reaction [facility] Fluoxeti Propensi Active Hives 2019-0 Univer s [...] High Hives Univers N INGREDI ity of [place] [facility] [place] CORTISON DRUG Active High Unknown-Cmnt Un kelsie E INGREDI ity of [place] [facility] [place] MOLD DRUG Active High Anaphylaxis Unive rs INGREDI ity of [facility] MORPHINE DRUG Active High Hives Univers INGREDI ity of [facility] NALTREXO DRUG Active High Hives Univers NE-BUPRO ity of PION [facility] FLUOXETI DRUG Active Hives Univers NE INGREDI ity of [facility] morphine morphine Active Memori a l [place] Fungizon Fungizon Active Memori a e Lotion e Lotion l [place] PROzac PROzac Active Memoria l Jesse fluoxeti fluoxeti Active hives Common ne ne [facility] morphine morphine Active itching Commo n [facility] [id number] Drug Active anxiety Common allergy [facility] topirama topirama Active worsening [place] Common te te [facility] bupropio bupropio Active suicidal Comm on n / n / ideation Spirit naltrexo naltrexo - [facility] ne ne [facility] amoxicil amoxicil Active hives Common french french [facility] sulfamet sulfamet Active hives Common hoxazole hoxazole Spirit / / - [facility] trimetho trimetho [facility] [id number] Drug Active suicidal Common allergy ideation [facility] Social History Social Habit Start Date Stop Date Quantity Comments Source History of Current Smoker Common Spi rit - Tobacco Use [facility] Sex Assigned At Common Sp sebastian - [facility] Exposure to 2022-02-03 2022-02-13 Not sure University SARS-CoV-2 00:00:00 07:52:00 [facility] (event) Branch Alcohol intake 2021-12-07 2021-12-07 Current [facility] 00:00:00 00:00:00 non-drinker of [facility] alcohol Branch (finding) Tobacco use and 2019-02-19 2019-02-[address] [facility] of exposure 00:00:00 00:00:00 [facility] Smoking Status Start Date Stop Date Source Social History 2019-01-12 20:19:25 [facility] [place] [facility] Medications Ordered Filled Start Stop Current Ordering [...] MG 00:00: 00:00 00 :00 methylPREDN Yes [id number] 84mg Take 21 Univers ISolone 3-12 tablets by ity of (MEDROL, 00:00: mouth [place] SAMIRA,) 4 mg 00 SEE-INSTRU Med ical tablets CTIONS. Branch follow package directions methylPREDN 2021-0 Yes [id number] 84mg Take 21 Univers ISolone 3-12 tablets by ity of (MEDROL, 00:00: mouth [place] SAMIRA,) 4 mg 00 SEE-INSTRU Med ical tablets CTIONS. Branch follow package directions methylPREDN 2021-0 Yes [id number] 84mg Take 21 Univers ISolone 3-12 tablets by ity of (MEDROL, 00:00: mouth [place] SAMIRA,) 4 mg 00 SEE-INSTRU Med ical tablets CTIONS. Branch follow package directions methylPREDN 2021-0 Yes [id number] 84mg Take 21 Univers ISolone 3-12 tablets by ity of (MEDROL, 00:00: mouth [place] SAMIRA,) 4 mg 00 SEE-INSTRU Med ical tablets CTIONS. Branch follow package directions methylPREDN 2021-0 Yes [id number] 84mg Take 21 Univers ISolone 3-12 tablets by ity of (MEDROL, 00:00: mouth [place] SAMIRA,) 4 mg 00 SEE-INSTRU Med ical tablets CTIONS. Branch follow package directions methylPREDN 2021-0 Yes [id number] 84mg Take 21 Univers ISolone 3-12 tablets by ity of (MEDROL, 00:00: mouth [place] SAMIRA,) 4 mg 00 SEE-INSTRU Med ical tablets CTIONS. Branch follow package directions methylPREDN 2021-0 Yes [id number] 84mg Take 21 Univers ISolone 3-12 tablets by ity of (MEDROL, 00:00: mouth [place] SAMIRA,) 4 mg 00 SEE-INSTRU Med ical tablets CTIONS. Branch follow package directions methylPREDN 2021-0 Yes [id number] 84mg Take 21 Univers ISolone 3-12 tablets by ity of (MEDROL, 00:00: mouth [place] SAMIRA,) 4 mg 00 SEE-INSTRU Med ical tablets CTIONS. Branch follow package directions methylPREDN 2021-0 Yes [id number] 84mg Take 21 Univers ISolone 3-12 tablets by ity of (MEDROL, 00:00: mouth [place] SAMIRA,) 4 mg 00 SEE-INSTRU Med ical tablets CTIONS. Branch follow package directions methylPREDN 2020-0 Yes [id number] 84mg Take 21 Univers ISolone 3-12 tablets by ity of (MEDROL, 00:00: mouth [place] SAMIRA,) 4 mg 00 SEE-INSTRU Med ical tablets CTIONS. Branch follow package directions methylPREDN 0 Yes [id number] 84mg Take 21 Univers ISolone 3-12 tablets by ity of (MEDROL, 00:00: mouth [place] SAMIRA,) 4 mg 00 SEE-INSTRU Med ical tablets CTIONS. Branch follow package directions methylPREDN 0 Yes [id number] 84mg Take 21 Univers ISolone 3-12 tablets by ity of (MEDROL, 00:00: mouth [place] SAMIRA,) 4 mg 00 SEE-INSTRU Med ical tablets CTIONS. Branch follow package directions methylPREDN 0 Yes [id number] 84mg Take 21 Univers ISolone 3-12 tablets [...] mouth [place] tablet 00 every 4 Medical ([facility]) Branch hours as needed for Pain. Indication s: acute pain pantoprazol 2020-0 Yes 40mg Take 40 mg Univers e 40 mg EC 1-25 by mouth ity o f tablet 13:04: daily. [address] mesalamine 2020-0 Yes 500mg Take 500 Un kelsie (PENTASA) 1-25 mg by ity of 500 mg CR 13:04: mouth 4 [place] [address] ([facility]) Medical times [place] daily. sulfaSALAzi 2020-0 Yes 500mg Take 500 U nivers ne 500 mg 1-25 mg by ity of tablet 13:04: mouth 4 [place] [address] ([facility]) Medical times [place] daily. pantoprazol 2020-0 Yes 40mg Take 40 mg Univers e 40 mg EC 1-25 by mouth ity o f tablet 13:04: daily. [address] mesalamine 2020-0 Yes 500mg Take 500 Un kelsie (PENTASA) 1-25 mg by ity of 500 mg CR 13:04: mouth 4 [place] [address] ([facility]) Medical times [place] daily. sulfaSALAzi 2020-0 Yes 500mg Take 500 U nivers ne 500 mg 1-25 mg by ity of tablet 13:04: mouth 4 [place] [address] ([facility]) [facility] times [place] daily. pantoprazol 2020-0 Yes 40mg Take 40 mg Univers e 40 mg EC 1-25 by mouth ity o f tablet 13:04: daily. [address] mesalamine 2020-0 Yes 500mg Take 500 Un kelsie (PENTASA) 1-25 mg by ity of 500 mg CR 13:04: mouth 4 [place] [address] ([facility]) Medical times [place] daily. sulfaSALAzi 2020-0 Yes 500mg Take 500 U nivers ne 500 mg 1-25 mg by ity of tablet 13:04: mouth 4 [place] [address] ([facility]) Medical times [place] daily. pantoprazol 2020-0 Yes 40mg Take 40 mg Univers e 40 mg EC 1-25 by mouth ity o f tablet 13:04: daily. [address] mesalamine 2020-0 Yes 500mg Take 500 Un kelsie (PENTASA) 1-25 mg by ity of 500 mg CR 13:04: mouth 4 [place] capsule (four) Medical times Branch daily. sulfaSALAzi 1-0 Yes 500mg Take 500 U nivers ne 500 mg 1-25 mg by ity of tablet 13:04: mouth 4 [place] (four) Medical times Branch daily. pantoprazol 1-0 Yes 40mg Take 40 mg Univers e 40 mg EC 1-25 by mouth ity o f tablet 13:04: daily. [place] [facility] mesalamine 2020-0 Yes 500mg Take 500 Un kelsie (PENTASA) 1-25 mg by ity of 500 mg CR 13:04: mouth 4 [place] capsule (four) Medical times Branch daily. sulfaSALAzi 1-0 Yes 500mg Take 500 U nivers ne 500 mg 1-25 mg by ity of tablet 13:04: mouth 4 [place] (four) Medical times Branch daily. pantoprazol 2020-0 Yes 40mg Take 40 mg Univers e 40 mg EC 1-25 by mouth ity o f tablet 13:04: daily. [place] [address] Medical Branch mesalamine 2020-0 Yes 500mg Take 500 Un kelsie (PENTASA) 1-25 mg by ity of 500 mg CR 13:04: mouth 4 [place] capsule (four) Medical times Branch daily. sulfaSALAzi 1-0 Yes 500mg Take 500 U nivers ne 500 mg 1-25 mg by ity of tablet 13:04: mouth 4 [place] (four) Medical times Branch daily. pantoprazol 2020-0 Yes 40mg Take 40 mg Univers e 40 mg EC 1-25 by mouth ity o f tablet 13:04: daily. [place] [facility] mesalamine 2020-0 Yes 500mg Take 500 Un kelsie (PENTASA) 1-25 mg by ity of 500 mg CR 13:04: mouth 4 [place] capsule (four) Medical times Branch daily. sulfaSALAzi 2021-0 Yes 500mg Take 500 U nivers ne 500 mg 1-25 mg by ity of tablet 13:04: mouth 4 [place] (four) Medical times Branch daily. pantoprazol 1-0 Yes 40mg Take 40 mg Univers e 40 mg EC 1-25 by mouth ity o f tablet 13:04: daily. [place] [address] Medical Branch mesalamine 2021-0 Yes 500mg Take 500 Un kelsie (PENTASA) 1-25 mg by ity of 500 mg CR 13:04: mouth 4 [place] capsule (four) Medical times Branch daily. sulfaSALAzi 1-0 Yes 500mg Take 500 U nivers ne 500 mg 1-25 mg by ity of tablet 13:04: mouth 4 [place] [address] (four) Medical times Branch daily. pantoprazol 1-0 Yes 40mg Take 40 mg Univers e 40 mg EC 1-25 by mouth ity o f tablet 13:04: daily. [address] Branch mesalamine 2020-0 Yes 500mg Take 500 Un kelsie (PENTASA) 1-25 mg by ity of 500 mg CR 13:04: mouth 4 [place] capsule (four) Medical times Branch daily. sulfaSALAzi 1-0 Yes 500mg Take 500 U nivers ne 500 mg 1-25 mg by ity of tablet 13:04: mouth 4 [place] [address] ([facility]) Medical times Branch daily. pantoprazol 1-0 Yes 40mg Take 40 mg Univers e 40 mg EC 1-25 by mouth ity o f tablet 13:04: daily. [address] mesalamine 2020-0 Yes 500mg Take 500 Un kelsie (PENTASA) 1-25 mg by ity of 500 mg CR 13:04: mouth 4 [place] capsule (four) Medical times Branch daily. sulfaSALAzi 1-0 Yes 500mg Take 500 U nivers ne 500 mg 1-25 mg by ity of tablet 13:04: mouth 4 [place] [address] ([facility]) Medical times Branch daily. pantoprazol 1-0 Yes 40mg Take 40 mg Univers e 40 mg EC 1-25 by mouth ity o f tablet 13:04: daily. [address] Branch mesalamine 1-0 Yes 500mg Take 500 Un kelsie (PENTASA) 1-25 mg by ity of 500 mg CR 13:04: mouth 4 [place] capsule (four) Medical times Branch daily. sulfaSALAzi 2021-0 Yes 500mg Take 500 U nivers ne 500 mg 1-25 mg by ity of tablet 13:04: mouth 4 [place] [address] (four) Medical times Branch daily. pantoprazol 1-0 Yes 40mg Take 40 mg Univers e 40 mg EC 1-25 by mouth ity o f tablet 13:04: daily. [address] mesalamine 2020-0 Yes 500mg Take 500 Un kelsie (PENTASA) 1-25 mg by ity of 500 mg CR 13:04: mouth 4 [facility] ([facility]) Medical times [place] daily. sulfaSALAzi 2020-0 Yes 500mg Take 500 U nivers ne 500 mg 1-25 mg by ity of tablet 13:04: mouth 4 [place] [address] ([facility]) Medical times [place] daily. pantoprazol 2020-0 Yes 40mg Take 40 mg Univers e 40 mg EC 1-25 by mouth ity o f tablet 13:04: daily. [address] mesalamine 2020-0 Yes 500mg Take 500 Un kelsie (PENTASA) 1-25 mg by ity of 500 mg CR 13:04: mouth 4 [facility] ([facility]) Medical times [place] daily. sulfaSALAzi 2020-0 Yes 500mg Take 500 U nivers ne 500 mg 1-25 mg by ity of tablet 13:04: mouth 4 [place] [address] ([facility]) Medical times [place] daily. Ondansetron Ondansetron 2019-0 No 1{table QD [...] Jesse 00 30 tab, 0 Refill(s), Pharmacy: [facility] [id number] Trazodone Yes 50 mg = 1 Mem oria Hydrochlori 3-26 tab, PO, l de 50 MG 13:57: Bedtime, # Her steen Oral Tablet 00 30 tab, 0 Refill(s), Pharmacy: [facility] [id number] topiramate Yes 100 mg = 1 M emoria 100 mg oral 3-26 tab, PO, l tablet 13:57: Daily, # [place] 00 30 tab, 0 Refill(s), Pharmacy: [facility] 52 oxybutynin 2018-0 Yes 15 mg = 1 Me moria 15 mg oral 3-26 tab, PO, l tablet, 13:57: Daily, # Christopher n extended 00 30 tab, 0 release Refill(s), Pharmacy: [facility] 52 Omeprazole 2018-0 Yes 20 mg = 1 Me moria 20 MG 3-26 cap, PO, l Enteric 13:57: Daily, # Christopher n Coated 00 30 cap, 0 Capsule Refill(s), [Prilosec] Pharmacy: [facility] cyclobenzap 2018- Yes 10 mg = 1 M emoria rine 10 mg 3-26 tab, PO, l oral tablet 13:57: TID, PRN He rmann 00 for spasms, X 30 day, # 30 tab, 0 Refill(s), Pharmacy: [facility] Clonidine 2018- Yes 0.1 mg = 1 Me moria Hydrochlori 3-26 tab, PO, l de 0.1 MG 13:57: BID, # 60 Her steen Oral Tablet 00 tab, 0 Refill(s), Pharmacy: [facility] clonazePAM 2018-0 Yes 0.5 mg = 1 M emoria 0.5 mg oral 3-26 tab, PO, l tablet 13:57: Daily, # [place] 00 30 tab, 0 Refill(s) Ventolin 2018-0 Yes 2 puff, Memori a HFA 90 3-26 INHALATION l mcg/inh 13:57: , QID, # 1 Herm gabriel inhalation 00 ea, 1 aerosol Refill(s), with Pharmacy: adapter [facility] 52 vilazodone 2018-0 Yes 40 mg = 1 Me moria 40 mg oral 3-26 tab, PO, l tablet 13:57: Daily, # Jesse 00 30 tab, 0 Refill(s), Pharmacy: [facility] 52 Trazodone 2018-0 Yes 50 mg = 1 Mem oria Hydrochlori 3-26 tab, PO, l de 50 MG 13:57: Bedtime, # Her steen Oral Tablet 00 30 tab, 0 Refill(s), Pharmacy: [facility] [id number] topiramate 2019-0 Yes 100 mg = 1 M emoria 100 mg oral 3-26 tab, PO, l tablet 13:57: Daily, # Jesse 00 30 tab, 0 Refill(s), Pharmacy: [facility] oxybutynin Yes 15 mg = 1 Me moria 15 mg oral 3-26 tab, PO, l tablet, 13:57: Daily, # Christopher n extended 00 30 tab, 0 release Refill(s), Pharmacy: [facility] Omeprazole Yes 20 mg = 1 Me moria 20 MG 3-26 cap, PO, l Enteric 13:57: Daily, # Christopher n Coated 00 30 cap, 0 Capsule Refill(s), [Prilosec] Pharmacy: [facility] cyclobenzap Yes 10 mg = 1 M emoria rine 10 mg 3-26 tab, PO, l oral tablet 13:57: TID, PRN He rmann 00 for spasms, X 30 day, # 30 tab, 0 Refill(s), Pharmacy: [facility] Clonidine Yes 0.1 mg = 1 Me moria Hydrochlori 3-26 tab, PO, l de 0.1 MG 13:57: BID, # 60 Her steen Oral Tablet 00 tab, 0 Refill(s), Pharmacy: [facility] clonazePAM Yes 0.5 mg = 1 M emoria 0.5 mg oral 3-26 tab, PO, l tablet 13:57: Daily, # [place] 00 30 tab, 0 Refill(s) Ventolin Yes 2 puff, Memori a HFA 90 3-26 INHALATION l mcg/inh 13:57: , QID, # 1 Herm gabriel inhalation 00 ea, 1 aerosol Refill(s), with Pharmacy: adapter [facility] 52 vilazodone Yes 40 mg = 1 Me moria 40 mg oral 3-26 tab, PO, l tablet 13:57: Daily, # [place] 00 30 tab, 0 Refill(s), Pharmacy: [facility] Trazodone Yes 50 mg = 1 Mem oria Hydrochlori 3-26 tab, PO, l de 50 MG 13:57: Bedtime, # Her steen Oral Tablet 00 30 tab, 0 Refill(s), Pharmacy: [facility] 52 topiramate Yes 100 mg = 1 M emoria 100 mg oral 3-26 tab, PO, l tablet 13:57: Daily, # [place] 00 30 tab, 0 Refill(s), Pharmacy: [facility] 52 oxybutynin Yes 15 mg = 1 Me moria 15 mg oral 3-26 tab, PO, l tablet, 13:57: Daily, # Christopher n extended 00 30 tab, 0 release Refill(s), Pharmacy: [facility] Omeprazole Yes 20 mg = 1 Me moria 20 MG 3-26 cap, PO, l Enteric 13:57: Daily, # Christopher n Coated 00 30 cap, 0 Capsule Refill(s), [Prilosec] Pharmacy: [facility] cyclobenzap Yes 10 mg = 1 M emoria rine 10 mg 3-26 tab, PO, l oral tablet 13:57: TID, PRN He rmann 00 for spasms, X 30 day, # 30 tab, 0 Refill(s), Pharmacy: [facility] Clonidine Yes 0.1 mg = 1 Me moria Hydrochlori 3-26 tab, PO, l de 0.1 MG 13:57: BID, # 60 Her steen Oral Tablet 00 tab, 0 Refill(s), Pharmacy: [facility] clonazePAM Yes 0.5 mg = 1 M emoria 0.5 mg oral 3-26 tab, PO, l tablet 13:57: Daily, # Jesse 00 30 tab, 0 Refill(s) Ventolin Yes 2 puff, Memori a HFA 90 3-26 INHALATION l mcg/inh 13:57: , QID, # 1 Herm gabriel inhalation 00 ea, 1 aerosol Refill(s), with Pharmacy: adapter [facility] vilazodone Yes 40 mg = 1 Me moria 40 mg oral 3-26 tab, PO, l tablet 13:57: Daily, # [place] 00 30 tab, 0 Refill(s), Pharmacy: [facility] Trazodone Yes 50 mg = 1 Mem oria Hydrochlori 3-26 tab, PO, l de 50 MG 13:57: Bedtime, # Her steen Oral Tablet 00 30 tab, 0 Refill(s), Pharmacy: [facility] topiramate Yes 100 mg = 1 M emoria 100 mg oral 3-26 tab, PO, l tablet 13:57: Daily, # [place] 00 30 tab, 0 Refill(s), Pharmacy: [facility] oxybutynin Yes 15 mg = 1 Me moria 15 mg oral 3-26 tab, PO, l tablet, 13:57: Daily, # Christopher n extended 00 30 tab, 0 release Refill(s), Pharmacy: [facility] Omeprazole Yes 20 mg = 1 Me moria 20 MG 3-26 cap, PO, l Enteric 13:57: Daily, # Christopher n Coated 00 30 cap, 0 Capsule Refill(s), [Prilosec] Pharmacy: [facility] cyclobenzap Yes 10 mg = 1 M emoria rine 10 mg 3-26 tab, PO, l oral tablet 13:57: TID, PRN He rmann 00 for spasms, X 30 day, # 30 tab, 0 Refill(s), Pharmacy: [facility] Clonidine Yes 0.1 mg = 1 Me moria Hydrochlori 3-26 tab, PO, l de 0.1 MG 13:57: BID, # 60 Her steen Oral Tablet 00 tab, 0 Refill(s), Pharmacy: [facility] clonazePAM Yes 0.5 mg = 1 M emoria 0.5 mg oral 3-26 tab, PO, l tablet 13:57: Daily, # [place] 00 30 tab, 0 Refill(s) Ventolin Yes 2 puff, Memori a HFA 90 3-26 INHALATION l mcg/inh 13:57: , QID, # 1 Herm gabriel inhalation 00 ea, 1 aerosol Refill(s), with Pharmacy: adapter [facility] clonazePAM Yes Take 1 Unive rs 0.5 mg 3-26 tablet 3 ity of tablet 00:00: times a [place] 00 day by Medical oral route Branch as needed. fluticasone Yes [facility] 1 Uni vers 50 3-26 spray ity [...] oral route Branch as needed. fluticasone Yes [facility] 1 Uni vers 50 3-26 spray ity [...] oral route Branch as needed. fluticasone Yes [place] 1 Uni vers 50 3-26 spray ity [...] oral route Branch as needed. fluticasone Yes [place] 1 Uni vers 50 3-26 spray ity [...] oral route Branch as needed. fluticasone Yes [place] 1 Uni vers 50 3-26 spray ity [...] oral route Branch as needed. fluticasone Yes [place] 1 Uni vers 50 3-26 spray ity [...] oral route Branch as needed. fluticasone Yes [place] 1 Uni vers 50 3-26 spray ity [...] route Branch as needed. fluticasone 2018-0 Yes [place] 1 Uni vers 50 3-26 spray ity [...] oral route Branch as needed. fluticasone Yes [place] 1 Uni vers 50 3-26 spray ity [...] oral route Branch as needed. fluticasone Yes [place] 1 Uni vers 50 3-26 spray ity [...] route Branch as needed. fluticasone 2018-0 Yes [place] 1 Uni vers 50 3-26 spray ity [...] oral route Branch as needed. fluticasone Yes [place] 1 Uni vers 50 3-26 spray ity [...] route Branch as needed. fluticasone 2018- Yes [place] 1 Uni vers 50 3-26 spray ity [...] tab, PO, l tablet 20:19: Daily, 0 [place] 00 Refill(s) Clonidine No 0.1 mg = 1 Me moria Hydrochlori 3-25 tab, PO, l de 0.1 MG 20:19: BID, # 90 Her steen Oral Tablet 00 tab, 3 Refill(s) topiramate No 100 mg = 1 M emoria 100 mg oral 3-25 tab, PO, l tablet 20:19: Daily, # [place] 00 30 tab, 3 Refill(s) Ventolin No INHALATION Mem oria HFA 3-25 , QID, 0 l 20:19: Refill(s) [place] 00 oxybutynin No 15 mg = 1 [...] tab, PO, l tablet 20:19: Daily, 0 [place] 00 Refill(s) Clonidine No 0.1 mg = 1 Me moria Hydrochlori 3-25 tab, PO, l de 0.1 MG 20:19: BID, # 90 Her steen Oral Tablet 00 tab, 3 Refill(s) clonazePAM No 0.5 mg = 1 M emoria 0.5 mg oral 3-25 tab, PO, l tablet 20:19: TID, # 90 Christopher n 00 tab, 0 Refill(s) topiramate No 100 mg = 1 M emoria 100 mg oral 3-25 tab, PO, l tablet 20:19: Daily, # Jesse 00 30 tab, 3 Refill(s) Ventolin No INHALATION Mem oria HFA 3-25 , QID, 0 l 20:19: Refill(s) [place] 00 oxybutynin No 15 mg = 1 Me moria 15 mg oral 3-25 tab, PO, l tablet, 20:19: Daily, Kim navarro extended 00 30 tab, 0 release Refill(s) Omeprazole No 20 mg = 1 Me moria 20 MG 3-25 cap, PO, l Enteric 20:19: Daily, Kim navarro Coated 00 30 cap, 0 Capsule Refill(s) [...] for spasms, # 30 tab, 0 Refill(s) vilazodone No 40 mg [...] tab, PO, l tablet 20:19: Daily, # [place] 00 30 tab, 3 Refill(s) Ventolin No INHALATION Mem oria HFA 3-25 , QID, 0 l 20:19: Refill(s) [place] 00 oxybutynin No 15 mg = 1 [...] tab, PO, l tablet 20:19: Daily, 0 [place] 00 Refill(s) Clonidine No 0.1 mg = 1 Me moria Hydrochlori 3-25 tab, PO, l de 0.1 MG 20:19: BID, # 90 Her steen Oral Tablet 00 tab, 3 Refill(s) topiramate No 100 mg = 1 M emoria 100 mg oral 3-25 tab, PO, l tablet 20:19: Daily, # [place] 00 30 tab, 3 Refill(s) Ventolin No INHALATION Mem oria HFA 3-25 , QID, 0 l 20:19: Refill(s) [place] 00 oxybutynin No 15 mg = 1 [...] kate) 1.25 mary kate) 1.25 ferol) MG (40758 MG (72770 1.25 MG UT) UT) (69699 UT) Viibryd 40 Viibryd 40 No 1{table [...] kate) 1.25 mary kate) 1.25 ferol) MG (52779 MG (77996 1.25 MG UT) UT) (40737 UT) Estroven Estroven No [place] Albuterol Albuterol [...] kate) 1.25 mary kate) 1.25 ferol) MG (45872 MG (80217 1.25 MG UT) UT) (09692 UT) PreNata PreNata No 1{table QD PreNata 29-1 MG 29-1 MG t_with_ 29-1 MG a_meal} Viibryd 40 Viibryd 40 No 1{table QD Viibryd 40 MG MG t_with_ MG food} sulfaSALAzi sulfaSALAzi No 1{table BID sulfaSALAz ne 500 MG ne 500 MG t} ine 500 MG Vital Signs Vital Name Observation Time Observation Value Comments Source weight 2022-04-17 08:20:00 209 [lb_av] [facility] bmi 2022-04-17 08:20:00 30.86 kg/m2 [facility] height 2022-04-17 08:20:00 69.00 [in_i] [facility] height 2022-04-11 13:20:00 69.00 [in_i] [facility] weight 2022-04-11 13:20:00 209 [lb_av] Common [facility] bmi 2022-04-11 13:20:00 30.86 kg/m2 [facility] height 2022-03-02 10:00:00 69.00 [in_i] [facility] weight 2022-03-02 10:00:00 207.2 [lb_av] Common [facility] temperature 2022-03-02 10:00:00 97.3 [degF] [facility] bmi 2022-03-02 10:00:00 30.59 kg/m2 [facility] oximetry 2022-03-02 10:00:00 95 % [facility] respiratory rate 2022-03-02 10:00:00 18 /min Comm on [facility] blood pressure 2022-03-02 10:00:00 147 mm[Hg] Common [facility] - systolic [facility] blood pressure 2022-03-02 10:00:00 84 mm[Hg] Common [facility] - diastolic [facility] Systolic blood 2021-12-07 14:36:00 119 mm[Hg] Univer sity of pressure [facility] Diastolic blood 2021-12-07 14:36:00 74 mm[Hg] Unive rsity of pressure [facility] Heart rate 2021-12-07 14:35:00 82 /min [facility] Body height 2021-12-07 14:35:00 175.3 cm [facility] Body weight 2021-12-07 14:35:00 [facility] 2021-12-07 14:35:00 31.00 kg/m2 [facility] Oxygen saturation in 2021-12-07 14:35:00 97 /min [facility] Arterial blood by [facility] Pulse oximetry Branch Temperature Oral (F) 2019-01-12 20:04:00 98.3 F [facility] Height 2019-01-12 20:04:00 175.26 cm [facility] [place] BMI Calculated 2019-01-12 20:04:00 Alexander al Jesse Weight 2019-01-12 20:04:00 [facility] [place] Heart Rate 2019-01-12 20:04:00 [facility] [place] Systolic (mm Hg) 2019-01-12 20:04:00 Bryce wagner Jesse Diastolic (mm Hg) 2019-01-12 20:04:00 Mem orial Jesse Procedures Procedure Date / Time Performing Clinician Source Performed XR KNEE <3 VW LEFT 2021-12-07 15:15:00 Dimitri Vázquez [facility] Colonoscopy [facility] [place] Endoscopic biopsy [facility] Felicia nn Removal of cystostomy [facility] H ermann tube Tubal ligation [facility] Jesse Encounters Start End Encounter Admission Attending Care Care Encounter Source Date/Time Date/Time Type Type Clinicians Facility Department ID 2022-03-02 Outpatient Vanessa, STLMLC STLMLC [id number] Common 10:03:01 Lizabeth [facility] 2021-08-19 [facility] [id number] Univers 17:39:38 [facility] 2021-08-19 Outpatient Lokesh MANZO [facility] [id number] Univers 15:28:53 [facility] 2022-04-17 2022-04-17 OFFICE STLMLC STLMLC [id number] Co mmon 00:00:00 00:00:00 VISIT EST Spir it PT LEVEL 3 [facility] 2022-04-11 2022-04-11 OFFICE STLMLC STLMLC [id number] Co mmon 00:00:00 00:00:00 VISIT EST Spir it PT LEVEL 3 - [facility] 2022-03-27 2022-03-27 Outpatient Lokesh MANZO [facility] [id number] Univers 08:00:00 08:00:00 [facility] 2022-03-06 2022-03-06 Ancillary Chery Bond [facility] 1.2.84 0.114 [id number] Univers 08:00:00 08:45:00 Visit Felipe Manzo [id number] [id number] [id number] Fl dical NAL 179 [facility] 2022-03-06 2022-03-06 Outpatient R MANZO [facility] [id number] Univers 08:00:00 08:00:00 FELIPE colon [facility] 2022-03-02 2022-03-[address] [facility] [id number] Co mmon 00:00:00 00:00:00 VISIT EST Spir it PT LEVEL 3 - [facility] 2022-02-20 2022-02-20 Ancillary Chery Bond [facility] 1.2.84 0.114 [id number] Univers 08:00:00 08:45:00 Visit Felipe Manzo [id number] it[place] of [id number] [id number] Fl dical NAL 179 [facility] 2022-02-13 2022-02-13 Ancillary Chery Bond [facility] 1.2.84 0.114 [id number] Univers 08:00:00 08:45:00 Visit Felipe Manzo [id number] [id number] [phone] Fl dical NAL 179 [facility] 2022-02-13 2022-02-13 Outpatient R ANAIS [facility] [id number] Univers 08:00:00 08:00:00 FELIPE colon [facility] 2022-02-06 2022-02-06 Ancillary Chery Bond [facility] 1.2.84 0.114 [id number] Univers 08:45:00 09:30:00 Visit Felipe ManzoTON 350.1.13.10 [id number] [phone] Fl dical NAL 179 [facility] 2022-02-01 2022-02-01 Ancillary Chery Bond [facility] 1.2.84 0.114 [id number] Univers 08:00:00 08:45:00 Visit Felipe Manzo [place] [id number] [place] [id number] Fl dical NAL 179 Branch [facility] 2022-01-30 2022-01-30 Ancillary Chery Bond [facility] 1.2.84 0.114 [id number] Univers 08:45:00 09:30:00 Visit Felipe Manzo 350.1.13.10 [id number] [phone] Fl dical NAL 179 Branch [facility] 2022-01-18 2022-01-18 Ancillary Christiano Chiu [facility] 1.2.840. 114 [id number] Univers 08:00:00 08:45:00 Visit Felipe Manzo 350.1.13.10 [place] of [id number] [id number] Fl dical NAL 179 [facility] 2022-01-18 2022-01-18 Outpatient R ANAIS [facility] [id number] Univers 08:00:00 08:00:00 FELIPE ity of [facility] 2022-01-11 2022-01-11 Ancillary Doreen Chiu [facility] 1.2.840 .114 [id number] Univers 08:00:00 09:16:21 Visit Felipe Manzo 350.1.13.10 [place] [phone] Fl dical NAL 179 [facility] 2022-01-09 2022-01-09 Ancillary Doreen Chiu [facility] 1.2.840 .114 [id number] Univers 09:30:00 10:15:00 Visit Felipe Manzo 350.1.13.10 [place] [phone] Fl dical NAL 179 [facility] 2022-01-03 2022-01-03 Ancillary Christiano Chiu [facility] 1.2.840. 114 [id number] Univers 08:00:00 08:45:00 Visit Felipe Manzo 350.1.13.10 [place] of [id number] [id number] Fl dical NAL 179 [facility] 2022-01-02 2022-01-02 Ancillary FishGhazal hwang Vangie [facility] 1.2.840. 114 [id number] Univers 07:15:00 09:38:50 Visit Felipe Manzo Daksha [place] [id number] [place] of [id number] [phone] Fl dical NAL 179 [facility] 2021-12-18 2021-12-18 Outpatient R ANAIS [facility] [id number] Univers 07:15:00 07:15:00 FELIPE ity [facility] 2021-12-07 2021-12-07 [facility] 1.2.840.114 [id number] Univers 09:05:00 23:59:00 Encounter [facility] [id number] ity of [place] 4.2.7.2.686 Missael as GIULIANA?BLEA [phone] Fl dical JACINTO 809 [facility] OFFICE [facility] 2021-12-07 2021-12-07 Outpatient R GURPREET [facility] [id number] Univers 08:15:00 09:43:38 DIMITRI ity [facility] 2021-12-07 2021-12-07 [facility] 1.2.840.114 [id number] Univers 08:15:00 08:30:00 Visit [facility] [id number] it y of [place] [id number] Missael as GIULIANA?BLEA [phone] Fl dical JASSONEY 198 [facility] OFFICE [facility] 2021-12-07 2021-12-07 [facility] [id number] Univers 08:15:00 08:15:00 DIMITRI ity [facility] 2021-12-07 2021-12-07 Orders Doctor DANIELLE 1.2.840.114 [id number] Univers 00:00:00 00:00:00 Only Unassigned, JUDITH 350.1.13.10 ity of [place] [facility] [id number] Missael as [id number] [address] 2021-03-07 2021-03-07 Outpatient Lokesh VÁZQUEZ [facility] [id number] Univers 08:00:00 08:00:00 [facility] 2021-03-02 Outpatient Lokesh VÁZQUEZ [facility] [id number] Univers 15:30:00 15:30:00 [facility] 2021-02-28 2021-02-28 Outpatient Lokesh VÁZQUEZ [facility] [id number] Univers 08:15:00 08:15:00 [facility]30 2020-12-30 Outpatient Lokesh VÁZQUEZ [facility] [id number] Univers 09:12:10 23:59:00 [facility] 2020-12-30 2020-12-30 Outpatient Lokesh VÁZQUEZ [facility] [id number] Univers 10:30:00 10:30:00 [facility] 2020-12-28 2020-12-28 Outpatient Lokesh VÁZQUEZ [facility] [id number] Univers 13:15:00 13:15:00 [facility] 2020-11-30 2020-11-30 Outpatient Lokesh VÁZQUEZ [facility] [id number] Univers 13:15:00 13:15:00 [facility] 2020-11-21 2020-11-21 [facility] [id number] Univers 16:15:00 16:15:00 [facility] 2020-11-16 2020-11-16 [facility] [id number] Univers 13:30:00 13:30:00 [facility] 2020-11-16 2020-11-16 [facility] 1.2.840.114 [id number] 12:56:28 13:11:28 Visit [facility] [id number] Surgical [id number] Specialti [id number] [id number] [place] 2020-11-11 2020-11-11 Outpatient Lokesh MANZO [facility] [id number] Univers 08:30:00 08:30:00 FELIPE seamus [facility] 2020-10-28 2020-10-28 Outpatient Lokesh MANZO [facility] [id number] Univers 12:30:00 12:30:00 FELIPE colon [facility] 2020-10-19 2020-10-19 Outpatient Lokesh MANZO [facility] [id number] Univers 16:15:00 16:15:00 FELIPE seamus [facility] 2020-10-18 2020-10-18 Outpatient Lokesh VÁZQUEZ [facility] [id number] Univers 09:00:00 09:00:00 DIMITRI seamus [facility] 2020-10-12 2020-10-12 Outpatient Lokesh MANZO [facility] [id number] Univers 07:50:27 23:59:00 FELIPETHERESA colon [facility] 2020-09-20 2020-09-20 Outpatient Lokesh VÁZQUEZ [facility] [id number] Univers 09:52:23 23:59:00 DIMITRI seamus [facility] 2019-09-22 2019-09-22 Outpatient Lokesh VÁZQUEZ [facility] [id number] Univers 14:22:16 23:59:00 [facility] 2019-01-27 2019-01-27 Outpatient Cory DANIEL [facility] [id number] [place] 20:10:00 22:20:00 OLGA Medica [facility] 2019-01-26 2019-01-26 Ambulatory nullFlavo [facility] 5 [id number] Memoria 18:30:00 18:30:00 Pre-Reg r Medicine 01 daksha Lynne [place] 2019-01-26 2019-01-26 Ambulatory nullFlavo [facility] 5 [id number] Memoria 18:30:00 18:30:00 Pre-Reg r Medicine 01 daksha Lynne [place] 2019-01-26 2019-01-26 Outpatient MHIE [facility]IE [id number] Memoria 13:30:00 13:30:00 daksha MendozaJesse 2019-01-26 2019-01-26 Outpatient [facility] [id number] 13:30:00 13:30:00 2019-01-12 2019-01-13 Outpatient nullFlavo [facility] 5 [id number] Memoria 20:00:00 04:59:59 r Medicine 00 l Guera Molina 2019-01-12 2019-01-13 Outpatient nullFlavo [facility] 5 [id number] Memoria 20:00:00 04:59:59 r Medicine 00 l Guera Molina 2019-01-12 2019-01-12 Outpatient PATY [id number] 15:00:00 23:59:59 00 2019-01-12 2019-01-12 Outpatient MARIANN JYOTI [id number] Memoria 15:00:00 15:00:00 00 l Jesse Results Test Description Test Time Test Comments Results Result Sourc e Comments XR SPINE LUMBAR 2019-01-27 LOCATION: [id number]: COMPLETE *OW* 21:23:46 49-year-old female with acute [...]
[2023-04-01] MEDS ORDERED: DIPHENHYDRAMINE 50 MG/ML VIAL ONE (18:30)
[2023-04-01] MEDS ORDERED: METHYLPREDNISOLONE 125 MG INJ ONE (18:30)
[2023-04-01] MEDS ORDERED: FAMOTIDINE 20 MG/2 ML VIAL IV ONE (18:30)
[2023-04-01] MEDS ORDERED: NA CHLORIDE 0.9% 1,000 ML ONE (18:30)
--- NOTE | 2023-04-01 19:03 | ER ---
Nurse's Notes [facility] Name: Kenzie Cartwright Age: 53 yrs Sex: Female : 1970 Arrival Date: 04/01/2023 Time: 17:47 Bed 6 Private MD: Diagnosis: Rash and other nonspecific skin eruption Presentation: 04/01 18:03 Chief complaint: Patient states: Itching and hives since 0300, taking Benadryl all day jl7 with no relief. Coronavirus screen: At this time, the client does not indicate any symptoms associated with coronavirus-19. Ebola Screen: No symptoms or risks identified at this time. Onset: The symptoms/episode began/occurred suddenly. Anaphylaxis evaluation, no signs or symptoms of anaphylaxis were noted. Initial Sepsis Screen: Does the patient meet any 2 criteria? No. Patient's initial sepsis screen is negative. Does the patient have a suspected source of infection? No. Patient's initial sepsis screen is negative. Risk Assessment: Do you want to hurt yourself or someone else? Patient reports no desire to harm self or others. Onset of symptoms was April 01, 2023 at 03:00. 18:03 Method Of Arrival: Ambulatory jl7 18:03 Acuity: ERICA 4 jl7 Triage Assessment: 18:05 General: Appears in no apparent distress. uncomfortable, Behavior is calm, cooperative, jl7 appropriate for age. Pain: Complains of pain in all over. Derm: Rash noted that is red, raised, urticaria. 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 - Social history:: Smoking status: Patient reports the use of cigarette tobacco products, smokes 1.5 packs per day. Screenin:31 [facility] ED Fall Risk Assessment (Adult) History of falling in the last 3 months, ko1 including since admission No falls in past 3 months (0 pts) Confusion or Disorientation No (0 pts) Intoxicated or Sedated No (0 pts) Impaired Gait No (0 pts) Mobility Assist Device Used No (0 pt) Altered Elimination No (0 pt) Score/Fall Risk Level 0 - 2 = Low Risk Oriented to surroundings, Maintained a safe environment, Educated pt \T\ family on fall prevention, incl call for assistance when getting out of bed, Assessed \T\ reinforced patient's understanding of fall precautions, Provided non-skid footwear, Hourly rounding (assess needs \T\ fall precautionary measures) done, Used ambulatory aids as needed (educated on \T\ assisted with), Used gait belt as appropriate. Abuse screen: Denies threats or abuse. Denies injuries from another. Nutritional screening: No deficits noted. Tuberculosis screening: No symptoms or risk factors identified. Assessment: 18:31 General: Appears distressed, uncomfortable, Behavior is calm, cooperative, appropriate ko1 for age. Pain: Complains of pain in generalized. Neuro: No deficits noted. Cardiovascular: No deficits noted. Respiratory: Airway is patent Respiratory effort is even, unlabored, Breath sounds are clear bilaterally. GI: No deficits noted. : No deficits noted. EENT: No deficits noted. Derm: Rash noted that is itchy, red, raised, on generalized. Musculoskeletal: No deficits noted. 19:30 General: Appears in no apparent distress. comfortable, well groomed, well developed, pf1 Behavior is calm, cooperative, appropriate for age, quiet. 19:30 Pain: Complains of pain in generalized to skin where hives are located, burning and pf1 itching to hives. Neuro: No deficits noted. Level of Consciousness is awake, alert, obeys commands, Oriented to person, place, time, situation. Cardiovascular: No deficits noted. Capillary refill < 3 seconds Patient's skin is warm and dry. Respiratory: No deficits noted. Airway is patent Respiratory effort is even, unlabored, Respiratory pattern is regular, symmetrical. GI: No deficits noted. No signs and/or symptoms were reported involving the gastrointestinal system. : No deficits noted. No signs and/or symptoms were reported regarding the genitourinary system. EENT: No deficits noted. No signs and/or symptoms were reported regarding the EENT system. Derm: Rash noted that is itchy, red, raised, on generalized. Musculoskeletal: No deficits noted. Circulation, motion, and sensation intact. Capillary refill < 3 seconds, Range of motion: intact in all extremities. 20:30 Reassessment: Patient appears in no apparent distress at this time. Patient and/or pf1 family updated on plan of care and expected duration. Pain level reassessed. Patient is alert, oriented x 3, equal unlabored respirations, skin warm/dry/pink. Patient states symptoms have improved. Vital Signs: 18:03 BP 141 / 93; Pulse 85; Resp 17; Temp 97.9; Pulse Ox 100% ; Weight 103.42 kg; Height 5 jl7 ft. 9 in. ; Pain 7/10; 18:40 BP 135 / 106; Pulse 94; Resp 16; Pulse Ox 99% on R/A; ko1 19:30 BP 166 / 61; Pulse 73; Resp 15; Temp 98.6; Pulse Ox 99% on R/A; Pain 0/10; pf1 20:30 BP 121 / 63; Pulse 73; Resp 15; Pulse Ox 97% on R/A; Pain 0/10; pf1 21:30 BP 131 / 67; Pulse 78; Resp 18; Pulse Ox 99% on R/A; Pain 0/10; pf1 18:03 Body Mass Index 33.67 (103.42 kg, 175.26 cm) jl7 18:03 Pain Scale: Adult jl7 19:30 Pain Scale: Adult pf1 20:30 Pain Scale: Adult pf1 21:30 Pain Scale: Adult pf1 ED Course: 17:49 Patient arrived in ED. mr 17:56 Jose David Dave PA is PHCP. [facility] 17:56 Dom Dudley DO is Attending Physician. [facility] 18:05 Triage completed. jl7 18:05 Arm band placed on right wrist. jl7 18:10 Janice Manjarrez, LSO is Primary Nurse. ko1 18:21 Inserted saline lock: 20 gauge in right antecubital area, using aseptic technique. ko1 18:31 Patient has correct armband on for positive identification. Bed in low position. Call ko1 light in reach. Side rails up X 1. Pulse ox on. NIBP on. Door closed. Noise minimized. Lights dimmed. Warm blanket given. 20:25 Attending Physician role handed off by Dom Dudley DO rt 20:25 Max Grey MD is Attending Physician. rt 21:48 No provider procedures requiring assistance completed. IV discontinued, intact, kd3 bleeding controlled, No redness/swelling at site. Pressure dressing applied. Administered Medications: 18:30 Drug: MethylPrednisoLONE IVP 125 mg Route: IVP; Site: right antecubital; ko1 21:50 Follow up: Response: No adverse reaction kd3 18:30 Drug: diphenhydrAMINE IVP 25 mg Route: IVP; Site: right antecubital; ko1 21:50 Follow up: Response: No adverse reaction kd3 18:30 Drug: Famotidine IVP 20 mg Route: IVP; Site: right antecubital; ko1 21:49 Follow up: Response: No adverse reaction kd3 18:30 Drug: NS 0.9% IV 1000 ml Route: IV; Rate: 1 bolus; Site: right antecubital; ko1 21:49 Follow up: IV Status: Completed infusion kd3 20:55 Drug: Ketorolac IVP 15 mg Route: IVP; Site: right antecubital; pf1 21:49 Follow up: Response: No adverse reaction kd3 20:55 Drug: hydrOXYzine PO 25 mg Route: PO; pf1 21:49 Follow up: Response: No adverse reaction kd3 Medication: 21:49 VIS not applicable for this client. kd3 Outcome: 19:02 Discharge ordered by [facility] 21:48 Discharged to home ambulatory. kd3 21:48 Condition: stable 21:48 Discharge instructions given to patient, Instructed on discharge instructions, follow up and referral plans. Demonstrated understanding of instructions, follow-up care, medications, Prescriptions given X 3. 21:49 Patient left the ED. kd3 Signatures: Jose David Dave PA PA [facility] Anabela LeachOlga RN RN jl7 Monica Florence RN RN kd3 Janice Manjarrez RN RN ko1 Max Grey MD MD rt Juany Todd RN RN pf1 Corrections: (The following items were deleted from the chart) 20:44 19:30 General: Appears in no apparent distress. comfortable, obese, well developed, pf1 Behavior is calm, cooperative, appropriate for age, quiet, pf1 20:44 19:30 Pain: Denies pain. pf1 pf1 20:44 19:30 Neuro: No deficits noted. Level of Consciousness is awake, alert, obeys commands, pf1 Oriented to person, place, time, situation, pf1 20:44 19:30 Cardiovascular: Reports shortness of breath, since 2 days Capillary refill < 3 pf1 seconds Patient's skin is warm and dry. pf1 20:44 19:30 Respiratory: Airway is patent Trachea midline Respiratory effort is even, pf1 unlabored, Respiratory pattern is regular, symmetrical, Breath sounds are clear bilaterally. pf1 20:44 19:30 GI: Abdomen is round non-distended, Bowel sounds present X 4 quads. Abd is soft pf1 and non tender X 4 quads. Reports diarrhea, nausea, vomiting, denies any symptoms at this time. pf1 20:44 19:30 : No deficits noted. No signs and/or symptoms were reported regarding the pf1 genitourinary system. pf1 : 19:30 EENT: No deficits noted. No signs and/or symptoms were reported regarding the pf1 EENT system. pf1 20:44 19:30 Derm: No deficits noted. No signs and/or symptoms reported regarding the pf1 dermatologic system. pf1 20:44 20:30 Reassessment: Patient appears in no apparent distress at this time. Patient pf1 and/or family updated on plan of care and expected duration. Pain level reassessed. Patient is alert, oriented x 3, equal unlabored respirations, skin warm/dry/pink. Patient states symptoms have improved. pf1
--- NOTE | 2023-04-01 19:03 | EDPHYS ---
Physician Documentation [facility] Name: Kenzie Cartwright Age: 53 yrs Sex: Female : 1970 Arrival Date: 04/01/2023 Time: 17:47 Bed 6 Private MD: ED Physician Max Grey HPI: 04/01 18:06 This 53 yrs old Female presents to ER via Ambulatory with complaints of Hives. [facility] 18:06 Is a 53-year-old female with history of bipolar, depression, PTSD the presents emerged [facility] part with complaints of diffuse hives beginning last night. Patient denies any shortness of breath, vomiting. Describes it as both itchy and painful. Patient is currently on a course of oral antibiotics for cellulitis. Particular, the patient is on Bactrim.. 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 - Social history:: Smoking status: Patient reports the use of cigarette tobacco products, smokes 1.5 packs per day. ROS: 18:06 Constitutional: Negative for fever, chills, and weight loss, Cardiovascular: Negative [facility] for chest pain, palpitations, and edema, Respiratory: Negative for shortness of breath, cough, wheezing, and pleuritic chest pain. 18:06 Skin: Positive for rash. 18:06 All other systems are negative. Exam: 18:06 Constitutional: This is a well developed, well nourished patient who is awake, alert, jmm and in no acute distress. Head/Face: atraumatic. Eyes: EOMI, no conjunctival erythema appreciated ENT: Moist Mucus Membranes Neck: Trachea midline, Supple Chest/axilla: Normal chest wall appearance and motion. Cardiovascular: Regular rate and rhythm. No edema appreciated Respiratory: Normal respirations, no respiratory distress appreciated Abdomen/GI: Non distended Back: Normal ROM 18:06 Skin: Diffuse rash noted consistent with erythema multiforme. 18:06 Neuro: Orientation: is normal, Mentation: is normal, Memory: is normal. 18:06 Psych: Behavior/mood is pleasant, cooperative. Vital Signs: 18:03 BP 141 / 93; Pulse 85; Resp 17; Temp 97.9; Pulse Ox 100% ; Weight 103.42 kg; Height 5 jl7 ft. 9 in. ; Pain 7/10; 18:40 BP 135 / 106; Pulse 94; Resp 16; Pulse Ox 99% on R/A; ko1 19:30 BP 166 / 61; Pulse 73; Resp 15; Temp 98.6; Pulse Ox 99% on R/A; Pain 0/10; pf1 20:30 BP 121 / 63; Pulse 73; Resp 15; Pulse Ox 97% on R/A; Pain 0/10; pf1 21:30 BP 131 / 67; Pulse 78; Resp 18; Pulse Ox 99% on R/A; Pain 0/10; pf1 18:03 Body Mass Index 33.67 (103.42 kg, 175.26 cm) jl7 18:03 Pain Scale: Adult jl7 19:30 Pain Scale: Adult pf1 20:30 Pain Scale: Adult pf1 21:30 Pain Scale: Adult pf1 MDM: 18:06 Patient medically screened. [facility] 18:48 Differential diagnosis: Hives erythema multiforme. Data reviewed: vital signs, nurses janey notes. I considered the following discharge prescriptions or medication management in the emergency department Medications were administered in the Emergency Department. See MAR. Counseling: I had a detailed discussion with the patient and/or guardian regarding: the historical points, exam findings, and any diagnostic results supporting the discharge/admit diagnosis, the need for outpatient follow up, to return to the emergency department if symptoms worsen or persist or if there are any questions or concerns that arise at home. 04/01 18:14 Order name: Saline Lock; Complete Time: 18:23 [facility] Administered Medications: 18:30 Drug: MethylPrednisoLONE IVP 125 mg Route: IVP; Site: right antecubital; ko1 21:50 Follow up: Response: No adverse reaction kd3 18:30 Drug: diphenhydrAMINE IVP 25 mg Route: IVP; Site: right antecubital; ko1 21:50 Follow up: Response: No adverse reaction kd3 18:30 Drug: Famotidine IVP 20 mg Route: IVP; Site: right antecubital; ko1 21:49 Follow up: Response: No adverse reaction kd3 18:30 Drug: NS 0.9% IV 1000 ml Route: IV; Rate: 1 bolus; Site: right antecubital; ko1 21:49 Follow up: IV Status: Completed infusion kd3 20:55 Drug: Ketorolac IVP 15 mg Route: IVP; Site: right antecubital; pf1 21:49 Follow up: Response: No adverse reaction kd3 20:55 Drug: hydrOXYzine PO 25 mg Route: PO; pf1 21:49 Follow up: Response: No adverse reaction kd3 Disposition: 20:30 Co-signature as Attending Physician, Max Grey MD Prior to discharge, patient rt requested to see a physician. I suspect patient's presentation is more likely due to hypersensitivity reaction to Bactrim. She instructed to stop taking Bactrim, will add Toradol, hydroxyzine. I see no evidence of Jimenes-Roshan syndrome or toxic epidermal necrolysis. Patient was instructed to return for significantly worsening symptoms or if she develops mucosal involvement. Patient verbalized understanding is comfortable discharge. Disposition Summary: 04/01/23 19:02 Discharge Ordered Location: Home jmm Condition: Stable jmm Diagnosis - Rash and other nonspecific skin eruption jmm Followup: jmm - With: Private Physician - When: 2 - 3 days - Reason: Recheck today's complaints, Continuance of care, Re-evaluation by your physician Discharge Instructions: - Discharge Summary Sheet jmm - Erythema Multiforme jmm - Rash, Adult jmm Forms: - Medication Reconciliation Form [facility] - Thank You Letter [facility] - Antibiotic Education m - Prescription Opioid Use [facility] Prescriptions: - Doxycycline Hyclate 100 mg Oral Tablet - take 1 tablet by ORAL route every 12 hours; 20 tablet; Refills: 0, Product [facility] Selection Permitted - Medrol (Casey) 4 mg Oral Tablets, Dose Pack - take 1 tablet by ORAL route as directed - follow package instructions; 1 [facility] packet; Refills: 0, Product Selection Permitted - Hydroxyzine HCl 25 mg Oral Tablet - take 1 tablet by ORAL route every 6 hours As needed; 30 tablet; Refills: 0, rt Product Selection Permitted Signatures: Jose David Dave PA PA jmm Leal, Jahala, RN RN jl7 Janice Manjarrez, RN RN ko1 Max Grey MD MD rt Juany Todd RN RN pf1 Monica Florence RN kd3
[2023-04-01] MEDS ORDERED: KETOROLAC 30 MG/ML INJ ONE (21:03)
[2023-04-01] MEDS ORDERED: hydrOXYzine HCL 25 MG TAB ONE (21:03)
[2023-04-02 00:39] VITALS: TEMP 98.6
[2023-04-02 00:41] VITALS: BP 121/63; O2SAT 97
== END 2023-04-01 21:49 | disposition home or self-care (01) ==
LOC: ER 17:47
DX: R21 Rash and other nonspecific skin eruption (principal); F17.210 Nicotine dependence, cigarettes, uncomplicated; Z88.5 Allergy status to narcotic agent; Z88.8 Allergy status to other drugs, medicaments and biological substances; Z91.013 Allergy to seafood; Z91.018 Allergy to other foods
CPT/HCPCS: 96361; 96375; 96374; 99284; J1200; J2930; J7030

== ENCOUNTER 2024-07-07 01:28 | Emergency (ER) | payer OTHER ==
[2024-07-07] MEDS ORDERED: METHYLPREDNISOLONE 125 MG INJ ONE (02:32)
[2024-07-07] MEDS ORDERED: DIPHENHYDRAMINE 50 MG/ML VIAL ONE ×2 (02:32→04:58)
[2024-07-07] MEDS ORDERED: NA CHLORIDE 0.9% 1,000 ML ONE (02:33)
[2024-07-07] MEDS ORDERED: FAMOTIDINE 20 MG/2 ML VIAL IV ONE (02:33)
[2024-07-07 02:57] LABS: Anion Gap 5.6 mEq/L (5.0-15.0); Potassium 3.6 mEq/L (3.5-5.1)
[2024-07-07] MEDS ORDERED: hydrOXYzine HCL 25 MG TAB ONE (04:58)
--- NOTE | 2024-07-07 05:42 | ER ---
Nurse's Notes [facility] Name: Kenzie Cartwright Age: 54 yrs Sex: Female : 1970 Arrival Date: 07/07/2024 Time: 01:28 Bed 4 Private MD: Diagnosis: Allergic reaction, acute diffuse allergic hives Presentation: 07/07 02:03 Chief complaint: Patient states: Pt reports she woke up around 0100 this morning with ss hives to the tops of her feet and where her bra line is. Pt reports she was seen in ER for the same thing a few days ago. Coronavirus screen: Client denies travel out of the [place] in the last 14 days. Ebola Screen: Patient denies exposure to infectious person. Patient denies travel to an Ebola-affected area in the 21 days before illness onset. Onset: The symptoms/episode began/occurred 1 hour(s) ago. Anaphylaxis evaluation, no signs or symptoms of anaphylaxis were noted. Initial Sepsis Screen: Does the patient meet any 2 criteria? No. Patient's initial sepsis screen is negative. Does the patient have a suspected source of infection? No. Patient's initial sepsis screen is negative. Risk Assessment: Do you want to hurt yourself or someone else? Patient reports no desire to harm self or others. Onset of symptoms was July 07, 2024. 02:03 Method Of Arrival: Ambulatory ss 02:03 Acuity: ERICA 4 ss Historical: - Allergies: 02:04 Amoxicillin; ss 02:04 Chantix; ss 02:04 Contrave; ss 02:04 Demerol; ss 02:04 mushrooms; ss 02:04 Prozac; ss 02:04 SHELLFISH; ss 02:04 Wellbutrin; ss - PMHx: 02:04 Bipolar disorder; Depression; overactive bladder; PTSD; ss - PSHx: 02:04 left knee; tubal ligation; ss - Immunization history:: Adult Immunizations unknown. - Infectious Disease History:: Denies. - Social history:: Smoking status: Patient reports the use of cigarette tobacco products, smokes one pack cigarettes per day. - Family history:: not pertinent. Screenin:10 [facility] ED Fall Risk Assessment (Adult) History of falling in the last 3 months, dd2 including since admission No falls in past 3 months (0 pts) Confusion or Disorientation No (0 pts) Intoxicated or Sedated No (0 pts) Impaired Gait No (0 pts) Mobility Assist Device Used No (0 pt) Altered Elimination No (0 pt) Score/Fall Risk Level 0 - 2 = Low Risk Oriented to surroundings, Maintained a safe environment, Hourly rounding (assess needs \T\ fall precautionary measures) done. Abuse screen: Denies threats or abuse. Nutritional screening: No deficits noted. Tuberculosis screening: No symptoms or risk factors identified. Assessment: 02:10 General: Appears in no apparent distress. Behavior is calm, cooperative, appropriate dd2 for age. Pain: Complains of pain in phuong feet Pain currently is 3 out of 10 on a pain scale. Neuro: Level of Consciousness is awake, alert, obeys commands, Oriented to person, place, time, situation, Appropriate for age Gait is steady. Cardiovascular: Patient's skin is warm and dry. Respiratory: Airway is patent Respiratory effort is even, unlabored, Respiratory pattern is regular, symmetrical, Breath sounds are clear bilaterally. GI: No deficits noted. No signs and/or symptoms were reported involving the gastrointestinal system. Abdomen is round non-distended. : No deficits noted. No signs and/or symptoms were reported regarding the genitourinary system. EENT: No deficits noted. No signs and/or symptoms were reported regarding the EENT system. Derm: Rash noted that is itchy, red, raised, on Rt/Lt Dorsal foot, Rt/Lt flank, forehead, behind Rt/Lt ear Reports burning, itching. Musculoskeletal: No deficits noted. No signs and/or symptoms reported regarding the musculoskeletal system. Range of motion: intact in all extremities. 05:06 Reassessment: Patient appears in no apparent distress at this time. Patient and/or bm8 family updated on plan of care and expected duration. Pain level reassessed. Patient is alert, oriented x 3, equal unlabored respirations, skin warm/dry/pink. Derm: Rash noted that is itchy, red, raised, on right eye, right foot and left foot Reports burning, itching, hives coming back. 06:04 Reassessment: Patient appears in no apparent distress at this time. Patient and/or bm8 family updated on plan of care and expected duration. Pain level reassessed. Patient is alert, oriented x 3, equal unlabored respirations, skin warm/dry/pink. Patient states feeling better. Patient states symptoms have improved. Vital Signs: 02:03 BP 149 / 106; Pulse 92; Resp 16; Temp 98.2(TE); Pulse Ox 98% on R/A; Weight 104.33 kg; ss Height 5 ft. 9 in. ; Pain 0/10; 02:10 BP 127 / 84; Pulse 87; Resp 16; Pulse Ox 97% ; dd2 03:57 BP 125 / 70; Pulse 81; Resp 17; Pulse Ox 97% ; dd2 05:06 BP 142 / 82; Pulse 69; Resp 17; Temp 98.2; Pulse Ox 98% on R/A; Pain 3/10; bm8 06:04 BP 148 / 65; Pulse 78; Resp 18; Temp 98; Pulse Ox 99% ; Pain 1/10; bm8 02:03 Body Mass Index 33.96 (104.33 kg, 175.26 cm) ss 02:03 Pain Scale: Adult ss 05:06 Pain Scale: Adult bm8 06:04 Pain Scale: Adult bm8 Yoselin Coma Score: 05:06 Eye Response: spontaneous(4). Motor Response: obeys commands(6). Verbal Response: bm8 oriented(5). Total: 15. 06:04 Eye Response: spontaneous(4). Motor Response: obeys commands(6). Verbal Response: bm8 oriented(5). Total: 15. 09/18 03:26 Eye Response: spontaneous(4). Motor Response: obeys commands(6). Verbal Response: sp4 oriented(5). Total: 15. ED Course: 07/07 01:30 Patient arrived in ED. jj6 01:36 Davy Mccabe MD is Attending Physician. sp4 02:04 Triage completed. ss 02:04 Arm band placed on right wrist. ss 02:08 DARRYL KWON, LOS is Primary Nurse. dd2 02:10 Patient has correct armband on for positive identification. Bed in low position. Call dd2 light in reach. Side rails up X 1. Provided Education on: call light, medications, labs. Client placed on continuous cardiac and pulse oximetry monitoring. NIBP monitoring applied. Door closed. Lights dimmed. Warm blanket given. Verbal reassurance given. 02:25 BMP Sent. dd2 02:25 No provider procedures requiring assistance completed. Initial lab(s) drawn, by me, dd2 sent to lab. Inserted saline lock: 20 gauge in right antecubital area, using aseptic technique. Blood collected. Flushed with 10 mL NS. 06:04 Provided Education on: post er care. bm8 06:04 IV discontinued, intact, bleeding controlled, No redness/swelling at site. Pressure bm8 dressing applied. Patient maintains SpO2 saturation greater than 95% on room air. Administered Medications: 02:42 Drug: NS 0.9% IV 1000 ml IV at 1 bolus Per protocol; 1000 mL bolus Route: IV; Rate: 1 dd2 bolus; Site: right antecubital; 02:57 Follow up: Response: No adverse reaction dd2 06:06 Follow up: Response: No adverse reaction; IV Status: Completed infusion; IV Intake: bm8 1000ml 02:43 Drug: diphenhydrAMINE IVP 50 mg IVP once Route: IVP; Site: right antecubital; dd2 02:58 Follow up: Response: No adverse reaction dd2 02:43 Drug: MethylPrednisoLONE IVP 125 mg IVP once Route: IVP; Site: right antecubital; dd2 02:58 Follow up: Response: No adverse reaction dd2 02:43 Drug: Famotidine IVP 20 mg IVP once; dilute with 10 mL 0.9% NaCl; give over 2 minutes dd2 Route: IVP; Site: right antecubital; 02:58 Follow up: Response: No adverse reaction dd2 05:05 Drug: diphenhydrAMINE IVP 25 mg IVP once Route: IVP; Site: right antecubital; bm8 05:23 Follow up: Response: No adverse reaction bm8 05:05 Drug: hydrOXYzine PO 25 mg PO once Route: PO; bm8 05:22 Follow up: Response: No adverse reaction bm8 Medication: 02:10 VIS not applicable for this client. dd2 Intake: 06:06 IV: 1000ml; Total: 1000ml. bm8 Outcome: 05:42 Discharge ordered by MD. foreman 06:04 Discharged to home ambulatory, bm8 06:04 Condition: stable 06:04 Discharge instructions given to patient, Instructed on discharge instructions, follow up and referral plans. no drinking with medication, no driving heavy equipment, medication usage, safety practices, Demonstrated understanding of instructions, follow-up care, medications, Prescriptions given X 3, 06:06 Patient left the ED. bm8 Signatures: Cheryl Gruber, RN RN Elizabeth Akers6 Davy Mccabe MD MD sp4 Cristobal Donohue RN RN bm8 DARRYL KWON RN RN dd2
--- NOTE | 2024-07-07 05:42 | EDPHYS ---
Physician Documentation [facility] Name: Kenzie Cartwright Age: 54 yrs Sex: Female : 1970 Arrival Date: 07/07/2024 Time: 01:28 Bed 4 Private MD: ED Physician Davy Mccabe HPI: 07/07 01:36 This 54 yrs old Other Race Female presents to ER via Unassigned with complaints of sp4 Hives. 07/08 03:26 54-year-old female presents with diffuse hives particularly bilateral feet and lower sp4 extremities. Patient had acute onset of hives 3 days ago. Historical: - Allergies: 07/07 02:04 Amoxicillin; ss 02:04 Chantix; ss 02:04 Contrave; ss 02:04 Demerol; ss 02:04 mushrooms; ss 02:04 Prozac; ss 02:04 SHELLFISH; ss 02:04 Wellbutrin; ss - PMHx: 02:04 Bipolar disorder; Depression; overactive bladder; PTSD; ss - PSHx: 02:04 left knee; tubal ligation; ss - Immunization history:: Adult Immunizations unknown. - Infectious Disease History:: Denies. - Social history:: Smoking status: Patient reports the use of cigarette tobacco products, smokes one pack cigarettes per day. - Family history:: not pertinent. ROS: 07/08 03:26 Constitutional: Negative for fever, chills, and weight loss, positive today for diffuse sp4 bilateral hives All other systems are negative, Exam: 03:26 Constitutional: This is a well developed, well nourished patient who is awake, alert, sp4 and in no acute distress. Head/Face: Normocephalic, atraumatic. Eyes: Pupils equal round and reactive to light, extra-ocular motions intact. Lids and lashes normal. Conjunctiva and sclera are not injected. Cornea within normal limits. Periorbital areas with no swelling, redness, or edema. ENT: Nares patent. No nasal discharge, no septal abnormalities noted. Tympanic membranes are normal and external auditory canals are clear. Oropharynx with no redness, swelling, or masses, exudates, or evidence of obstruction, uvula midline. Mucous membranes moist. Neck: Trachea midline, no thyromegaly or masses palpated, and no cervical lymphadenopathy. Supple, full range of motion without nuchal rigidity, or vertebral point tenderness. Chest/axilla: Normal chest wall appearance and motion. Nontender with no deformity. No lesions are appreciated. Cardiovascular: Regular rate and rhythm with a normal S1 and S2. No gallops, murmurs, or rubs. Normal PMI, no JVD. No pulse deficits. Respiratory: Lungs have equal breath sounds bilaterally, clear to auscultation and percussion. No rales, rhonchi or wheezes noted. No increased work of breathing, no retractions or nasal flaring. Abdomen/GI: Soft, with normal bowel sounds. No distension or tympany. No guarding or rebound. No evidence of tenderness throughout. Back: No spinal tenderness. No costovertebral tenderness. Skin: Warm, dry with normal turgor. Normal color with , patient has multiple areas of diffuse hives bilaterally particularly bothersome at the bilateral dorsal surface of the feet MS/ Extremity: Pulses equal, no cyanosis. Neurovascular intact. Full, normal range of motion. Diffuse bilateral hives to upper and lower extremities Neuro: Awake and alert, GCS 15, oriented to person, place, time, and situation. Cranial nerves II-XII grossly intact. Motor strength 5/5 in all extremities. Sensory grossly intact. Psych: Awake, alert, with orientation to person, place and time. Behavior, mood, and affect are within normal limits Vital Signs: 07/07 02:03 BP 149 / 106; Pulse 92; Resp 16; Temp 98.2(TE); Pulse Ox 98% on R/A; Weight 104.33 kg; ss Height 5 ft. 9 in. ; Pain 0/10; 02:10 BP 127 / 84; Pulse 87; Resp 16; Pulse Ox 97% ; dd2 03:57 BP 125 / 70; Pulse 81; Resp 17; Pulse Ox 97% ; dd2 05:06 BP 142 / 82; Pulse 69; Resp 17; Temp 98.2; Pulse Ox 98% on R/A; Pain 3/10; bm8 06:04 BP 148 / 65; Pulse 78; Resp 18; Temp 98; Pulse Ox 99% ; Pain 1/10; bm8 02:03 Body Mass Index 33.96 (104.33 kg, 175.26 cm) ss 02:03 Pain Scale: Adult ss 05:06 Pain Scale: Adult bm8 06:04 Pain Scale: Adult bm8 Yoselin Coma Score: 05:06 Eye Response: spontaneous(4). Motor Response: obeys commands(6). Verbal Response: bm8 oriented(5). Total: 15. 06:04 Eye Response: spontaneous(4). Motor Response: obeys commands(6). Verbal Response: bm8 oriented(5). Total: 15. 07/08 03:26 Eye Response: spontaneous(4). Motor Response: obeys commands(6). Verbal Response: sp4 oriented(5). Total: 15. MDM: 07/07 01:39 Patient medically screened. sp4 07/08 03:28 Differential Diagnosis altered mental status, sepsis, flu. Data reviewed: vital signs, sp4 nurses notes, lab test result(s). 03:28 Consideration of Admission/Observation Escalation of care including sp4 admission/observation considered. ED course: Stable for discharge home. . 07/07 02:18 Order name: BMP; Complete Time: 05:41 sp4 07/07 02:18 Order name: Saline Lock; Complete Time: 02:25 sp4 Administered Medications: 07/07 02:42 Drug: NS 0.9% IV 1000 ml IV at 1 bolus Per protocol; 1000 mL bolus Route: IV; Rate: 1 dd2 bolus; Site: right antecubital; 02:57 Follow up: Response: No adverse reaction dd2 06:06 Follow up: Response: No adverse reaction; IV Status: Completed infusion; IV Intake: bm8 1000ml 02:43 Drug: diphenhydrAMINE IVP 50 mg IVP once Route: IVP; Site: right antecubital; dd2 02:58 Follow up: Response: No adverse reaction dd2 02:43 Drug: MethylPrednisoLONE IVP 125 mg IVP once Route: IVP; Site: right antecubital; dd2 02:58 Follow up: Response: No adverse reaction dd2 02:43 Drug: Famotidine IVP 20 mg IVP once; dilute with 10 mL 0.9% NaCl; give over 2 minutes dd2 Route: IVP; Site: right antecubital; 02:58 Follow up: Response: No adverse reaction dd2 05:05 Drug: diphenhydrAMINE IVP 25 mg IVP once Route: IVP; Site: right antecubital; bm8 05:23 Follow up: Response: No adverse reaction bm8 05:05 Drug: hydrOXYzine PO 25 mg PO once Route: PO; bm8 05:22 Follow up: Response: No adverse reaction bm8 Disposition: 07/08 03:33 Chart complete. sp4 Disposition Summary: 07/07/24 05:42 Discharge Ordered Notes: Location: Home sp4 Problem: new sp4 Symptoms: have improved sp4 Condition: Stable sp4 Diagnosis - Allergic reaction, acute diffuse allergic hives sp4 Followup: sp4 - With: Private Physician - When: 7 - 10 days - Reason: Recheck today's complaints Discharge Instructions: - Discharge Summary Sheet sp4 - Hives, [id number] sp4 Forms: - Patient Portal Instructions sp4 Prescriptions: - EpiPen 0.3 mg/0.3 mL Injection Auto-Injector - administer 0.3 milliliter INTRAMUSCULAR route every 10 to 20 minutes as needed sp4 for anaphylaxis; for 2 doses; 2 Pack; Refills: 0, Product Selection Permitted - Benadryl 25 mg Oral capsule - take 2 capsule ORAL route every 6 hours As needed PRN itching; 30 tablet; sp4 Refills: 0, Product Selection Permitted - Prednisone 20 mg Oral Tablet - take 2 tablets ORAL route once daily for 5 days; 10 tablet; Refills: 0, Product sp4 Selection Permitted Signatures: Dispatcher [employer] Cheryl Mcdowell, RN Davy Kingston MD MD sp4 Cristobal Donohue RN RN bm8 DARRYL KWON RN RN dd2
[2024-07-07 06:36] VITALS: BP 148/65; TEMP 98; O2SAT 99
== END 2024-07-07 06:06 | disposition home or self-care (01) ==
LOC: ER 01:28
DX: L50.0 Allergic urticaria (principal); F17.210 Nicotine dependence, cigarettes, uncomplicated
CPT/HCPCS: 80048; 36415; J1200 ×2; J2919; J7030; 96361; 96374; 96375; 99284